=== PATIENT | female | born 1940 | race Caucasian/White ===

== ENCOUNTER 2017-02-17 07:16 | Day surgery (SDC) | payer MEDICARE, OTHER ==
[~2017-02-17 07:16] MED LIST: BENADRYL 25 MG CAPSULE PO ONE; Sodium Chloride 0.9% 500 ML 500 ML IV ONE; TYLENOL 325 MG PO ONE
[2017-02-17 15:25] VITALS: BP 151/69; PULSE 91; O2SAT 97
== END 2017-02-17 11:00 | disposition still patient (30) ==
LOC: SDC 07:16
PROVIDERS: ATTEND Internal Medicine Hematology & Oncology
DX: D50.9 Iron deficiency anemia, unspecified (principal); K74.60 Unspecified cirrhosis of liver; M62.81 Muscle weakness (generalized); D70.9 Neutropenia, unspecified; D69.6 Thrombocytopenia, unspecified; Z79.899 Other long term (current) drug therapy
CPT/HCPCS: 96365; 96366; 36415; 86850; 86900; 86901; 86922; P9016; 36430; A9270-GY

== ENCOUNTER 2017-02-17 11:01 | Inpatient (IN) | payer MEDICARE, OTHER ==
[2017-02-17] MEDS ORDERED: Phenergan 25 MG INJ IV ONE (11:17)
--- NOTE | 2017-02-17 11:25 | ERPHSYRPT ---
- History of Present Illness Time Seen by Provider: 02/17/17 11:05 Historian: patient Exam Limitations: no limitations Patient Subjective Stated Complaint: PT C/O SHARP ABD PAIN ALL QUADS WITH BACK PAIN ON BOTH SIDES. PT STATES "BACK PAIN FROM UNDER MY BRA STRAP DOWN TO MY BUTTOCKS." C/O NAUSEA NO VOMITING, HEADACHES COME AND GO. Triage Nursing Assessment: PT ALERT X 3. SKIN PINK WARM AND DRY. RESPIRATIONS EVEN AND UNLABORED. BOWEL SOUNDS PRESENT, ABD SOFT, NON-TENDER WITH PALIPATION. Physician History: FOR THE PAST 9 HOURS PT HAS HAD SHARP CONSTANT DIFFUSE ABDOMINAL PAIN, GENERALIZED WEAKNESS AND LOWER BACK PAIN. PT HAS ALSO HAD NAUSEA SINCE YESTERDAY. LAST BM WAS YESTERDAY & WNL. PT ALSO ADMITS TO OCCASIONAL HEADACHES. PT RECEIVED 1 UNIT OF PRBC THIS AM FOR LOW HB AND DURING THE TRANSFUSION STATED HER ABDOMINAL PAIN WORSENED. PT DENIES CHEST PAIN, VOMITING, FEVER. Allergies/Adverse Reactions: adhesive tape Allergy (Intermediate, Verified 02/17/17 11:18) latex Allergy (Mild, Verified 02/17/17 11:18) Rash Sulfa (Sulfonamide Antibiotics) Allergy (Unknown, Verified 02/17/17 11:18) Home Medications: Antiox #8/Om3/Dha/Epa/Lut/Zeax [Preservision Areds 2 Softgel] 1 cap PO BID 06/14 [History] Metformin HCl 1000 mg [Glucophage 1000 MG] 1,000 mg PO BID 06/14/12 [History] Omeprazole 20 MG [Prilosec 20 mg] 20 mg PO BID 06/14/12 [History] Hctz/Triamterene 75/50 mg [Maxzide 75/50] 1 tab PO DAILY 01/03/14 [History] Dorzolamide HCl/Timolol Maleat [Cosopt Eye Drops] 1 drop OP DAILY 02/16/17 [ History] Hx Influenza Vaccination/Date Given: Yes (2015) Hx Pneumococcal Vaccination/Date Given: Yes (2015) Immunizations Up to Date: Yes - Review of Systems Constitutional: Weakness (GENERALIZED), No Fever Respiratory: No Dyspnea Cardiac: No Chest Pain Abdominal/Gastrointestinal: Abdominal Pain, Nausea, No Vomiting, No Diarrhea Musculoskeletal: Back Pain (LOWER) Neurological: Headache (OCCASIONAL) Endocrine: No Excessive Sweating All Other Systems: Reviewed and Negative - Past Medical History Pertinent Past Medical History: Yes Neurological History: No Pertinent History ENT History: Glaucoma, Macular Degeneration Cardiac History: Hypertension Respiratory History: No Pertinent History Endocrine Medical History: Diabetes Type II Musculoskeletal History: Other GI Medical History: GERD, Other History: Other Psycho-Social History: No Pertinent History Female Reproductive Disorders: No Pertinent History Other Medical History: BILATERAL TKA; ~1990; HX KIDNEY STONES. psorisis. neutropenia. thrombocytopenia - Past Surgical History Past Surgical History: Yes Neuro Surgical History: No Pertinent History Cardiac: No Pertinent History Respiratory: No Pertinent History Gastrointestinal: Appendectomy, Cholecystectomy, Hernia Repair Genitourinary: Other Musculoskeletal: Joint Replacement Female Surgical History: Hysterectomy Other Surgical History: 2 kidney stones removed - Social History Smoking Status: Never smoker Exposure to second hand smoke: No Drug Use: none Patient Lives Alone: No - Nursing Vital Signs Nursing Vital Signs: Initial Vital Signs Temperature 97.8 F Temperature Source Oral Pulse Rate 95 Respiratory Rate 18 Blood Pressure [] 187/86 Pain Intensity 7 - Physical Exam General Appearance: alert Eye Exam: PERRL/EOMI Ears, Nose, Throat Exam: dry mucous membranes, pharyngeal erythema Neck Exam: normal inspection Respiratory Exam: lungs clear Cardiovascular Exam: normal heart sounds Gastrointestinal/Abdomen Exam: soft, normal bowel sounds Back Exam: normal range of motion Extremity Exam: normal inspection, No pedal edema Neurologic Exam: alert, cooperative Skin Exam: warm, dry - Course Nursing assessment & vital signs reviewed: Yes - CT Exams Abdomen/Pelvis CT Interpretation: Discussed w/radiologist (SEE REPORT) Ordered Tests: Active Orders 24 hr Category Date Time Status Clean Catch Urine Specimen STAT Care 02/17/17 11:17 Active IV Insertion STAT Care 02/17/17 11:17 Active ABDOMEN AND PELVIS W/0 CONTRAS [CT] Stat Exams 02/17/17 11:18 Completed AMYLASE Stat Lab 02/17/17 11:30 Completed CBC W DIFF Stat Lab 02/17/17 11:30 Completed CMP Stat Lab 02/17/17 11:30 Completed LIPASE Stat Lab 02/17/17 11:30 Completed MAG [MAGNESIUM] Stat Lab 02/17/17 11:30 Completed Manual Differential NC Stat Lab 02/17/17 11:30 Completed UA W/RFX UR CULTURE Stat Lab 02/17/17 11:30 Completed Medication Summary Generic Name Dose Route Start Last Admin Trade Name Freq PRN Reason Stop Dose Admin Sodium Chloride 1,000 mls @ 200 mls/hr 02/17/17 11:30 02/17/17 11:30 Sodium Chloride 0.9% 1000 Ml IV 03/19/17 11:29 200 mls/hr .Q5H VERNON Administration Magnesium Sulfate/Dextrose 100 mls @ 200 mls/hr 02/17/17 12:47 02/17/17 12:54 Magnesium 1 Gm / 100 Ml D5w IV 02/17/17 13:16 200 mls/hr STAT ONE Administration Potassium Chloride/Sodium Chloride 1,000 mls @ 500 mls/hr 02/17/17 13:00 Sodium Chloride 0.9% W/ 20 Meq Kcl/Liter IV 03/19/17 12:59 .Q2H VERNON Discontinued Medications Generic Name Dose Route Start Last Admin Trade Name Freq PRN Reason Stop Dose Admin Magnesium Sulfate/Dextrose Confirm 02/17/17 12:54 Magnesium 1 Gm / 100 Ml D5w Administered 02/17/17 12:55 Dose 100 mls @ ud IV .STK-MED ONE Promethazine HCl 12.5 mg 02/17/17 11:17 02/17/17 11:29 Phenergan 25 Mg Inj IV 02/17/17 11:18 12.5 mg STAT ONE Administration Lab/Rad Data: Laboratory Result Diagrams 02/17/17 11:30 02/17/17 11:30 Laboratory Results 02/17/17 02/17/17 02/17/17 Range/Units 11:30 11:30 11:30 WBC (4.0-10.5) K/mm3 RBC (4.1-5.4) M/mm3 Hgb (12.0-16.0) gm/dl Hct (35-47) % MCV (78-100) fl MCH (26-32) pg MCHC (32-36) g/dl RDW (11.5-14.0) % Plt Count (150-450) K/mm3 MPV (6-9.5) fl Sodium 144 (136-145) mEq/L Potassium 3.4 L (3.5-5.1) mEq/L Chloride 111 H (98-107) mEq/L Carbon Dioxide 24.0 (21-32) mEq/L Anion Gap 12.2 (5-15) MEQ/L BUN 11 (9-20) mg/dL Creatinine 0.85 (0.55-1.30) mg/dl Estimated GFR > 60 ML/MIN Glucose 133 H (70-110) MG/DL Calcium 9.4 (8.5-10.1) mg/dL Magnesium 1.6 L (1.8-2.4) mg/dL Total Bilirubin 1.20 H (0.2-1.0) mg/dL AST 38 H (15-37) U/L ALT 22 (12-78) U/L Alkaline Phosphatase 67 (46-116) U/L Serum Total Protein 6.3 L (6.4-8.2) gm/dL Albumin 3.1 L (3.4-5.0) g/dL Amylase 37 (25-115) U/L Lipase 293 (73-393) U/L Ur Collection Type VOID Urine Color YELLOW (YELLOW) Urine Appearance CLEAR (CLEAR) Urine pH 6.0 (5-6) Ur Specific [place] 1.010 (1.005-1.025) Urine Protein NEGATIVE (Negative) Urine Ketones NEGATIVE (NEGATIVE) Urine Blood NEGATIVE (0-5) Eric/ul Urine Nitrite NEGATIVE (NEGATIVE) Urine Bilirubin NEGATIVE (NEGATIVE) Urine Urobilinogen NORMAL (0-1) mg/dL Ur Leukocyte Esterase NEGATIVE (NEGATIVE) Urine Glucose NEGATIVE (NEGATIVE) mg/dL Specimen Received 02/17/17 1125 02/17/17 Range/Units 11:30 WBC 2.4 L (4.0-10.5) K/mm3 RBC 3.57 L (4.1-5.4) M/mm3 Hgb 8.4 L (12.0-16.0) gm/dl Hct 27.8 L (35-47) % MCV 77.9 L (78-100) fl MCH 23.5 L (26-32) pg MCHC 30.2 L (32-36) g/dl RDW 18.3 H (11.5-14.0) % Plt Count 74 L (150-450) K/mm3 MPV 10.8 H (6-9.5) fl Sodium (136-145) mEq/L Potassium (3.5-5.1) mEq/L Chloride (98-107) mEq/L Carbon Dioxide (21-32) mEq/L Anion Gap (5-15) MEQ/L BUN (9-20) mg/dL Creatinine (0.55-1.30) mg/dl Estimated GFR ML/MIN Glucose (70-110) MG/DL Calcium (8.5-10.1) mg/dL Magnesium (1.8-2.4) mg/dL Total Bilirubin (0.2-1.0) mg/dL AST (15-37) U/L ALT (12-78) U/L Alkaline Phosphatase (46-116) U/L Serum Total Protein (6.4-8.2) gm/dL Albumin (3.4-5.0) g/dL Amylase (25-115) U/L Lipase (73-393) U/L Ur Collection Type Urine Color (YELLOW) Urine Appearance (CLEAR) Urine pH (5-6) Ur Specific [place] (1.005-1.025) Urine Protein (Negative) Urine Ketones (NEGATIVE) Urine Blood (0-5) Eric/ul Urine Nitrite (NEGATIVE) Urine Bilirubin (NEGATIVE) Urine Urobilinogen (0-1) mg/dL Ur Leukocyte Esterase (NEGATIVE) Urine Glucose (NEGATIVE) mg/dL Specimen Received - Progress Discussed with : Jolly (OBS - [id number]) - Departure Time of Disposition: 13:09 Departure Disposition: Observation Clinical Impression: ABDOMINAL PAIN, ANEMIA, HYPOMAGNESEMIA, HYPOKALEMIA, DM, HTN, CIRRHOSIS, GERD Condition: Stable Critical Care Time: No Referrals: SEKOU SHANKS MD [Primary Care Provider] -
[2017-02-17] MEDS ORDERED: Sodium Chloride 0.9% 1000 ML 1,000 ML IV SCH (11:30)
[2017-02-17 11:34] LABS: ADD URINE CULTURE? NO (NO); Bilirubin NEGATIVE (NEGATIVE); Blood NEGATIVE Ery/ul (0-5); COMPLETE URINE MICROSCOPIC? NO; Collection Type VOID; Glucose NEGATIVE (NEGATIVE); Leukocyte Esterase NEGATIVE (NEGATIVE)
[2017-02-17 11:36] LABS: Mean Cell Volume 77.9 fl (78-100); Mean Corpuscular Hemoglobin 23.5 pg (26-32); Mean Platelet Volume 10.8 fl (6-9.5); Platelet Count 74 K/mm3 (150-450); Red Blood Count 3.57 M/mm3 (4.1-5.4); Red Cell Distribution Width 18.3 % (11.5-14.0); White Blood Count 2.4 K/mm3 (4.0-10.5)
[2017-02-17 11:56] LABS: ALBUMIN 3.1 g/dL (3.4-5.0); ALKALINE PHOSPHATASE 67 U/L (46-116); ANION GAP 12.2 MEQ/L (5-15); BLOOD UREA NITROGEN 11 mg/dL (9-20); CHLORIDE 111 mEq/L (98-107); Glucose 133 MG/DL (70-110); LIPASE 293 U/L (73-393); Potassium 3.4 mEq/L (3.5-5.1); SGOT/AST 38 U/L (15-37); SGPT/ALT 22 U/L (12-78); SODIUM 144 mEq/L (136-145); Total Protein 6.3 gm/dL (6.4-8.2)
--- NOTE | 2017-02-17 12:21 | XRAY ---
Indication: Abdominal and bilateral flank pain. Multiple contiguous axial images obtained through the abdomen and pelvis without contrast as ordered. Comparison: September 15, 2016. Lung bases again demonstrates fibrosis/scarring. No infiltrate or effusion. Small medial right lower lobe and distal paraesophageal calcified granulomas. Heart is not enlarged. Noncontrasted stomach and bowel loops appear nonobstructed. Again scattered sigmoid diverticulosis. Appendix not seen. Stable cirrhotic appearing liver with new mesenteric congestion and new small perihepatic and tiny pelvic ascites. No free air. Right lobe of the liver demonstrates stable peripheral round hypodense lesion. Spleen remains enlarged today measuring 13.8 cm. Stable portal/splenic vein enlargement again favoring portal hypertension. Stable hepatic/splenic calcified granulomas, splenic cyst, and left upper pole exophytic cyst. Again previous cholecystectomy and hysterectomy. Remaining pancreas, adrenal glands, kidneys, ureters, and bladder appear unremarkable for noncontrast exam. There remains mild aortoiliac calcifications without AAA. Osseous structures again demonstrates osteopenia and multilevel spinal degenerative changes. Impression: 1. Again cirrhotic liver with features for portal hypertension including splenomegaly. New mesenteric congestion with tiny perihepatic and pelvic ascites. 2. Stable round hepatic hypodense lesion, again cyst versus hemangioma. 3. Stable colonic diverticulosis, splenic cyst, left renal cyst, and evidence for old granulomatous disease. CTDI 23.68
[2017-02-17] MEDS ORDERED: Magnesium 1 Gm / 100 Ml D5W*** 100 ML IV ONE ×2 (12:47→12:54)
[2017-02-17] MEDS ORDERED: Sodium Chloride 0.9% W/ 20 mEq KCl/LITER 1,000 ML IV SCH (13:00)
[2017-02-17 13:29] LABS: BAND 3 % (0.0-2.0); Eosinophil 1 % (0.00-3.0); Total Cells Counted 100
[2017-02-17 13:38] LABS: ANISOCYTOSIS 1+; Platelet Estimate DECREASED (NORMAL); Polychromasia 1+
[2017-02-17 13:39] LABS: Hypochromia 2+; Microcytosis 1+
[2017-02-17] MEDS ORDERED: Phenergan 25 MG INJ IV PRN (13:44)
[2017-02-17] MEDS ORDERED: DILAUDID 2 MG INJECTION IV PRN (13:44)
[2017-02-17 14:48] LABS: Lactic Acid 2.6 (0.4-2.0)
[2017-02-17] MEDS ORDERED: APRESOLINE 20 MG/ML INJ IV ONE (16:10)
[2017-02-17] MEDS ORDERED: Zestril 20 MG PO ONE (16:30)
[2017-02-17] MEDS: PROTONIX 40 MG IV IV SCH (16:46)
[2017-02-17] MEDS: Sodium Chloride 0.9% W/ 20 mEq KCl/LITER 1,000 ML IV SCH (17:43)
[2017-02-17] MEDS: Zosyn 3.375GM/100 Ml D5W 3.375 GM/100 ML IVPB IV SCH (18:07)
--- NOTE | 2017-02-17 19:06 | PCM.HP ---
History of Present Illness - Chief Complaint Chief Complaint: ABD PAIN, ANEMIA History of Present Illness: is a 77 year old female with pancytopenia, pt of Dr. Way, admitted through the ER wtih abd pain today. She was at iron infustion yesterday then found to have Hgb between 7 and 8. She came this morning for blood transfusion of 2 units PRBC and was complaining to staff of abd pain. It started at 2 am at the lower abd radiating up to the epigastrum and in the back started at the lower back and radiated up to just below the shoulder blades. 06/09 pain. She took an aleve with minimal improvement. In the ER the CT abd/pelvis without contrast was neg for acute etiology. She was admitted for further observation; ER doctor offered to transfer to but pt preferred to stay here. Pt continued to c/o 02/07 abd pain and I ordered CT abd/pelvis with IV contrast; has not been done yet. Her BP was 201 systolic initially. Currently 188 systolic. She denies pain currently; just received dilaudid 0.5mg IV recently. - Review of Systems Cardiac: Edema (LLE) Abdominal/Gastrointestinal: Abdominal Pain, Nausea All Other Systems: Reviewed and Negative Medications & Allergies Home Medications: Home Medication List Antiox #8/Om3/Dha/Epa/Lut/Zeax [Preservision Areds 2 Softgel] 1 cap PO BID 06/14 [History Confirmed 02/17/17] Metformin HCl 1000 mg [Glucophage 1000 MG] 1,000 mg PO BID 06/14/12 [History Confirmed 02/17/17] Omeprazole 20 MG [Prilosec 20 mg] 20 mg PO BID 06/14/12 [History Confirmed 02/17] Dorzolamide HCl/Timolol Maleat [Cosopt Eye Drops] 1 drop OP DAILY 02/16/17 [ History Confirmed 02/17/17] Lisinopril [Zestril] 40 mg PO DAILY 02/17/17 [History Confirmed 02/17/17] Allergies/Adverse Reactions: Allergies Allergy/AdvReac Type Severity Reaction Status Date / Time adhesive tape Allergy Intermediate Verified 02/17/17 11:18 latex Allergy Mild Rash Verified 02/17/17 11:18 Sulfa (Sulfonamide Allergy Unknown Verified 02/17/17 11:18 Antibiotics) - Past Medical History Past Medical History: Yes Neurological History: No Pertinent History ENT History: Glaucoma, Macular Degeneration Cardiac History: Hypertension Respiratory History: No Pertinent History Endocrine Medical History: Diabetes Type II Musculoskelatal History: Other GI Medical History: GERD, Other History: Other Pyscho-Social History: No Pertinent History Reproductive Disorders: No Pertinent History Comment: BILATERAL TKA; ~, 1990; HX KIDNEY STONES. psorisis. neutropenia. thrombocytopenia - Female History Are you now?: No - Past Surgical History Past Surgical History: Yes Neuro Surgical History: No Pertinent History Cardiac History: No Pertinent History Respiratory Surgery: No Pertinent History GI Surgical History: Appendectomy, Cholecystectomy, Hernia Repair Genitourinary Surgical Hx: Other Musculskeletal Surgical Hx: Joint Replacement Female Surgical History: Hysterectomy Other Surgical History: 2 kidney stones removed - Social History Smoking Status: Never smoker Exposure to second hand smoke: No Alcohol: None Drug Use: none - Physical Exam Vital Signs: Vital Signs - 24 hr Temp Pulse Resp BP Pulse Ox 02/17/17 17:48 96 02/17/17 16:20 98.7 F 91 H 18 209/84 96 02/17/17 16:00 18 02/17/17 13:52 99 F 92 H 18 178/79 96 02/17/17 13:44 96 02/17/17 13:15 95 H 16 187/65 02/17/17 12:50 187/86 97 02/17/17 12:09 95 H 18 180/74 93 L 02/17/17 11:02 97.8 F 68 20 174/85 General Appearance: no apparent distress, obese Neurologic Exam: alert, oriented x 3, cooperative Eye Exam: eyes nml inspection Neck Exam: normal inspection, non-tender, No lymphadenopathy Respiratory Exam: normal breath sounds, lungs clear, No crackles/rales, No rhonchi, No wheezing Cardiovascular Exam: normal heart sounds, tachycardia (reg rhythm; HR 104), No murmur Gastrointestinal/Abdomen Exam: soft, tenderness (very mild ttp LLQ/RLQ), other ( hypoactive bowel sounds), No distention, No mass, No guarding, No rebound Extremity Exam: No pedal edema, No swelling Skin Exam: normal color, warm, dry Results - Labs Lab/Micro Results: Accuchecks Date 02/17/17 Time 16:33 Accucheck Value: 120 Lab Results-Last 24 Hours 06/20/17 06/20/17 Range/Units 14:32 17:10 Lactic Acid 2.6 H 2.8 H (0.4-2.0) Accuchecks Date 02/17/17 Time 16:33 Accucheck Value: 120 - Radiology Impressions Radiology Exams & Impressions: Radiology Procedures Category Date Time Status ABDOMEN AND PELVIS W CONTRAST [CT] Stat Exams 02/17/17 18:00 Stop Req ABDOMEN AND PELVIS W CONTRAST [CT] Stat Exams 02/17/17 18:15 Ordered ABDOMEN AND PELVIS W CONTRAST [CT] Stat Exams 02/17/17 18:15 Stop Req CHEST 2 VIEWS (PA AND LAT) Stat Exams 02/17/17 18:00 Ordered Assessment/Plan (1) Abdominal pain Current Visit: No Status: Acute Qualifiers: Abdominal location: generalized Qualified Code(s): R10.84 - Generalized abdominal pain Assessment & Plan: will check troponin. lactate has been slowly rising. My main concern is ischemic bowel disease; CT abd/pelvis with IV contrast ordered stat. On IV zosyn and flagyl. Code(s): R10.9 - UNSPECIFIED ABDOMINAL PAIN (2) Pancytopenia Current Visit: Yes Status: Acute Assessment & Plan: on reverse isolation. recheck labs in a.m. Sees Dr. Doherty; I'm unsure the etiology of this. Code(s): D61.818 - OTHER PANCYTOPENIA (3) Anemia Current Visit: Yes Status: Acute Qualifiers: Anemia type: iron deficiency Iron deficiency anemia type: unspecified iron deficiency Qualified Code(s): D50.9 - Iron deficiency anemia, unspecified Assessment & Plan: post 2 units PRBC; H&H pending. Code(s): D64.9 - ANEMIA, UNSPECIFIED (4) HTN (hypertension) Current Visit: Yes Status: Acute Qualifiers: Hypertension type: essential hypertension Qualified Code(s): I10 - Essential (primary) hypertension Assessment & Plan: gave today's dose of lisinopril here (although pt thinks she took it at home) and start po norvasc today. hydralazine prn. Code(s): I10 - ESSENTIAL (PRIMARY) HYPERTENSION
[2017-02-17] MEDS ORDERED: NORVASC 5 MG PO ONE (19:07)
[2017-02-17 19:43] LABS: ALBUMIN 3.3 g/dL (3.4-5.0); ALKALINE PHOSPHATASE 70 U/L (46-116); ANION GAP 18.2 MEQ/L (5-15); BLOOD UREA NITROGEN 9 mg/dL (9-20); CHLORIDE 110 mEq/L (98-107); Carbon Dioxide 20.4 mEq/L (21-32); Glucose 201 MG/DL (70-110); MAGNESIUM 1.6 mg/dL (1.8-2.4); Potassium 3.5 mEq/L (3.5-5.1); SGOT/AST 47 U/L (15-37); SGPT/ALT 25 U/L (12-78); SODIUM 145 mEq/L (136-145); Total Protein 6.7 gm/dL (6.4-8.2)
[2017-02-17] MEDS ORDERED: HOLD METFORMIN PRODUCTS FOR 48 HOURS MC SCH (20:00)
[2017-02-17] MEDS: FLAGYL 500 MG IVPB 500 MG/100 ML BAG IV SCH (20:30)
[2017-02-17] MEDS: NovoLOG Insulin SQ PRN (20:30)
[2017-02-17 20:33] LABS: Mean Cell Volume 78.5 fl (78-100); Platelet Count 76 K/mm3 (150-450); Red Blood Count 4.05 M/mm3 (4.1-5.4); Red Cell Distribution Width 18.5 % (11.5-14.0); White Blood Count 2.6 K/mm3 (4.0-10.5)
[2017-02-17 20:38] LABS: Mean Corpuscular Hemoglobin 23.9 pg (26-32)
[2017-02-17 23:06] LABS: BAND 4 % (0.0-2.0); Eosinophil 6 % (0.00-3.0); Total Cells Counted 100
[2017-02-17 23:08] LABS: ANISOCYTOSIS 1+; Platelet Estimate DECREASED (NORMAL); Polychromasia 1+
[2017-02-18] MEDS: FLAGYL 500 MG IVPB 500 MG/100 ML BAG IV SCH ×5 (00:39→23:21)
[2017-02-18] MEDS ORDERED: Zosyn 3.375GM/100 Ml D5W 3.375 GM/100 ML IVPB IV ONE (06:19)
[2017-02-18] MEDS: Sodium Chloride 0.9% W/ 20 mEq KCl/LITER 1,000 ML IV SCH (06:23)
[2017-02-18] MEDS: Zosyn 3.375GM/100 Ml D5W 3.375 GM/100 ML IVPB IV SCH ×4 (06:24→17:41)
[2017-02-18] MEDS: TYLENOL 325 MG PO PRN ×3 (06:34→23:21)
--- NOTE | 2017-02-18 07:42 | PCM.NOTE ---
Date and Time: 02/18/17 0740 Subjective Assessment: patient denies any pain in the abdomen or back today, tolerating clears. overall feels better Objective Exam General Appearance: no apparent distress, alert Respiratory Exam: normal breath sounds, lungs clear, No respiratory distress Cardiovascular Exam: regular rate/rhythm, normal heart sounds Gastrointestinal/Abdomen Exam: soft, No tenderness Extremity Exam: normal inspection, normal range of motion OBJECTIVE DATA Vital Signs: Vital Signs - 24 hr Temp Pulse Resp BP Pulse Ox 02/18/17 07:32 98 F 95 H 20 150/69 94 L 02/18/17 04:00 98.3 F 97 H 19 148/69 96 02/18/17 03:49 14 02/17/17 23:47 14 02/17/17 23:46 98.4 F 95 H 14 165/75 95 02/17/17 20:00 98.3 F 104 H 19 183/82 93 L 02/17/17 17:48 96 02/17/17 16:20 98.7 F 91 H 18 209/84 96 02/17/17 16:00 18 02/17/17 13:52 99 F 92 H 18 178/79 96 02/17/17 13:44 96 02/17/17 13:15 95 H 16 187/65 02/17/17 12:50 187/86 97 02/17/17 12:09 95 H 18 180/74 93 L 02/17/17 11:02 97.8 F 68 20 174/85 Pain Assessment - Last Documented Pain Intensity 4 Pain Scale Used 0-10 Pain Scale Intake and Output: Intake & Output 02/15/17 02/16/17 02/17/17 02/18/17 11:59 11:59 11:59 11:59 Intake Total 3133 Output Total 1400 Balance 1733 Weight 85.956 kg Lab Results: Accuchecks Date 02/18/17 Date 02/18/17 Date 02/17/17 Date 02/17/17 Time 04:00 Time 00:05 Time 20:00 Time 16:33 Accucheck Value: 121 Accucheck Value: 118 Accucheck Value: 204 Accucheck Value: 120 Lab Results-Last 24 Hours 02/17/17 02/17/17 02/17/17 Range/Units 14:32 17:10 18:30 WBC 2.6 L (4.0-10.5) K/mm3 RBC 4.05 L (4.1-5.4) M/mm3 Hgb 9.7 L (12.0-16.0) gm/dl Hct 31.8 L (35-47) % MCV 78.5 (78-100) fl MCH 23.9 L (26-32) pg MCHC 30.5 L (32-36) g/dl RDW 18.5 H (11.5-14.0) % Plt Count 76 L (150-450) K/mm3 Segmented Neutrophils 62 (36.0-66.0) % Band Neutrophils 4 H (0.0-2.0) % Lymphocytes (Manual) 20 L (24-44) % Monocytes (Manual) 8 (0.0-12.0) % Eosinophils (Manual) 6 H (0.00-3.0) % Differential Comment ABNORMAL Platelet Estimate DECREASED (NORMAL) Polychromasia 1+ Anisocytosis 1+ Smear Path Review Pending Sodium (136-145) mEq/L Potassium (3.5-5.1) mEq/L Chloride (98-107) mEq/L Carbon Dioxide (21-32) mEq/L Anion Gap (5-15) MEQ/L BUN (9-20) mg/dL Creatinine (0.55-1.30) mg/dl Estimated GFR ML/MIN Glucose (70-110) MG/DL Lactic Acid 2.6 H 2.8 H (0.4-2.0) Calcium (8.5-10.1) mg/dL Magnesium (1.8-2.4) mg/dL Total Bilirubin (0.2-1.0) mg/dL AST (15-37) U/L ALT (12-78) U/L Alkaline Phosphatase (46-116) U/L Serum Total Protein (6.4-8.2) gm/dL Albumin (3.4-5.0) g/dL 02/17/17 02/17/17 02/17/17 Range/Units 18:45 18:45 20:41 WBC (4.0-10.5) K/mm3 RBC (4.1-5.4) M/mm3 Hgb 9.8 L (12.0-16.0) gm/dl Hct 31.9 L (35-47) % MCV (78-100) fl MCH (26-32) pg MCHC (32-36) g/dl RDW (11.5-14.0) % Plt Count (150-450) K/mm3 Segmented Neutrophils (36.0-66.0) % Band Neutrophils (0.0-2.0) % Lymphocytes (Manual) (24-44) % Monocytes (Manual) (0.0-12.0) % Eosinophils (Manual) (0.00-3.0) % Differential Comment Platelet Estimate (NORMAL) Polychromasia Anisocytosis Smear Path Review Sodium 145 (136-145) mEq/L Potassium 3.5 (3.5-5.1) mEq/L Chloride 110 H (98-107) mEq/L Carbon Dioxide 20.4 L (21-32) mEq/L Anion Gap 18.2 H (5-15) MEQ/L BUN 9 (9-20) mg/dL Creatinine 0.90 (0.55-1.30) mg/dl Estimated GFR > 60 ML/MIN Glucose 201 H (70-110) MG/DL Lactic Acid 2.5 H (0.4-2.0) Calcium 9.2 (8.5-10.1) mg/dL Magnesium 1.6 L (1.8-2.4) mg/dL Total Bilirubin 1.90 H (0.2-1.0) mg/dL AST 47 H (15-37) U/L ALT 25 (12-78) U/L Alkaline Phosphatase 70 (46-116) U/L Serum Total Protein 6.7 (6.4-8.2) gm/dL Albumin 3.3 L (3.4-5.0) g/dL Radiology Exams: Radiology Procedures Category Date Time Status ABDOMEN AND PELVIS W CONTRAST [CT] Stat Exams 02/17/17 18:15 Taken CHEST 2 VIEWS (PA AND LAT) Stat Exams 02/17/17 18:00 Taken Multi-Disciplinary Progress Notes: Multi-Disciplinary Progress Notes 02/17/17 17:49 Respiratory Note by Tanya Huerta continuous pulse oximeter not set up will do pulse oximeter with vitals Initialized on 02/17/17 17:49 - END OF NOTE Assessment/Plan (1) Cirrhosis Current Visit: Yes Status: Acute Assessment & Plan: stable, will likely need GI appt after discharge but this is the likely cause of her pancytopenia (2) Abdominal pain Current Visit: No Status: Acute Qualifiers: Abdominal location: generalized Qualified Code(s): R10.84 - Generalized abdominal pain Assessment & Plan: resolved, nothing acute on CT scan. will feed regular diet and make sure no further problems Code(s): R10.9 - UNSPECIFIED ABDOMINAL PAIN (3) Pancytopenia Current Visit: Yes Status: Acute Code(s): D61.818 - OTHER PANCYTOPENIA
[2017-02-18] MEDS: PROTONIX 40 MG IV IV SCH (09:16)
[2017-02-18] MEDS: Zestril 20 MG PO SCH (09:17)
[2017-02-18] MEDS: PATIENT OWN MEDICATION OP SCH (09:17)
--- NOTE | 2017-02-18 09:21 | XRAY ---
Exam: Two-view chest from 02/17/2017. Comparison: Frontal chest film from 05/09/2006. Indication: Productive cough. Findings: Upright PA and lateral chest films were obtained. The transverse heart size is normal. Mild atherosclerotic vascular calcification is seen within the aortic knob. The remainder of the ida and mediastinal structures is unremarkable. The pulmonary vessels are not congested. No air space infiltrates to suggest focal pneumonia are seen. No pneumothorax or pleural fluid is evident. There is significant bone demineralization with upper mid dorsal kyphosis. Degenerative changes are seen throughout the thoracic spine. Some surgical clips are seen within the upper abdomen on the lateral radiograph, perhaps due to prior cholecystectomy. Impression: 1. No new air space infiltrates to suggest focal pneumonia are seen. 2. No other acute cardiopulmonary process is radiographically evident. The findings appears similar to 05/09/2006.
[2017-02-18] MEDS ORDERED: TRIAMTERENE PO SCH (10:00)
[2017-02-18] MEDS ORDERED: Maxzide-25MG Tablet PO SCH (10:00)
[2017-02-18] MEDS ORDERED: NON-FORMULARY ITEM (Lisinopril [Zestril] 40 MG) PO SCH (10:00)
[2017-02-18] MEDS ORDERED: HCTZ PO SCH (10:00)
--- NOTE | 2017-02-18 10:06 | XRAY ---
Exam: CT of the abdomen and pelvis with IV contrast from 02/17/2017. CTDI: 28.00 Comparison: CT of the abdomen and pelvis without IV contrast from earlier in the day on 02/17/2017. Indication: Diffuse abdominal pain 1 day associated with nausea. The patient has a history of prior cholecystectomy, appendectomy, and hysterectomy as well as a ventral hernia repair. Technique: Post-IV contrast axial images were obtained through the abdomen and pelvis during automated injection of 80 cc of Isovue-370 IV contrast material. Reconstructed coronal and sagittal images were created and reviewed. No oral contrast was given. Findings: Minimal linear atelectasis versus scarring is seen at both posterior lung bases. A calcified granuloma is seen at the posterior medial right lung base and within the distal right paraesophageal projection. Minimal atelectasis/scarring is seen at the anterior left lung base. The transverse heart size appears towards the upper limits of normal. The liver appears relatively small and reveals an abnormal surface contour suggestive of cirrhosis. No intrahepatic biliary duct distention is seen. There is a small 1 cm in diameter hypoattenuated lesion within the upper portion of the right lobe of the liver on axial images #15 and #16. It is likely this represents a small hepatic cyst or hemangioma. The former is favored. A small amount of perihepatic ascites is seen. Surgical clips consistent with prior cholecystectomy are noted. The spleen is enlarged measuring 16.6 cm in craniocaudal dimension on coronal image #73. Some scattered calcified splenic granulomas are seen. There is a thin-walled 2.4 cm in diameter apparent cyst within the upper lateral portion of the spleen representing no change. The portal vein and splenic vessels appear prominent. I see some mild collateral vessels which extend to the periumbilical region suggesting a caput medusa. A small amount of ascites fluid is seen within the left paracolic cutter. No free intraperitoneal air is seen. The pancreas and adrenal glands appear unremarkable. The kidneys appear towards the lower limits of normal in size, but reveals no suspicious solid mass, calculi, or hydronephrosis. Atherosclerotic vascular calcification is seen within the abdominal aorta and iliac arteries. No abdominal aortic aneurysm is seen. Some small nonspecific periaortic lymph nodes are seen. No pathological retroperitoneal lymphadenopathy is evident. I see no free intraperitoneal air. There is a suggestion of some mild mesenteric edema. The anterior abdominal wall appears flaccid, but intact. Within the pelvis, the uterus is surgically absent. The appendix is not identified as well, and I am given a history of prior appendectomy. There is some minimal sigmoid colon diverticulosis without evidence of diverticulitis. Mild scattered stool is seen throughout the colon. Pelvic lymph nodes are not enlarged. A small amount of pelvic ascites is seen. The urinary bladder is only mildly distended, but it otherwise appears unremarkable. The skeleton reveals no fracture or other aggressive bone lesion. Mild scattered degenerative changes are seen throughout the visualized thoracolumbar spine. Impression: 1. The liver appears small and displays an irregular contour consistent with cirrhosis. The spleen is enlarged. There also appears to be evidence of some portal venous hypertension and mesenteric edema. Some collateral vessels are seen within the anterior abdomen extending to the umbilicus suggestive of a caput medusa. A small amount of scattered ascites, as described above, is seen as well. 2. Probable 1 cm cyst within the upper portion of right lobe of liver. There is also a 3 cm splenic cyst. 3. Minimal sigmoid colon diverticulosis without evidence of diverticulitis. 4. Status post cholecystectomy, appendectomy, and hysterectomy. 5. No other acute process is seen within the abdomen or pelvis.
[2017-02-18] MEDS: NovoLOG Insulin SQ PRN ×2 (11:56→21:09)
[2017-02-18] MEDS ORDERED: FLAGYL 500 MG IVPB 500 MG/100 ML BAG IV SCH (20:00)
[2017-02-19] MEDS: Zosyn 3.375GM/100 Ml D5W 3.375 GM/100 ML IVPB IV SCH ×4 (00:36→18:01)
[2017-02-19] MEDS: Sodium Chloride 0.9% W/ 20 mEq KCl/LITER 1,000 ML IV SCH (03:27)
[2017-02-19] MEDS: FLAGYL 500 MG IVPB 500 MG/100 ML BAG IV SCH ×4 (05:14→23:30)
[2017-02-19] MEDS: TYLENOL 325 MG PO PRN ×2 (05:26→17:00)
[2017-02-19 05:35] LABS: Mean Cell Volume 79.1 fl (78-100); Platelet Count 72 K/mm3 (150-450); Red Blood Count 3.83 M/mm3 (4.1-5.4); Red Cell Distribution Width 19.4 % (11.5-14.0); White Blood Count 2.9 K/mm3 (4.0-10.5)
[2017-02-19 06:06] LABS: Mean Corpuscular Hemoglobin 23.7 pg (26-32)
[2017-02-19 06:18] LABS: ALBUMIN 2.9 g/dL (3.4-5.0); ALKALINE PHOSPHATASE 66 U/L (46-116); ANION GAP 15.2 MEQ/L (5-15); BLOOD UREA NITROGEN 8 mg/dL (9-20); CHLORIDE 113 mEq/L (98-107); Carbon Dioxide 21.4 mEq/L (21-32); Glucose 116 MG/DL (70-110); LIPASE 214 U/L (73-393); Potassium 3.9 mEq/L (3.5-5.1); SGOT/AST 40 U/L (15-37); SGPT/ALT 21 U/L (12-78); SODIUM 146 mEq/L (136-145); Total Protein 5.9 gm/dL (6.4-8.2)
[2017-02-19 07:38] LABS: BAND 1 % (0.0-2.0); Eosinophil 3 % (0.00-3.0); Total Cells Counted 100
[2017-02-19 07:39] LABS: ANISOCYTOSIS 1+; Platelet Estimate DECREASED (NORMAL); Poikilocytosis 1+; Polychromasia 1+
--- NOTE | 2017-02-19 08:15 | PCM.NOTE ---
Date and Time: 02/19/17813 Subjective Assessment: patient feels well, denies headache or abdominal pain. states she had a black stool this am Objective Exam General Appearance: no apparent distress, alert Respiratory Exam: normal breath sounds, lungs clear, No respiratory distress Cardiovascular Exam: regular rate/rhythm, normal heart sounds Gastrointestinal/Abdomen Exam: soft, No tenderness, No mass Extremity Exam: normal inspection, normal range of motion OBJECTIVE DATA Vital Signs: Vital Signs - 24 hr Temp Pulse Resp BP Pulse Ox 02/19/17 07:48 18 02/19/17 07:31 98 F 101 H 18 140/70 93 L 02/19/17 04:00 97.8 F 95 H 14 123/56 94 L 02/19/17 00:00 97.8 F 92 H 14 144/64 96 02/18/17 20:00 97.7 F 91 H 19 132/61 95 02/18/17 16:00 98.4 F 90 15 145/64 94 L 02/18/17 12:00 15 02/18/17 11:48 98.2 F 86 20 133/61 94 L Pain Assessment - Last Documented Pain Intensity 0 Pain Scale Used 0-10 Pain Scale Intake and Output: Intake & Output 02/16/17 02/17/17 02/18/17 02/19/17 11:59 11:59 11:59 11:59 Intake Total 3133 2496 Output Total 2200 500 Balance 933 1996 Weight 85.956 kg 88.904 kg Lab Results: Accuchecks Date 02/19/17 Date 02/18/17 Date 02/18/17 Time 07:30 Time 16:30 Time 11:30 Accucheck Value: 107 Accucheck Value: 271 Accucheck Value: 117 Accucheck Value: 254 Lab Results-Last 24 Hours 02/17/17 02/19/17 02/19/17 Range/Units 18:30 05:00 05:00 WBC 2.6 L 2.9 L (4.0-10.5) K/mm3 RBC 4.05 L 3.83 L (4.1-5.4) M/mm3 Hgb 9.7 L 9.1 L (12.0-16.0) gm/dl Hct 31.8 L 30.3 L (35-47) % MCV 78.5 79.1 (78-100) fl MCH 23.9 L 23.7 L (26-32) pg MCHC 30.5 L 30.0 L (32-36) g/dl RDW 18.5 H 19.4 H (11.5-14.0) % Plt Count 76 L 72 L (150-450) K/mm3 Segmented Neutrophils 62 80 H (36.0-66.0) % Band Neutrophils 4 H 1 (0.0-2.0) % Lymphocytes (Manual) 20 L 14 L (24-44) % Monocytes (Manual) 8 2 (0.0-12.0) % Eosinophils (Manual) 6 H 3 (0.00-3.0) % Differential Comment ABNORMAL ABNORMAL Platelet Estimate DECREASED DECREASED (NORMAL) Polychromasia 1+ 1+ Poikilocytosis 1+ Anisocytosis 1+ 1+ Smear Path Review Cancelled Sodium 146 H (136-145) mEq/L Potassium 3.9 (3.5-5.1) mEq/L Chloride 113 H (98-107) mEq/L Carbon Dioxide 21.4 (21-32) mEq/L Anion Gap 15.2 H (5-15) MEQ/L BUN 8 L (9-20) mg/dL Creatinine 0.86 (0.55-1.30) mg/dl Estimated GFR > 60 ML/MIN Glucose 116 H (70-110) MG/DL Calcium 9.2 (8.5-10.1) mg/dL Total Bilirubin 1.10 H (0.2-1.0) mg/dL AST 40 H (15-37) U/L ALT 21 (12-78) U/L Alkaline Phosphatase 66 (46-116) U/L Serum Total Protein 5.9 L (6.4-8.2) gm/dL Albumin 2.9 L (3.4-5.0) g/dL Amylase 29 (25-115) U/L Lipase 214 (73-393) U/L Radiology Exams: Radiology Procedures Category Date Time Status ABDOMEN AND PELVIS W CONTRAST [CT] Stat Exams 02/17/17 18:15 Completed CHEST 2 VIEWS (PA AND LAT) Stat Exams 02/17/17 18:00 Completed Assessment/Plan (1) Cirrhosis Current Visit: Yes Status: Acute Assessment & Plan: with black stool this am will check stool for occult blood, change to clears and increase protonix to q12 hrs (2) Abdominal pain Current Visit: No Status: Acute Qualifiers: Abdominal location: generalized Qualified Code(s): R10.84 - Generalized abdominal pain Code(s): R10.9 - UNSPECIFIED ABDOMINAL PAIN (3) Pancytopenia Current Visit: Yes Status: Acute Code(s): D61.818 - OTHER PANCYTOPENIA
[2017-02-19] MEDS: PATIENT OWN MEDICATION OP SCH (09:17)
[2017-02-19] MEDS: Zestril 20 MG PO SCH (09:18)
[2017-02-19] MEDS: PROTONIX 40 MG IV IV SCH ×3 (09:18→21:07)
[2017-02-20] MEDS: Zosyn 3.375GM/100 Ml D5W 3.375 GM/100 ML IVPB IV SCH ×5 (00:09→23:37)
[2017-02-20] MEDS: Sodium Chloride 0.9% W/ 20 mEq KCl/LITER 1,000 ML IV SCH (04:28)
[2017-02-20 05:48] LABS: Mean Cell Volume 80.5 fl (78-100); Platelet Count 72 K/mm3 (150-450); Red Blood Count 3.75 M/mm3 (4.1-5.4); Red Cell Distribution Width 20.9 % (11.5-14.0); White Blood Count 2.9 K/mm3 (4.0-10.5)
[2017-02-20] MEDS: FLAGYL 500 MG IVPB 500 MG/100 ML BAG IV SCH ×3 (05:54→17:03)
[2017-02-20 05:59] LABS: Mean Corpuscular Hemoglobin 24.2 pg (26-32)
[2017-02-20 06:18] LABS: ALBUMIN 2.7 g/dL (3.4-5.0); ALKALINE PHOSPHATASE 59 U/L (46-116); ANION GAP 13.4 MEQ/L (5-15); BLOOD UREA NITROGEN 7 mg/dL (9-20); CHLORIDE 113 mEq/L (98-107); Carbon Dioxide 22.5 mEq/L (21-32); Glucose 132 MG/DL (70-110); Potassium 3.7 mEq/L (3.5-5.1); SGOT/AST 42 U/L (15-37); SGPT/ALT 22 U/L (12-78); SODIUM 145 mEq/L (136-145); Total Protein 5.8 gm/dL (6.4-8.2)
--- NOTE | 2017-02-20 07:55 | CONS ---
CONSULT DATE: 02/19/2017 REASON FOR CONSULT: GI bleed. HISTORY: The patient had GI bleed back in 2013 and had EGD showing varices. The patient diagnosed as having cirrhosis. She subsequently had a CT scan today showing splenomegaly, a picture consistent with her cirrhosis. She had some bleeding a few weeks ago and then it exacerbated again just a few days ago. She has been under the care of Dr. Doherty also. She is on multiple trials of various irons starting with pills and progressing to orange juice, liquid, progressing to IV injections. Her white blood cell count is also somewhat low. She has not had a bone marrow to date. She is seen and examined at the bedside. Her belly is mildly distended. Her CT scan suggested a little bit of ascites around her liver. There are multiple old abdominal incisions. The chart is reviewed. She has recently received packed cells. IMPRESSION: Iron deficiency anemia. PLAN: Repeat EGD and colonoscopy.
--- NOTE | 2017-02-20 08:30 | PCM.NOTE ---
Date and Time: 02/20/17826 Subjective Assessment: patient denies black stool today, no abdominal pain. she is having frequent stools Objective Exam General Appearance: no apparent distress, alert Respiratory Exam: normal breath sounds, lungs clear, No respiratory distress Cardiovascular Exam: regular rate/rhythm, normal heart sounds Gastrointestinal/Abdomen Exam: soft, No tenderness, No mass Extremity Exam: normal inspection, normal range of motion OBJECTIVE DATA Vital Signs: Vital Signs - 24 hr Temp Pulse Resp BP Pulse Ox 02/20/17 04:00 97.9 F 95 H 19 155/70 94 L 02/20/17 00:00 98.1 F 94 H 18 174/81 98 02/19/17 20:00 97.8 F 95 H 19 135/63 93 L 02/19/17 16:00 97.8 F 89 18 151/70 92 L 02/19/17 12:00 20 02/19/17 11:29 98.4 F 82 20 147/66 95 Pain Assessment - Last Documented Pain Intensity 0 Pain Scale Used 0-10 Pain Scale Intake and Output: Intake & Output 02/17/17 02/18/17 02/19/17 02/20/17 11:59 11:59 11:59 11:59 Intake Total 1443 2496 2544 Output Total 1500 500 300 Balance -1995 Weight 85.956 kg 88.904 kg 88.904 kg Lab Results: Accuchecks Date 02/20/17 Date 02/19/17 Date 02/19/17 Date 02/19/17 Time 07:34 Time 16:30 Time 11:30 Accucheck Value: 128 Accucheck Value: 161 Accucheck Value: 133 Accucheck Value: 153 Lab Results-Last 24 Hours 02/19/17 02/19/17 02/19/17 Range/Units 08:15 12:00 13:40 WBC (4.0-10.5) K/mm3 RBC (4.1-5.4) M/mm3 Hgb (12.0-16.0) gm/dl Hct (35-47) % MCV (78-100) fl MCH (26-32) pg MCHC (32-36) g/dl RDW (11.5-14.0) % Plt Count (150-450) K/mm3 Sodium (136-145) mEq/L Potassium (3.5-5.1) mEq/L Chloride (98-107) mEq/L Carbon Dioxide (21-32) mEq/L Anion Gap (5-15) MEQ/L BUN (9-20) mg/dL Creatinine (0.55-1.30) mg/dl Estimated GFR ML/MIN Glucose (70-110) MG/DL Calcium (8.5-10.1) mg/dL Total Bilirubin (0.2-1.0) mg/dL AST (15-37) U/L ALT (12-78) U/L Alkaline Phosphatase (46-116) U/L Serum Total Protein (6.4-8.2) gm/dL Albumin (3.4-5.0) g/dL Stool Occult Bld Scrn POSITIVE POSITIVE POSITIVE Slides for Path Review 02/20/17 02/20/17 Range/Units 05:15 05:15 WBC 2.9 L (4.0-10.5) K/mm3 RBC 3.75 L (4.1-5.4) M/mm3 Hgb 9.1 L (12.0-16.0) gm/dl Hct 30.2 L (35-47) % MCV 80.5 (78-100) fl MCH 24.2 L (26-32) pg MCHC 30.1 L (32-36) g/dl RDW 20.9 H (11.5-14.0) % Plt Count 72 L (150-450) K/mm3 Sodium 145 (136-145) mEq/L Potassium 3.7 (3.5-5.1) mEq/L Chloride 113 H (98-107) mEq/L Carbon Dioxide 22.5 (21-32) mEq/L Anion Gap 13.4 (5-15) MEQ/L BUN 7 L (9-20) mg/dL Creatinine 0.86 (0.55-1.30) mg/dl Estimated GFR > 60 ML/MIN Glucose 132 H (70-110) MG/DL Calcium 8.8 (8.5-10.1) mg/dL Total Bilirubin 1.10 H (0.2-1.0) mg/dL AST 42 H (15-37) U/L ALT 22 (12-78) U/L Alkaline Phosphatase 59 (46-116) U/L Serum Total Protein 5.8 L (6.4-8.2) gm/dL Albumin 2.7 L (3.4-5.0) g/dL Stool Occult Bld Scrn Slides for Path Review Assessment/Plan (1) Upper GI bleed Current Visit: Yes Status: Acute Assessment & Plan: will have egd/colonoscopy with Dr Arroyo tomorrow, prep today. continue IV protonix Code(s): K92.2 - GASTROINTESTINAL HEMORRHAGE, UNSPECIFIED (2) Cirrhosis Current Visit: Yes Status: Acute (3) Abdominal pain Current Visit: No Status: Acute Qualifiers: Abdominal location: generalized Qualified Code(s): R10.84 - Generalized abdominal pain Code(s): R10.9 - UNSPECIFIED ABDOMINAL PAIN (4) Pancytopenia Current Visit: Yes Status: Acute Code(s): D61.818 - OTHER PANCYTOPENIA
[2017-02-20] MEDS: PROTONIX 40 MG IV IV SCH ×2 (09:05→22:10)
[2017-02-20] MEDS: Zestril 20 MG PO SCH (09:05)
[2017-02-20] MEDS: PATIENT OWN MEDICATION OP SCH (09:09)
[2017-02-20] MEDS: ANUSOL-HC 2.5% CREAM 30 GM TP PRN (10:43)
[2017-02-20] MEDS ORDERED: Golytely Solution 4000 ML PO SCH (14:00)
[2017-02-21] MEDS: FLAGYL 500 MG IVPB 500 MG/100 ML BAG IV SCH ×5 (01:12→23:20)
[2017-02-21] MEDS: Sodium Chloride 0.9% W/ 20 mEq KCl/LITER 1,000 ML IV SCH ×3 (03:26→14:03)
[2017-02-21] MEDS: Zosyn 3.375GM/100 Ml D5W 3.375 GM/100 ML IVPB IV SCH ×3 (05:21→17:20)
[2017-02-21 05:24] LABS: Mean Cell Volume 81.1 fl (78-100); Platelet Count 72 K/mm3 (150-450); Red Cell Distribution Width 21.8 % (11.5-14.0); White Blood Count 2.9 K/mm3 (4.0-10.5)
[2017-02-21 05:38] LABS: Mean Corpuscular Hemoglobin 24.4 pg (26-32)
[2017-02-21 05:53] LABS: ALBUMIN 2.8 g/dL (3.4-5.0); ALKALINE PHOSPHATASE 59 U/L (46-116); ANION GAP 14.1 MEQ/L (5-15); BLOOD UREA NITROGEN 5 mg/dL (9-20); CHLORIDE 112 mEq/L (98-107); Glucose 129 MG/DL (70-110); Potassium 3.9 mEq/L (3.5-5.1); SGOT/AST 44 U/L (15-37); SGPT/ALT 20 U/L (12-78); SODIUM 144 mEq/L (136-145)
[2017-02-21 06:02] LABS: INR 1.21 (0.8-3.0); PROTIME 13.7 SECONDS (9.95-12.35)
[2017-02-21 07:31] LABS: ANISOCYTOSIS 1+; Hypochromia 1+; Platelet Estimate NORMAL (NORMAL); Poikilocytosis 1+; Total Cells Counted 100
[2017-02-21] MEDS ORDERED: Ketamine HCl 50 MG/ML IV ONE (08:00)
[2017-02-21] MEDS ORDERED: DIPRIVAN 200 MG/20 ML IV ONE (08:00)
[2017-02-21] MEDS ORDERED: Lactated Ringers 1,000 ML IV SCH (08:30)
[2017-02-21] MEDS: ANUSOL-HC 2.5% CREAM 30 GM TP PRN (08:35)
[2017-02-21] MEDS ORDERED: Pepcid 20 MG VIAL IV SCH (08:45)
--- NOTE | 2017-02-21 10:25 | PCM.DS ---
Discharge Summary Date of Admission: 02/17/17 19:01 Admitting Physician: SEKOU SHANKS Consults: Consults on Case 02/19/17 13:11 Consult Surgery ROUTINE Primary Care Provider: SEKOU SHANKS Allergies Allergies adhesive tape Allergy (Intermediate, Verified 02/17/17 11:18) latex Allergy (Mild, Verified 02/17/17 11:18) Rash Sulfa (Sulfonamide Antibiotics) Allergy (Unknown, Verified 02/17/17 11:18) Hospital Summary - Hospital Course Hospital Course: patient with no new complaints, hemoglobin has been stable. she is prepped for EGD and colonoscopy. since hemodynamically stable I advised she could likely discharge later after scopes were done. - Vitals & Intake/Output Vital Signs: Vital Signs Temperature 98 F 02/21/17 07:31 Pulse Rate 92 H 02/21/17 07:31 Respiratory Rate 20 02/21/17 08:00 Blood Pressure 160/92 02/21/17 07:31 O2 Sat by Pulse Oximetry 96 02/21/17 07:31 Intake & Output: Intake & Output 02/18/17 02/19/17 02/20/17 02/21/17 11:59 11:59 11:59 11:59 Intake Total 1443 2496 2544 2972 Output Total 1500 804 429 9107 Balance -57 1995 2243 422 Weight 85.956 kg 88.904 kg 88.904 kg 89.267 kg - Lab Result Diagrams: 02/21/17 04:50 02/21/17 04:50 Lab Results-Last 24 Hrs: Accuchecks Date 02/21/17 Date 02/20/17 Date 02/20/17 Date 02/20/17 Time 07:30 Time 21:30 Time 16:31 Time 11:16 Accucheck Value: 127 Accucheck Value: 121 Accucheck Value: 137 Accucheck Value: 131 Lab Results-Last 24 Hours 02/21/17 02/21/17 02/21/17 Range/Units 04:50 04:50 04:50 WBC 2.9 L (4.0-10.5) K/mm3 RBC 3.80 L (4.1-5.4) M/mm3 Hgb 9.3 L (12.0-16.0) gm/dl Hct 30.8 L (35-47) % MCV 81.1 (78-100) fl MCH 24.4 L (26-32) pg MCHC 30.2 L (32-36) g/dl RDW 21.8 H (11.5-14.0) % Plt Count 72 L (150-450) K/mm3 Segmented Neutrophils 81 H (36.0-66.0) % Lymphocytes (Manual) 17 L (24-44) % Monocytes (Manual) 2 (0.0-12.0) % Differential Comment ABNORMAL Platelet Estimate NORMAL (NORMAL) Hypochromasia 1+ Poikilocytosis 1+ Anisocytosis 1+ INR 1.21 (0.8-3.0) Sodium 144 (136-145) mEq/L Potassium 3.9 (3.5-5.1) mEq/L Chloride 112 H (98-107) mEq/L Carbon Dioxide 22.0 (21-32) mEq/L Anion Gap 14.1 (5-15) MEQ/L BUN 5 L (9-20) mg/dL Creatinine 0.83 (0.55-1.30) mg/dl Estimated GFR > 60 ML/MIN Glucose 129 H (70-110) MG/DL Calcium 8.8 (8.5-10.1) mg/dL Total Bilirubin 1.20 H (0.2-1.0) mg/dL AST 44 H (15-37) U/L ALT 20 (12-78) U/L Alkaline Phosphatase 59 (46-116) U/L Serum Total Protein 6.0 L (6.4-8.2) gm/dL Albumin 2.8 L (3.4-5.0) g/dL Micro Results-Entire Visit: Accuchecks Date 02/21/17 Date 02/20/17 Date 02/20/17 Date 02/20/17 Time 07:30 Time 21:30 Time 16:31 Time 11:16 Accucheck Value: 127 Accucheck Value: 121 Accucheck Value: 137 Accucheck Value: 131 Discharge Exam General Appearance: no apparent distress, alert Neurologic Exam: alert, oriented x 3 Skin Exam: normal color, warm, dry Respiratory Exam: normal breath sounds, lungs clear, No respiratory distress Cardiovascular Exam: regular rate/rhythm, normal heart sounds Gastrointestinal/Abdomen Exam: soft, No tenderness, No mass Extremity Exam: normal inspection, normal range of motion Final Diagnosis/Problem List - Final Discharge Diagnosis/Problem (1) Upper GI bleed Current Visit: Yes Status: Acute Assessment & Plan: patient to have EGD/colonoscopy with Dr Arroyo today. 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 (2) Cirrhosis Current Visit: Yes Status: Acute Assessment & Plan: plan to add inderal 10mg tid due to varices to reduce portal hypertension and change for variceal bleed etc (3) Abdominal pain Current Visit: No Status: Acute (4) Pancytopenia Current Visit: Yes Status: Acute Assessment & Plan: due to cirrhosis, stable - Discharge Disposition: Home, Self-Care Condition: Stable Prescriptions: New Hydrocortisone 2.5% 30 gm [Anusol-Hc 2.5% Cream 30 gm] 1 gm TP QID PRN PRN #30 g PRN Reason: Itching Propranolol HCl 10 mg PO TID #90 tablet Continue Antiox #8/Om3/Dha/Epa/Lut/Zeax [Preservision Areds 2 Softgel] 1 cap PO BID Omeprazole 20 MG [Prilosec 20 mg] 20 mg PO BID Metformin HCl 1000 mg [Glucophage 1000 MG] 1,000 mg PO BID Dorzolamide HCl/Timolol Maleat [Cosopt Eye Drops] 1 drop OP DAILY Lisinopril [Zestril] 40 mg PO DAILY #0 tablet Follow up with: SEKOU SHANKS MD [Primary Care Provider] - Forms: Patient Portal Information
[2017-02-21] MEDS ORDERED: Lactated Ringers 1,000 ML IV ONE (11:53)
[2017-02-21] MEDS: PROTONIX 40 MG IV IV SCH ×2 (13:03→22:24)
[2017-02-21] MEDS: PATIENT OWN MEDICATION OP SCH (13:03)
[2017-02-21] MEDS: NORCO 5/325 MG PO PRN ×2 (14:00→22:03)
[2017-02-21] MEDS: Zestril 20 MG PO SCH (14:01)
[2017-02-21] MEDS: NovoLOG Insulin SQ PRN ×2 (16:46→22:28)
[2017-02-22] MEDS: Zosyn 3.375GM/100 Ml D5W 3.375 GM/100 ML IVPB IV SCH ×2 (00:39→05:24)
[2017-02-22 05:59] LABS: Mean Cell Volume 82.8 fl (78-100); Mean Corpuscular Hemoglobin 24.9 pg (26-32); Mean Platelet Volume 10.6 fl (6-9.5); Platelet Count 71 K/mm3 (150-450); Red Blood Count 3.77 M/mm3 (4.1-5.4); Red Cell Distribution Width 22.7 % (11.5-14.0); White Blood Count 3.3 K/mm3 (4.0-10.5)
[2017-02-22 06:19] LABS: ALBUMIN 2.6 g/dL (3.4-5.0); ALKALINE PHOSPHATASE 56 U/L (46-116); ANION GAP 13.2 MEQ/L (5-15); BLOOD UREA NITROGEN 5 mg/dL (9-20); CHLORIDE 113 mEq/L (98-107); Carbon Dioxide 24.3 mEq/L (21-32); Glucose 113 MG/DL (70-110); Potassium 4.2 mEq/L (3.5-5.1); SGOT/AST 40 U/L (15-37); SGPT/ALT 20 U/L (12-78); SODIUM 146 mEq/L (136-145); Total Protein 5.7 gm/dL (6.4-8.2)
[2017-02-22] MEDS: FLAGYL 500 MG IVPB 500 MG/100 ML BAG IV SCH (06:21)
[2017-02-22] MEDS ORDERED: Glucophage 500 MG PO SCH (08:00)
--- NOTE | 2017-02-22 08:55 | PCM.DS ---
Discharge Summary Date of Admission: 02/17/17 19:01 Admitting Physician: SEKOU SHANKS Consults: Consults on Case 02/19/17 13:11 Consult Surgery ROUTINE Primary Care Provider: SEKOU SHANKS Allergies Allergies adhesive tape Allergy (Intermediate, Verified 02/17/17 11:18) latex Allergy (Mild, Verified 02/17/17 11:18) Rash Sulfa (Sulfonamide Antibiotics) Allergy (Unknown, Verified 02/17/17 11:18) Hospital Summary - Hospital Course Hospital Course: patient doing well, tolerating po intake. no problems or concerns. h/h stable. had GI bleed, hx cirrhosis, egd with clip and cauterization of bleeding gastric polyp - Vitals & Intake/Output Vital Signs: Vital Signs Temperature 98.9 F 02/22/17 07:46 Pulse Rate 99 H 02/22/17 07:46 Respiratory Rate 18 02/22/17 07:46 Blood Pressure 140/64 02/22/17 07:46 O2 Sat by Pulse Oximetry 92 L 02/22/17 07:46 Oxygen-Last Documented O2 Percentage 2 Liters = 28% Intake & Output: Intake & Output 02/19/17 02/20/17 02/21/17 02/22/17 11:59 11:59 11:59 11:59 Intake Total 2496 2544 2972 2968 Output Total 310 874 1134 2100 Balance 1995 6424 422 868 Weight 88.904 kg 88.904 kg 89.267 kg 89.721 kg - Lab Result Diagrams: 02/22/17 05:08 02/22/17 05:08 Lab Results-Last 24 Hrs: Accuchecks Date 02/22/17 Date 02/21/17 Date 02/21/17 Date 02/21/17 Date 02/21/17 Time 07:35 Time 22:00 Time 16:30 Time 09:30 Time 09:30 Accucheck Value: 119 Accucheck Value: 234 Accucheck Value: 223 Accucheck Value: 115 Accucheck Value: 115 Lab Results-Last 24 Hours 02/22/17 02/22/17 Range/Units 05:08 05:08 WBC 3.3 L (4.0-10.5) K/mm3 RBC 3.77 L (4.1-5.4) M/mm3 Hgb 9.4 L (12.0-16.0) gm/dl Hct 31.2 L (35-47) % MCV 82.8 (78-100) fl MCH 24.9 L (26-32) pg MCHC 30.1 L (32-36) g/dl RDW 22.7 H (11.5-14.0) % Plt Count 71 L (150-450) K/mm3 MPV 10.6 H (6-9.5) fl Sodium 146 H (136-145) mEq/L Potassium 4.2 (3.5-5.1) mEq/L Chloride 113 H (98-107) mEq/L Carbon Dioxide 24.3 (21-32) mEq/L Anion Gap 13.2 (5-15) MEQ/L BUN 5 L (9-20) mg/dL Creatinine 0.83 (0.55-1.30) mg/dl Estimated GFR > 60 ML/MIN Glucose 113 H (70-110) MG/DL Calcium 8.7 (8.5-10.1) mg/dL Total Bilirubin 0.90 (0.2-1.0) mg/dL AST 40 H (15-37) U/L ALT 20 (12-78) U/L Alkaline Phosphatase 56 (46-116) U/L Serum Total Protein 5.7 L (6.4-8.2) gm/dL Albumin 2.6 L (3.4-5.0) g/dL Slides for Path Review YES Micro Results-Entire Visit: Accuchecks Date 02/22/17 Date 02/21/17 Date 02/21/17 Date 02/21/17 Date 02/21/17 Time 07:35 Time 22:00 Time 16:30 Time 09:30 Time 09:30 Accucheck Value: 119 Accucheck Value: 234 Accucheck Value: 223 Accucheck Value: 115 Accucheck Value: 115 Discharge Exam General Appearance: no apparent distress, alert Respiratory Exam: normal breath sounds, lungs clear, No respiratory distress Cardiovascular Exam: regular rate/rhythm Gastrointestinal/Abdomen Exam: soft, No tenderness, No mass Extremity Exam: normal inspection, normal range of motion Final Diagnosis/Problem List - Final Discharge Diagnosis/Problem (1) Upper GI bleed Current Visit: Yes Status: Acute (2) Cirrhosis Current Visit: Yes Status: Acute (3) Abdominal pain Current Visit: No Status: Acute (4) Pancytopenia Current Visit: Yes Status: Acute - Discharge Disposition: Home, Self-Care Condition: Stable Prescriptions: New Hydrocortisone 2.5% 30 gm [Anusol-Hc 2.5% Cream 30 gm] 1 gm TP QID PRN PRN #30 g PRN Reason: Itching Propranolol HCl 10 mg PO TID #90 tablet Continue Antiox #8/Om3/Dha/Epa/Lut/Zeax [Preservision Areds 2 Softgel] 1 cap PO BID Omeprazole 20 MG [Prilosec 20 mg] 20 mg PO BID Metformin HCl 1000 mg [Glucophage 1000 MG] 1,000 mg PO BID Dorzolamide HCl/Timolol Maleat [Cosopt Eye Drops] 1 drop OP DAILY Lisinopril [Zestril] 40 mg PO DAILY #0 tablet Follow up with: SEKOU SHANKS MD [Primary Care Provider] - Forms: Patient Portal Information
[2017-02-22] MEDS: Zestril 20 MG PO SCH (09:13)
[2017-02-22] MEDS: PATIENT OWN MEDICATION OP SCH (09:14)
[2017-02-22] MEDS: PROTONIX 40 MG IV IV SCH (09:14)
[2017-02-22 13:23] VITALS: BP 161/66; PULSE 93; O2SAT 93
--- NOTE | 2017-02-23 09:24 | OP ---
SURGERY DATE/TIME: 02/21/2017 1115 PREOPERATIVE DIAGNOSIS: GI bleed. PROCEDURES: 1) EGD. 2) Colonoscopy. SURGEON: Antonio Arroyo M.D. ANESTHESIA: MAC. COMPLICATIONS: None. CONDITION: Stable. 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 As I picked up the biopsy it bled aggressively. It was cauterized a few times and it was decided to place a clip on this. A clip was placed and the bleeding stopped. The rest of the exam was fairly unremarkable. There were not varices today at the gastroesophageal junction. There was slight grade I/III at the gastroesophageal junction. There was a small hiatal hernia. The duodenal bulb and second portion of the duodenum were satisfactory. The scope withdrawn. Anal digital examination satisfactory. The scope advanced to the cecum. The base of the cecum satisfactory. Ascending, hepatic, transverse, splenic, descending, sigmoid, rectum there was moderate antral hemorrhoids. There was no bleeding on today's lower examination at all. The patient tolerated the procedure satisfactorily.
== END 2017-02-22 13:15 | disposition home or self-care (01) | DRG 378 ==
LOC: ED 11:01 → MED SURG 13:42 → OBSVTOIN 19:01
PROVIDERS: ADMIT Family Medicine; ATTEND Family Medicine
PROC: 0DB78ZX Excision of Stomach, Pylorus, Via Natural or Artificial Opening Endoscopic, Diagnostic (ICD-10-PCS; principal; 2017-02-21)
PROC: 0DJD8ZZ Inspection of Lower Intestinal Tract, Via Natural or Artificial Opening Endoscopic (ICD-10-PCS; 2017-02-21)
DX: K92.2 Gastrointestinal hemorrhage, unspecified (principal); D61.818 Other pancytopenia; K74.60 Unspecified cirrhosis of liver; D50.9 Iron deficiency anemia, unspecified; K31.7 Polyp of stomach and duodenum; R16.1 Splenomegaly, not elsewhere classified; I10 Essential (primary) hypertension; E11.9 Type 2 diabetes mellitus without complications; K21.9 Gastro-esophageal reflux disease without esophagitis; K64.8 Other hemorrhoids; K44.9 Diaphragmatic hernia without obstruction or gangrene; Z79.4 Long term (current) use of insulin; Z79.899 Other long term (current) drug therapy
CPT/HCPCS: 00740; 00810; 36415; 71020; 74176; 74177; 80053; 81002; 82150; 82270; 82962; 83605; 83690; 83735; 85014; 85018; 85025; 85027; 85610; 86850; 86900; 86901; 86922; 96360; 96365; 99100; 99285; J0360; J1170; J2543; J2550; J2704; J3475; A9270-GY

== ENCOUNTER 2017-10-13 12:57 | Observation (INO) | payer MEDICARE, OTHER ==
[2017-10-13] MEDS ORDERED: Adacel Vial IM ONE ×2 (13:07→13:52)
--- NOTE | 2017-10-13 13:14 | ERPHSYRPT ---
- History of Present Illness Time Seen by Provider: 10/13/17 13:01 Source: patient, EMS Patient Subjective Stated Complaint: PT BROUGHT TO ED PER EMS-PT HAS HAD MULTPLE FALLS OVER LAST FEW DAYS-REPORTS HITTING HEAD-DENIES LOC Triage Nursing Assessment: PT PINK WARM ET [id number] QUESTIONS CORRECTLY-BRUISING NOTED TO BACK-LEFT [id number] MOVING ALL EXTREMITIES WITH EASE-RESP EASY ET NONLABORED Physician History: CC: falls Hx: Patient of Dr Shanks with frequent falls this week. Has fallen several times. Hit her head. No LOC or confusion. She had some neck pain. Was pinned between dresser and wall. Midback pain. Abd pain. Left hand bruised and swollen. Right rib pain severe when coughing. No fever or chills. No vomiting. No other injuries noted. Allergies/Adverse Reactions: adhesive tape Allergy (Intermediate, Verified 10/13/17 13:05) latex Allergy (Mild, Verified 10/13/17 13:05) Rash Sulfa (Sulfonamide Antibiotics) Allergy (Unknown, Verified 10/13/17 13:05) Home Medications: Antiox #8/Om3/Dha/Epa/Lut/Zeax [Preservision Areds 2 Softgel] 1 cap PO BID 06/14 [History] Metformin HCl 1000 mg [Glucophage 1000 MG] 1,000 mg PO BID 06/14/12 [History] Omeprazole 20 MG [Prilosec 20 mg] 20 mg PO BID 06/14/12 [History] Dorzolamide HCl/Timolol Maleat [Cosopt Eye Drops] 1 drop OP DAILY 02/16/17 [ History] Hx Tetanus, Diphtheria Vaccination/Date Given: No Hx Influenza Vaccination/Date Given: Yes Hx Pneumococcal Vaccination/Date Given: Yes Immunizations Up to Date: Yes - Review of Systems Constitutional: No Fever, No Chills Eyes: No Vision Changes Ears, Nose, & Throat: No Symptoms Respiratory: No Dyspnea Cardiac: Chest Pain (right ribs) Abdominal/Gastrointestinal: Abdominal Pain, No Nausea, No Vomiting Musculoskeletal: Back Pain, Fall Skin: No Rash Neurological: No Focal Weakness, No Headache, No Parasthesia All Other Systems: Reviewed and Negative - Past Medical History Pertinent Past Medical History: Yes Neurological History: No Pertinent History ENT History: Glaucoma, Macular Degeneration Cardiac History: Hypertension Respiratory History: No Pertinent History Endocrine Medical History: Diabetes Type II Musculoskeletal History: Other GI Medical History: GERD, Other History: Other Psycho-Social History: No Pertinent History Female Reproductive Disorders: No Pertinent History Other Medical History: BILATERAL TKA; ~, 1990; HX KIDNEY STONES. psorisis. neutropenia. thrombocytopenia - Past Surgical History Past Surgical History: Yes Neuro Surgical History: No Pertinent History Cardiac: No Pertinent History Respiratory: No Pertinent History Gastrointestinal: Appendectomy, Cholecystectomy, Hernia Repair Genitourinary: Other Musculoskeletal: Joint Replacement Female Surgical History: Hysterectomy Other Surgical History: 2 kidney stones removed - Social History Smoking Status: Never smoker Exposure to second hand smoke: No Drug Use: none Patient Lives Alone: No - Nursing Vital Signs Nursing Vital Signs: Initial Vital Signs Temperature 97.5 F 10/13/17 13:00 Pulse Rate 88 10/13/17 13:00 Respiratory Rate 20 10/13/17 13:00 Blood Pressure 130/58 10/13/17 13:00 O2 Sat by Pulse Oximetry 97 10/13/17 13:00 Pain Scale Pain Intensity 8 - Nick Coma Score Best Eye Response ([place]): (4) open spontaneously Best Verbal Response (Nick): (5) oriented Best Motor Response ([place]): (6) obeys commands Nick Total: 15 - Physical Exam General Appearance: alert, other (pleasant lady) Eye Exam: PERRL/EOMI ENT Exam: airway nml Neck Exam: mid-line tenderness (mild) Respiratory/Chest Exam: chest tenderness (right ribs, ), normal breath sounds Cardiovascular Exam: regular rate/rhythm Gastrointestinal Exam: soft, tenderness, ecchymosis (upper and left) Back Exam: point tenderness (large eccymosis mid back over thoracoc spine area) Extremity Exam: tenderness (left hand with marked swelling) Neurologic Exam: alert, oriented x 3, cooperative, master barber II-XII nml as tested, sensation nml, No motor deficits Skin Exam: warm, dry, ecchymosis SpO2 Interpretation: normal SpO2: 97 Oxygen Delivery: Room Air - Course Nursing assessment & vital signs reviewed: Yes EKG Interpreted by Me: RATE (84), Sinus Rhythm, Right Bundle Branch Block Ordered Tests: Active Orders 24 hr Category Date Time Status Water Treatment Specialist STAT Care 10/13/17 13:03 Active EKG-ER Only STAT Care 10/13/17 13:02 Active IV Insertion STAT Care 10/13/17 13:02 Active NPO (ED) STAT Care 10/13/17 13:02 Active ABDOMEN AND PELVIS W/0 CONTRAS [CT] Stat Exams 10/13/17 13:04 Completed CERVICAL SPINE WO CONTRAST [CT] Stat Exams 10/13/17 13:04 Completed CHEST WITHOUT CONTRAST [CT] Stat Exams 10/13/17 13:04 Completed HAND (MINIMUM 3 VIEWS) Stat Exams 10/13/17 13:02 Completed HEAD WITHOUT CONTRAST [CT] Stat Exams 10/13/17 13:04 Completed CBC W DIFF Stat Lab 10/13/17 13:10 Completed CMP Stat Lab 10/13/17 13:10 Completed CULTURE,URINE Stat Lab 10/13/17 13:31 Received Lactic Acid Stat Lab 10/13/17 13:25 Completed Lactic Acid Stat Lab 10/13/17 15:36 Ordered PROTIME WITH INR Stat Lab 10/13/17 13:10 Completed PTT Stat Lab 10/13/17 13:10 Completed UA W/ MICROSCOPIC Stat Lab 10/13/17 13:31 Completed Medication Summary Generic Name Dose Route Start Last Admin Trade Name Freq PRN Reason Stop Dose Admin Ampicillin Sodium/Sulbactam Sodium 1.5 gm in 100 mls @ 200 mls/hr 10/13/17 16: 08 Unasyn 1.5gm / Nacl 100ml IV 10/13/17 16:37 STAT STA Discontinued Medications Generic Name Dose Route Start Last Admin Trade Name Freq PRN Reason Stop Dose Admin Diphtheria/Tetanus/Acell Pertussis 0.5 ml 10/13/17 13:07 10/13/17 13:54 Adacel Vial IM 10/13/17 13:08 0.5 ml .ONCE ONE Administration Diphtheria/Tetanus/Acell Pertussis Confirm 10/13/17 13:52 Adacel Vial Administered 10/13/17 13:53 Dose 0.5 ml IM .STK-MED ONE Lab/Rad Data: Laboratory Result Diagrams 10/13/17 13:10 10/13/17 13:10 Laboratory Results 10/13/17 10/13/17 10/13/17 Range/Units 13:31 13:25 13:10 WBC (4.0-10.5) K/mm3 RBC (4.1-5.4) M/mm3 Hgb (12.0-16.0) gm/dl Hct (35-47) % MCV (78-100) fl MCH (26-32) pg MCHC (32-36) g/dl RDW (11.5-14.0) % Plt Count (150-450) K/mm3 MPV (6-9.5) fl Gran % (36.0-66.0) % Lymphocytes % (24.0-44.0) % Monocytes % (0.0-12.0) % Eosinophils % (0.00-5.0) % Basophils % (0.0-0.4) % Basophils # (0-0.4) INR (0.8-3.0) APTT (25.3-37.0) SECONDS Sodium (136-145) mEq/L Potassium (3.5-5.1) mEq/L Chloride (98-107) mEq/L Carbon Dioxide (21-32) mEq/L Anion Gap (5-15) MEQ/L BUN (9-20) mg/dL Creatinine (0.55-1.30) mg/dl Estimated GFR ML/MIN Glucose (70-110) MG/DL Lactic Acid 2.6 H (0.4-2.0) Calcium (8.5-10.1) mg/dL Total Bilirubin (0.2-1.0) mg/dL AST (15-37) U/L ALT (12-78) U/L Alkaline Phosphatase (46-116) U/L Ammonia 17 (17-32) MMOL/l Serum Total Protein (6.4-8.2) gm/dL Albumin (3.4-5.0) g/dL Ur Collection Type CATH Urine Color YELLOW (YELLOW) Urine Appearance CLEAR (CLEAR) Urine pH 5.0 (5-6) Ur Specific [place] 1.030 (1.005-1.025) Urine Protein TRACE (Negative) Urine Ketones NEGATIVE (NEGATIVE) Urine Blood NEGATIVE (0-5) Eric/ul Urine Nitrite NEGATIVE (NEGATIVE) Urine Bilirubin SMALL (NEGATIVE) Urine Urobilinogen 4 (0-1) mg/dL Ur Leukocyte Esterase TRACE (NEGATIVE) Urine Microscopic WBC 5-10 (0-5) /HPF Ur Epithelial Cells FEW (FEW) /HPF Urine Bacteria FEW (NEGATIVE) /HPF Urine Mucus MODERATE (NEGATIVE) /HPF Urine Culture Reflexed YES (NO) Urine Glucose NEGATIVE (NEGATIVE) mg/dL Slides for Path Review Specimen Received 10/13/17 1330 ABO Group Rh Factor Antibody Screen (NEGATIVE) 10/13/17 10/13/17 10/13/17 Range/Units 13:10 13:10 13:10 WBC (4.0-10.5) K/mm3 RBC (4.1-5.4) M/mm3 Hgb (12.0-16.0) gm/dl Hct (35-47) % MCV (78-100) fl MCH (26-32) pg MCHC (32-36) g/dl RDW (11.5-14.0) % Plt Count (150-450) K/mm3 MPV (6-9.5) fl Gran % (36.0-66.0) % Lymphocytes % (24.0-44.0) % Monocytes % (0.0-12.0) % Eosinophils % (0.00-5.0) % Basophils % (0.0-0.4) % Basophils # (0-0.4) INR 1.28 (0.8-3.0) APTT 32.4 (25.3-37.0) SECONDS Sodium 141 (136-145) mEq/L Potassium 3.5 (3.5-5.1) mEq/L Chloride 106 (98-107) mEq/L Carbon Dioxide 25.1 (21-32) mEq/L Anion Gap 13.1 (5-15) MEQ/L BUN 19 (9-20) mg/dL Creatinine 1.21 (0.55-1.30) mg/dl Estimated GFR 46 ML/MIN Glucose 136 H (70-110) MG/DL Lactic Acid (0.4-2.0) Calcium 8.8 (8.5-10.1) mg/dL Total Bilirubin 1.80 H (0.2-1.0) mg/dL AST 78 H (15-37) U/L ALT 39 (12-78) U/L Alkaline Phosphatase 71 (46-116) U/L Ammonia (17-32) MMOL/l Serum Total Protein 6.3 L (6.4-8.2) gm/dL Albumin 2.9 L (3.4-5.0) g/dL Ur Collection Type Urine Color (YELLOW) Urine Appearance (CLEAR) Urine pH (5-6) Ur Specific [place] (1.005-1.025) Urine Protein (Negative) Urine Ketones (NEGATIVE) Urine Blood (0-5) Eric/ul Urine Nitrite (NEGATIVE) Urine Bilirubin (NEGATIVE) Urine Urobilinogen (0-1) mg/dL Ur Leukocyte Esterase (NEGATIVE) Urine Microscopic WBC (0-5) /HPF Ur Epithelial Cells (FEW) /HPF Urine Bacteria (NEGATIVE) /HPF Urine Mucus (NEGATIVE) /HPF Urine Culture Reflexed (NO) Urine Glucose (NEGATIVE) mg/dL Slides for Path Review Specimen Received ABO Group A Rh Factor POSITIVE Antibody Screen POSITIVE (NEGATIVE) 10/13/17 Range/Units 13:10 WBC 4.1 (4.0-10.5) K/mm3 RBC 3.43 L (4.1-5.4) M/mm3 Hgb 10.6 L (12.0-16.0) gm/dl Hct 32.7 L (35-47) % MCV 95.3 (78-100) fl MCH 30.9 (26-32) pg MCHC 32.4 (32-36) g/dl RDW 14.9 H (11.5-14.0) % Plt Count 60 L (150-450) K/mm3 MPV 10.8 H (6-9.5) fl Gran % 64.1 (36.0-66.0) % Lymphocytes % 18.6 L (24.0-44.0) % Monocytes % 16.6 H (0.0-12.0) % Eosinophils % 0.2 (0.00-5.0) % Basophils % 0.5 (0.0-0.4) % Basophils # 0.02 (0-0.4) INR (0.8-3.0) APTT (25.3-37.0) SECONDS Sodium (136-145) mEq/L Potassium (3.5-5.1) mEq/L Chloride (98-107) mEq/L Carbon Dioxide (21-32) mEq/L Anion Gap (5-15) MEQ/L BUN (9-20) mg/dL Creatinine (0.55-1.30) mg/dl Estimated GFR ML/MIN Glucose (70-110) MG/DL Lactic Acid (0.4-2.0) Calcium (8.5-10.1) mg/dL Total Bilirubin (0.2-1.0) mg/dL AST (15-37) U/L ALT (12-78) U/L Alkaline Phosphatase (46-116) U/L Ammonia (17-32) MMOL/l Serum Total Protein (6.4-8.2) gm/dL Albumin (3.4-5.0) g/dL Ur Collection Type Urine Color (YELLOW) Urine Appearance (CLEAR) Urine pH (5-6) Ur Specific [place] (1.005-1.025) Urine Protein (Negative) Urine Ketones (NEGATIVE) Urine Blood (0-5) Eric/ul Urine Nitrite (NEGATIVE) Urine Bilirubin (NEGATIVE) Urine Urobilinogen (0-1) mg/dL Ur Leukocyte Esterase (NEGATIVE) Urine Microscopic WBC (0-5) /HPF Ur Epithelial Cells (FEW) /HPF Urine Bacteria (NEGATIVE) /HPF Urine Mucus (NEGATIVE) /HPF Urine Culture Reflexed (NO) Urine Glucose (NEGATIVE) mg/dL Slides for Path Review YES Specimen Received ABO Group Rh Factor Antibody Screen (NEGATIVE) - Progress Progress Note: 10/13/17 13:13 She has quite a lot of bruising in back, abdomen, left hand. Likely coagulopathic as she has cirrhosis. Will get CT scans and labs. Pt comfortable at present. 10/13/17 16:12 Left hand negative for fx. CT head, cervical, chest, abd/pelvis negative for acute problem. Platelets low. She has fallen 4 times at home. Spoke to Dr Azevedo for [facility]. Will place in obs, cover UTI, and consult PT. Discussed with : Jolly Will see patient in: hospital (observation) Counseled pt/family regarding: lab results, diagnosis, need for follow-up, rad results - Departure Time of Disposition: 16:14 Departure Disposition: Observation Clinical Impression: Falls frequently, Multiple contusions, UTI (urinary tract infection), Thrombocytopenia, Cirrhosis Condition: Fair Critical Care Time: No Referrals: SEKOU SHANKS MD [Primary Care Provider] -
[2017-10-13 13:21] LABS: BASOPHIL % 0.5 % (0.0-0.4); Basophil (Absolute #) 0.02 (0-0.4); Eosinophil % 0.2 % (0.00-5.0); Eosinophil (Absolute #) 0.01 (0-0.5); Granulocyte Absolute (ANC) 2.62 (1.4-6.9); Granulocytes % 64.1 % (36.0-66.0); Hematocrit 32.7 % (35-47); Hemoglobin 10.6 gm/dl (12.0-16.0); Lymphocyte (Absolute #) 0.76 (1.0-4.6); Lymphocytes % 18.6 % (24.0-44.0); Mean Cell Volume 95.3 fl (78-100); Mean Corpuscular Hemoglobin 30.9 pg (26-32); Mean Corpuscular Hgb Concent. 32.4 g/dl (32-36); Mean Platelet Volume 10.8 fl (6-9.5); Monocyte (Absolute #) 0.68 (0.0-1.3); Monocytes % 16.6 % (0.0-12.0); Platelet Count 60 K/mm3 (150-450); Red Blood Count 3.43 M/mm3 (4.1-5.4); Red Cell Distribution Width 14.9 % (11.5-14.0); White Blood Count 4.1 K/mm3 (4.0-10.5)
[2017-10-13 13:34] LABS: INR 1.28 (0.8-3.0)
[2017-10-13 13:36] LABS: Lactic Acid 2.6 (0.4-2.0)
[2017-10-13 13:37] LABS: PTT 32.4 SECONDS (25.3-37.0)
[2017-10-13 13:45] LABS: ALBUMIN 2.9 g/dL (3.4-5.0); ANION GAP 13.1 MEQ/L (5-15); BILIRUBIN,TOTAL 1.8 mg/dL (0.2-1.0); Calcium 8.8 mg/dL (8.5-10.1); Carbon Dioxide 25.1 mEq/L (21-32); Creatinine 1 1.21 mg/dl (0.55-1.30); Potassium 3.5 mEq/L (3.5-5.1); Total Protein 6.3 gm/dL (6.4-8.2)
[2017-10-13 13:52] LABS: Appearance CLEAR (CLEAR); Bacteria FEW /HPF (NEGATIVE); Bilirubin SMALL (NEGATIVE); Blood NEGATIVE Ery/ul (0-5); Epithelial Cells FEW /HPF (FEW); Glucose NEGATIVE (NEGATIVE); Ketones NEGATIVE (NEGATIVE); Leukocyte Esterase TRACE (NEGATIVE); Mucus MODERATE /HPF (NEGATIVE); Nitrite NEGATIVE (NEGATIVE); Protein,Urine Dip TRACE (Negative); Urobilinogen 4 mg/dL (0-1)
[2017-10-13 14:09] LABS: Slide Review 1 YES
--- NOTE | 2017-10-13 14:58 | XRAY ---
Indication: Pain, swelling, and bruising following fall. Comparison: None 3 views of left hand demonstrates diffuse soft tissue swelling, mild osteopenia, minimal degenerative changes of all IP joints, and moderate carpal degenerative changes. No other bony, articular, or soft tissue abnormalities.
--- NOTE | 2017-10-13 15:00 | XRAY ---
Indication: Headache/pain following fall. Multiple contiguous axial images obtained through the head without contrast. Comparison: None Age-appropriate global atrophy and minimal periventricular degenerative micro-ischemia. No acute intracranial hemorrhage, abnormal extra-axial fluid collection, or mass effect. Fourth ventricle is midline without hydrocephalus. Bony calvarium intact with mild hyperostosis frontalis interna. Floor of the right maxillary sinus demonstrates mucosal thickening. Remaining visualized paranasal sinuses and mastoid air cells are clear. Impression: 1. Nonacute senile brain. 2. Right maxillary sinus disease. CTDI 51.62
--- NOTE | 2017-10-13 15:02 | XRAY ---
Indication: Pain following fall. Multiple contiguous axial images obtained through the cervical spine. Sagittal and coronal reformatted images obtained. Comparison: None Axial images negative for acute fracture, suspicious bony lesions, or spinal canal stenosis. Mild/moderate multilevel C3-T1 degenerative endplate spurring and mild multilevel bilateral degenerative facet hypertrophy. Additional mild atlantoaxial degenerative changes. Sagittal and coronal reformatted images demonstrates normal alignment with minimal C3-C4 and C6-C7 disc space narrowing. No acute compression fracture, subluxation, or jumped facet. Normal-appearing craniocervical junction. Visualized noncontrasted soft tissues unremarkable. CT head and CT chest reported separately. Impression: 1. Negative acute fracture/subluxation. 2. Multilevel degenerative changes. CTDI 53.64
--- NOTE | 2017-10-13 15:06 | XRAY ---
Indication: Right-sided chest and back pain following fall. Multiple contiguous axial images obtained through the chest without contrast as ordered. Sagittal and coronal reformatted images obtained. Comparison: None Lungs demonstrates mild bilateral dependent atelectasis. Also mild bibasilar and lesser degree lingular fibrosis/scarring. No suspicious pulmonary mass, infiltrate, or effusion. Heart is not enlarged. Aorta minimally calcified without aneurysmal dilatation. Subcarinal, right hilar, and distal paraesophageal calcified nodes. No pathologic mediastinal lymphadenopathy. Bony thorax intact with flowing osteophytes throughout the spine. CT abdomen reported separately. Impression: 1. Bibasilar atelectasis/scarring. 2. No acute cardiopulmonary abnormalities or fractures on this noncontrast exam. 3. Evidence for old granulomatous disease. CTDI 17.75
--- NOTE | 2017-10-13 15:10 | XRAY ---
Indication: Pain following fall. Multiple contiguous axial images obtained through the abdomen and pelvis without contrast as ordered. Sagittal and coronal reformatted images obtained. Comparison: February 17, 2017. CT chest reported separately. Stable cirrhotic appearing liver. Previous 1 cm hypodense lesion in the peripheral right lobe has enlarged today measuring 1.5 cm. Again splenomegaly today measuring 12.5 times greatest axial dimension. Stable splenic cyst and a few calcified hepatic/splenic granulomas. Again previous hysterectomy and cholecystectomy. No free fluid/air. Noncontrasted stomach and bowel loops appear nonobstructed. Remaining pancreas, adrenal glands, kidneys, ureters, and bladder appear unremarkable for noncontrast exam. There remains mild aortoiliac calcifications without AAA. Osseous structures intact again with mild degenerative spondylosis. Impression: 1. Stable cirrhotic liver without ascites. Interval enlarging right lobe hypodense lesion. Outpatient CT liver with contrast using hemangioma protocol may yield further information. 2. Again incidental splenomegaly, splenic cyst, and evidence for old granulomatous disease. 3. No new/acute intra-abdominal/pelvic abnormalities or fractures on this noncontrast exam. CTDI 27.96
[2017-10-13 15:20] LABS: ABO TYPING A; Antibody Screen POSITIVE (NEGATIVE); RH TYPING POSITIVE
[2017-10-13] MEDS ORDERED: Unasyn 1.5GM / NaCl 100ML 1.5 GM/100 ML IVPB IV STA (16:08)
[2017-10-13] MEDS ORDERED: NORCO 5/325 MG PO ONE (16:12)
[2017-10-13] MEDS ORDERED: Unasyn 1.5GM / NaCl 100ML 1.5 GM/100 ML IVPB ONE (16:21)
[2017-10-13] MEDS ORDERED: NORCO 5/325 MG ONE (16:21)
[2017-10-13] MEDS: Unasyn 1.5GM / NaCl 100ML 1.5 GM/100 ML IVPB IV SCH ×2 (17:24→23:38)
[2017-10-13] MEDS ORDERED: Unasyn 1.5GM / NaCl 100ML 1.5 GM/100 ML IVPB IV SCH (18:00)
[2017-10-13] MEDS ORDERED: Protonix 40MG Tablet PO SCH (22:30)
[2017-10-13] MEDS: Inderal 20 MG PO SCH (23:36)
[2017-10-14] MEDS: Norco 10/325 MG Tablet PO PRN ×4 (01:59→18:15)
[2017-10-14] MEDS: Unasyn 1.5GM / NaCl 100ML 1.5 GM/100 ML IVPB IV SCH ×4 (06:05→23:01)
--- NOTE | 2017-10-14 08:29 | PCM.HP ---
History of Present Illness - Chief Complaint Chief Complaint: contusions History of Present Illness: is a 77 year old female with a history of multiple falls in the last 2 weeks, she denies syncope, chest pain or shortness of breath. States she tends to lose her balance and fall backwards. She did hit her head at home, workup in ER showed to ICH and no fractures luckily. She has a history of thrombocytopenia secondary to cirrhosis, complains of right chest wall pain since a fall. - Review of Systems Constitutional: No Fever, No Chills Respiratory: No Cough, No Short Of Breath Cardiac: Other (right chest wall pain), No Chest Pain, No Edema, No Syncope Skin: No Rash Medications & Allergies Home Medications: Home Medication List Metformin HCl 1000 mg [Glucophage 1000 MG] 1,000 mg PO BID 06/14/12 [History Confirmed 10/13/17] Omeprazole 20 MG [Prilosec 20 mg] 20 mg PO BID 06/14/12 [History Confirmed 10/13] Dorzolamide HCl/Timolol Maleat [Cosopt Eye Drops] 1 drop OP DAILY 02/16/17 [ History Confirmed 10/13/17] Lisinopril [Zestril] 40 mg PO DAILY #0 tablet 02/21/17 [Rx Confirmed 10/13/17] Propranolol HCl 10 mg PO TID #90 tablet 02/21/17 [Rx Confirmed 10/13/17] Allergies/Adverse Reactions: Allergies Allergy/AdvReac Type Severity Reaction Status Date / Time adhesive tape Allergy Intermediate Verified 10/13/17 13:05 latex Allergy Mild Rash Verified 10/13/17 13:05 Sulfa (Sulfonamide Allergy Unknown Verified 10/13/17 13:05 Antibiotics) - Past Medical History Past Medical History: Yes Neurological History: No Pertinent History ENT History: Glaucoma, Macular Degeneration Cardiac History: Hypertension Respiratory History: No Pertinent History Endocrine Medical History: Diabetes Type II Musculoskelatal History: Other GI Medical History: GERD, Other History: Other Pyscho-Social History: No Pertinent History Reproductive Disorders: No Pertinent History Comment: BILATERAL TKA; ~, 1990; HX KIDNEY STONES. psorisis. neutropenia. thrombocytopenia - Female History Are you now?: No - Past Surgical History Past Surgical History: Yes Neuro Surgical History: No Pertinent History Cardiac History: No Pertinent History Respiratory Surgery: No Pertinent History GI Surgical History: Appendectomy, Cholecystectomy, Hernia Repair Genitourinary Surgical Hx: Other Musculskeletal Surgical Hx: Joint Replacement Female Surgical History: Hysterectomy Other Surgical History: 2 kidney stones removed - Social History Smoking Status: Never smoker Exposure to second hand smoke: No Alcohol: None Drug Use: none - Physical Exam Vital Signs: Vital Signs - 24 hr Temp Pulse Resp BP Pulse Ox 10/14/17 07:33 98.2 F 81 16 97/46 92 L 10/14/17 04:00 98.5 F 83 19 110/55 93 L 10/14/17 00:00 98.6 F 88 18 119/53 98 10/13/17 20:00 98.3 F 91 H 18 105/51 93 L 10/13/17 16:40 97.5 F 84 130/58 97 10/13/17 16:15 97 10/13/17 14:52 84 18 130/58 98 10/13/17 14:08 90 18 130/58 10/13/17 13:00 97.5 F 88 20 130/58 97 General Appearance: no apparent distress, alert Respiratory Exam: normal breath sounds, lungs clear, No respiratory distress Cardiovascular Exam: regular rate/rhythm, normal heart sounds, normal peripheral pulses, other (right lateral chest wall tender, no bony deformity) Gastrointestinal/Abdomen Exam: soft, normal bowel sounds, No tenderness, No mass Extremity Exam: other (extensive bruising to left hand) Skin Exam: normal color, warm, dry, No rash Assessment/Plan (1) UTI (urinary tract infection) Current Visit: Yes Status: Acute Assessment & Plan: on Unasyn at this time, urine culture and sens pending Code(s): N39.0 - URINARY TRACT INFECTION, SITE NOT SPECIFIED (2) Cirrhosis Current Visit: Yes Status: Acute (3) Falls frequently Current Visit: Yes Status: Acute Assessment & Plan: PT consult pending Code(s): R29.6 - REPEATED FALLS (4) Thrombocytopenia Current Visit: Yes Status: Acute
[2017-10-14] MEDS ORDERED: PROPRANOLOL HCL 10 MG PO SCH (10:00)
[2017-10-14] MEDS ORDERED: NON-FORMULARY ITEM (Omeprazole 20 Mg [Prilosec 20 Mg] 20 MG) PO SCH (10:00)
[2017-10-14] MEDS ORDERED: NON-FORMULARY ITEM (Lisinopril [Zestril] 40 MG) PO SCH (10:00)
[2017-10-14] MEDS: Protonix 40MG Tablet PO SCH ×2 (10:18→21:41)
[2017-10-14] MEDS: Zestril 20 MG PO SCH (10:18)
[2017-10-14] MEDS: Inderal 20 MG PO SCH ×3 (10:19→21:41)
[2017-10-14] MEDS: COSOPT OPHTHALMIC 10 ML OP SCH (10:22)
[2017-10-14] MEDS ORDERED: Ativan 2 MG/1 ML VIAL IV PRN (16:07)
[2017-10-15] MEDS: Norco 10/325 MG Tablet PO PRN (06:05)
[2017-10-15 06:18] LABS: BASOPHIL % 0.8 % (0.0-0.4); Basophil (Absolute #) 0.03 (0-0.4); Eosinophil % 6.6 % (0.00-5.0); Eosinophil (Absolute #) 0.25 (0-0.5); Granulocyte Absolute (ANC) 1.72 (1.4-6.9); Granulocytes % 45.4 % (36.0-66.0); Hematocrit 31.7 % (35-47); Lymphocyte (Absolute #) 1.32 (1.0-4.6); Lymphocytes % 34.8 % (24.0-44.0); Mean Cell Volume 97.2 fl (78-100); Mean Corpuscular Hgb Concent. 31.5 g/dl (32-36); Mean Platelet Volume 11.3 fl (6-9.5); Monocyte (Absolute #) 0.47 (0.0-1.3); Monocytes % 12.4 % (0.0-12.0); Platelet Count 75 K/mm3 (150-450); Red Blood Count 3.26 M/mm3 (4.1-5.4); White Blood Count 3.8 K/mm3 (4.0-10.5)
[2017-10-15 06:25] LABS: Mean Corpuscular Hemoglobin 30.6 pg (26-32)
[2017-10-15] MEDS: Unasyn 1.5GM / NaCl 100ML 1.5 GM/100 ML IVPB IV SCH ×2 (06:51→11:59)
[2017-10-15 06:54] LABS: ALBUMIN 2.7 g/dL (3.4-5.0); ANION GAP 7.9 MEQ/L (5-15); Calcium 8.5 mg/dL (8.5-10.1); Carbon Dioxide 28.9 mEq/L (21-32); Creatinine 1 1.25 mg/dl (0.55-1.30); Potassium 3.6 mEq/L (3.5-5.1)
[2017-10-15 07:26] LABS: AB ID Interp Nonspecific Ab
[2017-10-15 07:31] VITALS: O2SAT 93
[2017-10-15 07:54] LABS: ANISOCYTOSIS 1+; Eosinophil 5 % (0.00-3.0); Lymphocytes 35 % (24-44); Monocyte 1 % (0.0-12.0); Neutrophils 59 % (36.0-66.0); Total Cells Counted 100
[2017-10-15 07:55] LABS: Platelet Estimate DECREASED (NORMAL)
--- NOTE | 2017-10-15 08:13 | PCM.DS ---
Discharge Summary Date of Admission: 10/13/17 16:30 Admitting Physician: DOROTEO DOWELL Primary Care Provider: SEKOU SHANKS PEG Allergies Allergies adhesive tape Allergy (Intermediate, Verified 10/13/17 13:05) latex Allergy (Mild, Verified 10/13/17 13:05) Rash Sulfa (Sulfonamide Antibiotics) Allergy (Unknown, Verified 10/13/17 13:05) Hospital Summary - Hospital Course Hospital Course: patient very tearful today understandably, her passed unexpectedly yesterday at home. patient is concerned about making arrangements, urine culture is negative so far. - Vitals & Intake/Output Vital Signs: Vital Signs Temperature 98.7 F 10/15/17 07:30 Pulse Rate 73 10/15/17 07:30 Respiratory Rate 16 10/15/17 07:30 Blood Pressure 102/48 10/15/17 07:30 O2 Sat by Pulse Oximetry 93 L 10/15/17 07:30 Intake & Output: Intake & Output 10/12/17 10/13/17 10/14/17 10/15/17 11:59 11:59 11:59 11:59 Intake Total 480 480 Output Total 250 Balance 230 480 Weight 81.6 kg 91 kg - Lab Result Diagrams: 10/15/17 05:20 10/15/17 05:20 Lab Results-Last 24 Hrs: Lab Results-Last 24 Hours 10/15/17 10/15/17 Range/Units 05:20 05:20 WBC 3.8 L (4.0-10.5) K/mm3 RBC 3.26 L (4.1-5.4) M/mm3 Hgb 10.0 L (12.0-16.0) gm/dl Hct 31.7 L (35-47) % MCV 97.2 (78-100) fl MCH 30.6 (26-32) pg MCHC 31.5 L (32-36) g/dl RDW 15.0 H (11.5-14.0) % Plt Count 75 L (150-450) K/mm3 MPV 11.3 H (6-9.5) fl Gran % 45.4 (36.0-66.0) % Lymphocytes % 34.8 (24.0-44.0) % Monocytes % 12.4 H (0.0-12.0) % Eosinophils % 6.6 H (0.00-5.0) % Basophils % 0.8 (0.0-0.4) % Segmented Neutrophils 59 (36.0-66.0) % Lymphocytes (Manual) 35 (24-44) % Monocytes (Manual) 1 (0.0-12.0) % Eosinophils (Manual) 5 H (0.00-3.0) % Basophils # 0.03 (0-0.4) Differential Comment ABNORMAL Platelet Estimate DECREASED (NORMAL) Anisocytosis 1+ Sodium 138 (136-145) mEq/L Potassium 3.6 (3.5-5.1) mEq/L Chloride 105 (98-107) mEq/L Carbon Dioxide 28.9 (21-32) mEq/L Anion Gap 7.9 (5-15) MEQ/L BUN 23 H (9-20) mg/dL Creatinine 1.25 (0.55-1.30) mg/dl Estimated GFR 44 ML/MIN Glucose 137 H (70-110) MG/DL Calcium 8.5 (8.5-10.1) mg/dL Magnesium 1.9 (1.8-2.4) mg/dL Total Bilirubin 1.00 (0.2-1.0) mg/dL AST 95 H (15-37) U/L ALT 42 (12-78) U/L Alkaline Phosphatase 62 (46-116) U/L Serum Total Protein 6.0 L (6.4-8.2) gm/dL Albumin 2.7 L (3.4-5.0) g/dL Discharge Exam General Appearance: no apparent distress Neurologic Exam: alert Skin Exam: normal color, warm, dry, other (diffuse bruising in different stages) Respiratory Exam: normal breath sounds, lungs clear, No respiratory distress Cardiovascular Exam: regular rate/rhythm, normal heart sounds Gastrointestinal/Abdomen Exam: soft, No tenderness, No mass Final Diagnosis/Problem List - Final Discharge Diagnosis/Problem (1) Falls frequently Current Visit: Yes Status: Acute Assessment & Plan: discussed with family, patient appears unable to live alone and care for herself. they will explore assisted living vs going home with family etc. (2) UTI (urinary tract infection) Current Visit: Yes Status: Acute Assessment & Plan: urine culture negative, no further tx required (3) Cirrhosis Current Visit: Yes Status: Acute (4) Thrombocytopenia Current Visit: Yes Status: Acute - Discharge Disposition: Home, Self-Care Condition: Fair Prescriptions: No Action Omeprazole 20 MG [Prilosec 20 mg] 20 mg PO BID Metformin HCl 1000 mg [Glucophage 1000 MG] 1,000 mg PO BID Dorzolamide HCl/Timolol Maleat [Cosopt Eye Drops] 1 drop OP DAILY Lisinopril [Zestril] 40 mg PO DAILY #0 tablet Propranolol HCl 10 mg PO TID #90 tablet Follow up with: SEKOU SHANKS MD [Primary Care Provider] -
[2017-10-15] MEDS: COSOPT OPHTHALMIC 10 ML OP SCH (10:10)
[2017-10-15] MEDS: Inderal 20 MG PO SCH ×2 (10:10→15:06)
[2017-10-15] MEDS: Protonix 40MG Tablet PO SCH (10:10)
[2017-10-15] MEDS: Zestril 20 MG PO SCH (10:10)
[2017-10-15 11:33] VITALS: BP 118/58; PULSE 71
--- NOTE | 2017-10-15 13:36 | PCM.DCORD ---
- Discharge Disposition: Home, Self-Care Condition: Fair Prescriptions: Continue Omeprazole 20 MG [Prilosec 20 mg] 20 mg PO BID Metformin HCl 1000 mg [Glucophage 1000 MG] 1,000 mg PO BID Dorzolamide HCl/Timolol Maleat [Cosopt Eye Drops] 1 drop OP DAILY Lisinopril [Zestril] 40 mg PO DAILY #0 tablet Propranolol HCl 10 mg PO TID #90 tablet Additional Instructions: [facility] WILL CALL YOU TO ARRANGE YOUR FIRST VISIT. YOU MAY REACH THEM AT EXT [id number]. Follow up with: SEKOU SHANKS MD [Primary Care Provider] - 10/21/17 10:00 am
== END 2017-10-15 16:30 | disposition home or self-care (01) ==
LOC: ED 12:57 → MED SURG 16:30
PROVIDERS: ADMIT Family Medicine; ATTEND Family Medicine
DX: S20.219A Contusion of unspecified front wall of thorax, initial encounter (principal); W18.39XA Other fall on same level, initial encounter; R29.6 Repeated falls; Z91.81 History of falling; N39.0 Urinary tract infection, site not specified; K74.60 Unspecified cirrhosis of liver; D69.6 Thrombocytopenia, unspecified; I10 Essential (primary) hypertension; E11.9 Type 2 diabetes mellitus without complications; Z79.4 Long term (current) use of insulin; K21.9 Gastro-esophageal reflux disease without esophagitis
CPT/HCPCS: 36000; 36415; 70450; 71250; 72125; 73130; 74176; 80053; 81000; 82140; 83605; 83735; 85007; 85025; 85610; 85730; 86850; 86870; 86900; 86901; 87086; 90471; 90715; 93005; 93041; 96360; 96365; 99285; G0378; J0295; J2060; A9270-GY

== ENCOUNTER 2018-07-07 11:45 | Emergency (ER) | payer MEDICARE, OTHER ==
--- NOTE | 2018-07-07 12:39 | ERPHSYRPT ---
- History of Present Illness Time Seen by Provider: 07/07/18 12:20 Source: patient Exam Limitations: clinical condition Patient Subjective Stated Complaint: her B/P was elevated this AM. has been put on an additional B/P med. she was seen by her opthomologist for hemorrhages in her eyes. family concerned of her B/P high. Triage Nursing Assessment: alert and oriented. states she has had high B/P this AM.. in the 180s has taken her meds. seen by her opthomologist for hemorraghes in her eyes which is due to her high B/P family wants her cjhecked. denies pain or c/o has felt slightly weak. able to undress and get to bed per self. denies CP Physician History: PATIENT WITH A HISTORY OF CIRRHOSIS, HYPERTENSION, COMPLAINS OF ELEVATED BLOOD PRESSURE YESTERDAY. PLACED ON NEW BLOOD PRESSURE MEDICINE ALDACTONE 50MG DAILY X 5 DAYS. PATIENT HAS HISTORY OF FREQUENT FALLS, GENERALIZED WEAKNESS. DENIES SLURRED SPEECH, HEADACHE, BLURRED VISION, FOCAL NUMBNESS, TINGLING OR WEAKNESS IN EXTREMITIES. Timing/Duration: yesterday Activities at Onset: none Quality: other (DENIES CHEST PAIN, HAS GENERALIZED WEAKNESS) Severity of Pain-Max: none Severity of Pain-Current: none Aspirin Treatment Today: no aspirin today Associated Symptoms: weakness Prior Chest Pain/Cardiac Workup: no prior chest pain Allergies/Adverse Reactions: adhesive tape Allergy (Intermediate, Verified 07/07/18 12:14) latex Allergy (Mild, Verified 07/07/18 12:14) Rash Sulfa (Sulfonamide Antibiotics) Allergy (Unknown, Verified 07/07/18 12:14) Home Medications: Metformin HCl 1000 mg [Glucophage 1000 MG] 1,000 mg PO BID 06/14/12 [History] Omeprazole 20 MG [Prilosec 20 mg] 20 mg PO BID 06/14/12 [History] Dorzolamide HCl/Timolol Maleat [Cosopt Eye Drops] 1 drop OP DAILY 02/16/17 [ History] Hx Tetanus, Diphtheria Vaccination/Date Given: No Hx Influenza Vaccination/Date Given: Yes Hx Pneumococcal Vaccination/Date Given: Yes - Review of Systems Constitutional: Weakness, No Fever, No Chills Eyes: No Symptoms Ears, Nose, & Throat: No Symptoms Respiratory: No Symptoms, No Cough, No Dyspnea Cardiac: No Symptoms, No Chest Pain, No Edema, No Syncope Abdominal/Gastrointestinal: No Symptoms, No Abdominal Pain, No Nausea, No Vomiting, No Diarrhea Genitourinary Symptoms: No Symptoms, No Dysuria Musculoskeletal: No Symptoms, No Back Pain, No Neck Pain Skin: No Rash Neurological: No Dizziness, No Focal Weakness, No Sensory Changes Psychological: No Symptoms Endocrine: No Symptoms Hematologic/Lymphatic: No Symptoms All Other Systems: Reviewed and Negative - Past Medical History Pertinent Past Medical History: Yes Neurological History: No Pertinent History ENT History: Glaucoma, Macular Degeneration Cardiac History: Hypertension Respiratory History: No Pertinent History Endocrine Medical History: Diabetes Type II Musculoskeletal History: Other GI Medical History: GERD, Other History: Other Psycho-Social History: No Pertinent History Female Reproductive Disorders: No Pertinent History Other Medical History: BILATERAL TKA; ~, 1990; HX KIDNEY STONES. psorisis. neutropenia. thrombocytopenia - Past Surgical History Past Surgical History: Yes Neuro Surgical History: No Pertinent History Cardiac: No Pertinent History Respiratory: No Pertinent History Gastrointestinal: Appendectomy, Cholecystectomy, Hernia Repair Genitourinary: Other Musculoskeletal: Joint Replacement Female Surgical History: Hysterectomy Other Surgical History: 2 kidney stones removed - Social History Smoking Status: Never smoker Exposure to second hand smoke: No Drug Use: none Patient Lives Alone: No - Female History Hx Now: No - Nursing Vital Signs Nursing Vital Signs: Initial Vital Signs Temperature 98.9 F 07/07/18 12:06 Pulse Rate 68 07/07/18 12:06 Respiratory Rate 18 07/07/18 12:06 Blood Pressure 148/51 07/07/18 12:06 O2 Sat by Pulse Oximetry 97 07/07/18 12:06 Pain Scale Pain Intensity 0 - Physical Exam General Appearance: no apparent distress, alert Eye Exam: PERRL/EOMI, eyes nml inspection Ears, Nose, Throat Exam: normal ENT inspection, moist mucous membranes Neck Exam: normal inspection, non-tender, supple Respiratory Exam: normal breath sounds, lungs clear, No respiratory distress Cardiovascular Exam: regular rate/rhythm, normal heart sounds, No edema Gastrointestinal/Abdomen Exam: soft, No tenderness, No mass Back Exam: normal inspection, No CVA tenderness, No vertebral tenderness Extremity Exam: normal inspection, normal range of motion Neurologic Exam: alert, oriented x 3, cooperative, normal mood/affect, nml cerebellar function, sensation nml, No motor deficits Skin Exam: normal color, warm, dry Lymphatic Exam: No adenopathy SpO2: 97 Oxygen Delivery: Room Air - Course EKG Interpreted by Me: RATE, Sinus Rhythm, NORMAL AXIS - CT Exams Head CT Interpretation: Discussed w/radiologist (NEW REOMTE RIGHT BASAL GANGLIA LACUNAR INFARCT NEW SINCE 10/13/2107, OTHERWISE STABLE NONACUTE SENILE BRAIN) Ordered Tests: Active Orders 24 hr Category Date Time Status Hand Striper STAT Care 07/07/18 12:33 Active EKG-ER Only STAT Care 07/07/18 12:32 Active IV Insertion STAT Care 07/07/18 12:33 Active Pulse Oximetry (ED) STAT Care 07/07/18 12:32 Active HEAD WITHOUT CONTRAST [CT] Stat Exams 07/07/18 12:34 Completed BMP Routine Lab 07/07/18 12:51 Completed CBC W DIFF Stat Lab 07/07/18 12:51 Completed CULTURE,URINE Stat Lab 07/07/18 13:13 Received MAGNESIUM Routine Lab 07/07/18 12:51 Completed TROPONIN Q3H Lab 07/07/18 12:51 Completed TROPONIN Q3H Lab 07/08/18 00:45 Ordered UA W/RFX UR CULTURE Stat Lab 07/07/18 13:13 Ordered Medication Summary Discontinued Medications Generic Name Dose Route Start Last Admin Trade Name Freq PRN Reason Stop Dose Admin Magnesium Sulfate/Dextrose 100 mls @ 200 mls/hr 07/07/18 13:51 07/07/18 14:20 Magnesium 1 Gm / 100 Ml D5w IV 07/07/18 14:20 200 mls/hr STAT ONE Administration Magnesium Sulfate/Dextrose Confirm 07/07/18 13:59 Magnesium 1 Gm / 100 Ml D5w Administered 07/07/18 14:00 Dose 100 mls @ ud IV .STK-MED ONE Lab/Rad Data: Laboratory Result Diagrams 07/07/18 12:51 07/07/18 12:51 Laboratory Results 07/07/18 07/07/18 07/07/18 Range/Units 13:13 12:51 12:51 WBC 2.7 L (4.0-10.5) K/mm3 RBC 3.76 L (4.1-5.4) M/mm3 Hgb 11.1 L (12.0-16.0) gm/dl Hct 34.8 L (35-47) % MCV 92.6 (78-100) fl MCH 29.5 (26-32) pg MCHC 31.9 L (32-36) g/dl RDW 16.4 H (11.5-14.0) % Plt Count 59 L (150-450) K/mm3 MPV 11.9 H (6-9.5) fl Gran % 55.9 (36.0-66.0) % Eos # (Auto) 0.31 (0-0.5) Absolute Lymphs (auto) 0.62 L (1.0-4.6) Absolute Monos (auto) 0.25 (0.0-1.3) Lymphocytes % 22.8 L (24.0-44.0) % Monocytes % 9.2 (0.0-12.0) % Eosinophils % 11.4 H (0.00-5.0) % Basophils % 0.7 (0.0-0.4) % Absolute Granulocytes 1.52 (1.4-6.9) Basophils # 0.02 (0-0.4) Sodium 140 (137-145) mmol/L Potassium 4.1 (3.5-5.1) mmol/L Chloride 109 H (98-107) mmol/L Carbon Dioxide 26 (22-30) mmol/L Anion Gap 9.6 (5-15) MEQ/L BUN 16 (7-17) mg/dL Creatinine 0.78 (0.52-1.04) mg/dL Estimated GFR > 60.0 ML/MIN Glucose 124 H (74-106) mg/dL Calcium 9.6 (8.4-10.2) mg/dL Magnesium 1.5 L (1.6-2.3) mg/dL Troponin I < 0.012 (0.000-0.034) ng/mL Urine Color STRAW (YELLOW) Urine Appearance CLEAR (CLEAR) Urine pH 7.0 (5-6) Ur Specific [place] 1.004 (1.005-1.025) Urine Protein NEGATIVE (Negative) Urine Ketones NEGATIVE (NEGATIVE) Urine Blood NEGATIVE (0-5) Eric/ul Urine Nitrite NEGATIVE (NEGATIVE) Urine Bilirubin NEGATIVE (NEGATIVE) Urine Urobilinogen NEGATIVE (0-1) mg/dL Ur Leukocyte Esterase TRACE (NEGATIVE) Urine WBC (Auto) 6-10 (0-5) /HPF Urine RBC (Auto) NONE (0-2) /HPF U Epithel Cells (Auto) NONE (FEW) /HPF Urine Bacteria (Auto) RARE (NEGATIVE) /HPF Urine Culture Reflexed YES (NO) Urine Glucose NEGATIVE (NEGATIVE) mg/dL Slides for Path Review YES - Progress Progress: re-examined, unchanged Progress Note: 07/07/18 16:38 MAGNESIUM SULFATE 1GM IVPB Counseled pt/family regarding: lab results, diagnosis, need for follow-up, rad results - Departure Time of Disposition: 16:43 Departure Disposition: Home Clinical Impression: GENERALIZED WEAKNESS, HYPOMAGNESEMIA, URINARY TRACT INFECTION Condition: Stable Critical Care Time: No Referrals: SEKOU SHANKS MD [Primary Care Provider] - Additional Instructions: DRINK PLENTY OF FLUIDS. ANTIBIOTIC MACROBID 100MG TWICE DAILY FOR 10 DAYS. MAGNESIUM OXIDE 400MG TWICE DAILY FOR 10 DAYS. CONSULT YOUR PRIMARY CARE PROVIDER FOR FOLLOWUP IN 1 WEEK. Prescriptions: Magnesium Oxide [Magnesium] 400 mg PO BID #20 tablet Nitrofurantoin Macro 100 mg [Macrobid 100MG Capsule] 100 mg PO BID #20 cap
[2018-07-07 12:53] LABS: BASOPHIL % 0.7 % (0.0-0.4); Basophil (Absolute #) 0.02 (0-0.4); Eosinophil % 11.4 % (0.00-5.0); Eosinophil (Absolute #) 0.31 (0-0.5); Granulocyte Absolute (ANC) 1.52 (1.4-6.9); Granulocytes % 55.9 % (36.0-66.0); Hematocrit 34.8 % (35-47); Hemoglobin 11.1 gm/dl (12.0-16.0); Lymphocyte (Absolute #) 0.62 (1.0-4.6); Lymphocytes % 22.8 % (24.0-44.0); Mean Cell Volume 92.6 fl (78-100); Mean Corpuscular Hemoglobin 29.5 pg (26-32); Mean Corpuscular Hgb Concent. 31.9 g/dl (32-36); Mean Platelet Volume 11.9 fl (6-9.5); Monocyte (Absolute #) 0.25 (0.0-1.3); Monocytes % 9.2 % (0.0-12.0); Platelet Count 59 K/mm3 (150-450); Red Blood Count 3.76 M/mm3 (4.1-5.4); Red Cell Distribution Width 16.4 % (11.5-14.0); White Blood Count 2.7 K/mm3 (4.0-10.5)
[2018-07-07 13:33] LABS: ANION GAP 9.6 MEQ/L (5-15); BLOOD UREA NITROGEN 16 mg/dL (7-17); CHLORIDE 109 mmol/L (98-107); Calcium 9.6 mg/dL (8.4-10.2); Carbon Dioxide 26 mmol/L (22-30); Creatinine 1 0.78 mg/dL (0.52-1.04); Glucose 124 mg/dL (74-106); Potassium 4.1 mmol/L (3.5-5.1); SODIUM 140 mmol/L (137-145)
[2018-07-07 13:34] LABS: TROPONIN < 0.012 ng/mL (0.000-0.034)
--- NOTE | 2018-07-07 13:36 | XRAY ---
Indication: Headache. History I blood pressure. Multiple contiguous axial images obtained through the head without contrast. Comparison: October 13, 2017. Stable age-appropriate global atrophy and mild periventricular degenerative micro-ischemia. New finding remote lacunar infarct in the right basal ganglia. Again no acute intracranial hemorrhage, abnormal extra-axial fluid collection, or mass effect. Fourth ventricle is midline without hydrocephalus. Bony calvarium intact again with mild hyperostosis frontalis interna. Floor of the right maxillary sinus again demonstrates mild mucosal thickening. Remaining visualized paranasal sinuses and mastoid air cells are clear. Impression: New remote right basal ganglia lacunar infarct. Otherwise stable nonacute senile brain again with incidental right maxillary sinus disease. CT DI 68.15
[2018-07-07] MEDS ORDERED: Magnesium 1 Gm / 100 Ml D5W*** 100 ML IV ONE ×2 (13:51→13:59)
[2018-07-07 14:48] VITALS: PULSE 70
[2018-07-07 15:28] LABS: Slide Review 1 YES
[2018-07-07 16:27] LABS: Appearance CLEAR (CLEAR); Bilirubin NEGATIVE (NEGATIVE); Blood NEGATIVE Ery/ul (0-5); Glucose NEGATIVE (NEGATIVE); Ketones NEGATIVE (NEGATIVE); Leukocyte Esterase TRACE (NEGATIVE); Nitrite NEGATIVE (NEGATIVE); Protein,Urine Dip NEGATIVE (Negative); Specific Gravity 1.004 (1.005-1.025); Urobilinogen NEGATIVE mg/dL (0-1)
[2018-07-07 17:18] VITALS: BP 136/68; O2SAT 98
== END 2018-07-07 17:18 | disposition home or self-care (01) ==
LOC: ED 11:45
DX: R53.1 Weakness (principal); E83.42 Hypomagnesemia; N39.0 Urinary tract infection, site not specified; I10 Essential (primary) hypertension; E11.9 Type 2 diabetes mellitus without complications; Z79.84 Long term (current) use of oral hypoglycemic drugs; Z79.899 Other long term (current) drug therapy
CPT/HCPCS: 36415; 70450; 80048; 81001; 83735; 84484; 85025; 87086; 93005; 93041; 96365; 99284; J3475

== ENCOUNTER 2018-10-11 07:12 | Emergency (ER) | payer MEDICARE, OTHER ==
--- NOTE | 2018-10-11 08:03 | ERPHSYRPT ---
- History of Present Illness Time Seen by Provider: 10/11/18 07:58 Source: patient, family Exam Limitations: no limitations Patient Subjective Stated Complaint: pt states she was trying to get out of recliner this morning, lost balance twice before trying a third time and falling hitting back on end table and head on a grandfather clock. Pt denies feeling dizzy prior to falling pt states "i just couldn't get my balance with my feet under me". pt denies. taking blood thinners, denies loc. c/o pain in head. Pt adds she experience chest pain prior to attempting to stand from recliner. Triage Nursing Assessment: [place]/warm/dry, resp easy, a&ox4, slow but steady gait with sideby assist of family member. pt offered wheelchair to room but declined. bruising and abrasion to back noted. no deformities Physician History: The patient is an 78-year-old female with family complaining that she fell during the night. She was sleeping in a recliner and felt the need to go to the bathroom. She tried to get up twice from the recliner but fell back in recliner each time. She dozed off another half an hour and then was able to get up. She pivoted, losing her balance, causing her to fall. She hit the back of her head. She also scraped her right mid back on a table. She did not lose consciousness. She was not dizzy. Prior to the fall she claims she had mild mid chest pain that had resolved shortly before the fall. She denies shortness of breath. She denies numbness or tingling. Her past medical history is significant for TIA, DM, HTN, GERD, hypomagnesemia, UTIs, multiple falls, and thrombocytopenia. Occurred: this morning Reason for Fall: lost balance, fell from standing pos Injuries/Pain Location: head, back Loss of Consciousness: no loss of consciousness Quality: aching Severity of Pain-Max: mild Severity of Pain-Current: mild Modifying Factors: Improves With: nothing Associated Symptoms (Fall): denies symptoms Allergies/Adverse Reactions: adhesive tape Allergy (Intermediate, Verified 10/11/18 07:35) latex Allergy (Mild, Verified 10/11/18 07:35) Rash Sulfa (Sulfonamide Antibiotics) Allergy (Unknown, Verified 10/11/18 07:35) Home Medications: Omeprazole 20 MG [Prilosec 20 mg] 20 mg PO BID 06/14/12 [History] Dorzolamide HCl/Timolol Maleat [Cosopt Eye Drops] 1 drop OP DAILY 02/16/17 [ History] Metformin HCl Xr 500 mg [Glucophage XR 500 MG] 500 mg PO DAILY 10/11/18 [ History] Oxybutynin Chloride Xl 5 mg [Ditropan XL 5 MG] 5 mg PO DAILY 10/11/18 [ History] Propranolol HCl 20 mg PO TID 10/11/18 [History] Spironolactone 50 mg PO DAILY 10/11/18 [History] Tolterodine Tartrate [Detrol] 1 mg PO DAILY 10/11/18 [History] Hx Tetanus, Diphtheria Vaccination/Date Given: Yes Hx Influenza Vaccination/Date Given: Yes Hx Pneumococcal Vaccination/Date Given: Yes Immunizations Up to Date: Yes - Review of Systems Constitutional: No Fever, No Chills Eyes: No Symptoms Ears, Nose, & Throat: No Symptoms Respiratory: No Cough, No Dyspnea Cardiac: No Chest Pain, No Edema, No Syncope Abdominal/Gastrointestinal: No Abdominal Pain, No Nausea, No Vomiting, No Diarrhea Genitourinary Symptoms: No Dysuria Musculoskeletal: Fall, Injury Skin: No Rash Neurological: Headache Psychological: No Symptoms Endocrine: No Symptoms Hematologic/Lymphatic: No Symptoms Immunological/Allergic: No Symptoms All Other Systems: Reviewed and Negative - Past Medical History Pertinent Past Medical History: Yes Neurological History: No Pertinent History ENT History: Glaucoma, Macular Degeneration Cardiac History: Hypertension Respiratory History: No Pertinent History Endocrine Medical History: Diabetes Type II Musculoskeletal History: Other GI Medical History: GERD, Other History: Other Psycho-Social History: No Pertinent History Female Reproductive Disorders: No Pertinent History Other Medical History: BILATERAL TKA; ~, 1990; HX KIDNEY STONES. psoriasis. neutropenia. thrombocytopenia - Past Surgical History Past Surgical History: Yes Neuro Surgical History: No Pertinent History Cardiac: No Pertinent History Respiratory: No Pertinent History Gastrointestinal: Appendectomy, Cholecystectomy, Hernia Repair Genitourinary: Other Musculoskeletal: Joint Replacement Female Surgical History: Hysterectomy Other Surgical History: 2 kidney stones removed - Social History Smoking Status: Never smoker Exposure to second hand smoke: No Drug Use: none Patient Lives Alone: No - Nursing Vital Signs Nursing Vital Signs: Initial Vital Signs Temperature 97.6 F 10/11/18 07:19 Pulse Rate 69 10/11/18 07:19 Respiratory Rate 14 10/11/18 07:19 Blood Pressure 160/59 10/11/18 07:19 O2 Sat by Pulse Oximetry 99 10/11/18 07:19 Pain Scale Pain Intensity 5 - Nick Coma Score Best Eye Response (Nick): (4) open spontaneously Best Verbal Response (Nick): (5) oriented Best Motor Response ([place]): (6) obeys commands [place] Total: 15 - Physical Exam General Appearance: no apparent distress, alert Head Injury: tenderness (occiput) Eye Exam: PERRL/EOMI ENT Exam: airway nml Neck Exam: normal inspection, No tenderness Respiratory/Chest Exam: normal breath sounds, No chest tenderness, No respiratory distress Cardiovascular Exam: regular rate/rhythm, murmur Gastrointestinal Exam: soft, No tenderness, No distention, No guarding, No ecchymosis Rectal Exam: not done Back Exam: normal range of motion, other (15 cm abrasion over right thoracic paraspinous muscle with mild tenderness upon palpation. ) Extremity Exam: normal range of motion, pain with movement (very mild tendrness with motion of right shoulder) Neurologic Exam: alert, oriented x 3, cooperative, business leader II-XII nml as tested, normal mood/affect, sensation nml, No motor deficits Skin Exam: abrasion SpO2 Interpretation: normal SpO2: 99 O2 Delivery: Room Air - Course EKG Interpreted by Me: RATE, Sinus Rhythm, NORMAL AXIS, NORMAL INTERVALS, Right Bundle Branch Block, NORMAL ST-T, Other (no change comp to EKG from 07/07/18.) - Radiology Exams Chest X-ray Interpretation: Reviewed by me, Teleradiologist Report (per Dr Goldstein), Negative Right Shoulder X-ray Interpretation: Reviewed by me, Teleradiologist Report (Per Dr Goldstein), Negative T-Spine X-ray Interpretation: Reviewed by me, Teleradiologist Report (pe Dr Goldstein), Negative - CT Exams Head CT Interpretation: Negative, Tele-radiologist Report (per Dr Goldstein) Cervical Spine CT Interpretation: Negative, Tele-radiologist Report (Per Dr Goldstein), No Fracture Ordered Tests: Active Orders 24 hr Category Date Time Status Clean Catch Urine Specimen STAT Care 10/11/18 08:06 Active IV Insertion STAT Care 10/11/18 08:21 Active Orthostatic Vital Signs STAT Care 10/11/18 08:11 Active CERVICAL SPINE WO CONTRAST [CT] Stat Exams 10/11/18 08:08 Completed CHEST 2 VIEWS (PA AND LAT) Stat Exams 10/11/18 08:07 Completed HEAD WITHOUT CONTRAST [CT] Stat Exams 10/11/18 08:08 Completed SHOULDER Stat Exams 10/11/18 08:09 Completed THORACIC SPINE (AP,LAT,SWIMM) Stat Exams 10/11/18 08:08 Completed CBC W DIFF Stat Lab 10/11/18 08:10 Completed CMP Stat Lab 10/11/18 08:10 Completed CULTURE,URINE Stat Lab 10/11/18 10:00 Received ETHYL ALCOHOL Stat Lab 10/11/18 08:10 Completed MAGNESIUM Stat Lab 10/11/18 08:10 Completed TROPONIN Q3H Lab 10/11/18 08:10 Completed TROPONIN Q3H Lab 10/11/18 11:15 Ordered TROPONIN Q3H Lab 10/11/18 14:15 Ordered TROPONIN Q3H Lab 10/11/18 17:15 Ordered TROPONIN Q3H Lab 10/11/18 20:15 Ordered UA W/RFX UR CULTURE Stat Lab 10/11/18 10:00 Completed Medication Summary Discontinued Medications Generic Name Dose Route Start Last Admin Trade Name [place] PRN Reason Stop Dose Admin Acetaminophen 975 mg 10/11/18 08:06 10/11/18 08:17 Tylenol 325 Mg PO 10/11/18 08:07 975 mg STAT ONE Administration Acetaminophen Confirm 10/11/18 08:17 Tylenol 325 Mg Administered 10/11/18 08:18 Dose 975 mg .ROUTE .STK-MED ONE Lab/Rad Data: Laboratory Result Diagrams 10/11/18 08:10 10/11/18 08:10 Laboratory Results 10/11/18 10/11/18 10/11/18 Range/Units 10:00 08:10 08:10 WBC (4.0-10.5) K/mm3 RBC (4.1-5.4) M/mm3 Hgb (12.0-16.0) gm/dl Hct (35-47) % MCV (78-100) fl MCH (26-32) pg MCHC (32-36) g/dl RDW (11.5-14.0) % Plt Count (150-450) K/mm3 MPV (6-9.5) fl Gran % (36.0-66.0) % Eos # (Auto) (0-0.5) Absolute Lymphs (auto) (1.0-4.6) Absolute Monos (auto) (0.0-1.3) Lymphocytes % (24.0-44.0) % Monocytes % (0.0-12.0) % Eosinophils % (0.00-5.0) % Basophils % (0.0-0.4) % Absolute Granulocytes (1.4-6.9) Basophils # (0-0.4) Sodium 138 (137-145) mmol/L Potassium 4.7 (3.5-5.1) mmol/L Chloride 107 (98-107) mmol/L Carbon Dioxide 26 (22-30) mmol/L Anion Gap 9.9 (5-15) MEQ/L BUN 23 H (7-17) mg/dL Creatinine 1.02 (0.52-1.04) mg/dL Estimated GFR 55.4 ML/MIN Glucose 166 H (74-106) mg/dL Calcium 9.9 (8.4-10.2) mg/dL Magnesium 1.5 L (1.6-2.3) mg/dL Total Bilirubin 1.60 H (0.2-1.3) mg/dL AST 31 (14-36) U/L ALT 18 (0-35) U/L Alkaline Phosphatase 75 (38-126) U/L Troponin I < 0.012 (0.000-0.034) ng/mL Serum Total Protein 6.3 (6.3-8.2) g/dL Albumin 3.2 L (3.5-5.0) g/dL Urine Color YELLOW (YELLOW) Urine Appearance CLEAR (CLEAR) Urine pH 6.0 (5-6) Ur Specific [place] 1.009 (1.005-1.025) Urine Protein NEGATIVE (Negative) Urine Ketones NEGATIVE (NEGATIVE) Urine Blood NEGATIVE (0-5) Eric/ul Urine Nitrite NEGATIVE (NEGATIVE) Urine Bilirubin NEGATIVE (NEGATIVE) Urine Urobilinogen NEGATIVE (0-1) mg/dL Ur Leukocyte Esterase MODERATE (NEGATIVE) Urine WBC (Auto) 11-15 (0-5) /HPF Urine RBC (Auto) 0-2 (0-2) /HPF U Epithel Cells (Auto) RARE (FEW) /HPF Urine Bacteria (Auto) RARE (NEGATIVE) /HPF Urine Mucus (Auto) SLIGHT (NEGATIVE) /HPF Urine Culture Reflexed YES (NO) Urine Glucose NEGATIVE (NEGATIVE) mg/dL Ethyl Alcohol < 10 (0-10) mg/dL Slides for Path Review 10/11/18 Range/Units 08:10 WBC 3.6 L (4.0-10.5) K/mm3 RBC 3.62 L (4.1-5.4) M/mm3 Hgb 11.0 L (12.0-16.0) gm/dl Hct 34.0 L (35-47) % MCV 93.9 (78-100) fl MCH 30.3 (26-32) pg MCHC 32.4 (32-36) g/dl RDW 15.5 H (11.5-14.0) % Plt Count 44 L (150-450) K/mm3 MPV 11.0 H (6-9.5) fl Gran % 60.9 (36.0-66.0) % Eos # (Auto) 0.19 (0-0.5) Absolute Lymphs (auto) 0.80 L (1.0-4.6) Absolute Monos (auto) 0.39 (0.0-1.3) Lymphocytes % 22.3 L (24.0-44.0) % Monocytes % 10.9 (0.0-12.0) % Eosinophils % 5.3 H (0.00-5.0) % Basophils % 0.6 (0.0-0.4) % Absolute Granulocytes 2.19 (1.4-6.9) Basophils # 0.02 (0-0.4) Sodium (137-145) mmol/L Potassium (3.5-5.1) mmol/L Chloride (98-107) mmol/L Carbon Dioxide (22-30) mmol/L Anion Gap (5-15) MEQ/L BUN (7-17) mg/dL Creatinine (0.52-1.04) mg/dL Estimated GFR ML/MIN Glucose (74-106) mg/dL Calcium (8.4-10.2) mg/dL Magnesium (1.6-2.3) mg/dL Total Bilirubin (0.2-1.3) mg/dL AST (14-36) U/L ALT (0-35) U/L Alkaline Phosphatase (38-126) U/L Troponin I (0.000-0.034) ng/mL Serum Total Protein (6.3-8.2) g/dL Albumin (3.5-5.0) g/dL Urine Color (YELLOW) Urine Appearance (CLEAR) Urine pH (5-6) Ur Specific [place] (1.005-1.025) Urine Protein (Negative) Urine Ketones (NEGATIVE) Urine Blood (0-5) Eric/ul Urine Nitrite (NEGATIVE) Urine Bilirubin (NEGATIVE) Urine Urobilinogen (0-1) mg/dL Ur Leukocyte Esterase (NEGATIVE) Urine WBC (Auto) (0-5) /HPF Urine RBC (Auto) (0-2) /HPF U Epithel Cells (Auto) (FEW) /HPF Urine Bacteria (Auto) (NEGATIVE) /HPF Urine Mucus (Auto) (NEGATIVE) /HPF Urine Culture Reflexed (NO) Urine Glucose (NEGATIVE) mg/dL Ethyl Alcohol (0-10) mg/dL Slides for Path Review YES - Progress Progress: improved Counseled pt/family regarding: lab results, diagnosis, need for follow-up, rad results - Departure Time of Disposition: 10:17 Departure Disposition: Home Clinical Impression: Fall, Head contusion, UTI (urinary tract infection) Condition: Stable Critical Care Time: No Referrals: SEKOU SHANKS MD [Primary Care Provider] - Additional Instructions: You had a fall this morning because a head contusion. The head CT, neck CT, right shoulder x-ray, chest x-ray, and back x-ray were all negative. You also have a mild urinary bladder infection (UTI). Take Macrobid 100 mg 2 times a day for 7 days. Take Tylenol 1000 mg every 8 hours and ibuprofen 800 mg every 8 hours as needed for pain. Follow-up with your primary medical doctor in 2-3 days for reevaluation. Prescriptions: Nitrofurantoin Monohyd/M-Cryst [Macrobid 100 mg Capsule] 100 mg PO BID #14 capsule
[2018-10-11] MEDS ORDERED: TYLENOL 325 MG PO ONE (08:06)
[2018-10-11] MEDS ORDERED: TYLENOL 325 MG ONE (08:17)
[2018-10-11 08:20] LABS: BASOPHIL % 0.6 % (0.0-0.4); Basophil (Absolute #) 0.02 (0-0.4); Eosinophil % 5.3 % (0.00-5.0); Eosinophil (Absolute #) 0.19 (0-0.5); Granulocyte Absolute (ANC) 2.19 (1.4-6.9); Granulocytes % 60.9 % (36.0-66.0); Lymphocytes % 22.3 % (24.0-44.0); Mean Cell Volume 93.9 fl (78-100); Mean Corpuscular Hgb Concent. 32.4 g/dl (32-36); Monocyte (Absolute #) 0.39 (0.0-1.3); Monocytes % 10.9 % (0.0-12.0); Platelet Count 44 K/mm3 (150-450); Red Blood Count 3.62 M/mm3 (4.1-5.4); Red Cell Distribution Width 15.5 % (11.5-14.0); White Blood Count 3.6 K/mm3 (4.0-10.5)
[2018-10-11 08:25] LABS: Mean Corpuscular Hemoglobin 30.3 pg (26-32)
[2018-10-11 08:37] LABS: ALBUMIN 3.2 g/dL (3.5-5.0); ALKALINE PHOSPHATASE 75 U/L (38-126); ANION GAP 9.9 MEQ/L (5-15); BLOOD UREA NITROGEN 23 mg/dL (7-17); CHLORIDE 107 mmol/L (98-107); Calcium 9.9 mg/dL (8.4-10.2); Carbon Dioxide 26 mmol/L (22-30); Creatinine 1 1.02 mg/dL (0.52-1.04); Glucose 166 mg/dL (74-106); MAGNESIUM 1.5 mg/dL (1.6-2.3); Potassium 4.7 mmol/L (3.5-5.1); SGOT/AST 31 U/L (14-36); SGPT/ALT 18 U/L (0-35); SODIUM 138 mmol/L (137-145); Total Protein 6.3 g/dL (6.3-8.2)
[2018-10-11 08:38] LABS: ETHYL ALCOHOL < 10 mg/dL (0-10)
--- NOTE | 2018-10-11 08:46 | XRAY ---
Indication: Head injury following fall. Multiple contiguous axial images obtained through the head without contrast. Comparison: July 07, 2018. Stable age-appropriate global atrophy and mild periventricular degenerative micro-ischemia. No acute intracranial hemorrhage, abnormal extra-axial fluid collection, or mass effect. Fourth ventricle is midline without hydrocephalus. Bony calvarium intact again with mild hyperostosis frontalis interna. Visualized paranasal sinuses and mastoid air cells are clear. Impression: Stable nonacute senile brain. CTDI 48.47
--- NOTE | 2018-10-11 08:50 | XRAY ---
Indication: Head injury following fall. Pain. Multiple contiguous axial images obtained through the cervical spine. Sagittal and coronal reformatted images obtained. Comparison: October 13, 2017. Axial images again negative for acute fracture, subluxation, or spinal canal stenosis. Stable osteopenia, multilevel degenerative endplate spurring, and multilevel bilateral degenerative facet hypertrophy. Sagittal and coronal reformatted images demonstrates stable C3-C4 and C6-C7 disc space narrowing. No acute compression fracture, subluxation, or jumped facet. Normal-appearing craniocervical junction. Visualized noncontrasted soft tissues again demonstrates scattered carotid calcifications. Lung apices clear. Impression: 1. Again negative for acute fracture/subluxation. 2. Stable osteopenia and multilevel degenerative changes. CT DI 63.84
--- NOTE | 2018-10-11 09:12 | XRAY ---
Indication: Pain following fall. Comparison: None AP/lateral thoracic spine demonstrates 12 typical rib-bearing thoracic vertebral segments with osteopenia, multilevel flowing osteophytes, mild dextroscoliosis centered at T6, and aorta calcifications. No other bony, articular, or soft tissue abnormalities.
--- NOTE | 2018-10-11 09:14 | XRAY ---
Indication: Pain following fall. Comparison: None 3 views of the right shoulder demonstrates osteopenia, moderate AC degenerative arthropathy, and multilevel degenerative spondylosis. No other bony, articular, or soft tissue abnormalities.
--- NOTE | 2018-10-11 09:15 | XRAY ---
Indication: Chest pain following fall. Comparison: February 17, 2017. PA/lateral chest again demonstrates normal heart and lungs. Bony thorax intact again with osteopenia and degenerative changes. No new/acute findings.
[2018-10-11 09:20] VITALS: BP 140/69
[2018-10-11 09:31] LABS: Slide Review 1 YES
[2018-10-11 10:05] LABS: Appearance CLEAR (CLEAR); Bilirubin NEGATIVE (NEGATIVE); Blood NEGATIVE Ery/ul (0-5); Epithelial Cells RARE /HPF (FEW); Glucose NEGATIVE (NEGATIVE); Ketones NEGATIVE (NEGATIVE); Leukocyte Esterase MODERATE (NEGATIVE); Mucus SLIGHT /HPF (NEGATIVE); Nitrite NEGATIVE (NEGATIVE); Protein,Urine Dip NEGATIVE (Negative); RBC 0-2 /HPF (0-2); Specific Gravity 1.009 (1.005-1.025); Urobilinogen NEGATIVE mg/dL (0-1)
[2018-10-11 10:06] LABS: Bacteria RARE /HPF (NEGATIVE)
[2018-10-11 10:29] VITALS: PULSE 64; O2SAT 97
== END 2018-10-11 10:37 | disposition home or self-care (01) ==
LOC: ED 07:12
DX: S00.93XA Contusion of unspecified part of head, initial encounter (principal); N39.0 Urinary tract infection, site not specified; W22.03XA Walked into furniture, initial encounter; Z79.01 Long term (current) use of anticoagulants; Z86.73 Personal history of transient ischemic attack (TIA), and cerebral infarction without residual deficits; E11.9 Type 2 diabetes mellitus without complications; I10 Essential (primary) hypertension; K21.9 Gastro-esophageal reflux disease without esophagitis; Z87.448 Personal history of other diseases of urinary system; D69.6 Thrombocytopenia, unspecified; Z79.899 Other long term (current) drug therapy
CPT/HCPCS: 36000; 36415; 70450; 71046; 72072; 72125; 73030; 80053; 81001; 83735; 84484; 85025; 87086; 99284; G0480; 80307; A9270-GY

== ENCOUNTER 2019-02-14 12:40 | Inpatient (IN) | payer MEDICARE, OTHER ==
--- NOTE | 2019-02-14 12:59 | ERPHSYRPT ---
- History of Present Illness Time Seen by Provider: 02/14/19 12:59 Source: patient, family Exam Limitations: no limitations Physician History: 79 y/o white female, who falls on occasion. was found on floor at home. pt fell last night. pt fell forward while trying to wash clothes at home. pt uses a walker but not at home because she braces herself using her furniture. pt denies head injury, denies dizziness or headache. pt has h/o recurrent utis. pt has been having intermittent chest twinges. denies soa. pt complains of hip, lower back and right knee pain. Occurred: yesterday Reason for Fall: lost balance Injuries/Pain Location: back, pelvis, lower extremity (right knee) Loss of Consciousness: no loss of consciousness Quality: aching Severity of Pain-Max: mild Severity of Pain-Current: mild Modifying Factors: Improves With: movement Associated Symptoms (Fall): back pain, extremity injury, No chest pain, No dizziness, No nausea, No shortness of breath, No vomiting, No vision changes Allergies/Adverse Reactions: adhesive tape Allergy (Intermediate, Verified 02/14/19 13:13) latex Allergy (Mild, Verified 02/14/19 13:13) Rash Sulfa (Sulfonamide Antibiotics) Allergy (Unknown, Verified 02/14/19 13:13) Home Medications: Omeprazole 20 MG [Prilosec 20 mg] 20 mg PO BID 06/14/12 [History] Dorzolamide HCl/Timolol Maleat [Cosopt Eye Drops] 1 drop OP DAILY 02/16/17 [ History] Metformin HCl Xr 500 mg [Glucophage XR 500 MG] 500 mg PO DAILY 10/11/18 [ History] Oxybutynin Chloride Xl 5 mg [Ditropan XL 5 MG] 5 mg PO DAILY 10/11/18 [ History] Propranolol HCl 20 mg PO TID 10/11/18 [History] Spironolactone 50 mg PO DAILY 10/11/18 [History] Tolterodine Tartrate [Detrol] 1 mg PO DAILY 10/11/18 [History] Hx Tetanus, Diphtheria Vaccination/Date Given: Yes Hx Influenza Vaccination/Date Given: Yes Hx Pneumococcal Vaccination/Date Given: Yes - Review of Systems Constitutional: No Symptoms Eyes: No Symptoms Ears, Nose, & Throat: No Symptoms Respiratory: No Symptoms Cardiac: No Symptoms Abdominal/Gastrointestinal: No Symptoms Genitourinary Symptoms: No Symptoms Musculoskeletal: Back Pain, Fall, Injury (bilat hips and right knee) Skin: No Symptoms Neurological: No Symptoms Psychological: No Symptoms Endocrine: No Symptoms Hematologic/Lymphatic: No Symptoms Immunological/Allergic: No Symptoms All Other Systems: Reviewed and Negative - Past Medical History Pertinent Past Medical History: Yes Neurological History: No Pertinent History ENT History: Glaucoma, Macular Degeneration Cardiac History: Hypertension Respiratory History: No Pertinent History Endocrine Medical History: Diabetes Type II Musculoskeletal History: Other GI Medical History: GERD, Other History: Other Psycho-Social History: No Pertinent History Female Reproductive Disorders: No Pertinent History Other Medical History: BILATERAL TKA; ~, 1990; HX KIDNEY STONES. psoriasis. neutropenia. thrombocytopenia - Past Surgical History Past Surgical History: Yes Neuro Surgical History: No Pertinent History Cardiac: No Pertinent History Respiratory: No Pertinent History Gastrointestinal: Appendectomy, Cholecystectomy, Hernia Repair Genitourinary: Other Musculoskeletal: Joint Replacement Female Surgical History: Hysterectomy Other Surgical History: 2 kidney stones removed - Social History Smoking Status: Never smoker Exposure to second hand smoke: No Drug Use: none Patient Lives Alone: No - Nursing Vital Signs Nursing Vital Signs: Initial Vital Signs Temperature 98.5 F 02/14/19 12:58 Pulse Rate 82 02/14/19 12:58 Respiratory Rate 14 02/14/19 12:58 Blood Pressure 129/58 02/14/19 12:58 O2 Sat by Pulse Oximetry 98 02/14/19 12:58 Pain Scale Pain Intensity 5 - [place] Coma Score Best Eye Response ([place]): (4) open spontaneously Best Verbal Response ([place]): (5) oriented Best Motor Response ([place]): (6) obeys commands [place] Total: 15 - Physical Exam General Appearance: no apparent distress, alert, anxiety Head Injury: no evidence of injury, No Arriola's Sign, No contusions Eye Exam: PERRL/EOMI, eyes nml inspection ENT Exam: airway nml, nml ext.inspection Neck Exam: supple, trachea midline, full range of motion, normal alignment, normal inspection Respiratory/Chest Exam: normal breath sounds, No chest tenderness, No respiratory distress, No crepitus, No decreased breath sounds Cardiovascular Exam: normal heart sounds, regular rate/rhythm, normal peripheral pulses Gastrointestinal Exam: soft, normal bowel sounds, No tenderness Rectal Exam: not done Back Exam: normal inspection, normal range of motion, muscle spasm, No CVA tenderness, No vertebral tenderness Extremity Exam: normal inspection, tenderness (right ant knee) Neurologic Exam: alert, oriented x 3, cooperative, laundry aid II-XII nml as tested, normal mood/affect, nml cerebellar function, sensation nml Skin Exam: normal color, warm, dry O2 Delivery: Room Air - Course Nursing assessment & vital signs reviewed: Yes EKG Interpreted by Me: RATE (71), Sinus Rhythm, NORMAL AXIS, NORMAL INTERVALS, NORMAL QRS, Other (no change from comparison ekg dated 10/11/18) Ordered Tests: Active Orders 24 hr Category Date Time Status EKG-ER Only STAT Care 02/14/19 13:31 Active HIP GLEN (4V) INCL PELV IF DONE Stat Exams 02/14/19 13:13 Completed KNEE (3 VIEWS) Stat Exams 02/14/19 13:13 Completed LUMBAR LIMITED (2 OR 3 VIEWS) Stat Exams 02/14/19 13:13 Completed CBC W DIFF Stat Lab 02/14/19 13:17 Completed CK (IN-HOUSE) [CK-Creatinine Phosphokinase] Stat Lab 02/14/19 13:40 Completed CMP Stat Lab 02/14/19 13:17 Completed CULTURE,URINE Stat Lab 02/14/19 15:20 Received TROPONIN Q3H Lab 02/14/19 13:30 Completed TROPONIN Q3H Lab 02/14/19 16:45 Ordered TROPONIN Q3H Lab 02/14/19 19:45 Ordered TROPONIN Q3H Lab 02/14/19 22:45 Ordered UA W/RFX UR CULTURE Stat Lab 02/14/19 15:20 Completed Transfer Order Routine Transfer 02/14/19 Ordered Medication Summary Generic Name Dose Route Start Last Admin Trade Name Freq PRN Reason Stop Dose Admin Ceftriaxone Sodium/Dextrose 1 g in 50 mls @ 100 mls/hr 02/14/19 16:12 Rocephin 1 Gm-D5w 50 Ml Bag IV 02/14/19 16:41 STAT STA Discontinued Medications Generic Name Dose Route Start Last Admin Trade Name Freq PRN Reason Stop Dose Admin Sodium Chloride 500 mls @ 500 mls/hr 02/14/19 13:12 02/14/19 14:36 Sodium Chloride 0.9% 500 Ml IV 02/14/19 14:11 Infused .Q1H ONE Infusion Sodium Chloride Confirm 02/14/19 13:32 Sodium Chloride 0.9% 500 Ml Administered 02/14/19 13:33 Dose 500 mls @ ud IV .STK-MED ONE Ceftriaxone Sodium/Dextrose Confirm 02/14/19 16:18 Rocephin 1 Gm-D5w 50 Ml Bag Administered 02/14/19 16:19 Dose 1 g in 50 mls @ ud IV .STK-MED ONE Lab/Rad Data: Laboratory Result Diagrams 02/14/19 13:17 02/14/19 13:17 Laboratory Results 02/14/19 02/14/19 02/14/19 Range/Units 15:20 13:40 13:30 WBC (4.0-10.5) K/mm3 RBC (4.1-5.4) M/mm3 Hgb (12.0-16.0) gm/dl Hct (35-47) % MCV (78-100) fl MCH (26-32) pg MCHC (32-36) g/dl RDW (11.5-14.0) % Plt Count (150-450) K/mm3 MPV (6-9.5) fl Gran % (36.0-66.0) % Eos # (Auto) (0-0.5) Absolute Lymphs (auto) (1.0-4.6) Absolute Monos (auto) (0.0-1.3) Lymphocytes % (24.0-44.0) % Monocytes % (0.0-12.0) % Eosinophils % (0.00-5.0) % Basophils % (0.0-0.4) % Absolute Granulocytes (1.4-6.9) Basophils # (0-0.4) Sodium (137-145) mmol/L Potassium (3.5-5.1) mmol/L Chloride (98-107) mmol/L Carbon Dioxide (22-30) mmol/L Anion Gap (5-15) MEQ/L BUN (7-17) mg/dL Creatinine (0.52-1.04) mg/dL Estimated GFR ML/MIN Glucose (74-106) mg/dL Calcium (8.4-10.2) mg/dL Total Bilirubin (0.2-1.3) mg/dL AST (14-36) U/L ALT (0-35) U/L Alkaline Phosphatase (38-126) U/L Creatine Kinase 208 H (30-135) U/L Troponin I < 0.012 (0.000-0.034) ng/mL Serum Total Protein (6.3-8.2) g/dL Albumin (3.5-5.0) g/dL Urine Color [place] (YELLOW) Urine Appearance SLIGHTLY CLOUDY (CLEAR) Urine pH 5.0 (5-6) Ur Specific [place] 1.018 (1.005-1.025) Urine Protein NEGATIVE (Negative) Urine Ketones TRACE (NEGATIVE) Urine Blood NEGATIVE (0-5) Eric/ul Urine Nitrite NEGATIVE (NEGATIVE) Urine Bilirubin NEGATIVE (NEGATIVE) Urine Urobilinogen NEGATIVE (0-1) mg/dL Ur Leukocyte Esterase MODERATE (NEGATIVE) Urine WBC (Auto) 11-15 (0-5) /HPF Urine RBC (Auto) 3-5 (0-2) /HPF U Hyaline Cast (Auto) 11-25 (0-2) /LPF U Epithel Cells (Auto) RARE (FEW) /HPF Urine Bacteria (Auto) FEW (NEGATIVE) /HPF Urine Mucus (Auto) SLIGHT (NEGATIVE) /HPF Urine Culture Reflexed YES (NO) Urine Glucose NEGATIVE (NEGATIVE) mg/dL Slides for Path Review 02/14/19 02/14/19 Range/Units 13:17 13:17 WBC 6.6 (4.0-10.5) K/mm3 RBC 3.91 L (4.1-5.4) M/mm3 Hgb 11.9 L (12.0-16.0) gm/dl Hct 35.3 (35-47) % MCV 90.3 (78-100) fl MCH 30.4 (26-32) pg MCHC 33.7 (32-36) g/dl RDW 14.8 H (11.5-14.0) % Plt Count 74 L (150-450) K/mm3 MPV 10.1 H (6-9.5) fl Gran % 73.3 H (36.0-66.0) % Eos # (Auto) 0.21 (0-0.5) Absolute Lymphs (auto) 0.92 L (1.0-4.6) Absolute Monos (auto) 0.59 (0.0-1.3) Lymphocytes % 14.0 L (24.0-44.0) % Monocytes % 9.0 (0.0-12.0) % Eosinophils % 3.2 (0.00-5.0) % Basophils % 0.5 (0.0-0.4) % Absolute Granulocytes 4.84 (1.4-6.9) Basophils # 0.03 (0-0.4) Sodium 140 (137-145) mmol/L Potassium 4.3 (3.5-5.1) mmol/L Chloride 106 (98-107) mmol/L Carbon Dioxide 22 (22-30) mmol/L Anion Gap 15.7 H (5-15) MEQ/L BUN 17 (7-17) mg/dL Creatinine 0.93 (0.52-1.04) mg/dL Estimated GFR > 60.0 ML/MIN Glucose 159 H (74-106) mg/dL Calcium 10.3 H (8.4-10.2) mg/dL Total Bilirubin 2.50 H (0.2-1.3) mg/dL AST 40 H (14-36) U/L ALT 23 (0-35) U/L Alkaline Phosphatase 78 (38-126) U/L Creatine Kinase (30-135) U/L Troponin I (0.000-0.034) ng/mL Serum Total Protein 6.9 (6.3-8.2) g/dL Albumin 3.5 (3.5-5.0) g/dL Urine Color (YELLOW) Urine Appearance (CLEAR) Urine pH (5-6) Ur Specific [place] (1.005-1.025) Urine Protein (Negative) Urine Ketones (NEGATIVE) Urine Blood (0-5) Eric/ul Urine Nitrite (NEGATIVE) Urine Bilirubin (NEGATIVE) Urine Urobilinogen (0-1) mg/dL Ur Leukocyte Esterase (NEGATIVE) Urine WBC (Auto) (0-5) /HPF Urine RBC (Auto) (0-2) /HPF U Hyaline Cast (Auto) (0-2) /LPF U Epithel Cells (Auto) (FEW) /HPF Urine Bacteria (Auto) (NEGATIVE) /HPF Urine Mucus (Auto) (NEGATIVE) /HPF Urine Culture Reflexed (NO) Urine Glucose (NEGATIVE) mg/dL Slides for Path Review YES - Progress Progress: improved, re-examined Progress Note: 02/14/19 14:42 xray of lumbar spine, hips and right knee negative for acute fx or dislocation 02/14/19 16:[address] berry at 1445. i reviewed pt hx, condition, labs, ekg and xray results with him. he accepts pt for observation. Counseled pt/family regarding: lab results, diagnosis, rad results - Departure Departure Disposition: Observation Clinical Impression: Fall, UTI (urinary tract infection) Condition: Stable Critical Care Time: No Referrals: SEKOU BERRY MD [Primary Care Provider] -
[2019-02-14] MEDS ORDERED: Sodium Chloride 0.9% 500 ML 500 ML IV ONE ×2 (13:12→13:32)
[2019-02-14 13:27] LABS: BASOPHIL % 0.5 % (0.0-0.4); Basophil (Absolute #) 0.03 (0-0.4); Eosinophil % 3.2 % (0.00-5.0); Eosinophil (Absolute #) 0.21 (0-0.5); Granulocyte Absolute (ANC) 4.84 (1.4-6.9); Granulocytes % 73.3 % (36.0-66.0); Hematocrit 35.3 % (35-47); Hemoglobin 11.9 gm/dl (12.0-16.0); Lymphocyte (Absolute #) 0.92 (1.0-4.6); Mean Cell Volume 90.3 fl (78-100); Mean Corpuscular Hemoglobin 30.4 pg (26-32); Mean Corpuscular Hgb Concent. 33.7 g/dl (32-36); Mean Platelet Volume 10.1 fl (6-9.5); Platelet Count 74 K/mm3 (150-450); Red Blood Count 3.91 M/mm3 (4.1-5.4); Red Cell Distribution Width 14.8 % (11.5-14.0); White Blood Count 6.6 K/mm3 (4.0-10.5)
[2019-02-14 13:28] LABS: ALBUMIN 3.5 g/dL (3.5-5.0); ALKALINE PHOSPHATASE 78 U/L (38-126); ANION GAP 15.7 MEQ/L (5-15); BLOOD UREA NITROGEN 17 mg/dL (7-17); CHLORIDE 106 mmol/L (98-107); Calcium 10.3 mg/dL (8.4-10.2); Carbon Dioxide 22 mmol/L (22-30); Creatinine 1 0.93 mg/dL (0.52-1.04); Glucose 159 mg/dL (74-106); Potassium 4.3 mmol/L (3.5-5.1); SGOT/AST 40 U/L (14-36); SGPT/ALT 23 U/L (0-35); SODIUM 140 mmol/L (137-145); Total Protein 6.9 g/dL (6.3-8.2)
--- NOTE | 2019-02-14 14:21 | XRAY ---
Indication: Pain following fall. Comparison: None 3 views of the lumbar spine demonstrates 5 lumbar vertebral segments with osteopenia, minimal/mild multilevel endplate spurring, L5-S1 disc space narrowing, and scattered vascular calcifications. No other bony, articular, or soft tissue abnormalities.
--- NOTE | 2019-02-14 14:23 | XRAY ---
Indication: Pain following fall. Comparison: None AP pelvis and 2 views of the left and right hip demonstrates osteopenia, minimal degenerative changes of both hips, and scattered vascular calcifications. No other bony, articular, or soft tissue abnormalities. Lumbar spine reported separately.
--- NOTE | 2019-02-14 14:25 | XRAY ---
Indication: Pain following fall. Comparison: None 3 views of the right knee demonstrates osteopenia, total knee arthroplasty with intact prosthesis, tiny anterior benign calcifications, and minimal vascular calcifications. No other bony, articular, or soft tissue abnormalities.
[2019-02-14 14:26] LABS: Slide Review 1 YES
[2019-02-14 15:44] LABS: Appearance SLIGHTLY CLOUDY (CLEAR); Bacteria FEW /HPF (NEGATIVE); Bilirubin NEGATIVE (NEGATIVE); Blood NEGATIVE Ery/ul (0-5); Epithelial Cells RARE /HPF (FEW); Glucose NEGATIVE (NEGATIVE); Ketones TRACE (NEGATIVE); Leukocyte Esterase MODERATE (NEGATIVE); Mucus SLIGHT /HPF (NEGATIVE); Nitrite NEGATIVE (NEGATIVE); Protein,Urine Dip NEGATIVE (Negative); Specific Gravity 1.018 (1.005-1.025); Urobilinogen NEGATIVE mg/dL (0-1)
[2019-02-14] MEDS ORDERED: ROCEPHIN 1 Gm-D5w 50 ml Bag** 1 G/50 ML IVPB IV STA (16:12)
[2019-02-14] MEDS ORDERED: ROCEPHIN 1 Gm-D5w 50 ml Bag** 1 G/50 ML IVPB IV ONE (16:18)
[2019-02-14] MEDS: Sodium Chloride 0.9% 1000 ML 1,000 ML IV SCH (17:39)
[2019-02-14] MEDS: Xalatan OP SCH (22:37)
[2019-02-14] MEDS: Protonix 40MG Tablet PO SCH (22:37)
[2019-02-14] MEDS: Ditropan XL 5 MG PO SCH (22:37)
[2019-02-14] MEDS: Inderal 20 MG PO SCH (22:37)
[2019-02-15] MEDS: TYLENOL 325 MG PO PRN (00:47)
[2019-02-15 05:36] LABS: Hematocrit 31.6 % (35-47); Hemoglobin 10.5 gm/dl (12.0-16.0); Mean Cell Volume 91.9 fl (78-100); Mean Corpuscular Hemoglobin 30.5 pg (26-32); Mean Corpuscular Hgb Concent. 33.2 g/dl (32-36); Mean Platelet Volume 11.2 fl (6-9.5); Platelet Count 72 K/mm3 (150-450); Red Blood Count 3.44 M/mm3 (4.1-5.4); White Blood Count 5.1 K/mm3 (4.0-10.5)
[2019-02-15 05:53] LABS: ANION GAP 12.1 MEQ/L (5-15); Calcium 9.7 mg/dL (8.4-10.2); Creatinine 1 0.97 mg/dL (0.52-1.04); Potassium 4.3 mmol/L (3.5-5.1)
[2019-02-15 07:27] LABS: BAND 1 % (0.0-2.0); Eosinophil 4 % (0.00-3.0); Lymphocytes 27 % (24-44); Monocyte 7 % (0.0-12.0); Neutrophils 61 % (36.0-66.0); Platelet Estimate DECREASED (NORMAL); Total Cells Counted 100
[2019-02-15] MEDS: Glucophage XR 500 MG PO SCH (08:27)
--- NOTE | 2019-02-15 08:54 | PCM.HP ---
History of Present Illness - Chief Complaint Chief Complaint: UTI, FALL History of Present Illness: is a 79 year old female pt of Dr. Way with DM, peripheral neuropathy , OA, HTN, iron deficiency anemia who came to the ER after having fallen. She was at home, reaching for a sock to put in the washer, when she fell forward onto her knees and also hit her hip. She denies hitting her head. She crawled from room to room trying to find a way to help herself up but finally covered herself with a blanket and slept on the floor. She ended up calling Tracy Jazlyn and Tracy texted pt's daughter Annette who came to get her and take her to the ER. Her xrays of knees and hips were negative. She was found to have WBC in the urine and started on IV rocephin. She states she was feeling weak for several days and having dysuria for the past 1 week. - Review of Systems Cardiac: Chest Pain ("twinges" of sharp pain in the chest 1-2 days ago) Abdominal/Gastrointestinal: Melena (c/o black stools for the past 1 yr but denies being on iron) Genitourinary Symptoms: Dysuria Musculoskeletal: Fall, Injury (knees stiff this morning) Psychological: No Anxiety, No Depression, No Suicidal Ideations All Other Systems: Reviewed and Negative Medications & Allergies Home Medications: Home Medication List Omeprazole 20 MG [Prilosec 20 mg] 20 mg PO BID 06/14/12 [History Confirmed 02/14] Dorzolamide HCl/Timolol Maleat [Cosopt Eye Drops] 1 drop OP BID 02/16/17 [ History Confirmed 02/14/19] Lisinopril [Zestril] 40 mg PO DAILY #0 tablet 02/21/17 [Rx Confirmed 02/14/19] Metformin HCl Xr 500 mg [Glucophage XR 500 MG] 500 mg PO DAILY 10/11/18 [ History Confirmed 02/14/19] Oxybutynin Chloride Xl 5 mg [Ditropan XL 5 MG] 5 mg PO BID 10/11/18 [ History Confirmed 02/14/19] Propranolol HCl 20 mg PO TID 10/11/18 [History Confirmed 02/14/19] Spironolactone 50 mg PO DAILY 10/11/18 [History Confirmed 02/14/19] Tolterodine Tartrate [Detrol] 1 mg PO DAILY 10/11/18 [History Confirmed 02/14/19 ] Latanoprost 1 drop OP BID 02/14/19 [History Confirmed 02/14/19] Allergies/Adverse Reactions: Allergies Allergy/AdvReac Type Severity Reaction Status Date / Time Sulfa (Sulfonamide Allergy Intermediate Nausea and Verified 02/14/19 16:53 Antibiotics) Vomiting adhesive tape Allergy Mild Rash Verified 02/14/19 16:53 latex Allergy Mild Rash Verified 02/14/19 13:13 - Past Medical History Past Medical History: Yes Neurological History: No Pertinent History ENT History: Glaucoma, Macular Degeneration Cardiac History: Hypertension Respiratory History: No Pertinent History Endocrine Medical History: Diabetes Type II Musculoskelatal History: No Pertinent History GI Medical History: GERD, GI Bleed History: Other Pyscho-Social History: No Pertinent History Reproductive Disorders: No Pertinent History Comment: HX KIDNEY STONES. psoriasis. neutropenia. thrombocytopenia. urinary tract infections - Female History Are you now?: No - Past Surgical History Past Surgical History: Yes Neuro Surgical History: No Pertinent History Cardiac History: No Pertinent History Respiratory Surgery: No Pertinent History GI Surgical History: Appendectomy, Cholecystectomy, Hernia Repair Genitourinary Surgical Hx: Other Musculskeletal Surgical Hx: Joint Replacement Female Surgical History: Hysterectomy Other Surgical History: 2 kidney stones removed, bilateral knee replacements - Social History Smoking Status: Never smoker Exposure to second hand smoke: No Alcohol: Occasionally Drug Use: none - Physical Exam Vital Signs: Vital Signs - 24 hr Temp Pulse Resp BP Pulse Ox 02/15/19 08:00 98.5 F 75 18 134/58 93 L 02/15/19 04:00 98.2 F 843 H 20 116/55 94 L 02/15/19 00:00 99 F 88 21 131/72 94 L 02/14/19 20:47 98.6 F 91 H 20 115/54 92 L 02/14/19 17:46 98.7 F 93 H 18 144/67 99 02/14/19 16:47 98.7 F 93 H 18 144/67 99 02/14/19 16:16 83 16 123/56 96 02/14/19 15:42 84 16 132/58 99 02/14/19 12:58 98.5 F 82 14 129/58 98 General Appearance: no apparent distress, alert Neurologic Exam: oriented x 3, cooperative Eye Exam: eyes nml inspection Ears, Nose, Throat Exam: moist mucous membranes Neck Exam: normal inspection, non-tender, No lymphadenopathy Respiratory Exam: normal breath sounds, lungs clear, No crackles/rales, No rhonchi, No wheezing Cardiovascular Exam: regular rate/rhythm, normal heart sounds, murmur (III/ holosystolic murmur best heard at R sternal border) Gastrointestinal/Abdomen Exam: soft, normal bowel sounds, No tenderness, No distention, No mass, No guarding, No rebound Back Exam: normal inspection, No rash Extremity Exam: normal inspection, swelling (1+ LE edema L>R) Skin Exam: normal color, warm, dry, No rash Results - Labs Lab/Micro Results: Accuchecks Date 02/15/19 Date 02/14/19 Time 07:30 Time 21:00 Accucheck Value: 161 Accucheck Value: 369 Lab Results-Last 24 Hours 02/14/19 02/14/19 02/14/19 Range/Units 13:17 13:17 13:30 WBC 6.6 (4.0-10.5) K/mm3 RBC 3.91 L (4.1-5.4) M/mm3 Hgb 11.9 L (12.0-16.0) gm/dl Hct 35.3 (35-47) % MCV 90.3 (78-100) fl MCH 30.4 (26-32) pg MCHC 33.7 (32-36) g/dl RDW 14.8 H (11.5-14.0) % Plt Count 74 L (150-450) K/mm3 MPV 10.1 H (6-9.5) fl Gran % 73.3 H (36.0-66.0) % Eos # (Auto) 0.21 (0-0.5) Absolute Lymphs (auto) 0.92 L (1.0-4.6) Absolute Monos (auto) 0.59 (0.0-1.3) Lymphocytes % 14.0 L (24.0-44.0) % Monocytes % 9.0 (0.0-12.0) % Eosinophils % 3.2 (0.00-5.0) % Basophils % 0.5 (0.0-0.4) % Absolute Granulocytes 4.84 (1.4-6.9) Segmented Neutrophils (36.0-66.0) % Band Neutrophils (0.0-2.0) % Lymphocytes (Manual) (24-44) % Monocytes (Manual) (0.0-12.0) % Eosinophils (Manual) (0.00-3.0) % Basophils # 0.03 (0-0.4) Platelet Estimate (NORMAL) RBC Morphology Sodium 140 (137-145) mmol/L Potassium 4.3 (3.5-5.1) mmol/L Chloride 106 (98-107) mmol/L Carbon Dioxide 22 (22-30) mmol/L Anion Gap 15.7 H (5-15) MEQ/L BUN 17 (7-17) mg/dL Creatinine 0.93 (0.52-1.04) mg/dL Estimated GFR > 60.0 ML/MIN Glucose 159 H (74-106) mg/dL Calcium 10.3 H (8.4-10.2) mg/dL Total Bilirubin 2.50 H (0.2-1.3) mg/dL AST 40 H (14-36) U/L ALT 23 (0-35) U/L Alkaline Phosphatase 78 (38-126) U/L Creatine Kinase (30-135) U/L Troponin I < 0.012 (0.000-0.034) ng/mL Serum Total Protein 6.9 (6.3-8.2) g/dL Albumin 3.5 (3.5-5.0) g/dL Urine Color (YELLOW) Urine Appearance (CLEAR) Urine pH (5-6) Ur Specific [place] (1.005-1.025) Urine Protein (Negative) Urine Ketones (NEGATIVE) Urine Blood (0-5) Eric/ul Urine Nitrite (NEGATIVE) Urine Bilirubin (NEGATIVE) Urine Urobilinogen (0-1) mg/dL Ur Leukocyte Esterase (NEGATIVE) Urine WBC (Auto) (0-5) /HPF Urine RBC (Auto) (0-2) /HPF U Hyaline Cast (Auto) (0-2) /LPF U Epithel Cells (Auto) (FEW) /HPF Urine Bacteria (Auto) (NEGATIVE) /HPF Urine Mucus (Auto) (NEGATIVE) /HPF Urine Culture Reflexed (NO) Urine Glucose (NEGATIVE) mg/dL Slides for Path Review YES 02/14/19 02/14/19 02/14/19 Range/Units 13:40 15:20 16:59 WBC (4.0-10.5) K/mm3 RBC (4.1-5.4) M/mm3 Hgb (12.0-16.0) gm/dl Hct (35-47) % MCV (78-100) fl MCH (26-32) pg MCHC (32-36) g/dl RDW (11.5-14.0) % Plt Count (150-450) K/mm3 MPV (6-9.5) fl Gran % (36.0-66.0) % Eos # (Auto) (0-0.5) Absolute Lymphs (auto) (1.0-4.6) Absolute Monos (auto) (0.0-1.3) Lymphocytes % (24.0-44.0) % Monocytes % (0.0-12.0) % Eosinophils % (0.00-5.0) % Basophils % (0.0-0.4) % Absolute Granulocytes (1.4-6.9) Segmented Neutrophils (36.0-66.0) % Band Neutrophils (0.0-2.0) % Lymphocytes (Manual) (24-44) % Monocytes (Manual) (0.0-12.0) % Eosinophils (Manual) (0.00-3.0) % Basophils # (0-0.4) Platelet Estimate (NORMAL) RBC Morphology Sodium (137-145) mmol/L Potassium (3.5-5.1) mmol/L Chloride (98-107) mmol/L Carbon Dioxide (22-30) mmol/L Anion Gap (5-15) MEQ/L BUN (7-17) mg/dL Creatinine (0.52-1.04) mg/dL Estimated GFR ML/MIN Glucose (74-106) mg/dL Calcium (8.4-10.2) mg/dL Total Bilirubin (0.2-1.3) mg/dL AST (14-36) U/L ALT (0-35) U/L Alkaline Phosphatase (38-126) U/L Creatine Kinase 208 H (30-135) U/L Troponin I < 0.012 (0.000-0.034) ng/mL Serum Total Protein (6.3-8.2) g/dL Albumin (3.5-5.0) g/dL Urine Color [place] (YELLOW) Urine Appearance SLIGHTLY CLOUDY (CLEAR) Urine pH 5.0 (5-6) Ur Specific [place] 1.018 (1.005-1.025) Urine Protein NEGATIVE (Negative) Urine Ketones TRACE (NEGATIVE) Urine Blood NEGATIVE (0-5) Eric/ul Urine Nitrite NEGATIVE (NEGATIVE) Urine Bilirubin NEGATIVE (NEGATIVE) Urine Urobilinogen NEGATIVE (0-1) mg/dL Ur Leukocyte Esterase MODERATE (NEGATIVE) Urine WBC (Auto) 11-15 (0-5) /HPF Urine RBC (Auto) 3-5 (0-2) /HPF U Hyaline Cast (Auto) 11-25 (0-2) /LPF U Epithel Cells (Auto) RARE (FEW) /HPF Urine Bacteria (Auto) FEW (NEGATIVE) /HPF Urine Mucus (Auto) SLIGHT (NEGATIVE) /HPF Urine Culture Reflexed YES (NO) Urine Glucose NEGATIVE (NEGATIVE) mg/dL Slides for Path Review 02/15/19 02/15/19 02/15/19 Range/Units 05:00 05:00 05:00 WBC 5.1 (4.0-10.5) K/mm3 RBC 3.44 L (4.1-5.4) M/mm3 Hgb 10.5 L (12.0-16.0) gm/dl Hct 31.6 L (35-47) % MCV 91.9 (78-100) fl MCH 30.5 (26-32) pg MCHC 33.2 (32-36) g/dl RDW 15.0 H (11.5-14.0) % Plt Count 72 L (150-450) K/mm3 MPV 11.2 H (6-9.5) fl Gran % (36.0-66.0) % Eos # (Auto) (0-0.5) Absolute Lymphs (auto) (1.0-4.6) Absolute Monos (auto) (0.0-1.3) Lymphocytes % (24.0-44.0) % Monocytes % (0.0-12.0) % Eosinophils % (0.00-5.0) % Basophils % (0.0-0.4) % Absolute Granulocytes (1.4-6.9) Segmented Neutrophils 61 (36.0-66.0) % Band Neutrophils 1 (0.0-2.0) % Lymphocytes (Manual) 27 (24-44) % Monocytes (Manual) 7 (0.0-12.0) % Eosinophils (Manual) 4 H (0.00-3.0) % Basophils # (0-0.4) Platelet Estimate DECREASED (NORMAL) RBC Morphology NORMAL Sodium 139 (137-145) mmol/L Potassium 4.3 (3.5-5.1) mmol/L Chloride 107 (98-107) mmol/L Carbon Dioxide 24 (22-30) mmol/L Anion Gap 12.1 (5-15) MEQ/L BUN 18 H (7-17) mg/dL Creatinine 0.97 (0.52-1.04) mg/dL Estimated GFR 58.6 ML/MIN Glucose 160 H (74-106) mg/dL Calcium 9.7 (8.4-10.2) mg/dL Total Bilirubin (0.2-1.3) mg/dL AST (14-36) U/L ALT (0-35) U/L Alkaline Phosphatase (38-126) U/L Creatine Kinase 266 H (30-135) U/L Troponin I (0.000-0.034) ng/mL Serum Total Protein (6.3-8.2) g/dL Albumin (3.5-5.0) g/dL Urine Color (YELLOW) Urine Appearance (CLEAR) Urine pH (5-6) Ur Specific [place] (1.005-1.025) Urine Protein (Negative) Urine Ketones (NEGATIVE) Urine Blood (0-5) Eric/ul Urine Nitrite (NEGATIVE) Urine Bilirubin (NEGATIVE) Urine Urobilinogen (0-1) mg/dL Ur Leukocyte Esterase (NEGATIVE) Urine WBC (Auto) (0-5) /HPF Urine RBC (Auto) (0-2) /HPF U Hyaline Cast (Auto) (0-2) /LPF U Epithel Cells (Auto) (FEW) /HPF Urine Bacteria (Auto) (NEGATIVE) /HPF Urine Mucus (Auto) (NEGATIVE) /HPF Urine Culture Reflexed (NO) Urine Glucose (NEGATIVE) mg/dL Slides for Path Review Accuchecks Date 02/15/19 Date 02/14/19 Time 07:30 Time 21:00 Accucheck Value: 161 Accucheck Value: 369 - Radiology Impressions Radiology Exams & Impressions: Radiology Procedures Category Date Time Status HIP GLEN (4V) INCL PELV IF DONE Stat Exams 02/14/19 13:13 Completed KNEE (3 VIEWS) Stat Exams 02/14/19 13:13 Completed LUMBAR LIMITED (2 OR 3 VIEWS) Stat Exams 02/14/19 13:13 Completed Assessment/Plan (1) UTI (urinary tract infection) Current Visit: Yes Status: Acute Qualifiers: Urinary tract infection type: acute cystitis Assessment & Plan: ON rocephin day #2. Urine culture pending. Code(s): N39.0 - URINARY TRACT INFECTION, SITE NOT SPECIFIED (2) Fall Current Visit: Yes Status: Acute Qualifiers: Encounter type: initial encounter Qualified Code(s): W19.XXXA - Unspecified fall, initial encounter Assessment & Plan: PT consulted. Advised she should be prepared to stay several days with therapy ; pt agrees. Code(s): W19.XXXA - UNSPECIFIED FALL, INITIAL ENCOUNTER (3) Diabetes mellitus Current Visit: Yes Status: Chronic Qualifiers: Diabetes mellitus type: type 2 Diabetes mellitus middle or intermediate school principal insulin use: without middle or intermediate school principal use Diabetes mellitus complication status: with neurologic complications Diabetes mellitus complication detail: with polyneuropathy Qualified Code(s): E11.42 - Type 2 diabetes mellitus with diabetic polyneuropathy Assessment & Plan: BS 155 this morning. Continued home meds. Code(s): E11.9 - TYPE 2 DIABETES MELLITUS WITHOUT COMPLICATIONS (4) HTN (hypertension) Current Visit: Yes Status: Chronic Qualifiers: Hypertension type: essential hypertension Qualified Code(s): I10 - Essential (primary) hypertension Assessment & Plan: BP well controlled here on home meds. Code(s): I10 - ESSENTIAL (PRIMARY) HYPERTENSION
[2019-02-15] MEDS ORDERED: NON-FORMULARY ITEM (Lisinopril [Zestril] 40 MG) PO SCH (10:00)
[2019-02-15] MEDS: Protonix 40MG Tablet PO SCH ×2 (10:07→21:06)
[2019-02-15] MEDS: Zestril 20 MG PO SCH (10:07)
[2019-02-15] MEDS: Aldactone 25 MG PO SCH (10:07)
[2019-02-15] MEDS: Inderal 20 MG PO SCH ×3 (10:07→21:06)
[2019-02-15] MEDS: Ditropan XL 5 MG PO SCH ×2 (10:07→21:06)
[2019-02-15] MEDS: COSOPT OPHTHALMIC 10 ML OP SCH ×2 (10:08→21:19)
[2019-02-15] MEDS: ROCEPHIN 1 Gm-D5w 50 ml Bag** 1 G/50 ML IVPB IV SCH (10:08)
[2019-02-15] MEDS ORDERED: MEDICATION INTERVENTION PO SCH (10:15)
[2019-02-15] MEDS: Sodium Chloride 0.9% 1000 ML 1,000 ML IV SCH (13:46)
[2019-02-15] MEDS ORDERED: NovoLOG Insulin SQ PRN (17:37)
[2019-02-15] MEDS: Xalatan OP SCH (21:19)
[2019-02-16] MEDS: TYLENOL 325 MG PO PRN ×2 (01:35→11:51)
[2019-02-16] MEDS: Glucophage XR 500 MG PO SCH (07:33)
[2019-02-16] MEDS: Ditropan XL 5 MG PO SCH ×2 (09:00→22:35)
[2019-02-16] MEDS: Aldactone 25 MG PO SCH (09:00)
[2019-02-16] MEDS: COSOPT OPHTHALMIC 10 ML OP SCH ×2 (09:00→22:36)
[2019-02-16] MEDS: Zestril 20 MG PO SCH (09:00)
[2019-02-16] MEDS: Inderal 20 MG PO SCH ×3 (09:00→22:35)
[2019-02-16] MEDS: Protonix 40MG Tablet PO SCH ×2 (09:00→22:35)
[2019-02-16] MEDS: ROCEPHIN 1 Gm-D5w 50 ml Bag** 1 G/50 ML IVPB IV SCH (09:00)
[2019-02-16] MEDS: Xalatan OP SCH ×2 (09:02→22:34)
--- NOTE | 2019-02-16 09:18 | PCM.NOTE ---
Date and Time: 02/16/19914 Subjective Assessment: patient feels as though her strength is improving, she admits to not wearing her life alert at home and usually ambulates with a walker at home but has too much furniture so holds on to items as she walks. Objective Exam General Appearance: no apparent distress Skin Exam: normal color, warm, dry Respiratory Exam: normal breath sounds, lungs clear, No respiratory distress Cardiovascular Exam: regular rate/rhythm, normal heart sounds Gastrointestinal/Abdomen Exam: soft, No tenderness, No mass Extremity Exam: normal inspection, normal range of motion OBJECTIVE DATA Vital Signs: Vital Signs - 24 hr Temp Pulse Resp BP Pulse Ox 02/16/19 07:48 98.4 F 75 18 137/62 93 L 02/16/19 04:00 98.0 F 77 18 136/62 93 L 02/16/19 00:19 98.3 F 80 18 141/63 94 L 02/15/19 20:00 98.0 F 74 19 120/58 93 L 02/15/19 18:00 98.4 F 78 18 118/57 97 02/15/19 14:09 98.4 F 78 18 118/57 97 Pain Assessment - Last Documented Pain Intensity 6 Pain Scale Used [facility] Intake and Output: Intake & Output 02/13/19 02/14/19 02/15/19 02/16/19 11:59 11:59 11:59 11:59 Intake Total 1757 6577 Balance 1757 6577 Weight 91.6 kg 89.2 kg Lab Results: Accuchecks Date 02/16/19 Date 02/15/19 Date 02/15/19 Time 07:49 Time 16:30 Time 11:30 Accucheck Value: 160 Accucheck Value: 230 Accucheck Value: 232 Accucheck Value: 308 Lab Results-Last 24 Hours 02/15/19 Range/Units 05:00 Hemoglobin A1c 8.38 H (4.5-6.0) % Radiology Exams: Radiology Procedures Category Date Time Status ECHO W/2D AND DOPPLER [US] Routine Exams 02/15/19 10:57 Taken HIP GLEN (4V) INCL PELV IF DONE Stat Exams 02/14/19 13:13 Completed KNEE (3 VIEWS) Stat Exams 02/14/19 13:13 Completed LUMBAR LIMITED (2 OR 3 VIEWS) Stat Exams 06/17/19 13:13 Completed Assessment/Plan (1) UTI (urinary tract infection) Current Visit: Yes Status: Acute Qualifiers: Urinary tract infection type: acute cystitis Assessment & Plan: on rocephin, culture with 3 or more organisms but symptoms and pyuria present on arrival, will continue rocephin at this time as she reports improvement clinically. Code(s): N39.0 - URINARY TRACT INFECTION, SITE NOT SPECIFIED (2) Muscular deconditioning Current Visit: Yes Status: Acute Assessment & Plan: strongly encourage home health referral on discharge, stressed need to use walker in home and clear out furniture to give sufficient space to ambulate safely with her walker. also stressed compliance with life alert to keep with her, she was very danika not to have any fracture or rhabdo with this fall and time spent down on the floor. Code(s): R29.898 - OTH SYMPTOMS AND SIGNS INVOLVING THE MUSCULOSKELETAL SYSTEM (3) Fall Current Visit: Yes Status: Acute Qualifiers: Encounter type: initial encounter Qualified Code(s): W19.XXXA - Unspecified fall, initial encounter Code(s): W19.XXXA - UNSPECIFIED FALL, INITIAL ENCOUNTER (4) Diabetes mellitus Current Visit: Yes Status: Chronic Qualifiers: Diabetes mellitus type: type 2 Diabetes mellitus ad terminal makeup operator insulin use: without ad terminal makeup operator use Diabetes mellitus complication status: with neurologic complications Diabetes mellitus complication detail: with polyneuropathy Qualified Code(s): E11.42 - Type 2 diabetes mellitus with diabetic polyneuropathy Code(s): E11.9 - TYPE 2 DIABETES MELLITUS WITHOUT COMPLICATIONS (5) HTN (hypertension) Current Visit: Yes Status: Chronic Qualifiers: Hypertension type: essential hypertension Qualified Code(s): I10 - Essential (primary) hypertension Code(s): I10 - ESSENTIAL (PRIMARY) HYPERTENSION (6) Cirrhosis Current Visit: No Status: Acute
[2019-02-16] MEDS: Sodium Chloride 0.9% 1000 ML 1,000 ML IV SCH (10:07)
[2019-02-17] MEDS: TYLENOL 325 MG PO PRN (04:45)
[2019-02-17 07:16] VITALS: BP 125/61; PULSE 74; O2SAT 96
--- NOTE | 2019-02-17 08:05 | PCM.DS ---
Discharge Summary Date of Admission: 02/15/19 16:45 Admitting Physician: SEKOU SHANKS Primary Care Provider: SEKOU SHANKS Allergies Allergies Sulfa (Sulfonamide Antibiotics) Allergy (Intermediate, Verified 02/14/19 16:53) Nausea and Vomiting adhesive tape Allergy (Mild, Verified 02/14/19 16:53) Rash latex Allergy (Mild, Verified 02/14/19 13:13) Rash Hospital Summary - Hospital Course Hospital Course: patient was admitted following a fall where she was unable to get herself up, has been treated for uti. urine culture with mixed lucas but clinically improved with hydration and rocephin. participating in PT, agrees to home health - Vitals & Intake/Output Vital Signs: Vital Signs Temperature 98 F 02/17/19 07:15 Pulse Rate 74 02/17/19 07:15 Respiratory Rate 20 02/17/19 07:15 Blood Pressure 125/61 02/17/19 07:15 O2 Sat by Pulse Oximetry 96 02/17/19 07:15 Intake & Output: Intake & Output 02/14/19 02/15/19 02/16/19 02/17/19 11:59 11:59 11:59 11:59 Intake Total 1757 6957 1310 Balance 1757 6957 1310 Weight 91.6 kg 89.2 kg 92 kg - Lab Result Diagrams: 02/15/19 05:00 02/15/19 05:00 Lab Results-Last 24 Hrs: Accuchecks Date 02/16/19 Date 02/16/19 Date 02/16/19 Time 21:30 Time 17:00 Time 12:04 Accucheck Value: 271 Accucheck Value: 226 Accucheck Value: 187 Micro Results-Entire Visit: Microbiology 02/14/19 15:20 Urine Culture - Final Urine, Void MIXED LUCAS; 3 OR MORE TYPES. NO PREDOMINANT ORGANISM. NO FURTHER WORKUP. PLEASE RESUBMIT IF CLINICALLY INDICATED. Accuchecks Date 02/16/19 Date 02/16/19 Date 02/16/19 Time 21:30 Time 17:00 Time 12:04 Accucheck Value: 271 Accucheck Value: 226 Accucheck Value: 187 - Radiology Exams Ordered Rad Exams-Entire Visit: Radiology Procedures Category Date Time Status ECHO W/2D AND DOPPLER [US] Routine Exams 02/15/19 10:57 Taken - Procedures and Test Procedures and Tests throughout Hospitalization: Therapy Orders & Screens 02/14/19 17:02 PT Eval & Treat ( Order) ROUTINE Reason for Eval:: fall, low back pain Diagnosis: fall Discharge Exam General Appearance: no apparent distress Neurologic Exam: alert, oriented x 3 Respiratory Exam: normal breath sounds, lungs clear, No respiratory distress Cardiovascular Exam: regular rate/rhythm, normal heart sounds Gastrointestinal/Abdomen Exam: soft, No tenderness, No mass Extremity Exam: normal inspection, normal range of motion Skin Exam: normal color, warm, dry Final Diagnosis/Problem List - Final Discharge Diagnosis/Problem (1) UTI (urinary tract infection) Current Visit: Yes Status: Acute Assessment & Plan: home on po keflex, culture with mixed lucas but clinically consistent with UTI Code(s): N39.0 - URINARY TRACT INFECTION, SITE NOT SPECIFIED (2) Muscular deconditioning Current Visit: Yes Status: Acute Assessment & Plan: PT/OT with home health, stressed compliance with walker and to keep life alert with her in the home, pt has declined a rehab stay etc. patient is home bound, requires a walker to ambulate and she is unable to drive. absences from the home require a serious and taxing effort and are brief Code(s): R29.898 - OT SYMPTOMS AND SIGNS INVOLVING THE MUSCULOSKELETAL SYSTEM (3) Fall Current Visit: Yes Status: Acute Code(s): W19.XXXA - UNSPECIFIED FALL, INITIAL ENCOUNTER (4) Diabetes mellitus Current Visit: Yes Status: Chronic Assessment & Plan: a1c 8.38% will increase metformin Code(s): E11.9 - TYPE 2 DIABETES MELLITUS WITHOUT COMPLICATIONS (5) HTN (hypertension) Current Visit: Yes Status: Chronic Code(s): I10 - ESSENTIAL (PRIMARY) HYPERTENSION (6) Cirrhosis Current Visit: No Status: Acute - Discharge Disposition: Home, Self-Care Condition: Stable Prescriptions: New Metformin HCl Xr 500 mg [Glucophage XR 500 MG] 1,000 mg PO DAILY #60 tab Cephalexin Mh 500 mg [Keflex 500 mg] 500 mg PO TID #21 capsule Continue Omeprazole 20 MG [Prilosec 20 mg] 20 mg PO BID Dorzolamide HCl/Timolol Maleat [Cosopt Eye Drops] 1 drop OP BID Lisinopril [Zestril] 40 mg PO DAILY #0 tablet Oxybutynin Chloride Xl 5 mg [Ditropan XL 5 MG] 5 mg PO BID Spironolactone 50 mg PO DAILY Metformin HCl Xr 500 mg [Glucophage XR 500 MG] 500 mg PO DAILY Propranolol HCl 20 mg PO TID Tolterodine Tartrate [Detrol] 1 mg PO DAILY Latanoprost 1 drop OP BID Follow up with: SEKOU SHANKS MD [Primary Care Provider] - 1 Week
[2019-02-17] MEDS: Glucophage XR 500 MG PO SCH (08:18)
[2019-02-17] MEDS: Aldactone 25 MG PO SCH (09:07)
[2019-02-17] MEDS: Protonix 40MG Tablet PO SCH (09:07)
[2019-02-17] MEDS: Inderal 20 MG PO SCH (09:07)
[2019-02-17] MEDS: Zestril 20 MG PO SCH (09:07)
[2019-02-17] MEDS: Ditropan XL 5 MG PO SCH (09:08)
[2019-02-17] MEDS: Xalatan OP SCH (09:08)
[2019-02-17] MEDS: ROCEPHIN 1 Gm-D5w 50 ml Bag** 1 G/50 ML IVPB IV SCH (09:10)
[2019-02-17] MEDS: COSOPT OPHTHALMIC 10 ML OP SCH (09:10)
--- NOTE | 2019-02-17 11:20 | ECHO ---
DATE OF PROCEDURE: 02/15/2019 INDICATION FOR STUDY: Dyspnea. PROCEDURE: Complete two-dimensional echocardiogram with color Doppler and Spectral analysis. FINDINGS: The left ventricle is normal size with moderate left ventricular hypertrophy. The left ventricle demonstrates normal systolic function with ejection fraction of 60-65%. The right ventricular is normal size with normal systolic function. There is mild left atrial enlargement. The right atrium is normal in size. Inferior vena cava is normal. The aortic valve demonstrates moderate sclerosis. There is moderate aortic stenosis with peak gradient 32 mm of Mercury, mean gradient 17 mm of Mercury and calculated aortic valve area of 1.3 sq/cm. There is trace aortic regurgitation. The mitral valve demonstrates mild to moderate mitral annular calcification. There is mild mitral regurgitation. The tricuspid valve leaflets are thin and pliable. There is mild tricuspid regurgitation. The right ventricular systolic pressure is estimated at 30 to 35 mm of Mercury. The pulmonic valve is not well visualized. The aortic root is normal size. There is no pericardial effusion. IMPRESSION: 1) NORMAL LEFT VENTRICULAR SIZE WITH MODERATE LEFT VENTRICULAR HYPERTROPHY. 2) NORMAL LEFT VENTRICULAR SYSTOLIC FUNCTION WITH EJECTION FRACTION 60-65%. 3) NORMAL RIGHT VENTRICULAR SIZE AND SYSTOLIC FUNCTION. 4) MODERATE AORTIC STENOSIS. PEAK GRADIENT 32 MM OF MERCURY, MEAN GRADIENT 17 MM OF MERCURY, AORTIC VALVE AREA CALCULATED AT 1.3 SQ/CM. 5) TRACE AORTIC REGURGITATION. 6) MILD MITRAL REGURGITATION. 7) MILD TRICUSPID REGURGITATION WITH RIGHT VENTRICULAR SYSTOLIC PRESSURE 30 TO 35 MM OF MERCURY. 8) NO PERICARDIAL EFFUSION.
== END 2019-02-17 10:31 | disposition home or self-care (01) | DRG 690 ==
LOC: ED 12:40 → MED SURG 16:45 → OBSVTOIN 02-15 16:45
PROVIDERS: ADMIT Family Medicine; ATTEND Family Medicine
DX: N39.0 Urinary tract infection, site not specified (principal); E11.9 Type 2 diabetes mellitus without complications; I10 Essential (primary) hypertension; K74.60 Unspecified cirrhosis of liver; R01.1 Cardiac murmur, unspecified; G62.9 Polyneuropathy, unspecified; D50.9 Iron deficiency anemia, unspecified; R07.9 Chest pain, unspecified; R29.898 Other symptoms and signs involving the musculoskeletal system; M54.9 Dorsalgia, unspecified; M25.561 Pain in right knee; W18.30XA Fall on same level, unspecified, initial encounter; Y93.E2 Activity, laundry; Y92.009 Unspecified place in unspecified non-institutional (private) residence as the place of occurrence of the external cause; Z79.899 Other long term (current) drug therapy
CPT/HCPCS: 36000; 36415; 72100; 73522; 73562; 80048; 80053; 81001; 82550; 82962; 83036; 84484; 85025; 87086; 93005; 93306; 96360; 96365; 97110; 97161; 97530; 99285; G0378; 96374; J0696; A9270-GY

== ENCOUNTER 2019-04-20 14:06 | Emergency (ER) | payer MEDICARE, OTHER | END 2019-04-20 16:36 | disposition home or self-care (01) | LOC: ED 14:06 ==

== ENCOUNTER 2019-10-27 08:59 | Day surgery (SDC) | payer MEDICARE, OTHER ==
[2019-10-27] MEDS ORDERED: Lactated Ringers 1,000 ML IV ONE (09:07)
[2019-10-27] MEDS: Lactated Ringers 1,000 ML IV SCH ×2 (09:11→09:14)
[2019-10-27] MEDS ORDERED: DIPRIVAN 200 MG/20 ML IV ONE (11:58)
[2019-10-27 13:04] VITALS: BP 127/61; PULSE 89; O2SAT 99
--- NOTE | 2019-10-28 10:21 | OP ---
SURGERY DATE/TIME: 10/27/2019 1203 PREOPERATIVE DIAGNOSIS: History of cirrhosis and possible upper bleeding. POSTOPERATIVE DIAGNOSIS: Gastric polyp x1. No varices. PROCEDURE: EGD with hot polypectomy x1. SURGEON: Antonio Arroyo M.D. ANESTHESIA: MAC. COMPLICATIONS: None. CONDITION: Stable. INDICATION: A patient requiring evaluation. DESCRIPTION OF PROCEDURE: Taken to endoscopy suite. MAC sedation provided. Scope introduced. Pharyngoesophageal junction normal. Esophagus normal. In the mid stomach there was a 1 cm polyp picked up and cauterized to extinction. A sales utility representative sample submitted. Pylorus satisfactory. Duodenal bulb satisfactory. Scope withdrawn, looped upon itself satisfactory. Scope withdrawn. There were no varices. The patient tolerated the procedure satisfactorily. Findings discussed with the family in the waiting room.
== END 2019-10-27 13:25 | disposition home or self-care (01) ==
LOC: SDC 08:59
PROVIDERS: ATTEND Surgery
DX: K31.7 Polyp of stomach and duodenum (principal); I10 Essential (primary) hypertension; E11.9 Type 2 diabetes mellitus without complications; I51.9 Heart disease, unspecified; G40.909 Epilepsy, unspecified, not intractable, without status epilepticus; J98.4 Other disorders of lung; Z79.899 Other long term (current) drug therapy; Z87.898 Personal history of other specified conditions
CPT/HCPCS: 82962; 88305; 99100; J2704

== ENCOUNTER 2020-01-17 16:36 | Observation (INO) | payer MEDICARE, OTHER ==
--- NOTE | 2020-01-17 17:25 | ERPHSYRPT ---
- History of Present Illness Time Seen by Provider: 01/17/20 17:00 Source: patient Exam Limitations: no limitations Patient Subjective Stated Complaint: pt to ER complaints of hyperglycemia. pt states she has been struggling with her glucose being regulated x 2 weeks. pt states it jumps to 500 then down to 300. pts A1C the other day was 10. Triage Nursing Assessment: pt assist x 1. pt came in wheelchair. pt A&Ox4. pt skin pwd. denies pain. Physician History: 79 years old female [id number] diabetes mellitus, hypertension, hyperlipidemia, congestive heart failure presented in the ER with a chief complaint of uncontrolled blood sugar for the last 2 weeks which is progressively worsening. Patient report her blood sugar is brittle and goes up and down between 500-3 100s. This morning her blood sugar was 513, called her primary care Dr. Melgoza who recommended taking an extra dose of metformin and later on her blood sugar was in 300s. Last meal is around 11 AM today and on presentation patient has a blood sugar of 215. Patient denies any fever chills cough or shortness of breath. Denies eating more sweet and tries to follow diabetic diet. Patient has a A1c recently checked it was 10.6 with the previous check almost 6 months ago was in 6 range. Patient was offered insulin by primary care but she refused. Patient also reports polydipsia and polyuria. Denies any history of DKA in the past. Timing/Duration: week(s) (2), intermittent, worse Severity: moderate Modifying Factors: Improves With: medication Associated Symptoms: denies symptoms Allergies/Adverse Reactions: cephalexin [From Keflex] Allergy (Intermediate, Verified 01/17/20 17:21) Rash Sulfa (Sulfonamide Antibiotics) Allergy (Intermediate, Verified 01/17/20 17:21) Nausea and Vomiting adhesive tape Allergy (Mild, Verified 01/17/20 17:21) Rash latex Allergy (Mild, Verified 01/17/20 17:21) Rash Home Medications: Omeprazole 20 MG [Prilosec 20 mg] 20 mg PO BID 06/14/12 [History] Metformin HCl Xr 500 mg [Glucophage XR 500 MG] 1,000 mg PO DAILY 10/11/18 [History] Propranolol HCl 20 mg PO DAILY 10/11/18 [History] Spironolactone 25 mg PO DAILY 10/11/18 [History] Estrogens,Conjugated [Premarin Vaginal Cream] 1 gm VAG 2XW 01/17/20 [History] Tolterodine Tartrate [Tolterodine Tartrate ER] 4 mg PO DAILY 01/17/20 [History] Hx Tetanus, Diphtheria Vaccination/Date Given: Yes Hx Influenza Vaccination/Date Given: Yes Hx Pneumococcal Vaccination/Date Given: Yes Immunizations Up to Date: Yes Travel Risk - International Travel Have you traveled outside of the country in past 3 weeks: No Have you or anyone close to you been diagnosed with or: No Do your reside in a community with a known COVID-19 case?: Yes If Yes where:: [facility] - Coronavirus Screening Has patient experienced Coronavirus symptoms: No - Review of Systems Constitutional: Fatigue Eyes: No Symptoms Ears, Nose, & Throat: No Symptoms Respiratory: No Symptoms Cardiac: Edema Abdominal/Gastrointestinal: No Symptoms Genitourinary Symptoms: No Symptoms Musculoskeletal: No Symptoms Skin: No Symptoms Neurological: No Symptoms Psychological: No Symptoms Endocrine: No Symptoms, Polydipsia Hematologic/Lymphatic: No Symptoms Immunological/Allergic: No Symptoms - Past Medical History Pertinent Past Medical History: Yes Neurological History: No Pertinent History ENT History: Glaucoma, Macular Degeneration Cardiac History: No Pertinent History, Hypertension, Other Respiratory History: No Pertinent History Endocrine Medical History: Diabetes Type II Musculoskeletal History: No Pertinent History GI Medical History: No Pertinent History, GERD, GI Bleed History: No Pertinent History, Other Psycho-Social History: No Pertinent History Female Reproductive Disorders: No Pertinent History Other Medical History: HX KIDNEY STONES. psoriasis. neutropenia. thrombocytopenia. urinary tract infections heart murmur - Past Surgical History Past Surgical History: Yes Neuro Surgical History: No Pertinent History Cardiac: No Pertinent History Respiratory: No Pertinent History Gastrointestinal: Appendectomy, Cholecystectomy, Hernia Repair Genitourinary: Other Musculoskeletal: Joint Replacement Female Surgical History: Hysterectomy, Tubal Ligation Other Surgical History: 2 kidney stones removed, bilateral knee replacements - Social History Smoking Status: Never smoker Exposure to second hand smoke: No Drug Use: none Patient Lives Alone: Yes - Female History Hx Now: No - Nursing Vital Signs Nursing Vital Signs: Initial Vital Signs Temperature 98.6 F 01/17/20 17:11 Pulse Rate 79 01/17/20 17:11 Respiratory Rate 14 01/17/20 17:11 Blood Pressure 148/53 01/17/20 17:11 O2 Sat by Pulse Oximetry 100 01/17/20 17:11 Pain Scale Pain Intensity 0 - Physical Exam General Appearance: no apparent distress, alert Eye Exam: PERRL/EOMI, eyes nml inspection Ears, Nose, Throat Exam: normal ENT inspection, TMs normal, pharynx normal Neck Exam: normal inspection, non-tender, supple, full range of motion Respiratory Exam: normal breath sounds, lungs clear Cardiovascular Exam: regular rate/rhythm, normal heart sounds, normal peripheral pulses Gastrointestinal/Abdomen Exam: soft, No tenderness Back Exam: normal inspection, normal range of motion Extremity Exam: swelling (Bilateral 1+ pitting edema) Neurologic Exam: alert, oriented x 3, cooperative, director of analytical development II-XII nml as tested, normal mood/affect, nml cerebellar function, nml station & gait Skin Exam: normal color SpO2 Interpretation: normal SpO2: 100 Ordered Tests: Medication Summary Discontinued Medications Generic Name Dose Route Start Last Admin Trade Name Freq PRN Reason Stop Dose Admin Acetaminophen 650 mg 01/17/20 20:57 01/18/20 17:52 Tylenol 325 Mg PO 02/16/20 20:56 650 mg Q4H PRN PRN Administration PAIN AND/OR FEVER Furosemide 40 mg 01/17/20 22:37 01/18/20 02:05 Lasix 40 Mg/4 Ml IV 40 mg BETWEEN UNITS PRN Administration edema Pantoprazole Sodium 80 mg/ 500 mls @ 50 mls/hr 01/17/20 19:00 01/18/20 05:50 Sodium Chloride IV 02/16/20 18:59 50 mls/hr .Q10H VERNON 50 mls/hr Administration Sodium Chloride Confirm 01/17/20 19:31 Sodium Chloride 0.9% 500 Ml Administered 01/17/20 19:32 Dose 500 mls @ ud IV .STK-MED ONE Sodium Chloride 1,000 mls @ 50 mls/hr 01/17/20 22:45 01/17/20 22:42 Sodium Chloride 0.9% 1000 Ml IV 02/16/20 22:44 50 mls/hr .Q20H VERNON Administration Sodium Chloride Confirm 01/18/20 05:43 Sodium Chloride 0.9% 500 Ml Administered 01/18/20 05:44 Dose 500 mls @ ud IV .STK-MED ONE Levofloxacin/Dextrose 500 mg in 100 mls @ 100 mls/hr 01/18/20 08:00 01/19/20 10:55 Levofloxacin 500mg/100ml D5w IV 02/23/20 07:59 100 mls/hr Q24H10 VERNON Administration Insulin Human Lispro 0 unit 01/17/20 20:57 01/19/20 12:27 Humalog SQ 02/16/20 20:56 7 unit UD PRN Administration HYPERGLYCEMIA Lisinopril 40 mg 01/18/20 13:00 01/19/20 10:55 Zestril 20 Mg PO 02/17/20 12:59 40 mg DAILY VERNON Administration Metformin HCl 1,000 mg 01/18/20 13:00 01/19/20 10:55 Glucophage Xr 500 Mg PO 02/17/20 12:59 1,000 mg DAILY VERNON Administration Miscellaneous Information 0 each 01/18/20 13:45 Medication Intervention 02/17/20 13:44 .RN TO CHECK WITH PT VERNON Oxybutynin Chloride 5 mg 01/18/20 13:00 01/19/20 10:55 Ditropan Xl 5 Mg PO 02/17/20 12:59 5 mg DAILY VERNON Administration Pantoprazole Sodium 80 mg 01/17/20 18:50 01/17/20 19:03 Protonix 40 Mg Iv IV 01/17/20 18:51 80 mg STAT ONE Administration Pantoprazole Sodium Confirm 01/17/20 19:02 Protonix 40 Mg Iv Administered 01/17/20 19:03 Dose 80 mg IV .STK-MED ONE Pantoprazole Sodium Confirm 01/18/20 05:42 Protonix 40 Mg Iv Administered 01/18/20 05:43 Dose 80 mg IV .STK-MED ONE Pantoprazole Sodium 40 mg 01/18/20 22:00 01/19/20 10:55 Protonix 40mg Tablet PO 02/17/20 21:59 40 mg BID VERNON Administration Propranolol HCl 20 mg 01/18/20 13:00 01/19/20 10:55 Inderal 20 Mg PO 02/17/20 12:59 20 mg DAILY VERNON Administration Spironolactone 25 mg 01/18/20 13:00 05/21/20 10:55 Aldactone 25 Mg PO 02/17/20 12:59 25 mg DAILY VERNON Administration Lab/Rad Data: Laboratory Result Diagrams 01/17/20 17:40 01/17/20 17:40 Laboratory Results 01/17/20 01/17/20 01/17/20 Range/Units 19:28 19:28 19:27 WBC (4.0-10.5) K/mm3 RBC (4.1-5.4) M/mm3 Hgb (12.0-16.0) gm/dl Hct (35-47) % MCV (78-100) fl MCH (26-32) pg MCHC (32-36) g/dl RDW (11.5-14.0) % Plt Count (150-450) K/mm3 MPV (7.5-11.0) fl Gran % (36.0-66.0) % Eos # (Auto) (0-0.5) Absolute Lymphs (auto) (1.0-4.6) Absolute Monos (auto) (0.0-1.3) Lymphocytes % (24.0-44.0) % Monocytes % (0.0-12.0) % Eosinophils % (0.00-5.0) % Basophils % (0.0-0.4) % Absolute Granulocytes (1.4-6.9) Basophils # (0-0.4) PT (9.95-12.35) SECONDS INR (0.8-3.0) APTT (25.3-37.0) SECONDS pO2/FiO2 Ratio % VBG pH (7.32-7.42) VBG pCO2 at Pat Temp (42-55) mm/Hg VBG pO2 at Pat Temp (25-40) mm/Hg VBG HCO3 (22-28) meq/L VBG O2 Sat (Jose Martin) (95-100) VBG Base Excess (-2.0-2.0) VBG Hemoglobin VBG Carboxyhemoglobin (0.0-6.9) % T HGB POC Potassium (3.5-5.1) Sodium (137-145) mmol/L Potassium (3.5-5.1) mmol/L Chloride (98-107) mmol/L Carbon Dioxide (22-30) mmol/L Anion Gap (5-15) MEQ/L BUN (7-17) mg/dL Creatinine (0.52-1.04) mg/dL Estimated GFR ML/MIN Glucose (74-106) mg/dL Calcium (8.4-10.2) mg/dL Magnesium (1.6-2.3) mg/dL Total Bilirubin (0.2-1.3) mg/dL AST (14-36) U/L ALT (0-35) U/L Alkaline Phosphatase (38-126) U/L NT-Pro-B Natriuret Pep (0-1800) pg/mL Serum Total Protein (6.3-8.2) g/dL Albumin (3.5-5.0) g/dL Vitamin B12 (239-931) pg/mL Folic Acid (2.76 - >20) ng/mL Urine Color (YELLOW) Urine Appearance (CLEAR) Urine pH (5-6) Ur Specific [place] (1.005-1.025) Urine Protein (Negative) Urine Ketones (NEGATIVE) Urine Blood (0-5) Eric/ul Urine Nitrite (NEGATIVE) Urine Bilirubin (NEGATIVE) Urine Urobilinogen (0-1) mg/dL Ur Leukocyte Esterase (NEGATIVE) Urine WBC (Auto) (0-5) /HPF Urine RBC (Auto) (0-2) /HPF U Epithel Cells (Auto) (FEW) /HPF Urine Bacteria (Auto) (NEGATIVE) /HPF Urine Culture Reflexed (NO) Urine Glucose (NEGATIVE) mg/dL Slides for Path Review ABO Group A Rh Factor POSITIVE Antibody Screen NEGATIVE (NEGATIVE) Crossmatch COMPATIBLE COMPATIBLE (COMPATIBLE) 01/17/20 01/17/20 01/17/20 Range/Units 19:10 19:10 18:37 WBC (4.0-10.5) K/mm3 RBC (4.1-5.4) M/mm3 Hgb (12.0-16.0) gm/dl Hct (35-47) % MCV (78-100) fl MCH (26-32) pg MCHC (32-36) g/dl RDW (11.5-14.0) % Plt Count (150-450) K/mm3 MPV (7.5-11.0) fl Gran % (36.0-66.0) % Eos # (Auto) (0-0.5) Absolute Lymphs (auto) (1.0-4.6) Absolute Monos (auto) (0.0-1.3) Lymphocytes % (24.0-44.0) % Monocytes % (0.0-12.0) % Eosinophils % (0.00-5.0) % Basophils % (0.0-0.4) % Absolute Granulocytes (1.4-6.9) Basophils # (0-0.4) PT (9.95-12.35) SECONDS INR (0.8-3.0) APTT (25.3-37.0) SECONDS pO2/FiO2 Ratio % VBG pH (7.32-7.42) VBG pCO2 at Pat Temp (42-55) mm/Hg VBG pO2 at Pat Temp (25-40) mm/Hg VBG HCO3 (22-28) meq/L VBG O2 Sat (Jose Martin) (95-100) VBG Base Excess (-2.0-2.0) VBG Hemoglobin VBG Carboxyhemoglobin (0.0-6.9) % T HGB POC Potassium (3.5-5.1) Sodium (137-145) mmol/L Potassium (3.5-5.1) mmol/L Chloride (98-107) mmol/L Carbon Dioxide (22-30) mmol/L Anion Gap (5-15) MEQ/L BUN (7-17) mg/dL Creatinine (0.52-1.04) mg/dL Estimated GFR ML/MIN Glucose (74-106) mg/dL Calcium (8.4-10.2) mg/dL Magnesium 1.6 (1.6-2.3) mg/dL Total Bilirubin (0.2-1.3) mg/dL AST (14-36) U/L ALT (0-35) U/L Alkaline Phosphatase (38-126) U/L NT-Pro-B Natriuret Pep (0-1800) pg/mL Serum Total Protein (6.3-8.2) g/dL Albumin (3.5-5.0) g/dL Vitamin B12 398 (239-931) pg/mL Folic Acid 7.40 (2.76 - >20) ng/mL Urine Color YELLOW (YELLOW) Urine Appearance CLEAR (CLEAR) Urine pH 6.0 (5-6) Ur Specific [place] 1.009 (1.005-1.025) Urine Protein NEGATIVE (Negative) Urine Ketones NEGATIVE (NEGATIVE) Urine Blood NEGATIVE (0-5) Eric/ul Urine Nitrite POSITIVE (NEGATIVE) Urine Bilirubin NEGATIVE (NEGATIVE) Urine Urobilinogen NEGATIVE (0-1) mg/dL Ur Leukocyte Esterase MODERATE (NEGATIVE) Urine WBC (Auto) >100 (0-5) /HPF Urine RBC (Auto) 3-5 (0-2) /HPF U Epithel Cells (Auto) RARE (FEW) /HPF Urine Bacteria (Auto) PACKED (NEGATIVE) /HPF Urine Culture Reflexed YES (NO) Urine Glucose NEGATIVE (NEGATIVE) mg/dL Slides for Path Review ABO Group Rh Factor Antibody Screen (NEGATIVE) Crossmatch (COMPATIBLE) 01/17/20 01/17/20 01/17/20 Range/Units 17:44 17:40 17:40 WBC 2.8 L (4.0-10.5) K/mm3 RBC 3.28 L (4.1-5.4) M/mm3 Hgb 7.7 L (12.0-16.0) gm/dl Hct 25.7 L (35-47) % MCV 78.4 (78-100) fl MCH 23.5 L (26-32) pg MCHC 30.0 L (32-36) g/dl RDW 17.2 H (11.5-14.0) % Plt Count 59 L (150-450) K/mm3 MPV 10.6 (7.5-11.0) fl Gran % 62.1 (36.0-66.0) % Eos # (Auto) 0.16 (0-0.5) Absolute Lymphs (auto) 0.60 L (1.0-4.6) Absolute Monos (auto) 0.28 (0.0-1.3) Lymphocytes % 21.5 L (24.0-44.0) % Monocytes % 10.0 (0.0-12.0) % Eosinophils % 5.7 H (0.00-5.0) % Basophils % 0.7 (0.0-0.4) % Absolute Granulocytes 1.73 (1.4-6.9) Basophils # 0.02 (0-0.4) PT (9.95-12.35) SECONDS INR (0.8-3.0) APTT (25.3-37.0) SECONDS pO2/FiO2 Ratio 21.0 % VBG pH 7.43 H (7.32-7.42) VBG pCO2 at Pat Temp 39 L (42-55) mm/Hg VBG pO2 at Pat Temp 31 (25-40) mm/Hg VBG HCO3 25.9 (22-28) meq/L VBG O2 Sat (Jose Martin) 55.3 L (95-100) VBG Base Excess 1.5 (-2.0-2.0) VBG Hemoglobin 8.0 VBG Carboxyhemoglobin 1.8 (0.0-6.9) % T HGB POC Potassium 4.5 (3.5-5.1) Sodium 139 (137-145) mmol/L Potassium 4.4 (3.5-5.1) mmol/L Chloride 105 (98-107) mmol/L Carbon Dioxide 24 (22-30) mmol/L Anion Gap 14.2 (5-15) MEQ/L BUN 15 (7-17) mg/dL Creatinine 0.76 (0.52-1.04) mg/dL Estimated GFR > 60.0 ML/MIN Glucose 197 H (74-106) mg/dL Calcium 9.6 (8.4-10.2) mg/dL Magnesium 1.6 (1.6-2.3) mg/dL Total Bilirubin 0.90 (0.2-1.3) mg/dL AST 33 (14-36) U/L ALT 15 (0-35) U/L Alkaline Phosphatase 76 (38-126) U/L NT-Pro-B Natriuret Pep (0-1800) pg/mL Serum Total Protein 6.5 (6.3-8.2) g/dL Albumin 3.1 L (3.5-5.0) g/dL Vitamin B12 (239-931) pg/mL Folic Acid (2.76 - >20) ng/mL Urine Color (YELLOW) Urine Appearance (CLEAR) Urine pH (5-6) Ur Specific [place] (1.005-1.025) Urine Protein (Negative) Urine Ketones (NEGATIVE) Urine Blood (0-5) Eric/ul Urine Nitrite (NEGATIVE) Urine Bilirubin (NEGATIVE) Urine Urobilinogen (0-1) mg/dL Ur Leukocyte Esterase (NEGATIVE) Urine WBC (Auto) (0-5) /HPF Urine RBC (Auto) (0-2) /HPF U Epithel Cells (Auto) (FEW) /HPF Urine Bacteria (Auto) (NEGATIVE) /HPF Urine Culture Reflexed (NO) Urine Glucose (NEGATIVE) mg/dL Slides for Path Review YES ABO Group Rh Factor Antibody Screen (NEGATIVE) Crossmatch (COMPATIBLE) 01/17/20 01/17/20 Range/Units 17:19 17:19 WBC (4.0-10.5) K/mm3 RBC (4.1-5.4) M/mm3 Hgb (12.0-16.0) gm/dl Hct (35-47) % MCV (78-100) fl MCH (26-32) pg MCHC (32-36) g/dl RDW (11.5-14.0) % Plt Count (150-450) K/mm3 MPV (7.5-11.0) fl Gran % (36.0-66.0) % Eos # (Auto) (0-0.5) Absolute Lymphs (auto) (1.0-4.6) Absolute Monos (auto) (0.0-1.3) Lymphocytes % (24.0-44.0) % Monocytes % (0.0-12.0) % Eosinophils % (0.00-5.0) % Basophils % (0.0-0.4) % Absolute Granulocytes (1.4-6.9) Basophils # (0-0.4) PT 13.4 H (9.95-12.35) SECONDS INR 1.18 (0.8-3.0) APTT 32.7 (25.3-37.0) SECONDS pO2/FiO2 Ratio % VBG pH (7.32-7.42) VBG pCO2 at Pat Temp (42-55) mm/Hg VBG pO2 at Pat Temp (25-40) mm/Hg VBG HCO3 (22-28) meq/L VBG O2 Sat (Jose Martin) (95-100) VBG Base Excess (-2.0-2.0) VBG Hemoglobin VBG Carboxyhemoglobin (0.0-6.9) % T HGB POC Potassium (3.5-5.1) Sodium (137-145) mmol/L Potassium (3.5-5.1) mmol/L Chloride (98-107) mmol/L Carbon Dioxide (22-30) mmol/L Anion Gap (5-15) MEQ/L BUN (7-17) mg/dL Creatinine (0.52-1.04) mg/dL Estimated GFR ML/MIN Glucose (74-106) mg/dL Calcium (8.4-10.2) mg/dL Magnesium (1.6-2.3) mg/dL Total Bilirubin (0.2-1.3) mg/dL AST (14-36) U/L ALT (0-35) U/L Alkaline Phosphatase (38-126) U/L NT-Pro-B Natriuret Pep 374 (0-1800) pg/mL Serum Total Protein (6.3-8.2) g/dL Albumin (3.5-5.0) g/dL Vitamin B12 (239-931) pg/mL Folic Acid (2.76 - >20) ng/mL Urine Color (YELLOW) Urine Appearance (CLEAR) Urine pH (5-6) Ur Specific [place] (1.005-1.025) Urine Protein (Negative) Urine Ketones (NEGATIVE) Urine Blood (0-5) Eric/ul Urine Nitrite (NEGATIVE) Urine Bilirubin (NEGATIVE) Urine Urobilinogen (0-1) mg/dL Ur Leukocyte Esterase (NEGATIVE) Urine WBC (Auto) (0-5) /HPF Urine RBC (Auto) (0-2) /HPF U Epithel Cells (Auto) (FEW) /HPF Urine Bacteria (Auto) (NEGATIVE) /HPF Urine Culture Reflexed (NO) Urine Glucose (NEGATIVE) mg/dL Slides for Path Review ABO Group Rh Factor Antibody Screen (NEGATIVE) Crossmatch (COMPATIBLE) - Progress Progress: unchanged, re-examined Progress Note: 01/17/20 18:54 Patient has a drop in hemoglobin from almost 11-7.7. Patient has a history of GI bleed with ulcer in the past. She refused rectal exam. I have started her on Protonix. Discussed with Dr. Melgoza and Dr. Herzog, patient is being admitted. She also has UTI and started on antibiotics. Discussed with .: Trini, Octavio Will see patient in: hospital (observation) Counseled pt/family regarding: lab results, diagnosis - Departure Departure Disposition: Observation Clinical Impression: Acute blood loss anemia, Hyperglycemia UTI (urinary tract infection) Qualifiers: Urinary tract infection type: site unspecified Hematuria presence: without hematuria Qualified Code(s): N39.0 - Urinary tract infection, site not specified Condition: Stable Critical Care Time: Yes Critical Care Time(excluding separately billable procedures): Critical 30-74 mins
[2020-01-17 17:45] LABS: VBG BASE EXCESS 1.5 (-2.0-2.0); VBG CARBOXYHEMOGLOBIN 1.8 % T HGB (0.0-6.9); VBG HCO3- 25.9 meq/L (22-28); VBG O2 SATURATION 55.3 (95-100); VBG POTASSIUM 4.5 (3.5-5.1); VBG pH 7.43 (7.32-7.42)
[2020-01-17 17:50] LABS: Absolute Neutrophil Ct (ANC) 1.73 (1.4-6.9); BASOPHIL % 0.7 % (0.0-0.4); Basophil (Absolute #) 0.02 (0-0.4); Eosinophil % 5.7 % (0.00-5.0); Eosinophil (Absolute #) 0.16 (0-0.5); Hematocrit 25.7 % (35-47); Hemoglobin 7.7 gm/dl (12.0-16.0); Lymphocytes % 21.5 % (24.0-44.0); Mean Cell Volume 78.4 fl (78-100); Mean Corpuscular Hemoglobin 23.5 pg (26-32); Mean Platelet Volume 10.6 fl (7.5-11.0); Monocyte (Absolute #) 0.28 (0.0-1.3); Neutrophil % 62.1 % (36.0-66.0); Platelet Count 59 K/mm3 (150-450); Red Blood Count 3.28 M/mm3 (4.1-5.4); Red Cell Distribution Width 17.2 % (11.5-14.0); White Blood Count 2.8 K/mm3 (4.0-10.5)
[2020-01-17 18:02] LABS: ALBUMIN 3.1 g/dL (3.5-5.0); ALKALINE PHOSPHATASE 76 U/L (38-126); ANION GAP 14.2 MEQ/L (5-15); BLOOD UREA NITROGEN 15 mg/dL (7-17); CHLORIDE 105 mmol/L (98-107); Calcium 9.6 mg/dL (8.4-10.2); Carbon Dioxide 24 mmol/L (22-30); Creatinine 1 0.76 mg/dL (0.52-1.04); Glucose 197 mg/dL (74-106); MAGNESIUM 1.6 mg/dL (1.6-2.3); Potassium 4.4 mmol/L (3.5-5.1); SGOT/AST 33 U/L (14-36); SGPT/ALT 15 U/L (0-35); SODIUM 139 mmol/L (137-145); Total Protein 6.5 g/dL (6.3-8.2)
[2020-01-17 18:31] LABS: Slide Review 1 YES
[2020-01-17] MEDS ORDERED: PROTONIX 40 MG IV IV ONE ×2 (18:50→19:02)
[2020-01-17 18:59] LABS: Appearance CLEAR (CLEAR); Bacteria PACKED /HPF (NEGATIVE); Bilirubin NEGATIVE (NEGATIVE); Blood NEGATIVE Ery/ul (0-5); Epithelial Cells RARE /HPF (FEW); Glucose NEGATIVE (NEGATIVE); Ketones NEGATIVE (NEGATIVE); Leukocyte Esterase MODERATE (NEGATIVE); Nitrite POSITIVE (NEGATIVE); Protein,Urine Dip NEGATIVE (Negative); Specific Gravity 1.009 (1.005-1.025); Urobilinogen NEGATIVE mg/dL (0-1); WBC >100 /HPF (0-5)
[2020-01-17 19:01] LABS: INR 1.18 (0.8-3.0); PROTIME 13.4 SECONDS (9.95-12.35)
[2020-01-17 19:03] LABS: PTT 32.7 SECONDS (25.3-37.0)
[2020-01-17] MEDS ORDERED: Sodium Chloride 0.9% 500 ML 500 ML IV ONE (19:31)
[2020-01-17] MEDS: PROTONIX 40 MG IV*** 80 MG in Sodium Chloride 0.9% 500 ML 500 ML IV SCH (19:45)
[2020-01-17] MEDS ORDERED: TYLENOL 325 MG PO PRN (20:57)
[2020-01-17 20:59] LABS: ABO TYPING A; Antibody Screen NEGATIVE (NEGATIVE); RH TYPING POSITIVE
[2020-01-17] MEDS ORDERED: Lasix 40 MG/4 ML IV PRN (22:37)
[2020-01-17] MEDS ORDERED: Sodium Chloride 0.9% 1000 ML 1,000 ML IV SCH (22:45)
[2020-01-17 23:01] LABS: Folate (Folic Acid) 7.4 ng/mL (2.76 - >20)
[2020-01-17] MEDS: HUMALOG SQ PRN (23:35)
[2020-01-18] MEDS: HUMALOG SQ PRN ×4 (05:19→21:17)
[2020-01-18] MEDS ORDERED: PROTONIX 40 MG IV IV ONE (05:42)
[2020-01-18] MEDS ORDERED: Sodium Chloride 0.9% 500 ML 500 ML IV ONE (05:43)
[2020-01-18] MEDS: PROTONIX 40 MG IV*** 80 MG in Sodium Chloride 0.9% 500 ML 500 ML IV SCH (05:50)
[2020-01-18 06:17] LABS: Absolute Neutrophil Ct (ANC) 1.56 (1.4-6.9); BASOPHIL % 0.4 % (0.0-0.4); Basophil (Absolute #) 0.01 (0-0.4); Eosinophil % 5.7 % (0.00-5.0); Eosinophil (Absolute #) 0.14 (0-0.5); Hematocrit 31.6 % (35-47); Hemoglobin 9.9 gm/dl (12.0-16.0); Lymphocyte (Absolute #) 0.53 (1.0-4.6); Lymphocytes % 21.6 % (24.0-44.0); Mean Cell Volume 79.6 fl (78-100); Mean Corpuscular Hemoglobin 24.9 pg (26-32); Mean Corpuscular Hgb Concent. 31.3 g/dl (32-36); Monocyte (Absolute #) 0.21 (0.0-1.3); Monocytes % 8.6 % (0.0-12.0); Neutrophil % 63.7 % (36.0-66.0); Platelet Count 58 K/mm3 (150-450); Red Blood Count 3.97 M/mm3 (4.1-5.4); Red Cell Distribution Width 17.3 % (11.5-14.0); White Blood Count 2.5 K/mm3 (4.0-10.5)
[2020-01-18 06:59] LABS: Slide Review 1 YES
[2020-01-18] MEDS: Levofloxacin 500MG/100ML D5W 500 MG/100 ML BAG IV SCH ×2 (08:09→09:41)
[2020-01-18 11:59] LABS: ALKALINE PHOSPHATASE 67 U/L (38-126); ANION GAP 12.8 MEQ/L (5-15); BLOOD UREA NITROGEN 16 mg/dL (7-17); CHLORIDE 106 mmol/L (98-107); Calcium 9.3 mg/dL (8.4-10.2); Carbon Dioxide 24 mmol/L (22-30); Creatinine 1 0.89 mg/dL (0.52-1.04); Glucose 253 mg/dL (74-106); Potassium 4.3 mmol/L (3.5-5.1); SGOT/AST 34 U/L (14-36); SGPT/ALT 16 U/L (0-35); SODIUM 139 mmol/L (137-145); Total Protein 6.4 g/dL (6.3-8.2)
[2020-01-18] MEDS ORDERED: ESTROGENS CONJUGATED VAG SCH (13:00)
[2020-01-18] MEDS: Inderal 20 MG PO SCH (13:27)
[2020-01-18] MEDS: Zestril 20 MG PO SCH (13:27)
[2020-01-18] MEDS: Glucophage XR 500 MG PO SCH (13:27)
[2020-01-18] MEDS: Aldactone 25 MG PO SCH (13:27)
[2020-01-18] MEDS: Ditropan XL 5 MG PO SCH (13:27)
[2020-01-18] MEDS ORDERED: MEDICATION INTERVENTION MC SCH (13:45)
[2020-01-18] MEDS: Protonix 40MG Tablet PO SCH (21:17)
[2020-01-18] MEDS ORDERED: NON-FORMULARY ITEM (Omeprazole 20 Mg [Prilosec 20 Mg] 20 MG) PO SCH (22:00)
[2020-01-19] MEDS: HUMALOG SQ PRN ×3 (00:22→12:27)
[2020-01-19] MEDS ORDERED: NON-FORMULARY ITEM (Lisinopril [Zestril] 40 MG) PO SCH (10:00)
[2020-01-19] MEDS ORDERED: NON-FORMULARY ITEM (Tolterodine Tartrate [Tolterodine Tartrate Er] 4 MG) PO SCH (10:00)
[2020-01-19] MEDS ORDERED: SPIRONOLACTONE 25 MG PO SCH (10:00)
[2020-01-19] MEDS ORDERED: PROPRANOLOL HCL 20 MG PO SCH (10:00)
[2020-01-19] MEDS: Levofloxacin 500MG/100ML D5W 500 MG/100 ML BAG IV SCH (10:55)
[2020-01-19] MEDS: Inderal 20 MG PO SCH (10:55)
[2020-01-19] MEDS: Aldactone 25 MG PO SCH (10:55)
[2020-01-19] MEDS: Glucophage XR 500 MG PO SCH (10:55)
[2020-01-19] MEDS: Protonix 40MG Tablet PO SCH (10:55)
[2020-01-19] MEDS: Ditropan XL 5 MG PO SCH (10:55)
[2020-01-19] MEDS: Zestril 20 MG PO SCH (10:55)
[2020-01-19 12:34] VITALS: BP 138/63; PULSE 71
--- NOTE | 2020-01-19 13:37 | PCM.HP ---
History of Present Illness - Chief Complaint Chief Complaint: anemia,hyperglycemia Date: 01/18/20 History of Present Illness: is a 79 year old female with Hx NIDDM,HTN,CHF,Aortic stenosis,heart murmur,hyperlipidemia.She presented to ER sent by her PCP,Dr Melgoza, with sugars 500. Found to have Hgb 7.7 and UTI. She was admitted to obs for transfusion. Medications & Allergies Home Medications: Home Medication List Omeprazole 20 MG [Prilosec 20 mg] 20 mg PO BID 06/14/12 [History Confirmed 01/16] lisinopriL [Zestril] 40 mg PO DAILY #0 tablet 02/21/17 [Rx Confirmed 01/17/20] Metformin HCl Xr 500 mg [Glucophage XR 500 MG] 1,000 mg PO DAILY 10/11/18 [History Confirmed 01/17/20] Propranolol HCl 20 mg PO DAILY 10/11/18 [History Confirmed 01/17/20] Spironolactone 25 mg PO DAILY 10/11/18 [History Confirmed 01/17/20] Estrogens,Conjugated [Premarin Vaginal Cream] 1 gm VAG 2XW 01/17/20 [History Confirmed 01/17/20] Tolterodine Tartrate [Tolterodine Tartrate ER] 4 mg PO DAILY 01/17/20 [History Confirmed 01/17/20] Allergies/Adverse Reactions: Allergies Allergy/AdvReac Type Severity Reaction Status Date / Time cephalexin [From Keflex] Allergy Intermediate Rash Verified 01/17/20 17:21 Sulfa (Sulfonamide Allergy Intermediate Nausea and Verified 01/17/20 17:21 Antibiotics) Vomiting adhesive tape Allergy Mild Rash Verified 01/17/20 17:21 latex Allergy Mild Rash Verified 01/17/20 17:21 - Past Medical History Past Medical History: Yes Neurological History: No Pertinent History ENT History: Glaucoma, Macular Degeneration Cardiac History: No Pertinent History, Hypertension, Other Respiratory History: No Pertinent History Endocrine Medical History: Diabetes Type II Musculoskelatal History: No Pertinent History GI Medical History: No Pertinent History, GERD, GI Bleed History: No Pertinent History, Other Pyscho-Social History: No Pertinent History Reproductive Disorders: No Pertinent History Comment: HX KIDNEY STONES. psoriasis. neutropenia. thrombocytopenia. urinary tract infections heart murmur - Female History Are you now?: No - Past Surgical History Past Surgical History: Yes Neuro Surgical History: No Pertinent History Cardiac History: No Pertinent History Respiratory Surgery: No Pertinent History GI Surgical History: Appendectomy, Cholecystectomy, Hernia Repair Genitourinary Surgical Hx: Other Musculskeletal Surgical Hx: Joint Replacement Female Surgical History: Hysterectomy, Tubal Ligation Other Surgical History: 2 kidney stones removed, bilateral knee replacements - Social History Smoking Status: Never smoker Exposure to second hand smoke: No Alcohol: Rarely Drug Use: none - Physical Exam Vital Signs: Vital Signs - 24 hr Temp Pulse Resp BP Pulse Ox 01/19/20 12:34 98.2 F 71 18 138/63 97 01/19/20 11:26 94 L 01/19/20 06:48 97.8 F 78 20 134/64 99 01/19/20 06:39 95 01/19/20 03:58 98.5 F 79 18 127/59 97 01/19/20 00:28 97.9 F 79 20 132/60 99 01/18/20 20:44 97.9 F 78 20 130/61 95 01/18/20 19:14 90 L 01/18/20 15:50 98.0 F 79 18 127/58 98 Results - Labs Lab/Micro Results: Accuchecks Date 01/19/20 Date 01/19/20 Date 01/18/20 Date 01/18/20 Date 01/18/20 Time 12:37 Time 04:00 Time 00:00 Time 20:00 Time 12:00 Accucheck Value: 283 Accucheck Value: 155 Accucheck Value: 158 Accucheck Value: 182 Accucheck Value: 214 Accucheck Value: 297 Lab Results-Last 24 Hours 01/18/20 Range/Units 15:41 Stool Occult Blood NEGATIVE (Negative) Microbiology 01/17/20 18:37 Urine Culture - Final Urine, Void Escherichia Coli Accuchecks Date 01/19/20 Date 01/19/20 Date 01/18/20 Date 01/18/20 Date 01/18/20 Time 12:37 Time 04:00 Time 00:00 Time 20:00 Time 12:00 Accucheck Value: 283 Accucheck Value: 155 Accucheck Value: 158 Accucheck Value: 182 Accucheck Value: 214 Accucheck Value: 297
--- NOTE | 2020-01-19 13:51 | PCM.DS ---
Discharge Summary Date of Admission: 01/17/20 20:55 Admitting Physician: OSCAR EDWARDS DO Consults: Consults on Case 01/18/20 06:56 Consult Surgery ROUTINE Primary Care Provider: NERY ROMERO Allergies Allergies cephalexin [From Keflex] Allergy (Intermediate, Verified 01/17/20 17:21) Rash Sulfa (Sulfonamide Antibiotics) Allergy (Intermediate, Verified 01/17/20 17:21) Nausea and Vomiting adhesive tape Allergy (Mild, Verified 01/17/20 17:21) Rash latex Allergy (Mild, Verified 01/17/20 17:21) Rash Hospital Summary - Hospital Course Hospital Course: Patient was admitted to [facility] through ER with anemia, Hgb= 7.7 for transfusion . Stool was heme negative and no GI complaints. Patient gave a HX pancytopenia evaluated by Dr Lott about 5 years ago but states she did not go back to see him . She received a blood transfusion at that time and iron. Her sugars were up to 500 the day she presented to ER , A1c was 10% without Hx DKA. .UTI due to E coli was treated with IV Levaquin and patient improved. Hgb remained stable. WBC and platelets both low but stable. Patient will be discharged home with good family support to follow with her PCP and Compressor Mechanic of her choice. UTI tx with oral levaquin for 5 more days. - Vitals & Intake/Output Vital Signs: Vital Signs Temperature 98.2 F 01/19/20 12:34 Pulse Rate 71 01/19/20 12:34 Respiratory Rate 18 01/19/20 12:34 Blood Pressure 138/63 01/19/20 12:34 O2 Sat by Pulse Oximetry 97 01/19/20 12:34 Intake & Output: Intake & Output 01/17/20 01/18/20 01/19/20 01/20/20 11:59 11:59 11:59 11:59 Intake Total 2263 2321 240 Output Total 1300 500 200 Balance 963 1821 40 Weight 91.5 kg 91.4 kg - Lab Result Diagrams: 01/18/20 06:10 01/18/20 06:10 Lab Results-Last 24 Hrs: Accuchecks Date 01/19/20 Date 01/19/20 Date 01/18/20 Date 01/18/20 Date 01/18/20 Time 12:37 Time 04:00 Time 00:00 Time 20:00 Time 12:00 Accucheck Value: 283 Accucheck Value: 155 Accucheck Value: 158 Accucheck Value: 182 Accucheck Value: 214 Accucheck Value: 297 Lab Results-Last 24 Hours 01/18/20 Range/Units 15:41 Stool Occult Blood NEGATIVE (Negative) Micro Results-Entire Visit: Microbiology 01/17/20 18:37 Urine Culture - Final Urine, Void Escherichia Coli Accuchecks Date 01/19/20 Date 01/19/20 Date 01/18/20 Date 01/18/20 Date 01/18/20 Time 12:37 Time 04:00 Time 00:00 Time 20:00 Time 12:00 Accucheck Value: 283 Accucheck Value: 155 Accucheck Value: 158 Accucheck Value: 182 Accucheck Value: 214 Accucheck Value: 297 - Procedures and Test Procedures and Tests throughout Hospitalization: Therapy Orders & Screens 01/17/20 22:38 Oxygen Nasal Cannula 1 lpm Comment: Diagnosis: blood loss anemia Discharge Exam General Appearance: no apparent distress Neurologic Exam: alert, oriented x 3, cooperative, director of knowledge management II-XII nml as tested, normal mood/affect Eye Exam: eyes nml inspection Ears, Nose, Throat Exam: normal ENT inspection Neck Exam: normal inspection Respiratory Exam: normal breath sounds, lungs clear Cardiovascular Exam: regular rate/rhythm, murmur () Gastrointestinal/Abdomen Exam: soft, normal bowel sounds (nontender) Pelvic Exam: deferred Rectal Exam: deferred Back Exam: normal inspection, other (no CVA tenderness) Extremity Exam: other (LE edema resolved with IPC) Final Diagnosis/Problem List - Final Discharge Diagnosis/Problem (1) Pancytopenia Current Visit: Yes Status: Chronic Assessment & Plan: Hx eval by Compressor Mechanic in the past.no recent workup ot Tx Code(s): D61.818 - OTHER PANCYTOPENIA (2) Anemia Current Visit: Yes Status: Acute Assessment & Plan: transfusion of 2 units PRBCs,stable Code(s): D64.9 - ANEMIA, UNSPECIFIED (3) DM2 (diabetes mellitus, type 2) Current Visit: Yes Status: Chronic (4) Hyperglycemia Current Visit: Yes Status: Acute Assessment & Plan: resolved with tx Ecoli UTI Code(s): R73.9 - HYPERGLYCEMIA, UNSPECIFIED (5) UTI (urinary tract infection) Current Visit: No Status: Acute Assessment & Plan: culture /sens shows sens to Levaquin had IV will send RX for 5 more days Code(s): N39.0 - URINARY TRACT INFECTION, SITE NOT SPECIFIED (6) Aortic stenosis Current Visit: Yes Status: Acute Assessment & Plan: will follow with Small Equipment Operator, Dr Bustillos Code(s): I35.0 - NONRHEUMATIC AORTIC (VALVE) STENOSIS - Discharge Disposition: Home, Self-Care Condition: Stable Prescriptions: New Levofloxacin [Levaquin] 500 mg PO DAILY 5 Days #5 tablet Continue Omeprazole 20 MG [Prilosec 20 mg] 20 mg PO BID lisinopriL [Zestril] 40 mg PO DAILY #0 tablet Spironolactone 25 mg PO DAILY Metformin HCl Xr 500 mg [Glucophage XR 500 MG] 1,000 mg PO DAILY Propranolol HCl 20 mg PO DAILY Tolterodine Tartrate [Tolterodine Tartrate ER] 4 mg PO DAILY Estrogens,Conjugated [Premarin Vaginal Cream] 1 gm VAG 2XW Instructions: Hyperglycemia, Adult (DC) Follow up with: NERY ROMERO [Primary Care Provider] - 01/30/20 10:30 am
[2020-01-23 08:48] VITALS: O2SAT 100
== END 2020-01-19 14:45 | disposition home or self-care (01) ==
LOC: ED 16:36 → MED SURG 20:55
PROVIDERS: ADMIT Family Medicine; ATTEND Family Medicine
DX: D61.818 Other pancytopenia (principal); D64.9 Anemia, unspecified; E11.65 Type 2 diabetes mellitus with hyperglycemia; N39.0 Urinary tract infection, site not specified; B96.20 Unspecified Escherichia coli [E. coli] as the cause of diseases classified elsewhere; I35.0 Nonrheumatic aortic (valve) stenosis; E78.5 Hyperlipidemia, unspecified; I10 Essential (primary) hypertension; Z79.899 Other long term (current) drug therapy
CPT/HCPCS: 36415; 36430; 80053; 81001; 82272; 82607; 82746; 82805; 82962; 83735; 83880; 85025; 85610; 85730; 86850; 86900; 86901; 86922; 87077; 87086; 87186; 93268; 94762; 96365; 96374; 99291; G0378; P9016; 36000; 99285; J1817; J1940; J1956; A9270-GY

== ENCOUNTER 2021-04-22 13:13 | Emergency (ER) | payer MEDICARE, OTHER ==
--- NOTE | 2021-04-22 13:16 | ERPHSYRPT ---
- History of Present Illness Time Seen by Provider: 04/22/21 13:16 Source: patient, family Exam Limitations: no limitations Physician History: This is an 81-year-old morbidly obese white female with a history of gastroesophageal reflux disease, diabetes, hypertension who has bilateral lower extremity lymphedema. She is no longer on any diuretic therapy. She has noticed increased swelling in her bilateral lower extremities over the last 2 to 3 days. He is also noticed weeping from the right lower extremity in the last 1 to 2 days. She is not short of breath. She has no chest pain. Timing/Duration: day(s) (Last few days) Severity: moderate Location: extremities (Bilateral lower extremities) Possible Causes: other (Bilateral lower extremity lymphedema) Associated Symptoms: other (Increased swelling bilateral lower extremities with weeping of lymph fluid from the right lower leg) Allergies/Adverse Reactions: cephalexin [From Keflex] Allergy (Intermediate, Verified 04/22/21 13:57) Rash Sulfa (Sulfonamide Antibiotics) Allergy (Intermediate, Verified 04/22/21 13:57) Nausea and Vomiting adhesive tape Allergy (Mild, Verified 04/22/21 13:57) Rash latex Allergy (Mild, Verified 04/22/21 13:57) Rash Home Medications: Omeprazole 20 MG [Prilosec 20 mg] 20 mg PO BID 06/14/12 [History] Metformin HCl Xr 500 mg [Glucophage XR 500 MG] 1,000 mg PO DAILY 10/11/18 [History] Spironolactone 25 mg PO DAILY 10/11/18 [History] Tolterodine Tartrate [Tolterodine Tartrate ER] 4 mg PO DAILY 01/17/20 [History] Cephalexin Mh 500 mg [Keflex 500 mg] 500 mg PO DAILY 04/22/21 [History] Omeprazole Magnesium [Prilosec Otc] 20 mg PO BID 04/22/21 [History] Oxybutynin Chloride Xl 5 mg [Ditropan XL 5 MG] 5 mg PO DAILY 04/22/21 [History] Hx Tetanus, Diphtheria Vaccination/Date Given: Yes Hx Influenza Vaccination/Date Given: Yes Hx Pneumococcal Vaccination/Date Given: Yes Travel Risk - International Travel Have you traveled outside of the country in past 3 weeks: No - Coronavirus Screening Are you exhibiting any of the following symptoms?: No Close contact with a COVID-19 positive Pt in past 14-21 Days: No - Review of Systems Constitutional: No Symptoms Eyes: No Symptoms Ears, Nose, & Throat: No Symptoms Respiratory: No Symptoms Cardiac: No Symptoms Abdominal/Gastrointestinal: No Symptoms Genitourinary Symptoms: No Symptoms Musculoskeletal: No Symptoms Skin: Other Neurological: No Symptoms Psychological: No Symptoms Endocrine: No Symptoms Hematologic/Lymphatic: No Symptoms Immunological/Allergic: No Symptoms All Other Systems: Reviewed and Negative - Past Medical History Pertinent Past Medical History: Yes Neurological History: No Pertinent History ENT History: Glaucoma, Macular Degeneration Cardiac History: No Pertinent History, Hypertension, Other Respiratory History: No Pertinent History Endocrine Medical History: Diabetes Type II Musculoskeletal History: No Pertinent History GI Medical History: No Pertinent History, GERD, GI Bleed History: No Pertinent History, Other Psycho-Social History: No Pertinent History Female Reproductive Disorders: No Pertinent History Other Medical History: HX KIDNEY STONES. psoriasis. neutropenia. thromboc ytopenia. urinary tract infections heart murmur - Past Surgical History Past Surgical History: Yes Neuro Surgical History: No Pertinent History Cardiac: No Pertinent History Respiratory: No Pertinent History Gastrointestinal: Appendectomy, Cholecystectomy, Hernia Repair Genitourinary: Other Musculoskeletal: Joint Replacement Female Surgical History: Hysterectomy, Tubal Ligation Other Surgical History: 2 kidney stones removed, bilateral knee replacements - Social History Smoking Status: Never smoker Exposure to second hand smoke: No Drug Use: none Patient Lives Alone: Yes - Nursing Vital Signs Nursing Vital Signs: Initial Vital Signs Temperature 97.2 F 04/22/21 13:49 Pulse Rate 81 04/22/21 13:49 Respiratory Rate 18 04/22/21 13:49 Blood Pressure 153/64 04/22/21 13:49 O2 Sat by Pulse Oximetry 97 04/22/21 13:49 Pain Scale Pain Intensity 6 - Physical Exam General Appearance: no apparent distress, alert, anxiety, obese Eye Exam: PERRL/EOMI, eyes nml inspection Ears, Nose, Throat Exam: normal ENT inspection, moist mucous membranes Neck Exam: normal inspection, non-tender, supple, full range of motion Respiratory Exam: normal breath sounds, lungs clear, airway intact, No chest tenderness, No respiratory distress Cardiovascular Exam: regular rate/rhythm, normal heart sounds, normal peripheral pulses Gastrointestinal/Abdomen Exam: No tenderness Pelvic Exam: not done Rectal Exam: not done Back Exam: normal inspection, normal range of motion, No CVA tenderness, No vertebral tenderness Extremity Exam: normal range of motion, pelvis stable, other (Bilateral lower extremity lymphedema. There is no evidence of any cellulitis or infection. There is mild weeping of lymph fluid from the right lower extremity) Neurologic Exam: alert, oriented x 3, cooperative, tutoring clinician II-XII nml as tested, normal mood/affect, nml cerebellar function, nml station & gait, sensation nml Skin Exam: other (See above. Bilateral lower extremity lymphedema) Lymphatic Exam: other (Bilateral lower extremity lymphedema with clear limb fluid mildly leaking from the right lower leg), No adenopathy SpO2 Interpretation: normal O2 Delivery: Room Air - Course Nursing assessment & vital signs reviewed: Yes Ordered Tests: Active Orders 24 hr Category Date Time Status VENOUS BILATERAL EXTREMITY [US] Stat Exams 04/22/21 15:17 Ordered - Progress Progress: unchanged Progress Note: 04/22/21 15:51 Venous Doppler bilateral lower extremity shows no evidence of any DVTs. Medical decision making: This patient has lymphedema that is worsening. The right lower extremity has weeping of lymph fluid. There is no evidence of any infection. The weeping is mild but present. The plan is to have her elevate her legs above the level of her heart at all times. She needs to be doing this if she is not ambulating. She needs to keep Todd wraps in place from bilateral feet to below the knees. The wraps need to be semitight. She will see Dr. Locke in his office (roll coating machine operator) on April 29, 2021 at 9:30 in the morning. At that time Dr. Locke will determine if the patient needs pressurized stockings or Unna boots. Counseled pt/family regarding: diagnosis, need for follow-up, rad results - Departure Departure Disposition: Home Clinical Impression: Lymphedema Condition: Stable Critical Care Time: No Referrals: NERY ROMERO [Primary Care Provider] - Additional Instructions: Follow-up with roll coating machine operator Dr. Locke in his office on Thursday, April 29, 2021 at 9:30 in the morning. Keep Todd wraps tight on your lower extremities. Feet and ankles are tighter than the below the knee region. Keep your legs elevated at all times above the level of your heart when not ambulating.
[2021-04-22 15:00] VITALS: BP 158/68; PULSE 73; O2SAT 95
--- NOTE | 2021-04-22 16:31 | XRAY ---
Indication: Bilateral edema. Two-dimensional sonogram and color Doppler imaging of the major venous vessels of the left and right leg performed. Comparison: None No thrombus seen in the examined deep venous vessels of the left and right leg including greater saphenous vein. Veins demonstrate normal compressibility. Venous waveforms are normal with and without augmentation. Impression: Left and right legs negative for DVT.
== END 2021-04-22 16:55 | disposition home or self-care (01) ==
LOC: ED 13:13
DX: I89.0 Lymphedema, not elsewhere classified (principal); Z79.899 Other long term (current) drug therapy; I10 Essential (primary) hypertension
CPT/HCPCS: 93970; 99283

== ENCOUNTER 2021-05-22 14:19 | Emergency (ER) | payer MEDICARE ==
--- NOTE | 2021-05-22 14:40 | ERPHSYRPT ---
- History of Present Illness Time Seen by Provider: 05/22/21 14:40 Source: patient, family Exam Limitations: clinical condition Patient Subjective Stated Complaint: Pt fell and hit her walker and landed on the floor when she got out of bed injuring her right shoulder, right back of head, right side of neck and right leg, pt laid on the floor from 1900 last night until 1400 today when her daughter arrived Triage Nursing Assessment: Pt brought to the ER by her daughter, hypertensive, rates overall pain as 8/10, abrasions to lower right leg and right shoulder, pain to her right neck and head, denies LOC, laid on the floor for 19 hours until her daughter showed up and called 911 for lifting assistance, tan lower leg edema Physician History: This is an 81-year-old white female has a history of gastroesophageal reflux disease, [id number] diabetes and hypertension who fell at home approximately 19 hours ago when she tripped over her walker. She laid on the floor until she was seen by her daughter who brought her into the emergency department. Patient complains of head pain, neck pain, right shoulder pain, right hip pain. She has no abdominal pain. She does not have chest pain. She has no shortness of breath. Occurred: yesterday Reason for Fall: tripped (Over her walker) Injuries/Pain Location: head, neck, upper extremity (Right shoulder), lower extremity (Right hip) Loss of Consciousness: no loss of consciousness Quality: aching Severity of Pain-Max: mild (Moderate) Severity of Pain-Current: mild (To moderate) Associated Symptoms (Fall): headache, neck pain, other (Patient was able to transfer from a wheelchair to the bed without any difficulty.) Allergies/Adverse Reactions: cephalexin [From Keflex] Allergy (Intermediate, Verified 05/22/21 14:37) Rash Sulfa (Sulfonamide Antibiotics) Allergy (Intermediate, Verified 05/22/21 14:37) Nausea and Vomiting adhesive tape Allergy (Mild, Verified 05/22/21 14:37) Rash latex Allergy (Mild, Verified 05/22/21 14:37) Rash Home Medications: Omeprazole 20 MG [Prilosec 20 mg] 20 mg PO BID 06/14/12 [History] Metformin HCl Xr 500 mg [Glucophage XR 500 MG] 1,000 mg PO DAILY 10/11/18 [History] Spironolactone 25 mg PO DAILY 10/11/18 [History] Tolterodine Tartrate [Tolterodine Tartrate ER] 4 mg PO DAILY 01/17/20 [History] Omeprazole Magnesium [Prilosec Otc] 20 mg PO BID 04/22/21 [History] Oxybutynin Chloride Xl 5 mg [Ditropan XL 5 MG] 5 mg PO DAILY 04/22/21 [History] Hx Tetanus, Diphtheria Vaccination/Date Given: Yes Hx Influenza Vaccination/Date Given: Yes Hx Pneumococcal Vaccination/Date Given: Yes Travel Risk - International Travel Have you traveled outside of the country in past 3 weeks: No - Coronavirus Screening Are you exhibiting any of the following symptoms?: No Close contact with a COVID-19 positive Pt in past 14-21 Days: No - Vaccine Status Have you recieved a Covid-19 vaccination: Yes Stage Driver: Moderna - Vaccination Dates Date of 2cond Vaccination (if applicable): March - Review of Systems Constitutional: No Symptoms Eyes: No Symptoms Ears, Nose, & Throat: No Symptoms Respiratory: No Symptoms Cardiac: No Symptoms Abdominal/Gastrointestinal: No Symptoms Genitourinary Symptoms: No Symptoms Musculoskeletal: Neck Pain, Fall Skin: No Symptoms Neurological: Headache Psychological: No Symptoms Endocrine: No Symptoms Hematologic/Lymphatic: No Symptoms Immunological/Allergic: No Symptoms All Other Systems: Reviewed and Negative - Past Medical History Pertinent Past Medical History: Yes Neurological History: No Pertinent History ENT History: Glaucoma, Macular Degeneration Cardiac History: No Pertinent History, Hypertension, Other Respiratory History: No Pertinent History Endocrine Medical History: Diabetes Type II Musculoskeletal History: No Pertinent History GI Medical History: No Pertinent History, GERD, GI Bleed History: No Pertinent History, Other Psycho-Social History: No Pertinent History Female Reproductive Disorders: No Pertinent History Other Medical History: HX KIDNEY STONES. psoriasis. neutropenia. thr ombocytopenia. urinary tract infections heart murmur - Past Surgical History Past Surgical History: Yes Neuro Surgical History: No Pertinent History Cardiac: No Pertinent History Respiratory: No Pertinent History Gastrointestinal: Appendectomy, Cholecystectomy, Hernia Repair Genitourinary: Other Musculoskeletal: Joint Replacement Female Surgical History: Hysterectomy, Tubal Ligation Other Surgical History: 2 kidney stones removed, bilateral knee replacements - Social History Smoking Status: Never smoker Exposure to second hand smoke: No Drug Use: none Patient Lives Alone: Yes - Female History Hx Now: No - Nursing Vital Signs Nursing Vital Signs: Initial Vital Signs Temperature 98.3 F 05/22/21 14:29 Pulse Rate 80 05/22/21 14:29 Blood Pressure 150/74 05/22/21 14:29 O2 Sat by Pulse Oximetry 98 05/22/21 14:29 Pain Scale Pain Intensity 4 - [place] Coma Score Best Eye Response (Nick): (4) open spontaneously Best Verbal Response ([place]): (5) oriented Best Motor Response ([place]): (6) obeys commands Nick Total: 15 - Physical Exam General Appearance: no apparent distress, alert, anxiety Head Injury: no evidence of injury Eye Exam: PERRL/EOMI, eyes nml inspection ENT Exam: airway nml, nml ext.inspection Neck Exam: supple, trachea midline, full range of motion, normal alignment, normal inspection Respiratory/Chest Exam: normal breath sounds, No chest tenderness, No r espiratory distress, No ecchymosis, No crepitus Cardiovascular Exam: normal heart sounds, regular rate/rhythm, normal peripheral pulses Gastrointestinal Exam: soft, normal bowel sounds, No tenderness Rectal Exam: not done Back Exam: normal inspection, normal range of motion, No CVA tenderness, No ve rtebral tenderness Extremity Exam: normal inspection, normal range of motion, capillary refill <3 sec, pelvis stable Neurologic Exam: alert, oriented x 3, cooperative, technician support association II-XII nml as tested, normal mood/affect, nml cerebellar function, nml station & gait, sensation nml Skin Exam: normal color, warm, dry SpO2 Interpretation: normal SpO2: 98 O2 Delivery: Room Air - Course Nursing assessment & vital signs reviewed: Yes EKG Interpreted by Me: RATE (76), Sinus Rhythm, NORMAL AXIS, NORMAL INTERVALS, Right Bundle Branch Block, NORMAL ST-T, Other (There is no acute ischemia on tod ay's EKG. When compared to EKG dated February 15, 2019, there are no changes) Ordered Tests: Active Orders 24 hr Category Date Time Status Boot Lace Cutter Machine STAT Care 05/22/21 14:50 Active EKG-ER Only STAT Care 05/22/21 14:48 Active Collado [Catheter-Penfield Collado] STAT Care 05/22/21 16:05 Active IV Insertion STAT Care 05/22/21 14:48 Active NPO (ED) STAT Care 05/22/21 14:48 Active CERVICAL SPINE WO CONTRAST [CT] Stat Exams 05/22/21 14:50 Completed HEAD WITHOUT CONTRAST [CT] Stat Exams 05/22/21 14:49 Completed HIP UNI (2V) INCL PEL IF DONE Stat Exams 05/22/21 15:02 Completed SHOULDER Stat Exams 05/22/21 14:52 Completed CBC W DIFF Stat Lab 05/22/21 15:35 Completed CK-Creatinine Phosphokinase Stat Lab 05/22/21 16:45 Completed CMP Stat Lab 05/22/21 15:35 Completed Lactic Acid Stat Lab 05/22/21 14:48 Completed TROPONIN Q3H Lab 05/22/21 15:35 Completed TROPONIN Q3H Lab 05/22/21 18:00 Ordered TROPONIN Q3H Lab 05/22/21 21:00 Ordered TROPONIN Q3H Lab 05/23/21 00:00 Ordered TROPONIN Q3H Lab 05/23/21 03:00 Ordered UA W/RFX UR CULTURE Stat Lab 05/22/21 16:05 Completed Medication Summary Generic Name Dose Route Start Last Admin Trade Name Freq PRN Reason Stop Dose Admin Sodium Chloride 1,000 mls @ 100 mls/hr 05/22/21 15:00 05/22/21 16:09 Sodium Chloride 0.9% 1000 Ml IV 06/21/21 14:59 100 mls/hr .Q10H VERNON Administration Lab/Rad Data: Laboratory Result Diagrams 05/22/21 15:35 05/22/21 15:35 Laboratory Results 05/22/21 05/22/21 05/22/21 Range/Units 16:45 16:05 15:35 WBC (4.0-10.5) K/mm3 RBC (4.1-5.4) M/mm3 Hgb (12.0-16.0) gm/dl Hct (35-47) % MCV (78-100) fl MCH (26-32) pg MCHC (32-36) g/dl RDW (11.5-14.0) % Plt Count (150-450) K/mm3 MPV (7.5-11.0) fl Gran % (36.0-66.0) % Eos # (Auto) (0-0.5) Absolute Lymphs (auto) (1.0-4.6) Absolute Monos (auto) (0.0-1.3) Lymphocytes % (24.0-44.0) % Monocytes % (0.0-12.0) % Eosinophils % (0.00-5.0) % Basophils % (0.0-0.4) % Absolute Granulocytes (1.4-6.9) Basophils # (0-0.4) Sodium (137-145) mmol/L Potassium (3.5-5.1) mmol/L Chloride (98-107) mmol/L Carbon Dioxide (22-30) mmol/L Anion Gap (5-15) MEQ/L BUN (7-17) mg/dL Creatinine (0.52-1.04) mg/dL Estimated GFR ML/MIN Glucose (74-106) mg/dL Lactic Acid (0.4-2.0) Calcium (8.4-10.2) mg/dL Total Bilirubin (0.2-1.3) mg/dL AST (14-36) U/L ALT (0-35) U/L Alkaline Phosphatase (38-126) U/L Creatine Kinase 144 H (30-135) U/L Troponin I 0.018 (0.000-0.034) ng/mL Serum Total Protein (6.3-8.2) g/dL Albumin (3.5-5.0) g/dL Urine Color YELLOW (YELLOW) Urine Appearance CLEAR (CLEAR) Urine pH 6.0 (5-6) Ur Specific [place] 1.012 (1.005-1.025) Urine Protein NEGATIVE (Negative) Urine Ketones NEGATIVE (NEGATIVE) Urine Blood NEGATIVE (0-5) Eric/ul Urine Nitrite NEGATIVE (NEGATIVE) Urine Bilirubin NEGATIVE (NEGATIVE) Urine Urobilinogen 4 (0-1) mg/dL Ur Leukocyte Esterase NEGATIVE (NEGATIVE) Urine WBC (Auto) NONE (0-5) /HPF Urine RBC (Auto) NONE (0-2) /HPF U Epithel Cells (Auto) NONE (FEW) /HPF Urine Culture Reflexed NO (NO) Urine Glucose NEGATIVE (NEGATIVE) mg/dL Slides for Path Review 05/22/21 05/22/21 05/22/21 Range/Units 15:35 15:35 14:48 WBC 5.0 (4.0-10.5) K/mm3 RBC 3.68 L (4.1-5.4) M/mm3 Hgb 11.1 L (12.0-16.0) gm/dl Hct 34.1 L (35-47) % MCV 92.7 (78-100) fl MCH 30.2 (26-32) pg MCHC 32.6 (32-36) g/dl RDW 15.8 H (11.5-14.0) % Plt Count 47 L (150-450) K/mm3 MPV 11.5 H (7.5-11.0) fl Gran % 77.4 H (36.0-66.0) % Eos # (Auto) 0.06 (0-0.5) Absolute Lymphs (auto) 0.63 L (1.0-4.6) Absolute Monos (auto) 0.42 (0.0-1.3) Lymphocytes % 12.6 L (24.0-44.0) % Monocytes % 8.4 (0.0-12.0) % Eosinophils % 1.2 (0.00-5.0) % Basophils % 0.4 (0.0-0.4) % Absolute Granulocytes 3.87 (1.4-6.9) Basophils # 0.02 (0-0.4) Sodium 136 L (137-145) mmol/L Potassium 4.2 (3.5-5.1) mmol/L Chloride 102 (98-107) mmol/L Carbon Dioxide 26 (22-30) mmol/L Anion Gap 12.0 (5-15) MEQ/L BUN 18 H (7-17) mg/dL Creatinine 0.92 (0.52-1.04) mg/dL Estimated GFR > 60.0 ML/MIN Glucose 167 H (74-106) mg/dL Lactic Acid 2.4 H (0.4-2.0) Calcium 10.1 (8.4-10.2) mg/dL Total Bilirubin 3.60 H (0.2-1.3) mg/dL AST 57 H (14-36) U/L ALT 25 (0-35) U/L Alkaline Phosphatase 86 (38-126) U/L Creatine Kinase (30-135) U/L Troponin I (0.000-0.034) ng/mL Serum Total Protein 6.5 (6.3-8.2) g/dL Albumin 3.2 L (3.5-5.0) g/dL Urine Color (YELLOW) Urine Appearance (CLEAR) Urine pH (5-6) Ur Specific [place] (1.005-1.025) Urine Protein (Negative) Urine Ketones (NEGATIVE) Urine Blood (0-5) Eric/ul Urine Nitrite (NEGATIVE) Urine Bilirubin (NEGATIVE) Urine Urobilinogen (0-1) mg/dL Ur Leukocyte Esterase (NEGATIVE) Urine WBC (Auto) (0-5) /HPF Urine RBC (Auto) (0-2) /HPF U Epithel Cells (Auto) (FEW) /HPF Urine Culture Reflexed (NO) Urine Glucose (NEGATIVE) mg/dL Slides for Path Review YES - Progress Progress: improved, pain not gone completely, re-examined Progress Note: 05/22/21 15:59 CAT scan of the head shows no acute intracranial bleed or other acute intracranial process. 05/22/21 16:45 CAT scan of the cervical spine without contrast shows no acute fracture or subluxation. X-ray of right shoulder shows no acute fracture or dislocation. X-ray of right hip and pelvis shows no acute fracture or dislocation. Counseled pt/family regarding: lab results, diagnosis, need for follow-up, rad results - Departure Departure Disposition: Home Clinical Impression: Fall with no significant injury Condition: Stable Critical Care Time: No Referrals: NERY ROMERO [Primary Care Provider] - Additional Instructions: Drink plenty of fluids. Take your medication as prescribed. Follow-up with your primary care physician for further management.
[2021-05-22] MEDS ORDERED: Sodium Chloride 0.9% 1000 ML 1,000 ML IV SCH (15:00)
--- NOTE | 2021-05-22 15:47 | XRAY ---
Exam: CT of the head without IV contrast from 05/22/2021. CTDI: 53.92 mGy Comparison: CT of the head without IV contrast from 10/11/2018. Indication: Patient fell last night, striking right side of head. Technique: Non-IV contrast axial images were obtained through the brain. Reconstructed coronal and sagittal images were created and reviewed. Findings: The ventricles are within normal limits of size. No focal mass effect or midline shift is seen. I see no evidence of acute intracranial parenchymal hemorrhage or abnormal extra-axial fluid collection. There is moderate prominence of the cortical sulci, sylvian fissures, and basilar cisterns consistent with the patient's advanced age/cortical atrophy. Some subtle low attenuation densities are seen within the lentiform nuclei bilaterally and the external capsule on the left, likely reflecting chronic small vessel ischemic disease. There is also a subtle low-attenuation density adjacent to the upper posterior aspect of the right lateral ventricle on axial image #46 which could be due to an old lacunar infarct. No other low attenuation lesions are seen to suggest an infarct within a major cerebral or cerebellar artery distribution. Extensive vascular calcification is seen within both distal vertebral arteries, right greater than left, as well as the proximal basilar artery and carotid siphons. There is mild/moderate soft tissue density/mucosal thickening within the inferior/anterior margin of the right maxillary sinus. There is also suggestion of minimal mucosal thickening within the medial aspect of the right ethmoid sinus. No air-fluid levels are seen. The remainder of the paranasal sinuses appears unremarkable. The mastoid air cells are well aerated without effusion. Some hyperostosis frontalis interna is again seen. The calvarium of the skull appears intact. Impression: 1. No acute intracranial bleed or other acute intracranial process is seen. 2. I note some findings consistent with chronic microvascular disease, as discussed above. 3. No acute fracture of the calvarium of the skull is seen. Hyperostosis frontalis interna is again seen. 4. Mild/moderate mucosal thickening is seen at the anterior inferior aspect of the right maxillary sinus. There is also minimal mucosal thickening within the right ethmoid sinus. No air-fluid levels are seen.
--- NOTE | 2021-05-22 15:56 | XRAY ---
Exam: CT of the cervical spine without IV contrast from 05/22/2021. CTDI: 54.78 mGy Comparison: CT of the cervical spine without IV contrast from 10/11/2018. Indication: 81-year-old female fell last night; complains of right-sided head/neck/shoulder pain. Technique: Non-IV contrast axial images were obtained through the cervical spine. Reconstructed coronal and sagittal images were created and reviewed. Findings: I see no acute cervical spine fracture, AP traumatic subluxation, or prevertebral soft tissue swelling. Mild to moderate multilevel degenerative disc disease is seen from C3-C4 through C6-C7. I see no jumped/dislocated facet joints. Some scattered facet joint osteoarthritic changes are seen bilaterally. I also note slight retrolisthesis of C3 with respect to C4 representing no change. There is minimal anterolisthesis of C5 over C6, C7 over T1, and T1 over T2 which I believe are unchanged as well. This is likely due to ligamentous laxity/arthritic changes. The bones are demineralized. Moderate degenerative change is seen at the preodontoid space. The craniocervical junction appears unremarkable. No significant cervical canal stenosis is seen. There is a mildly exaggerated lower cervical lordosis representing no change. Moderate osteoarthritic changes are seen within the uncovertebral joints on the coronal images. I see no cervical ribs. Bilateral carotid artery vascular calcification is seen, left greater than right. I again see a 4.6 mm in diameter calcification at the lateral margin of the left lobe of the thyroid gland. The visualized lung apices appear clear. Impression: 1. No acute cervical spine fracture or AP traumatic subluxation is seen. 2. Multilevel degenerative disc disease and degenerative joint disease within the cervical spine are again seen with minor stable subluxations, likely due to ligamentous laxity and arthritis. 3. An exaggerated lower lumbar lordosis is again seen.
[2021-05-22 16:03] LABS: Absolute Neutrophil Ct (ANC) 3.87 (1.4-6.9); BASOPHIL % 0.4 % (0.0-0.4); Basophil (Absolute #) 0.02 (0-0.4); Eosinophil % 1.2 % (0.00-5.0); Eosinophil (Absolute #) 0.06 (0-0.5); Hematocrit 34.1 % (35-47); Hemoglobin 11.1 gm/dl (12.0-16.0); Lymphocyte (Absolute #) 0.63 (1.0-4.6); Lymphocytes % 12.6 % (24.0-44.0); Mean Cell Volume 92.7 fl (78-100); Mean Corpuscular Hemoglobin 30.2 pg (26-32); Mean Corpuscular Hgb Concent. 32.6 g/dl (32-36); Mean Platelet Volume 11.5 fl (7.5-11.0); Monocyte (Absolute #) 0.42 (0.0-1.3); Monocytes % 8.4 % (0.0-12.0); Neutrophil % 77.4 % (36.0-66.0); Platelet Count 47 K/mm3 (150-450); Red Blood Count 3.68 M/mm3 (4.1-5.4); Red Cell Distribution Width 15.8 % (11.5-14.0)
[2021-05-22 16:04] LABS: ALBUMIN 3.2 g/dL (3.5-5.0); ALKALINE PHOSPHATASE 86 U/L (38-126); BLOOD UREA NITROGEN 18 mg/dL (7-17); CHLORIDE 102 mmol/L (98-107); Calcium 10.1 mg/dL (8.4-10.2); Carbon Dioxide 26 mmol/L (22-30); Creatinine 1 0.92 mg/dL (0.52-1.04); EST GLOMERULAR FILTRATION RATE > 60.0 ML/MIN; Glucose 167 mg/dL (74-106); Potassium 4.2 mmol/L (3.5-5.1); SGOT/AST 57 U/L (14-36); SGPT/ALT 25 U/L (0-35); SODIUM 136 mmol/L (137-145); Total Protein 6.5 g/dL (6.3-8.2)
[2021-05-22] MEDS ORDERED: Sodium Chloride 0.9% 1000 ML 1,000 ML ONE (16:07)
--- NOTE | 2021-05-22 16:14 | XRAY ---
Exam: Right hip films from 05/22/2021. Comparison: None. Indication: 81-year-old female with fall/injury. Findings: AP film of the pelvis including both hips and coned-down AP and frog-leg lateral views of the right hip were obtained. I see no acute fracture or dislocation of the right hip. Right hip joint space appears unremarkable. The right pubic ring appears intact. There is no acute fracture or dislocation of the pelvis. The sacroiliac joints appear unremarkable. There are some small calcifications within the lower pelvis on each side of midline which probably represent phleboliths. Mild degenerative change is seen at the symphysis pubis. There also appears to be mild to moderate narrowing of the left hip joint space indicating some osteoarthritis on this side. At least 3 small calcifications are seen to the right of L4. The was were shown to lie lateral to the right ureter on the CT study from 02/22/2020. Impression: 1. No acute fracture or dislocation of the right hip is seen. 2. No fracture or dislocation of the pelvis is seen. 3. There is some mild to moderate narrowing of the left hip joint space indicating mild/moderate osteoarthritis on this side. I also note some osteoarthritis affecting the symphysis pubis.
[2021-05-22 16:16] LABS: Appearance CLEAR (CLEAR); Bilirubin NEGATIVE (NEGATIVE); Blood NEGATIVE Ery/ul (0-5); Glucose NEGATIVE (NEGATIVE); Ketones NEGATIVE (NEGATIVE); Leukocyte Esterase NEGATIVE (NEGATIVE); Nitrite NEGATIVE (NEGATIVE); Protein,Urine Dip NEGATIVE (Negative); Specific Gravity 1.012 (1.005-1.025); Urobilinogen 4 mg/dL (0-1)
--- NOTE | 2021-05-22 16:20 | XRAY ---
Exam: 4 view right shoulder series from 05/22/2021. Comparison: 3 view right shoulder series from 10/11/2018. Indication: 81-year-old female fell yesterday; complains of right shoulder pain. Findings: AP external rotation, AP internal rotation, and Y views of the right shoulder were obtained. I see no acute fracture or dislocation. There is mild to moderate osteoarthritis of the right acromioclavicular joint. There is a mild/moderate spurring at the inferior margin of the glenoid of the right scapula. The glenohumeral joint space appears adequately preserved. Subtle soft tissue calcification is seen superior to the cortical surface of the right humeral head. This could be due to hydroxyapatite deposition disease, or chronic calcific tendinitis. Impression: 1. No acute right shoulder fracture or dislocation is seen. 2. Some arthritic/degenerative changes are seen about the right shoulder, as described above.
[2021-05-22 16:59] LABS: Slide Review 1 YES
[2021-05-22 18:30] VITALS: BP 159/73; PULSE 89; O2SAT 94
== END 2021-05-22 18:46 | disposition home or self-care (01) ==
LOC: ED 14:19
DX: S40.011A Contusion of right shoulder, initial encounter (principal); S00.93XA Contusion of unspecified part of head, initial encounter; S10.93XA Contusion of unspecified part of neck, initial encounter; S80.11XA Contusion of right lower leg, initial encounter; W01.198A Fall on same level from slipping, tripping and stumbling with subsequent striking against other object, initial encounter; R51.9 Headache, unspecified; M54.2 Cervicalgia; M25.511 Pain in right shoulder; M25.551 Pain in right hip; Z79.899 Other long term (current) drug therapy; I10 Essential (primary) hypertension; E11.9 Type 2 diabetes mellitus without complications
CPT/HCPCS: 36000; 36415; 51702; 70450; 72125; 73030; 73502; 80053; 81001; 82550; 83605; 84484; 85025; 93005; 93041; 99284

== ENCOUNTER 2021-10-18 12:27 | Observation (INO) | payer MEDICARE ==
[2021-10-18] MEDS ORDERED: Zofran 4 MG/2 ML VIAL IV STA (12:35)
--- NOTE | 2021-10-18 12:35 | ERPHSYRPT ---
- History of Present Illness Time Seen by Provider: 10/18/21 12:35 Historian: patient Exam Limitations: no limitations Physician History: This is an 81-year-old female patient of Dr. Romero who has been having symptoms of bilateral lower extremity weakness and pain with ambulation the last 3 weeks. Patient falls frequently. She has been evaluated the emergency room co nservative and occasions. Patient has been having episodes of vomiting as well. She denies chest pain. She denies shortness of breath. Patient has history of gastroesophageal reflux disease, [id number] diabetes and hypertension. She has not acutely injured any specific limb but does have pain in both hips and lower back. She also states that she was dragging her left foot a week ago when ambulating. She has not hit her head. Timing/Duration: week(s) (3) Quality: aching Abdominal Pain Onset Location: generalized abdomen (Mild) Severity of Pain-Max: mild Severity of Pain-Current: mild Modifying Factors: Improves With: movement, walking Associated Symptoms: nausea, vomiting, weakness Previous symptoms: same symptoms as today Allergies/Adverse Reactions: cephalexin [From Keflex] Allergy (Intermediate, Verified 10/18/21 12:43) Rash Sulfa (Sulfonamide Antibiotics) Allergy (Intermediate, Verified 10/18/21 12:43) Nausea and Vomiting adhesive tape Allergy (Mild, Verified 10/18/21 12:43) Rash latex Allergy (Mild, Verified 10/18/21 12:43) Rash Home Medications: Tolterodine Tartrate [Tolterodine Tartrate ER] 4 mg PO DAILY 01/17/20 [History] Omeprazole Magnesium [Prilosec Otc] 20 mg PO BID 04/22/21 [History] Bumetanide 0.5 mg PO DAILY 10/18/21 [History] Glipizide [Glipizide ER] 2.5 mg PO DAILY 10/18/21 [History] Metformin HCl 500 mg [Glucophage 500 MG] 1,000 mg PO DAILY 10/18/21 [History] lisinopriL [Zestril] 10 mg PO DAILY 10/18/21 [History] Hx Tetanus, Diphtheria Vaccination/Date Given: Yes Hx Influenza Vaccination/Date Given: Yes Hx Pneumococcal Vaccination/Date Given: Yes Travel Risk - International Travel Have you traveled outside of the country in past 3 weeks: No - Coronavirus Screening Are you exhibiting any of the following symptoms?: No Close contact with a COVID-19 positive Pt in past 14-21 Days: No - Vaccine Status Have you recieved a Covid-19 vaccination: Yes Dry Color Tester: Moderna - Vaccination Dates Date of 2cond Vaccination (if applicable): March - Review of Systems Constitutional: Weakness Eyes: No Symptoms Ears, Nose, & Throat: No Symptoms Respiratory: No Symptoms Cardiac: No Symptoms Abdominal/Gastrointestinal: No Symptoms Genitourinary Symptoms: No Symptoms Musculoskeletal: Other (Weakness bilateral lower extremities with lysed achiness in same area) Skin: No Symptoms Neurological: No Symptoms Psychological: No Symptoms Endocrine: No Symptoms Hematologic/Lymphatic: No Symptoms Immunological/Allergic: No Symptoms All Other Systems: Reviewed and Negative - Past Medical History Pertinent Past Medical History: Yes Neurological History: No Pertinent History ENT History: Glaucoma, Macular Degeneration Cardiac History: No Pertinent History, Hypertension, Other Respiratory History: No Pertinent History Endocrine Medical History: Diabetes Type II Musculoskeletal History: No Pertinent History GI Medical History: No Pertinent History, GERD, GI Bleed History: No Pertinent History, Other Psycho-Social History: No Pertinent History Female Reproductive Disorders: No Pertinent History Other Medical History: HX KIDNEY STONES. psoriasis. neutropenia. t hrombocytopenia. urinary tract infections heart murmur - Past Surgical History Past Surgical History: Yes Neuro Surgical History: No Pertinent History Cardiac: No Pertinent History Respiratory: No Pertinent History Gastrointestinal: Appendectomy, Cholecystectomy, Hernia Repair Genitourinary: Other Musculoskeletal: Joint Replacement Female Surgical History: Hysterectomy, Tubal Ligation Other Surgical History: 2 kidney stones removed, bilateral knee replacements - Social History Smoking Status: Never smoker Exposure to second hand smoke: No Drug Use: none Patient Lives Alone: Yes - Nursing Vital Signs Nursing Vital Signs: Initial Vital Signs Temperature 98.2 F 10/18/21 12:29 Pulse Rate 83 10/18/21 12:29 Respiratory Rate 11 L 10/18/21 12:29 Blood Pressure 101/51 10/18/21 12:29 O2 Sat by Pulse Oximetry 97 10/18/21 12:29 Pain Scale Pain Intensity 0 - Physical Exam General Appearance: no apparent distress, alert, anxiety, obese Eye Exam: PERRL/EOMI, eyes nml inspection Ears, Nose, Throat Exam: normal ENT inspection, moist mucous membranes Neck Exam: normal inspection, non-tender, supple, full range of motion Respiratory Exam: normal breath sounds, lungs clear, airway intact, No chest tenderness, No respiratory distress Cardiovascular Exam: regular rate/rhythm, normal heart sounds, normal peripheral pulses Gastrointestinal/Abdomen Exam: soft, normal bowel sounds, No tenderness Pelvic Exam: not done Rectal Exam: not done Back Exam: normal inspection, normal range of motion, No CVA tenderness, No vertebral tenderness Extremity Exam: normal inspection, normal range of motion, pelvis stable Neurologic Exam: alert, oriented x 3, cooperative, office copy selector II-XII nml as tested, sensation nml Skin Exam: normal color, warm, dry Lymphatic Exam: No adenopathy SpO2 Interpretation: normal - Course Nursing assessment & vital signs reviewed: Yes EKG Interpreted by Me: RATE (79), Sinus Rhythm, NORMAL AXIS, NORMAL INTERVALS, Right Bundle Branch Block, NORMAL ST-T, Other (No acute ischemic changes. When compared to EKG dated 05/22/2021, there are no changes.) Ordered Tests: Active Orders 24 hr Category Date Time Status EKG-ER Only STAT Care 10/18/21 12:35 Active IV Insertion STAT Care 10/18/21 12:35 Active Pulse Oximetry (ED) STAT Care 10/18/21 12:35 Active CHEST 1 VIEW (PORTABLE) Stat Exams 10/18/21 12:36 Completed HEAD WITHOUT CONTRAST [CT] Stat Exams 10/18/21 13:40 Completed LUMBAR SPINE W/O [CT] Routine Exams 10/18/21 13:34 Completed PELVIS WITHOUT CONTRAST [CT] Routine Exams 10/18/21 13:43 Completed BLOOD CULTURE Stat Lab 10/18/21 13:10 Received CBC W DIFF Stat Lab 10/18/21 12:35 Completed CMP Stat Lab 10/18/21 13:00 Completed INFLUENZA A+B MARGARETTE Stat Lab 10/18/21 14:15 Completed Lactic Acid Stat Lab 10/18/21 13:05 Completed Lactic Acid Stat Lab 10/18/21 15:18 Completed Reynolds Screen Stat Lab 10/18/21 13:00 Completed TROPONIN Q3H Lab 10/18/21 13:00 Completed TROPONIN Q3H Lab 10/18/21 15:45 Completed TROPONIN Q3H Lab 10/18/21 18:45 Ordered TROPONIN Q3H Lab 10/18/21 21:45 Ordered TROPONIN Q3H Lab 10/19/21 00:45 Ordered UA W/RFX UR CULTURE Stat Lab 10/18/21 14:03 Completed Transfer Order Routine Transfer 10/18/21 Ordered Medication Summary Generic Name Dose Route Start Last Admin Trade Name Paris PRN Reason Stop Dose Admin Sodium Chloride 1,000 mls @ 100 mls/hr 10/18/21 12:45 10/18/21 12:45 Sodium Chloride 0.9% 1000 Ml IV 11/17/21 12:44 100 mls/hr .Q10H VERNON Administration Discontinued Medications Generic Name Dose Route Start Last Admin Trade Name Paris PRN Reason Stop Dose Admin Ondansetron HCl 4 mg 10/18/21 12:35 10/18/21 12:48 Ondansetron Hcl 4 Mg/2 Ml Vial IV 10/18/21 12:36 4 mg STAT STA Administration Ondansetron HCl Confirm 10/18/21 12:43 Ondansetron Hcl 4 Mg/2 Ml Vial Administered 10/18/21 12:44 Dose 4 mg .ROUTE .[place] ONE Lab/Rad Data: Laboratory Result Diagrams 10/18/21 12:35 10/18/21 13:00 Laboratory Results 10/18/21 10/18/21 10/18/21 Range/Units 17:02 15:45 15:18 WBC (4.0-10.5) K/mm3 RBC (4.1-5.4) M/mm3 Hgb (12.0-16.0) gm/dl Hct (35-47) % MCV (78-100) fl MCH (26-32) pg MCHC (32-36) g/dl RDW (11.5-14.0) % Plt Count (150-450) K/mm3 MPV (7.5-11.0) fl Gran % (36.0-66.0) % Eos # (Auto) (0-0.5) Absolute Lymphs (auto) (1.0-4.6) Absolute Monos (auto) (0.0-1.3) Lymphocytes % (24.0-44.0) % Monocytes % (0.0-12.0) % Eosinophils % (0.00-5.0) % Basophils % (0.0-0.4) % Absolute Granulocytes (1.4-6.9) Basophils # (0-0.4) Sodium (137-145) mmol/L Potassium (3.5-5.1) mmol/L Chloride (98-107) mmol/L Carbon Dioxide (22-30) mmol/L Anion Gap (5-15) MEQ/L BUN (7-17) mg/dL Creatinine (0.52-1.04) mg/dL Estimated GFR ML/MIN Glucose (74-106) mg/dL Lactic Acid 2.9 H (0.4-2.0) Calcium (8.4-10.2) mg/dL Total Bilirubin (0.2-1.3) mg/dL AST (14-36) U/L ALT (0-35) U/L Alkaline Phosphatase (38-126) U/L Troponin I 0.031 (0.000-0.034) ng/mL Serum Total Protein (6.3-8.2) g/dL Albumin (3.5-5.0) g/dL Urine Color (YELLOW) Urine Appearance (CLEAR) Urine pH (5-6) Ur Specific [place] (1.005-1.025) Urine Protein (Negative) Urine Ketones (NEGATIVE) Urine Blood (0-5) Eric/ul Urine Nitrite (NEGATIVE) Urine Bilirubin (NEGATIVE) Urine Urobilinogen (0-1) mg/dL Ur Leukocyte Esterase (NEGATIVE) Urine WBC (Auto) (0-5) /HPF Urine RBC (Auto) (0-2) /HPF U Hyaline Cast (Auto) (0-2) /LPF U Epithel Cells (Auto) (FEW) /HPF Urine Bacteria (Auto) (NEGATIVE) /HPF Urine Mucus (Auto) (NEGATIVE) /HPF Urine Culture Reflexed (NO) Urine Glucose (NEGATIVE) mg/dL Monoscreen (Negative) Influenza Type A Ag NEGATIVE (NEGATIVE) Influenza Type B Ag NEGATIVE (NEGATIVE) RSV (PCR) NEGATIVE (Negative) SARS-CoV-2 (PCR) NEGATIVE (NEGATIVE) Group A Strep Antibody (NEGATIVE) Slides for Path Review 10/18/21 10/18/21 10/18/21 Range/Units 14:15 14:03 13:15 WBC (4.0-10.5) K/mm3 RBC (4.1-5.4) M/mm3 Hgb (12.0-16.0) gm/dl Hct (35-47) % MCV (78-100) fl MCH (26-32) pg MCHC (32-36) g/dl RDW (11.5-14.0) % Plt Count (150-450) K/mm3 MPV (7.5-11.0) fl Gran % (36.0-66.0) % Eos # (Auto) (0-0.5) Absolute Lymphs (auto) (1.0-4.6) Absolute Monos (auto) (0.0-1.3) Lymphocytes % (24.0-44.0) % Monocytes % (0.0-12.0) % Eosinophils % (0.00-5.0) % Basophils % (0.0-0.4) % Absolute Granulocytes (1.4-6.9) Basophils # (0-0.4) Sodium (137-145) mmol/L Potassium (3.5-5.1) mmol/L Chloride (98-107) mmol/L Carbon Dioxide (22-30) mmol/L Anion Gap (5-15) MEQ/L BUN (7-17) mg/dL Creatinine (0.52-1.04) mg/dL Estimated GFR ML/MIN Glucose (74-106) mg/dL Lactic Acid (0.4-2.0) Calcium (8.4-10.2) mg/dL Total Bilirubin (0.2-1.3) mg/dL AST (14-36) U/L ALT (0-35) U/L Alkaline Phosphatase (38-126) U/L Troponin I (0.000-0.034) ng/mL Serum Total Protein (6.3-8.2) g/dL Albumin (3.5-5.0) g/dL Urine Color [place] (YELLOW) Urine Appearance SLIGHTLY CLOUDY (CLEAR) Urine pH 5.0 (5-6) Ur Specific [place] 1.024 (1.005-1.025) Urine Protein NEGATIVE (Negative) Urine Ketones TRACE (NEGATIVE) Urine Blood NEGATIVE (0-5) Eric/ul Urine Nitrite NEGATIVE (NEGATIVE) Urine Bilirubin NEGATIVE (NEGATIVE) Urine Urobilinogen NEGATIVE (0-1) mg/dL Ur Leukocyte Esterase NEGATIVE (NEGATIVE) Urine WBC (Auto) 3-5 (0-5) /HPF Urine RBC (Auto) NONE (0-2) /HPF U Hyaline Cast (Auto) 26-50 (0-2) /LPF U Epithel Cells (Auto) RARE (FEW) /HPF Urine Bacteria (Auto) RARE (NEGATIVE) /HPF Urine Mucus (Auto) SLIGHT (NEGATIVE) /HPF Urine Culture Reflexed NO (NO) Urine Glucose 50 (NEGATIVE) mg/dL Monoscreen (Negative) Influenza Type A Ag NEGATIVE (NEGATIVE) Influenza Type B Ag POSITIVE (NEGATIVE) RSV (PCR) (Negative) SARS-CoV-2 (PCR) (NEGATIVE) Group A Strep Antibody NOT DETECTED (NEGATIVE) Slides for Path Review 10/18/21 10/18/21 10/18/21 Range/Units 13:05 13:00 13:00 WBC (4.0-10.5) K/mm3 RBC (4.1-5.4) M/mm3 Hgb (12.0-16.0) gm/dl Hct (35-47) % MCV (78-100) fl MCH (26-32) pg MCHC (32-36) g/dl RDW (11.5-14.0) % Plt Count (150-450) K/mm3 MPV (7.5-11.0) fl Gran % (36.0-66.0) % Eos # (Auto) (0-0.5) Absolute Lymphs (auto) (1.0-4.6) Absolute Monos (auto) (0.0-1.3) Lymphocytes % (24.0-44.0) % Monocytes % (0.0-12.0) % Eosinophils % (0.00-5.0) % Basophils % (0.0-0.4) % Absolute Granulocytes (1.4-6.9) Basophils # (0-0.4) Sodium (137-145) mmol/L Potassium (3.5-5.1) mmol/L Chloride (98-107) mmol/L Carbon Dioxide (22-30) mmol/L Anion Gap (5-15) MEQ/L BUN (7-17) mg/dL Creatinine (0.52-1.04) mg/dL Estimated GFR ML/MIN Glucose (74-106) mg/dL Lactic Acid 3.6 H (0.4-2.0) Calcium (8.4-10.2) mg/dL Total Bilirubin (0.2-1.3) mg/dL AST (14-36) U/L ALT (0-35) U/L Alkaline Phosphatase (38-126) U/L Troponin I 0.043 H* (0.000-0.034) ng/mL Serum Total Protein (6.3-8.2) g/dL Albumin (3.5-5.0) g/dL Urine Color (YELLOW) Urine Appearance (CLEAR) Urine pH (5-6) Ur Specific [place] (1.005-1.025) Urine Protein (Negative) Urine Ketones (NEGATIVE) Urine Blood (0-5) Eric/ul Urine Nitrite (NEGATIVE) Urine Bilirubin (NEGATIVE) Urine Urobilinogen (0-1) mg/dL Ur Leukocyte Esterase (NEGATIVE) Urine WBC (Auto) (0-5) /HPF Urine RBC (Auto) (0-2) /HPF U Hyaline Cast (Auto) (0-2) /LPF U Epithel Cells (Auto) (FEW) /HPF Urine Bacteria (Auto) (NEGATIVE) /HPF Urine Mucus (Auto) (NEGATIVE) /HPF Urine Culture Reflexed (NO) Urine Glucose (NEGATIVE) mg/dL Monoscreen NEGATIVE (Negative) Influenza Type A Ag (NEGATIVE) Influenza Type B Ag (NEGATIVE) RSV (PCR) (Negative) SARS-CoV-2 (PCR) (NEGATIVE) Group A Strep Antibody (NEGATIVE) Slides for Path Review 10/18/21 10/18/21 Range/Units 13:00 12:35 WBC 4.0 (4.0-10.5) K/mm3 RBC 3.43 L (4.1-5.4) M/mm3 Hgb 10.4 L (12.0-16.0) gm/dl Hct 31.6 L (35-47) % MCV 92.1 (78-100) fl MCH 30.3 (26-32) pg MCHC 32.9 (32-36) g/dl RDW 17.3 H (11.5-14.0) % Plt Count 45 L (150-450) K/mm3 MPV 11.5 H (7.5-11.0) fl Gran % 74.2 H (36.0-66.0) % Eos # (Auto) 0.06 (0-0.5) Absolute Lymphs (auto) 0.59 L (1.0-4.6) Absolute Monos (auto) 0.35 (0.0-1.3) Lymphocytes % 14.9 L (24.0-44.0) % Monocytes % 8.9 (0.0-12.0) % Eosinophils % 1.5 (0.00-5.0) % Basophils % 0.5 (0.0-0.4) % Absolute Granulocytes 2.93 (1.4-6.9) Basophils # 0.02 (0-0.4) Sodium 139 (137-145) mmol/L Potassium 4.0 (3.5-5.1) mmol/L Chloride 108 H (98-107) mmol/L Carbon Dioxide 20 L (22-30) mmol/L Anion Gap 14.8 (5-15) MEQ/L BUN 33 H (7-17) mg/dL Creatinine 1.66 H (0.52-1.04) mg/dL Estimated GFR 31.4 ML/MIN Glucose 205 H (74-106) mg/dL Lactic Acid (0.4-2.0) Calcium 9.4 (8.4-10.2) mg/dL Total Bilirubin 1.00 (0.2-1.3) mg/dL AST 91 H (14-36) U/L ALT 39 H (0-35) U/L Alkaline Phosphatase 128 H (38-126) U/L Troponin I (0.000-0.034) ng/mL Serum Total Protein 5.8 L (6.3-8.2) g/dL Albumin 2.8 L (3.5-5.0) g/dL Urine Color (YELLOW) Urine Appearance (CLEAR) Urine pH (5-6) Ur Specific [place] (1.005-1.025) Urine Protein (Negative) Urine Ketones (NEGATIVE) Urine Blood (0-5) Eric/ul Urine Nitrite (NEGATIVE) Urine Bilirubin (NEGATIVE) Urine Urobilinogen (0-1) mg/dL Ur Leukocyte Esterase (NEGATIVE) Urine WBC (Auto) (0-5) /HPF Urine RBC (Auto) (0-2) /HPF U Hyaline Cast (Auto) (0-2) /LPF U Epithel Cells (Auto) (FEW) /HPF Urine Bacteria (Auto) (NEGATIVE) /HPF Urine Mucus (Auto) (NEGATIVE) /HPF Urine Culture Reflexed (NO) Urine Glucose (NEGATIVE) mg/dL Monoscreen (Negative) Influenza Type A Ag (NEGATIVE) Influenza Type B Ag (NEGATIVE) RSV (PCR) (Negative) SARS-CoV-2 (PCR) (NEGATIVE) Group A Strep Antibody (NEGATIVE) Slides for Path Review YES - Progress Progress: improved, pain not gone completely Progress Note: 10/18/21 15:[address] shows bilateral hip degenerative changes without any evidence of any acute fracture or dislocation. Lumbar spine CAT scan shows no acute fracture or spinal canal stenosis. There is evidence of cirrhotic liver with large metastatic mass which was present on prior comparison study. I did let the patient and daughter know about the cirrhotic liver with large metastatic mass within it. Head CT without contrast shows a nonacute senile brain with remote basal ganglier lacunar infarct. Chest x-ray shows no acute findings. 10/18/21 16:39 Medical decision making: This patient lives alone. She has been falling frequently. In the last few weeks she is having worsening pain and weakness and increasing difficulty ambulating on her own. She has some dehydration. She does have have influenza B infection found today. I did speak with Dr. Parikh regarding placing this patient in observation, provide her with intravenous fluids, oral intake, repeat EKG and following serial troponins. The first was slightly elevated the second is within normal limits. Patient does not have any shortness of breath or chest pain. The patient would benefit from physical therapy as well as a discussion of skilled nursing placement while here in the hospital. Discussed with : Christian Counseled pt/family regarding: lab results, diagnosis, rad results - Departure Departure Disposition: In-patient Admission Clinical Impression: Weakness, Influenza B, Inability to walk, Acute renal insufficiency, Dehydration Condition: Stable Critical Care Time: No Referrals: NERY ROMERO [Primary Care Provider] - Follow up/PCP as directed
[2021-10-18] MEDS ORDERED: Sodium Chloride 0.9% 1000 ML 1,000 ML ONE (12:43)
[2021-10-18] MEDS ORDERED: Zofran 4 MG/2 ML VIAL ONE (12:43)
[2021-10-18] MEDS ORDERED: Sodium Chloride 0.9% 1000 ML 1,000 ML IV SCH (12:45)
--- NOTE | 2021-10-18 13:00 | XRAY ---
Indication: Cough. Comparison: February 22, 2020. Portable chest again hyperinflated and clear. Heart not enlarged. Bony thorax intact again with osteopenia and degenerative changes. No new/acute findings.
[2021-10-18 13:15] LABS: Absolute Neutrophil Ct (ANC) 2.93 (1.4-6.9); Basophil (Absolute #) 0.02 (0-0.4); Eosinophil % 1.5 % (0.00-5.0); Eosinophil (Absolute #) 0.06 (0-0.5); Hematocrit 31.6 % (35-47); Hemoglobin 10.4 gm/dl (12.0-16.0); Lymphocyte (Absolute #) 0.59 (1.0-4.6); Lymphocytes % 14.9 % (24.0-44.0); Mean Cell Volume 92.1 fl (78-100); Mean Corpuscular Hemoglobin 30.3 pg (26-32); Mean Corpuscular Hgb Concent. 32.9 g/dl (32-36); Mean Platelet Volume 11.5 fl (7.5-11.0); Monocyte (Absolute #) 0.35 (0.0-1.3); Monocytes % 8.9 % (0.0-12.0); Neutrophil % 74.2 % (36.0-66.0); Platelet Count 45 K/mm3 (150-450); Red Blood Count 3.43 M/mm3 (4.1-5.4); Red Cell Distribution Width 17.3 % (11.5-14.0)
[2021-10-18 13:33] LABS: ALBUMIN 2.8 g/dL (3.5-5.0); ANION GAP 14.8 MEQ/L (5-15); Calcium 9.4 mg/dL (8.4-10.2); Creatinine 1 1.66 mg/dL (0.52-1.04); EST GLOMERULAR FILTRATION RATE 31.4 ML/MIN; Total Protein 5.8 g/dL (6.3-8.2)
--- NOTE | 2021-10-18 14:08 | XRAY ---
Indication: Weakness. Dragging left foot. Multiple contiguous axial images obtained through the head without contrast. Comparison: May 22, 2021. There remains age-appropriate global atrophy, minimal periventricular degenerative micro-ischemia bilaterally, and remote lacunar infarcts basal ganglia bilaterally. No acute intracranial hemorrhage, abnormal extra-axial fluid collection, or mass effect. Fourth ventricle is midline without hydrocephalus. Aviles-white matter differentiation preserved. Bony calvarium intact. Visualized paranasal sinuses and mastoid air cells are clear. Impression: Continued nonacute senile brain with remote basal ganglia lacunar infarcts.
--- NOTE | 2021-10-18 14:09 | XRAY ---
Indication: Low back pain and weakness. Multiple contiguous axial images obtained through the lumbar spine. Sagittal and coronal reformatted images obtained. Comparison: February 22, 2020. Osseous structures again demonstrates osteopenia and mild multilevel thoracolumbar degenerative spondylosis. No large focal disc herniation or spinal canal stenosis. Sagittal and coronal reformatted images again demonstrates normal lumbar alignment with L5-S1 disc space loss. No acute compression fracture or subluxation. Visualized noncontrasted soft tissues again demonstrates mild scattered aortoiliac calcifications, partially visualized cirrhotic liver with large metastatic mass, enlarged portal vein, splenomegaly with splenorenal varices, and hepatic/splenic calcified granulomas. Impression: 1. Stable osteopenia and multilevel thoracolumbar degenerative spondylosis. Negative acute fracture or spinal canal stenosis. 2. Again partially visualized cirrhotic liver with large metastatic mass, enlarged portal vein, splenomegaly with splenorenal varices, and old granulomatous disease.
--- NOTE | 2021-10-18 14:15 | XRAY ---
Indication: Bilateral hip pain and weakness. Multiple contiguous axial images obtained through the pelvis with special attention to the osseous structures. Sagittal and coronal reformatted images obtained. Comparison: February 22, 2020. Osseous structures again demonstrates osteopenia. Stable bilateral hip degenerative arthropathy, mild bilateral SI joint degenerative changes, and tiny right superior acetabulum sclerotic bone island. No acute fracture, dislocation, or suspicious bony lesions. Visualized noncontrasted soft tissues again demonstrate scattered vascular calcifications, small 1.1 x 1.5 cm aortocaval node, and hysterectomy. Visualized bowel loops appear nonobstructed with incidental colonic fecal debris. Impression: 1. Stable osteopenia, bilateral hip degenerative arthropathy, bilateral SI joint degenerative changes, tiny right acetabulum bone island, arteriosclerotic disease, and small nonspecific aortocaval node. 2. Remaining CT pelvis is negative.
[2021-10-18 14:18] LABS: Slide Review 1 YES
[2021-10-18 14:20] LABS: Appearance SLIGHTLY CLOUDY (CLEAR); Bacteria RARE /HPF (NEGATIVE); Bilirubin NEGATIVE (NEGATIVE); Blood NEGATIVE Ery/ul (0-5); Epithelial Cells RARE /HPF (FEW); Glucose 50 mg/dL (NEGATIVE); Hyaline Casts 26-50 /LPF (0-2); Ketones TRACE (NEGATIVE); Leukocyte Esterase NEGATIVE (NEGATIVE); Mucus SLIGHT /HPF (NEGATIVE); Nitrite NEGATIVE (NEGATIVE); Protein,Urine Dip NEGATIVE (Negative); Specific Gravity 1.024 (1.005-1.025); Urobilinogen NEGATIVE mg/dL (0-1)
[2021-10-18 14:56] LABS: INFLUENZA A NEGATIVE (NEGATIVE)
[2021-10-18 14:58] LABS: INFLUENZA B POSITIVE (NEGATIVE)
[2021-10-18 18:03] LABS: INFLUENZA A NEGATIVE (NEGATIVE); INFLUENZA B NEGATIVE (NEGATIVE); RESPIRATORY SYNCTIAL VIRUS NEGATIVE (Negative); SARS-CoV-2 Xpert Express NEGATIVE (NEGATIVE)
[2021-10-18] MEDS ORDERED: Zofran 4 MG/2 ML VIAL IV PRN (20:26)
[2021-10-18] MEDS ORDERED: TYLENOL 325 MG PO PRN (20:26)
[2021-10-18] MEDS: Sodium Chloride 0.9% 1000 ML 1,000 ML IV SCH ×2 (21:53→23:30)
[2021-10-19 01:21] LABS: Absolute Neutrophil Ct (ANC) 1.38 (1.4-6.9); Basophil (Absolute #) 0.01 (0-0.4); Eosinophil % 4.1 % (0.00-5.0); Eosinophil (Absolute #) 0.09 (0-0.5); Hematocrit 29.3 % (35-47); Hemoglobin 9.6 gm/dl (12.0-16.0); Lymphocyte (Absolute #) 0.47 (1.0-4.6); Lymphocytes % 21.5 % (24.0-44.0); Mean Cell Volume 92.1 fl (78-100); Mean Corpuscular Hemoglobin 30.2 pg (26-32); Mean Corpuscular Hgb Concent. 32.8 g/dl (32-36); Mean Platelet Volume 11.6 fl (7.5-11.0); Monocyte (Absolute #) 0.24 (0.0-1.3); Neutrophil % 62.9 % (36.0-66.0); Red Blood Count 3.18 M/mm3 (4.1-5.4); Red Cell Distribution Width 17.4 % (11.5-14.0); White Blood Count 2.2 K/mm3 (4.0-10.5)
[2021-10-19 01:35] LABS: ANION GAP 13.6 MEQ/L (5-15); Calcium 8.9 mg/dL (8.4-10.2); Creatinine 1 1.32 mg/dL (0.52-1.04); EST GLOMERULAR FILTRATION RATE 40.9 ML/MIN; Potassium 4.3 mmol/L (3.5-5.1)
[2021-10-19 04:06] LABS: Platelet Count 37 K/mm3 (150-450)
[2021-10-19] MEDS ORDERED: NON-FORMULARY ITEM (Bumetanide [Bumetanide] 0.5 MG Tablet) PO SCH (10:00)
[2021-10-19] MEDS ORDERED: NON-FORMULARY ITEM (Omeprazole Magnesium [Prilosec Otc] 20 MG Tablet.Dr) PO SCH (10:00)
[2021-10-19] MEDS ORDERED: Glucotrol Xl 2.5 MG PO SCH (10:00)
[2021-10-19] MEDS ORDERED: NON-FORMULARY ITEM (Lisinopril [Zestril] 40 MG Tablet) PO SCH (10:00)
[2021-10-19] MEDS ORDERED: NON-FORMULARY ITEM (Tolterodine Tartrate [Tolterodine Tartrate Er] 4 MG Cap.Er.24h) PO SCH (10:00)
[2021-10-19] MEDS: Glucophage 500 MG PO SCH (10:04)
[2021-10-19] MEDS: Ditropan XL 5 MG PO SCH (10:04)
[2021-10-19] MEDS: Protonix 40MG Tablet PO SCH ×2 (10:05→21:42)
[2021-10-19] MEDS: Tamiflu 75MG Capsule PO SCH ×2 (10:05→21:42)
[2021-10-19] MEDS: Glucotrol Xl 2.5 MG PO SCH (10:05)
[2021-10-19] MEDS: BUMEX 1 MG PO SCH (10:05)
[2021-10-19] MEDS: Zestril 10 MG PO SCH (10:05)
[2021-10-19] MEDS: HUMALOG SQ PRN ×2 (11:45→21:41)
[2021-10-19] MEDS: Sodium Chloride 0.9% 1000 ML 1,000 ML IV SCH (15:27)
[2021-10-20] MEDS: Sodium Chloride 0.9% 1000 ML 1,000 ML IV SCH ×2 (04:10→17:35)
[2021-10-20] MEDS: Glucophage 500 MG PO SCH (08:24)
[2021-10-20] MEDS: Glucotrol Xl 2.5 MG PO SCH (08:24)
[2021-10-20] MEDS: BUMEX 1 MG PO SCH (09:26)
[2021-10-20] MEDS: Ditropan XL 5 MG PO SCH (09:27)
[2021-10-20] MEDS: Protonix 40MG Tablet PO SCH ×2 (09:27→21:06)
[2021-10-20] MEDS: Zestril 10 MG PO SCH (09:27)
[2021-10-20] MEDS: Tamiflu 75MG Capsule PO SCH ×2 (09:27→21:06)
[2021-10-20] MEDS: HUMALOG SQ PRN (12:09)
[2021-10-21 05:11] LABS: Hematocrit 29.7 % (35-47); Hemoglobin 9.6 gm/dl (12.0-16.0); Mean Cell Volume 92.5 fl (78-100); Mean Corpuscular Hemoglobin 29.9 pg (26-32); Mean Corpuscular Hgb Concent. 32.3 g/dl (32-36); Mean Platelet Volume 12.4 fl (7.5-11.0); Platelet Count 39 K/mm3 (150-450); Red Blood Count 3.21 M/mm3 (4.1-5.4); Red Cell Distribution Width 17.2 % (11.5-14.0)
[2021-10-21 05:39] LABS: ALBUMIN 2.4 g/dL (3.5-5.0); ALKALINE PHOSPHATASE 100 U/L (38-126); ANION GAP 10.4 MEQ/L (5-15); BLOOD UREA NITROGEN 15 mg/dL (7-17); CHLORIDE 110 mmol/L (98-107); Calcium 8.7 mg/dL (8.4-10.2); Carbon Dioxide 23 mmol/L (22-30); Creatinine 1 0.87 mg/dL (0.52-1.04); EST GLOMERULAR FILTRATION RATE > 60.0 ML/MIN; Glucose 154 mg/dL (74-106); Potassium 3.8 mmol/L (3.5-5.1); SGOT/AST 78 U/L (14-36); SGPT/ALT 38 U/L (0-35); SODIUM 139 mmol/L (137-145); Total Protein 5.3 g/dL (6.3-8.2)
[2021-10-21 06:10] LABS: White Blood Count 1.9 K/mm3 (4.0-10.5)
[2021-10-21 06:20] LABS: Slide Review YES
[2021-10-21] MEDS: Sodium Chloride 0.9% 1000 ML 1,000 ML IV SCH (07:00)
[2021-10-21] MEDS: Glucophage 500 MG PO SCH (08:13)
[2021-10-21] MEDS: Glucotrol Xl 2.5 MG PO SCH (08:13)
--- NOTE | 2021-10-21 08:57 | XRAY ---
Indication: Weakness and dehydration. Influenza B. Comparison: October 18, 2021. Portable chest unchanged again hyperinflated and clear with a few incidental tiny calcified granulomas. Heart not enlarged. No new/acute findings.
[2021-10-21] MEDS: Protonix 40MG Tablet PO SCH (10:09)
[2021-10-21] MEDS: Ditropan XL 5 MG PO SCH (10:09)
[2021-10-21] MEDS: Zestril 10 MG PO SCH (10:10)
[2021-10-21] MEDS: BUMEX 1 MG PO SCH (10:10)
[2021-10-21] MEDS: Tamiflu 75MG Capsule PO SCH (10:10)
[2021-10-21 12:28] VITALS: BP 112/53; PULSE 73; O2SAT 96
--- NOTE | 2021-10-21 15:07 | PCM.DCORD ---
- Discharge Disposition: HOME HEALTH SERVICE Condition: Stable Prescriptions: New Benzonatate 100 mg PO DAILY PRN 10 Days #30 PRN Reason: Cough Continue Tolterodine Tartrate [Tolterodine Tartrate ER] 4 mg PO DAILY Omeprazole Magnesium [Prilosec Otc] 20 mg PO BID Glipizide [Glipizide ER] 2.5 mg PO DAILY Bumetanide 0.5 mg PO DAILY Metformin HCl 500 mg [Glucophage 500 MG] 1,000 mg PO DAILY lisinopriL [Zestril] 10 mg PO DAILY Instructions: Dehydration, Adult (DC) Additional Instructions: REFERRAL WAS SENT TO [facility], THEY WILL CONTACT YOU TO ARRANGE A VISIT THEIR PHONE NUMBER IS [phone] Follow up with: NERY ROMERO [Primary Care Provider] -
--- NOTE | 2021-10-26 23:21 | PCM.HP ---
History of Present Illness - Chief Complaint Chief Complaint: Weakness, Flu B, Acute renal insufficency, dehydration Date: 10/21/21 History of Present Illness: is a 81 year old female. Pt. presented to ER for frequent falls, and general weakness. Pt. was admitted after flu was positive and troponin was found to be mildly elevated. - Review of Systems Constitutional: No Fever, No Chills Eyes: No Symptoms Ears, Nose, & Throat: No Symptoms Respiratory: No Cough, No Short Of Breath Cardiac: No Chest Pain, No Edema, No Syncope Abdominal/Gastrointestinal: No Abdominal Pain, No Nausea, No Vomiting, No Diarrhea Genitourinary Symptoms: No Dysuria Musculoskeletal: No Back Pain, No Neck Pain Skin: No Rash Neurological: No Dizziness, No Focal Weakness, No Sensory Changes Psychological: No Symptoms Endocrine: No Symptoms Hematologic/Lymphatic: No Symptoms Immunological/Allergic: No Symptoms Medications & Allergies Home Medications: Home Medication List Tolterodine Tartrate [Tolterodine Tartrate ER] 4 mg PO DAILY 01/17/20 [History Confirmed 10/18/21] Omeprazole Magnesium [Prilosec Otc] 20 mg PO BID 04/22/21 [History Confirmed 10/18/21] Bumetanide 0.5 mg PO DAILY 10/18/21 [History Confirmed 10/18/21] Glipizide [Glipizide ER] 2.5 mg PO DAILY 10/18/21 [History Confirmed 10/18/21] Metformin HCl 500 mg [Glucophage 500 MG] 1,000 mg PO DAILY 10/18/21 [History Confirmed 10/18/21] lisinopriL [Zestril] 10 mg PO DAILY 10/18/21 [History Confirmed 10/18/21] Benzonatate 100 mg PO DAILY PRN 10 Days #30 10/21/21 [Rx] Allergies/Adverse Reactions: Allergies Allergy/AdvReac Type Severity Reaction Status Date / Time cephalexin [From Keflex] Allergy Intermediate Rash Verified 10/18/21 12:43 Sulfa (Sulfonamide Allergy Intermediate Nausea and Verified 10/18/21 12:43 Antibiotics) Vomiting adhesive tape Allergy Mild Rash Verified 10/18/21 12:43 latex Allergy Mild Rash Verified 10/18/21 12:43 - Past Medical History Past Medical History: Yes Neurological History: No Pertinent History ENT History: Glaucoma, Macular Degeneration Cardiac History: No Pertinent History, Hypertension, Other Respiratory History: No Pertinent History Endocrine Medical History: Diabetes Type II Musculoskelatal History: No Pertinent History GI Medical History: No Pertinent History, GERD, GI Bleed History: No Pertinent History, Other Pyscho-Social History: No Pertinent History Reproductive Disorders: No Pertinent History Comment: HX KIDNEY STONES. psoriasis. neutropenia. thrombocytopenia. urinary tract infections heart murmur - Female History Are you now?: No (N) - Past Surgical History Past Surgical History: Yes Neuro Surgical History: No Pertinent History Cardiac History: No Pertinent History Respiratory Surgery: No Pertinent History GI Surgical History: Appendectomy, Cholecystectomy, Hernia Repair Genitourinary Surgical Hx: Other Musculskeletal Surgical Hx: Joint Replacement Female Surgical History: Hysterectomy, Tubal Ligation Other Surgical History: 2 kidney stones removed, bilateral knee replacements - Social History Smoking Status: Never smoker Exposure to second hand smoke: No Alcohol: Rarely Drug Use: none - Physical Exam General Appearance: no apparent distress, alert Neurologic Exam: alert, oriented x 3, cooperative, normal mood/affect, sensation nml, No motor deficits Eye Exam: PERRL/EOMI, eyes nml inspection Ears, Nose, Throat Exam: normal ENT inspection, TMs normal, pharynx normal, moist mucous membranes Neck Exam: normal inspection, non-tender, supple, full range of motion Respiratory Exam: normal breath sounds, lungs clear, No respiratory distress Cardiovascular Exam: regular rate/rhythm, normal heart sounds, normal peripheral pulses Gastrointestinal/Abdomen Exam: soft, normal bowel sounds, No tenderness, No mass Back Exam: normal inspection, normal range of motion, No CVA tenderness, No vertebral tenderness Extremity Exam: normal inspection, normal range of motion, pelvis stable Skin Exam: normal color, warm, dry, No rash Lymphatic Exam: No adenopathy Results - Labs Lab/Micro Results: Microbiology 10/18/21 13:10 Blood Culture Gram Stain - Final Blood Not Reportable Blood Culture - Final NO GROWTH 10/18/21 13:00 Blood Culture Gram Stain - Final Blood Not Reportable Blood Culture - Final NO GROWTH Assessment/Plan (1) Influenza Status: Acute Assessment & Plan: initiate tamiflu Code(s): J11.1 - FLU DUE TO UNIDENTIFIED INFLUENZA VIRUS W OTH RESP MANIFEST (2) Cirrhosis Status: Acute (3) Dehydration Status: Acute Assessment & Plan: gentle hydration Code(s): E86.0 - DEHYDRATION (4) Falls frequently Status: Acute Assessment & Plan: PT to eval and treat Code(s): R29.6 - REPEATED FALLS (5) Weakness Status: Acute Code(s): R53.1 - WEAKNESS
--- NOTE | 2021-11-05 22:31 | PCM.DS ---
Discharge Summary Date of Admission: 10/18/21 20:12 Date of Discharge: 10/21/21 Admitting Physician: EVIN NUNO Primary Care Provider: NERY MELGOZA Allergies Allergies cephalexin [From Keflex] Allergy (Intermediate, Verified 10/18/21 12:43) Rash Sulfa (Sulfonamide Antibiotics) Allergy (Intermediate, Verified 10/18/21 12:43) Nausea and Vomiting adhesive tape Allergy (Mild, Verified 10/18/21 12:43) Rash latex Allergy (Mild, Verified 10/18/21 12:43) Rash Hospital Summary - Hospital Course Hospital Course: Patient is an 81yr old female who presented to ER with generalized weakness and increased difficulty ambulating. ER eval Dg Influenza B,volume depletion,MARLENE. Patient was treated with supportive care and PT. There is concern for na turpenia,liver cirrhosis,large liver mass. Dr Raúl Melgoza is patient's PCP and will be following patient for these concerns. - Vitals & Intake/Output Vital Signs: Vital Signs Temperature 98.2 F 10/21/21 12:00 Pulse Rate 73 10/21/21 12:00 Respiratory Rate 16 10/21/21 12:57 Blood Pressure 112/53 10/21/21 12:00 O2 Sat by Pulse Oximetry 96 10/21/21 12:00 - Lab Result Diagrams: 10/21/21 04:20 10/21/21 04:20 Micro Results-Entire Visit: Microbiology 10/18/21 13:10 Blood Culture Gram Stain - Final Blood Not Reportable Blood Culture - Final NO GROWTH 10/18/21 13:00 Blood Culture Gram Stain - Final Blood Not Reportable Blood Culture - Final NO GROWTH - Procedures and Test Procedures and Tests throughout Hospitalization: Therapy Orders & Screens 10/18/21 20:26 PT Eval & Treat ( Order) ONCE Reason for Eval:: Eval for strengthening, range of motion and transferring. Diagnosis: Weakness EKG REPEAT IN AM Comment: Discharge Exam General Appearance: no apparent distress Neurologic Exam: alert, oriented x 3 Respiratory Exam: normal breath sounds Cardiovascular Exam: regular rate/rhythm Gastrointestinal/Abdomen Exam: soft, normal bowel sounds (nontender) Extremity Exam: other (weakness generalized,able to move all extremities) Final Diagnosis/Problem List - Final Discharge Diagnosis/Problem (1) Fall with no significant injury Status: Chronic Assessment & Plan: will continue PT Code(s): W19.XXXA - UNSPECIFIED FALL, INITIAL ENCOUNTER (2) Influenza Status: Acute Assessment & Plan: treated with Tamiflu Code(s): J11.1 - FLU DUE TO UNIDENTIFIED INFLUENZA VIRUS W OTH RESP MANIFEST (3) Acute renal insufficiency Status: Resolved Code(s): N28.9 - DISORDER OF KIDNEY AND URETER, UNSPECIFIED - Discharge Disposition: HOME HEALTH SERVICE Condition: Stable Prescriptions: New Benzonatate 100 mg PO DAILY PRN 10 Days #30 PRN Reason: Cough Continue Tolterodine Tartrate [Tolterodine Tartrate ER] 4 mg PO DAILY Omeprazole Magnesium [Prilosec Otc] 20 mg PO BID Glipizide [Glipizide ER] 2.5 mg PO DAILY Bumetanide 0.5 mg PO DAILY Metformin HCl 500 mg [Glucophage 500 MG] 1,000 mg PO DAILY lisinopriL [Zestril] 10 mg PO DAILY Instructions: Dehydration, Adult (DC) Additional Instructions: REFERRAL WAS SENT TO [facility], THEY WILL CONTACT YOU TO ARRANGE A VISIT THEIR PHONE NUMBER IS [phone] Follow up with: EVIN NUNO MD [ACTIVE STAFF] - 10/29/21 9:30 am NERY MELGOZA [Primary Care Provider] -
== END 2021-10-21 16:05 | disposition home health service (06) ==
LOC: ED 12:27 → MED SURG 20:12 → INTOOBSV 20:12
PROVIDERS: ADMIT Family Medicine; ATTEND Family Medicine
DX: J10.1 Influenza due to other identified influenza virus with other respiratory manifestations (principal); W19.XXXA Unspecified fall, initial encounter; N28.9 Disorder of kidney and ureter, unspecified; R53.1 Weakness; Z91.81 History of falling; E86.0 Dehydration; E11.9 Type 2 diabetes mellitus without complications; I10 Essential (primary) hypertension; M54.9 Dorsalgia, unspecified; Z20.828 Contact with and (suspected) exposure to other viral communicable diseases; Z79.899 Other long term (current) drug therapy
CPT/HCPCS: 0241U; 36000; 36415; 70450; 71045; 72131; 72192; 80048; 80053; 81001; 82947; 83036; 83605; 84484; 85025; 85027; 86308; 87040; 87400; 87651; 93005; 94760; 96374; 97161; 99285; G0378; J1817; J2405; A9270-GY

== ENCOUNTER 2021-12-20 19:15 | Observation (INO) | payer MEDICARE ==
[2021-12-20 20:02] LABS: Absolute Neutrophil Ct (ANC) 2.04 (1.4-6.9); Basophil (Absolute #) 0.04 (0-0.4); Eosinophil % 12.6 % (0.00-5.0); Eosinophil (Absolute #) 0.45 (0-0.5); Hematocrit 28.2 % (35-47); Lymphocyte (Absolute #) 0.74 (1.0-4.6); Lymphocytes % 20.8 % (24.0-44.0); Mean Cell Volume 100.4 fl (78-100); Mean Corpuscular Hgb Concent. 31.9 g/dl (32-36); Mean Platelet Volume 10.6 fl (7.5-11.0); Monocyte (Absolute #) 0.29 (0.0-1.3); Monocytes % 8.1 % (0.0-12.0); Neutrophil % 57.4 % (36.0-66.0); Platelet Count 69 K/mm3 (150-450); Red Blood Count 2.81 M/mm3 (4.1-5.4); Red Cell Distribution Width 16.9 % (11.5-14.0); White Blood Count 3.6 K/mm3 (4.0-10.5)
--- NOTE | 2021-12-20 20:11 | ERPHSYRPT ---
- History of Present Illness Source: patient, family Exam Limitations: other (Very poor historian) Patient Subjective Stated Complaint: pt states "I have been weak. I am having trouble getting up and down." Triage Nursing Assessment: pt came into the er; pt is axo x4; c/o weakness; pt denies pain; pt denies N/V/D; heart murmur present; clear lung; active bowel in all quads; 3+ pitting edema to BLE; hypotensive Physician History: 81 yo wf w lethargy x 3 days. Pt has had a cough x 1 month since she had influenza and has been seeing Dr. Parikh. She denies dyspnea/focal weakness/N/V/diarrhea/melena/heamtochezia/dysuria/hematuria/fever/chest pain. Timing/Duration: day(s) (3 days) Severity: mild Modifying Factors: Improves With: movement Associated Symptoms: cough, malaise, weakness, No nausea, No vomiting, No abdominal pain, No shortness of breath, No heartburn, No diaphoresis, No chills, No chest pain, No fever, No headaches, No loss of appetite, No rash, No syncope, No seizure Allergies/Adverse Reactions: cephalexin [From Keflex] Allergy (Intermediate, Verified 12/20/21 19:29) Rash Sulfa (Sulfonamide Antibiotics) Allergy (Intermediate, Verified 12/20/21 19:29) Nausea and Vomiting adhesive tape Allergy (Mild, Verified 12/20/21 19:29) Rash latex Allergy (Mild, Verified 12/20/21 19:29) Rash Home Medications: Omeprazole Magnesium [Prilosec Otc] 20 mg PO BID 04/22/21 [History] Metformin HCl 500 mg [Glucophage 500 MG] 1,000 mg PO BID 10/18/21 [History] glipiZIDE [Glipizide ER] 2.5 mg PO DAILY 10/18/21 [History] lisinopriL [Zestril] 10 mg PO DAILY 10/18/21 [History] Furosemide 20 mg [Lasix 20 mg] 20 mg PO DAILY 12/20/21 [History] Oxybutynin Chloride [Oxybutynin Chloride ER] 15 mg PO DAILY 12/20/21 [History] Hx Tetanus, Diphtheria Vaccination/Date Given: Yes Hx Influenza Vaccination/Date Given: Yes Hx Pneumococcal Vaccination/Date Given: Yes Immunizations Up to Date: Yes Travel Risk - International Travel Have you traveled outside of the country in past 3 weeks: No - Coronavirus Screening Are you exhibiting any of the following symptoms?: No Close contact with a COVID-19 positive Pt in past 14-21 Days: No - Vaccine Status Have you recieved a Covid-19 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: 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 - Vaccination Dates Date of 2cond Vaccination (if applicable): March - Review of Systems Constitutional: Fatigue, Lethargy, Malaise Eyes: No Symptoms Ears, Nose, & Throat: No Symptoms Respiratory: No Symptoms, Cough Cardiac: No Symptoms Abdominal/Gastrointestinal: No Symptoms Genitourinary Symptoms: No Symptoms Musculoskeletal: No Symptoms Skin: No Symptoms Neurological: No Symptoms Psychological: No Symptoms Endocrine: No Symptoms Hematologic/Lymphatic: No Symptoms Immunological/Allergic: No Symptoms - Past Medical History Pertinent Past Medical History: Yes Neurological History: No Pertinent History ENT History: Glaucoma, Macular Degeneration Cardiac History: No Pertinent History, Hypertension, Other Respiratory History: No Pertinent History Endocrine Medical History: Diabetes Type II Musculoskeletal History: No Pertinent History GI Medical History: No Pertinent History, GERD, GI Bleed History: No Pertinent History, Other Psycho-Social History: No Pertinent History Female Reproductive Disorders: No Pertinent History Other Medical History: HX KIDNEY STONES. psoriasis. neutropenia. thrombocytopenia. urinary tract infections heart murmur - Past Surgical History Past Surgical History: Yes Neuro Surgical History: No Pertinent History Cardiac: No Pertinent History Respiratory: No Pertinent History Gastrointestinal: Appendectomy, Cholecystectomy, Hernia Repair Genitourinary: Other Musculoskeletal: Joint Replacement Female Surgical History: Hysterectomy, Tubal Ligation Other Surgical History: 2 kidney stones removed, bilateral knee replacements - Social History Smoking Status: Never smoker Exposure to second hand smoke: No Drug Use: none Patient Lives Alone: Yes Significant Family History: no pertinent family hx - Nursing Vital Signs Nursing Vital Signs: Initial Vital Signs Temperature 97.9 F 12/20/21 19:29 Pulse Rate 84 12/20/21 19:29 Respiratory Rate 16 12/20/21 19:29 Blood Pressure 92/33 12/20/21 19:29 O2 Sat by Pulse Oximetry 97 12/20/21 19:29 Pain Scale Pain Intensity 0 Borderline hypotension - Physical Exam General Appearance: no apparent distress Eye Exam: PERRL/EOMI, eyes nml inspection Ears, Nose, Throat Exam: normal ENT inspection, TMs normal, pharynx normal, moist mucous membranes Neck Exam: normal inspection, non-tender, supple, full range of motion, No meningismus, No mass, No Brudzinski, No Kernig's Respiratory Exam: normal breath sounds, lungs clear, airway intact Cardiovascular Exam: regular rate/rhythm, murmur (3/6 SAMMY), capillary refill <2 sec Gastrointestinal/Abdomen Exam: soft, normal bowel sounds, No tenderness Back Exam: normal inspection, normal range of motion, No CVA tenderness, No vertebral tenderness Extremity Exam: pedal edema (2+) Neurologic Exam: alert, oriented x 3, cooperative, harness builder II-XII nml as tested, normal mood/affect, sensation nml, No motor deficits, No sensory deficit Skin Exam: normal color, warm, dry Lymphatic Exam: No adenopathy SpO2 Interpretation: normal SpO2: 97 O2 Delivery: Room Air - Course Nursing assessment & vital signs reviewed: Yes EKG Interpreted by Me: RATE (NSR/R80/Mildly prolonged QTc/RBBB/No acute ST segment changes) - Radiology Exams Chest X-ray Interpretation: Interpreted by me (NAD) Ordered Tests: Active Orders 24 hr Category Date Time Status EKG-ER Only STAT Care 12/20/21 19:46 Completed Heart-Healthy Diet Diet 12/20/21 Breakfast Active CHEST 1 VIEW (PORTABLE) Stat Exams 12/20/21 19:46 Taken CBC W DIFF AM.LAB Lab 12/21/21 04:00 Ordered CBC W DIFF Stat Lab 12/20/21 20:00 Completed CMP AM.LAB Lab 12/21/21 04:00 Ordered CMP Stat Lab 12/20/21 20:00 Completed CULTURE,URINE Stat Lab 12/20/21 21:07 Received Lactic Acid AM.LAB Lab 12/21/21 04:00 Ordered NT PRO BNP Stat Lab 12/20/21 20:00 Completed PROTIME WITH INR Stat Lab 12/20/21 20:00 Completed PTT Stat Lab 12/20/21 20:00 Completed TROPONIN Q3H Lab 12/20/21 20:00 Completed Medication Summary Generic Name Dose Route Start Last Admin Trade Name Freq PRN Reason Stop Dose Admin Acetaminophen 325 mg 12/21/21 02:00 Acetaminophen 325 Mg Tablet PO 01/20/22 01:59 Q4H PRN PRN PAIN, FEVER, HEADACHE Sodium Chloride 1,000 mls @ 100 mls/hr 12/20/21 22:15 12/20/21 22:25 Sodium Chloride 0.9% 1000 Ml IV 01/19/22 22:14 100 mls/hr .Q10H VERNON Administration Levofloxacin/Dextrose 500 mg in 100 mls @ 100 mls/hr 12/21/21 10:00 12/20/21 22:40 Levofloxacin 500mg/100ml D5w IV 01/20/22 09:59 100 mls/hr Q24H10 VERNON 100 mls/hr Administration Ondansetron HCl 4 mg 12/20/21 22:12 Ondansetron Hcl 4 Mg/2 Ml Vial IV 01/19/22 22:11 Q6H PRN PRN NAUSEA/VOMITING Pantoprazole Sodium 40 mg 12/21/21 10:00 Pantoprazole 40 Mg Vial IV 01/20/22 09:59 Q24H10 VERNON Lab/Rad Data: Laboratory Result Diagrams 12/20/21 20:00 12/20/21 20:00 Laboratory Results 12/20/21 12/20/21 12/20/21 Range/Units 21:07 20:00 20:00 WBC (4.0-10.5) K/mm3 RBC (4.1-5.4) M/mm3 Hgb (12.0-16.0) gm/dl Hct (35-47) % MCV (78-100) fl MCH (26-32) pg MCHC (32-36) g/dl RDW (11.5-14.0) % Plt Count (150-450) K/mm3 MPV (7.5-11.0) fl Gran % (36.0-66.0) % Eos # (Auto) (0-0.5) Absolute Lymphs (auto) (1.0-4.6) Absolute Monos (auto) (0.0-1.3) Lymphocytes % (24.0-44.0) % Monocytes % (0.0-12.0) % Eosinophils % (0.00-5.0) % Basophils % (0.0-0.4) % Absolute Granulocytes (1.4-6.9) Basophils # (0-0.4) PT (9.4-12.5) SECONDS INR (0.8-3.0) APTT (25.1-36.5) SECONDS Sodium (137-145) mmol/L Potassium (3.5-5.1) mmol/L Chloride (98-107) mmol/L Carbon Dioxide (22-30) mmol/L Anion Gap (5-15) MEQ/L BUN (7-17) mg/dL Creatinine (0.52-1.04) mg/dL Estimated GFR ML/MIN Glucose (74-106) mg/dL Calcium (8.4-10.2) mg/dL Total Bilirubin (0.2-1.3) mg/dL AST (14-36) U/L ALT (0-35) U/L Alkaline Phosphatase (38-126) U/L Troponin I < 0.012 (0.000-0.034) ng/mL NT-Pro-B Natriuret Pep (0-1800) pg/mL Serum Total Protein (6.3-8.2) g/dL Albumin (3.5-5.0) g/dL Urinalys Dipstick Clnc MAIN LAB Urine Color Cancelled Urine Appearance Cancelled Urine pH Cancelled Ur Specific [place] Cancelled Urine Protein Cancelled POC Urine Protein Conf NEGATIVE (Negative) Urine Ketones Cancelled Urine Blood Cancelled Urine Nitrite Cancelled Urine Bilirubin Cancelled Urine Urobilinogen Cancelled Ur Leukocyte Esterase Cancelled Urine Leukocytes TRACE (NEGATIVE) Urine WBC (Auto) 16-25 (0-5) /HPF Urine RBC (Auto) 3-5 (0-2) /HPF U Hyaline Cast (Auto) 6-10 (0-2) /LPF U Epithel Cells (Auto) RARE (FEW) /HPF Urine Bacteria (Auto) NONE (NEGATIVE) /HPF Urine RBC NEGATIVE (0-5) Eric/ul U Non-Squamous Epi Cells Cancelled Urine Mucus (Auto) SLIGHT (NEGATIVE) /HPF Urine Yeast (Budding) Few (NEGATIVE) /HPF Ur Culture Indicated? YES Urine Culture Reflexed Cancelled Urine Glucose NEGATIVE (NEGATIVE) mg/dL Influenza Type A Ag NEGATIVE (NEGATIVE) Influenza Type B Ag NEGATIVE (NEGATIVE) RSV (PCR) NEGATIVE (Negative) SARS-CoV-2 (PCR) NEGATIVE (NEGATIVE) Slides for Path Review 12/20/21 12/20/21 12/20/21 Range/Units 20:00 20:00 20:00 WBC 3.6 L (4.0-10.5) K/mm3 RBC 2.81 L (4.1-5.4) M/mm3 Hgb 9.0 L (12.0-16.0) gm/dl Hct 28.2 L (35-47) % MCV 100.4 H (78-100) fl MCH 32.0 (26-32) pg MCHC 31.9 L (32-36) g/dl RDW 16.9 H (11.5-14.0) % Plt Count 69 L (150-450) K/mm3 MPV 10.6 (7.5-11.0) fl Gran % 57.4 (36.0-66.0) % Eos # (Auto) 0.45 (0-0.5) Absolute Lymphs (auto) 0.74 L (1.0-4.6) Absolute Monos (auto) 0.29 (0.0-1.3) Lymphocytes % 20.8 L (24.0-44.0) % Monocytes % 8.1 (0.0-12.0) % Eosinophils % 12.6 H (0.00-5.0) % Basophils % 1.1 (0.0-0.4) % Absolute Granulocytes 2.04 (1.4-6.9) Basophils # 0.04 (0-0.4) PT 13.4 H (9.4-12.5) SECONDS INR 1.14 (0.8-3.0) APTT 32.1 (25.1-36.5) SECONDS Sodium 138 (137-145) mmol/L Potassium 4.3 (3.5-5.1) mmol/L Chloride 106 (98-107) mmol/L Carbon Dioxide 21 L (22-30) mmol/L Anion Gap 15.7 H (5-15) MEQ/L BUN 23 H (7-17) mg/dL Creatinine 0.88 (0.52-1.04) mg/dL Estimated GFR > 60.0 ML/MIN Glucose 192 H (74-106) mg/dL Calcium 9.2 (8.4-10.2) mg/dL Total Bilirubin 2.20 H (0.2-1.3) mg/dL AST 67 H (14-36) U/L ALT 26 (0-35) U/L Alkaline Phosphatase 128 H (38-126) U/L Troponin I (0.000-0.034) ng/mL NT-Pro-B Natriuret Pep 558 (0-1800) pg/mL Serum Total Protein 5.6 L (6.3-8.2) g/dL Albumin 2.5 L (3.5-5.0) g/dL Urinalys Dipstick Clnc Urine Color Urine Appearance Urine pH Ur Specific [place] Urine Protein POC Urine Protein Conf (Negative) Urine Ketones Urine Blood Urine Nitrite Urine Bilirubin Urine Urobilinogen Ur Leukocyte Esterase Urine Leukocytes (NEGATIVE) Urine WBC (Auto) (0-5) /HPF Urine RBC (Auto) (0-2) /HPF U Hyaline Cast (Auto) (0-2) /LPF U Epithel Cells (Auto) (FEW) /HPF Urine Bacteria (Auto) (NEGATIVE) /HPF Urine RBC (0-5) Eric/ul U Non-Squamous Epi Cells Urine Mucus (Auto) (NEGATIVE) /HPF Urine Yeast (Budding) (NEGATIVE) /HPF Ur Culture Indicated? Urine Culture Reflexed Urine Glucose (NEGATIVE) mg/dL Influenza Type A Ag (NEGATIVE) Influenza Type B Ag (NEGATIVE) RSV (PCR) (Negative) SARS-CoV-2 (PCR) (NEGATIVE) Slides for Path Review YES - Progress Progress Note: 12/20/21 22:[address] Mooney 12/21/21 02:03 Admit orders written Discussed with : Trini Counseled pt/family regarding: lab results, diagnosis, need for follow-up, rad results - Departure Departure Disposition: Observation Clinical Impression: Lethargy, Pancytopenia, UTI (urinary tract infection) Condition: Stable Critical Care Time: No
[2021-12-20 20:16] LABS: INR 1.14 (0.8-3.0); PROTIME 13.4 SECONDS (9.4-12.5)
[2021-12-20 20:19] LABS: PTT 32.1 SECONDS (25.1-36.5)
[2021-12-20 20:29] LABS: ALBUMIN 2.5 g/dL (3.5-5.0); ALKALINE PHOSPHATASE 128 U/L (38-126); ANION GAP 15.7 MEQ/L (5-15); BLOOD UREA NITROGEN 23 mg/dL (7-17); CHLORIDE 106 mmol/L (98-107); Calcium 9.2 mg/dL (8.4-10.2); Carbon Dioxide 21 mmol/L (22-30); Creatinine 1 0.88 mg/dL (0.52-1.04); EST GLOMERULAR FILTRATION RATE > 60.0 ML/MIN; Glucose 192 mg/dL (74-106); NT PRO BNP 558 pg/mL (0-1800); Potassium 4.3 mmol/L (3.5-5.1); SGOT/AST 67 U/L (14-36); SGPT/ALT 26 U/L (0-35); SODIUM 138 mmol/L (137-145); Total Protein 5.6 g/dL (6.3-8.2)
[2021-12-20 20:36] LABS: INFLUENZA A NEGATIVE (NEGATIVE); INFLUENZA B NEGATIVE (NEGATIVE); RESPIRATORY SYNCTIAL VIRUS NEGATIVE (Negative); SARS-CoV-2 Xpert Express NEGATIVE (NEGATIVE)
[2021-12-20 21:14] LABS: Appearance SLIGHTLY CLOUDY (CLEAR); Bilirubin NEGATIVE (NEGATIVE); Dipstick done @ ? MAIN LAB; Glucose NEGATIVE (NEGATIVE); Ketones NEGATIVE (NEGATIVE); Nitrite NEGATIVE (NEGATIVE); Ph 5.5 (5-6); Protein,Urine Dip NEGATIVE (Negative); RBC NEGATIVE Ery/ul (0-5); Urobilinogen 1 mg/dL (0-1)
[2021-12-20 21:19] LABS: Epithelial Cells RARE /HPF (FEW); Mucus SLIGHT /HPF (NEGATIVE)
[2021-12-20 21:20] LABS: Budding Yeast Few /HPF (NEGATIVE); Urine Cultured Indicated? YES
[2021-12-20] MEDS ORDERED: Zofran 4 MG/2 ML VIAL IV PRN (22:12)
[2021-12-20] MEDS: Sodium Chloride 0.9% 1000 ML 1,000 ML IV SCH (22:25)
[2021-12-20 23:21] LABS: Slide Review 1 YES
[2021-12-21] MEDS ORDERED: TYLENOL 325 MG PO PRN (02:00)
[2021-12-21 05:26] LABS: Absolute Neutrophil Ct (ANC) 1.31 (1.4-6.9); Basophil (Absolute #) 0.02 (0-0.4); Eosinophil % 10.7 % (0.00-5.0); Eosinophil (Absolute #) 0.26 (0-0.5); Hematocrit 25.1 % (35-47); Hemoglobin 8.1 gm/dl (12.0-16.0); Lymphocyte (Absolute #) 0.59 (1.0-4.6); Lymphocytes % 24.3 % (24.0-44.0); Mean Corpuscular Hemoglobin 32.3 pg (26-32); Mean Corpuscular Hgb Concent. 32.3 g/dl (32-36); Mean Platelet Volume 10.5 fl (7.5-11.0); Monocyte (Absolute #) 0.25 (0.0-1.3); Monocytes % 10.3 % (0.0-12.0); Neutrophil % 53.9 % (36.0-66.0); Platelet Count 53 K/mm3 (150-450); Red Blood Count 2.51 M/mm3 (4.1-5.4); Red Cell Distribution Width 16.8 % (11.5-14.0); White Blood Count 2.4 K/mm3 (4.0-10.5)
[2021-12-21 05:29] LABS: ALBUMIN 2.5 g/dL (3.5-5.0); ALKALINE PHOSPHATASE 132 U/L (38-126); BLOOD UREA NITROGEN 21 mg/dL (7-17); CHLORIDE 107 mmol/L (98-107); Carbon Dioxide 22 mmol/L (22-30); Creatinine 1 0.85 mg/dL (0.52-1.04); EST GLOMERULAR FILTRATION RATE > 60.0 ML/MIN; Glucose 134 mg/dL (74-106); Potassium 4.1 mmol/L (3.5-5.1); SGOT/AST 65 U/L (14-36); SGPT/ALT 25 U/L (0-35); SODIUM 137 mmol/L (137-145); Total Protein 5.5 g/dL (6.3-8.2)
[2021-12-21] MEDS ORDERED: Tessalon Perles 100 MG PO PRN (07:29)
--- NOTE | 2021-12-21 07:48 | XRAY ---
Indication: Weakness. Comparison: October 21, 2021. Portable chest slightly less inflated with new minimal left base subsegmental atelectasis/scarring. No focal infiltrate, consolidation, or large effusion. Heart not enlarged. Bony thorax intact again without osteopenia and degenerative changes.
[2021-12-21] MEDS: Glucophage 500 MG PO SCH ×2 (08:22→17:58)
[2021-12-21] MEDS: Glucotrol Xl 2.5 MG PO SCH (08:22)
[2021-12-21] MEDS: Ditropan XL 5 MG PO SCH (08:23)
[2021-12-21] MEDS: Protonix 40MG Tablet PO SCH ×2 (08:23→21:09)
[2021-12-21] MEDS: LASIX 20 MG PO SCH (08:24)
[2021-12-21] MEDS: Zestril 10 MG PO SCH (08:24)
[2021-12-21] MEDS ORDERED: PROTONIX 40 MG IV IV SCH (10:00)
[2021-12-21] MEDS ORDERED: NON-FORMULARY ITEM (Omeprazole Magnesium [Prilosec Otc] 20 MG Tablet.Dr) PO SCH (10:00)
[2021-12-21] MEDS ORDERED: NON-FORMULARY ITEM (Oxybutynin Chloride [Oxybutynin Chloride Er] 15 MG Tab.Er.24) PO SCH (10:00)
[2021-12-21] MEDS ORDERED: NON-FORMULARY ITEM (Lisinopril [Zestril] 40 MG Tablet) PO SCH (10:00)
[2021-12-21] MEDS ORDERED: Levofloxacin 500MG/100ML D5W 500 MG/100 ML BAG IV SCH (10:00)
--- NOTE | 2021-12-21 13:51 | PCM.HP ---
History of Present Illness - Chief Complaint Chief Complaint: lethargy, UTI, pancytopenia History of Present Illness: is a 81 year old female patient of Dr Parikh who became too weak to pull herself out of her chair and family brought her to ER. Workup concluded Dg UTI and pancytopenia. Patient states she has an upcoming appt with Trade [employer] Examiner,Dr Tripp regarding this. Patient denies any focal weakness,no fever but has had a nonproductive cough, no chest pain or dyspnea or abdominal pain. States once family helped get her out of the chair she was able to walk with her walker but felt weak. PMHx includes HTN,Heart murmur,DM2,GERD,Hx GI bleed,OA,bilateral knee replacements,Hx renal sones ,psoriasis,neutropenia and thrombocytopenia. - Review of Systems Constitutional: Fatigue, Lethargy, Weakness (generalized) Eyes: Other (macular deg and glaucoma) Ears, Nose, & Throat: No Symptoms Respiratory: Cough (mild nonproductive) Cardiac: No Symptoms Abdominal/Gastrointestinal: No Symptoms Genitourinary Symptoms: No Symptoms, Incontinence Musculoskeletal: Arthralgias Skin: No Symptoms Neurological: No Symptoms Psychological: No Symptoms Endocrine: No Symptoms Hematologic/Lymphatic: Anemia Medications & Allergies Home Medications: Home Medication List Omeprazole Magnesium [Prilosec Otc] 20 mg PO BID 04/22/21 [History Confirmed 12/20/21] Metformin HCl 500 mg [Glucophage 500 MG] 1,000 mg PO BID 10/18/21 [History Confirmed 12/21/21] glipiZIDE [Glipizide ER] 2.5 mg PO DAILY 10/18/21 [History Confirmed 12/20/21] lisinopriL [Zestril] 10 mg PO DAILY 10/18/21 [History Confirmed 12/20/21] Benzonatate 100 mg PO DAILY PRN 10 Days #30 10/21/21 [Rx Confirmed 12/20/21] Furosemide 20 mg [Lasix 20 mg] 20 mg PO DAILY 12/20/21 [History Confirmed 12/20/21] Oxybutynin Chloride [Oxybutynin Chloride ER] 15 mg PO DAILY 12/20/21 [History Confirmed 12/21/21] Allergies/Adverse Reactions: Allergies Allergy/AdvReac Type Severity Reaction Status Date / Time cephalexin [From Keflex] Allergy Intermediate Rash Verified 12/20/21 19:29 Sulfa (Sulfonamide Allergy Intermediate Nausea and Verified 12/20/21 19:29 Antibiotics) Vomiting adhesive tape Allergy Mild Rash Verified 12/20/21 19:29 latex Allergy Mild Rash Verified 12/20/21 19:29 - Past Medical History Past Medical History: Yes Neurological History: No Pertinent History ENT History: Glaucoma, Macular Degeneration Cardiac History: No Pertinent History, Hypertension, Other Respiratory History: No Pertinent History Endocrine Medical History: Diabetes Type II Musculoskelatal History: No Pertinent History GI Medical History: No Pertinent History, GERD, GI Bleed History: No Pertinent History, Other Pyscho-Social History: No Pertinent History Reproductive Disorders: No Pertinent History Comment: HX KIDNEY STONES. psoriasis. neutropenia. thrombocytopenia. urinary tract infections heart murmur - Past Surgical History Past Surgical History: Yes Neuro Surgical History: No Pertinent History Cardiac History: No Pertinent History Respiratory Surgery: No Pertinent History GI Surgical History: Appendectomy, Cholecystectomy, Hernia Repair Genitourinary Surgical Hx: Other Musculskeletal Surgical Hx: Joint Replacement Female Surgical History: Hysterectomy, Tubal Ligation Other Surgical History: 2 kidney stones removed, bilateral knee replacements - Social History Smoking Status: Never smoker Exposure to second hand smoke: No Alcohol: None Drug Use: none Significant Family History: no pertinent family hx - Physical Exam Vital Signs: Vital Signs - 24 hr Temp Pulse Resp BP Pulse Ox 12/21/21 12:00 99.6 F 82 18 116/58 94 L 12/21/21 07:38 99 F 94 H 20 132/61 96 12/21/21 04:00 98.1 F 94 H 18 133/62 95 12/21/21 02:03 97 12/21/21 00:58 98.6 F 80 22 136/63 94 L 12/20/21 22:00 78 108/45 97 12/20/21 21:00 81 113/43 98 12/20/21 20:00 79 18 103/43 96 12/20/21 19:29 97.9 F 84 16 92/33 97 General Appearance: no apparent distress (resting in bed,very pleasant) Neurologic Exam: alert, oriented x 3, cooperative, weight and test bar clerk II-XII nml as tested, normal mood/affect Eye Exam: other (no discharge) Ears, Nose, Throat Exam: normal ENT inspection Neck Exam: normal inspection Respiratory Exam: normal breath sounds Cardiovascular Exam: regular rate/rhythm, murmur (3/6 SAMMY) Gastrointestinal/Abdomen Exam: soft, normal bowel sounds (nontender) Back Exam: normal inspection (no CVA tenderness) Extremity Exam: normal inspection Skin Exam: warm, dry, pale Results - Labs Lab/Micro Results: Lab Results-Last 24 Hours 12/20/21 12/20/21 12/20/21 Range/Units 20:00 20:00 20:00 WBC 3.6 L (4.0-10.5) K/mm3 RBC 2.81 L (4.1-5.4) M/mm3 Hgb 9.0 L (12.0-16.0) gm/dl Hct 28.2 L (35-47) % MCV 100.4 H (78-100) fl MCH 32.0 (26-32) pg MCHC 31.9 L (32-36) g/dl RDW 16.9 H (11.5-14.0) % Plt Count 69 L (150-450) K/mm3 MPV 10.6 (7.5-11.0) fl Gran % 57.4 (36.0-66.0) % Eos # (Auto) 0.45 (0-0.5) Absolute Lymphs (auto) 0.74 L (1.0-4.6) Absolute Monos (auto) 0.29 (0.0-1.3) Lymphocytes % 20.8 L (24.0-44.0) % Monocytes % 8.1 (0.0-12.0) % Eosinophils % 12.6 H (0.00-5.0) % Basophils % 1.1 (0.0-0.4) % Absolute Granulocytes 2.04 (1.4-6.9) Basophils # 0.04 (0-0.4) PT 13.4 H (9.4-12.5) SECONDS INR 1.14 (0.8-3.0) APTT 32.1 (25.1-36.5) SECONDS Sodium 138 (137-145) mmol/L Potassium 4.3 (3.5-5.1) mmol/L Chloride 106 (98-107) mmol/L Carbon Dioxide 21 L (22-30) mmol/L Anion Gap 15.7 H (5-15) MEQ/L BUN 23 H (7-17) mg/dL Creatinine 0.88 (0.52-1.04) mg/dL Estimated GFR > 60.0 ML/MIN Glucose 192 H (74-106) mg/dL Lactic Acid (0.4-2.0) Calcium 9.2 (8.4-10.2) mg/dL Total Bilirubin 2.20 H (0.2-1.3) mg/dL AST 67 H (14-36) U/L ALT 26 (0-35) U/L Alkaline Phosphatase 128 H (38-126) U/L Troponin I (0.000-0.034) ng/mL NT-Pro-B Natriuret Pep 558 (0-1800) pg/mL Serum Total Protein 5.6 L (6.3-8.2) g/dL Albumin 2.5 L (3.5-5.0) g/dL Urinalys Dipstick Clnc Urine Color Urine Appearance Urine pH Ur Specific Romulus Urine Protein POC Urine Protein Conf (Negative) Urine Ketones Urine Blood Urine Nitrite Urine Bilirubin Urine Urobilinogen Ur Leukocyte Esterase Urine Leukocytes (NEGATIVE) Urine WBC (Auto) (0-5) /HPF Urine RBC (Auto) (0-2) /HPF U Hyaline Cast (Auto) (0-2) /LPF U Epithel Cells (Auto) (FEW) /HPF Urine Bacteria (Auto) (NEGATIVE) /HPF Urine RBC (0-5) Eric/ul U Non-Squamous Epi Cells Urine Mucus (Auto) (NEGATIVE) /HPF Urine Yeast (Budding) (NEGATIVE) /HPF Ur Culture Indicated? Urine Culture Reflexed Urine Glucose (NEGATIVE) mg/dL Influenza Type A Ag (NEGATIVE) Influenza Type B Ag (NEGATIVE) RSV (PCR) (Negative) SARS-CoV-2 (PCR) (NEGATIVE) Slides for Path Review YES 12/20/21 12/20/21 12/20/21 Range/Units 20:00 20:00 21:07 WBC (4.0-10.5) K/mm3 RBC (4.1-5.4) M/mm3 Hgb (12.0-16.0) gm/dl Hct (35-47) % MCV (78-100) fl MCH (26-32) pg MCHC (32-36) g/dl RDW (11.5-14.0) % Plt Count (150-450) K/mm3 MPV (7.5-11.0) fl Gran % (36.0-66.0) % Eos # (Auto) (0-0.5) Absolute Lymphs (auto) (1.0-4.6) Absolute Monos (auto) (0.0-1.3) Lymphocytes % (24.0-44.0) % Monocytes % (0.0-12.0) % Eosinophils % (0.00-5.0) % Basophils % (0.0-0.4) % Absolute Granulocytes (1.4-6.9) Basophils # (0-0.4) PT (9.4-12.5) SECONDS INR (0.8-3.0) APTT (25.1-36.5) SECONDS Sodium (137-145) mmol/L Potassium (3.5-5.1) mmol/L Chloride (98-107) mmol/L Carbon Dioxide (22-30) mmol/L Anion Gap (5-15) MEQ/L BUN (7-17) mg/dL Creatinine (0.52-1.04) mg/dL Estimated GFR ML/MIN Glucose (74-106) mg/dL Lactic Acid (0.4-2.0) Calcium (8.4-10.2) mg/dL Total Bilirubin (0.2-1.3) mg/dL AST (14-36) U/L ALT (0-35) U/L Alkaline Phosphatase (38-126) U/L Troponin I < 0.012 (0.000-0.034) ng/mL NT-Pro-B Natriuret Pep (0-1800) pg/mL Serum Total Protein (6.3-8.2) g/dL Albumin (3.5-5.0) g/dL Urinalys Dipstick Clnc MAIN LAB Urine Color Cancelled Urine Appearance Cancelled Urine pH Cancelled Ur Specific Rom[place] Cancelled Urine Protein Cancelled POC Urine Protein Conf NEGATIVE (Negative) Urine Ketones Cancelled Urine Blood Cancelled Urine Nitrite Cancelled Urine Bilirubin Cancelled Urine Urobilinogen Cancelled Ur Leukocyte Esterase Cancelled Urine Leukocytes TRACE (NEGATIVE) Urine WBC (Auto) 16-25 (0-5) /HPF Urine RBC (Auto) 3-5 (0-2) /HPF U Hyaline Cast (Auto) 6-10 (0-2) /LPF U Epithel Cells (Auto) RARE (FEW) /HPF Urine Bacteria (Auto) NONE (NEGATIVE) /HPF Urine RBC NEGATIVE (0-5) Eric/ul U Non-Squamous Epi Cells Cancelled Urine Mucus (Auto) SLIGHT (NEGATIVE) /HPF Urine Yeast (Budding) Few (NEGATIVE) /HPF Ur Culture Indicated? YES Urine Culture Reflexed Cancelled Urine Glucose NEGATIVE (NEGATIVE) mg/dL Influenza Type A Ag NEGATIVE (NEGATIVE) Influenza Type B Ag NEGATIVE (NEGATIVE) RSV (PCR) NEGATIVE (Negative) SARS-CoV-2 (PCR) NEGATIVE (NEGATIVE) Slides for Path Review 12/21/21 12/21/21 12/21/21 Range/Units 04:00 04:45 04:45 WBC 2.4 L (4.0-10.5) K/mm3 RBC 2.51 L (4.1-5.4) M/mm3 Hgb 8.1 L (12.0-16.0) gm/dl Hct 25.1 L (35-47) % MCV 100.0 (78-100) fl MCH 32.3 H (26-32) pg MCHC 32.3 (32-36) g/dl RDW 16.8 H (11.5-14.0) % Plt Count 53 L (150-450) K/mm3 MPV 10.5 (7.5-11.0) fl Gran % 53.9 (36.0-66.0) % Eos # (Auto) 0.26 (0-0.5) Absolute Lymphs (auto) 0.59 L (1.0-4.6) Absolute Monos (auto) 0.25 (0.0-1.3) Lymphocytes % 24.3 (24.0-44.0) % Monocytes % 10.3 (0.0-12.0) % Eosinophils % 10.7 H (0.00-5.0) % Basophils % 0.8 (0.0-0.4) % Absolute Granulocytes 1.31 L (1.4-6.9) Basophils # 0.02 (0-0.4) PT (9.4-12.5) SECONDS INR (0.8-3.0) APTT (25.1-36.5) SECONDS Sodium 137 (137-145) mmol/L Potassium 4.1 (3.5-5.1) mmol/L Chloride 107 (98-107) mmol/L Carbon Dioxide 22 (22-30) mmol/L Anion Gap 12.0 (5-15) MEQ/L BUN 21 H (7-17) mg/dL Creatinine 0.85 (0.52-1.04) mg/dL Estimated GFR > 60.0 ML/MIN Glucose 134 H (74-106) mg/dL Lactic Acid 2.3 H (0.4-2.0) Calcium 9.0 (8.4-10.2) mg/dL Total Bilirubin 2.00 H (0.2-1.3) mg/dL AST 65 H (14-36) U/L ALT 25 (0-35) U/L Alkaline Phosphatase 132 H (38-126) U/L Troponin I (0.000-0.034) ng/mL NT-Pro-B Natriuret Pep (0-1800) pg/mL Serum Total Protein 5.5 L (6.3-8.2) g/dL Albumin 2.5 L (3.5-5.0) g/dL Urinalys Dipstick Clnc Urine Color Urine Appearance Urine pH Ur Specific [place] Urine Protein POC Urine Protein Conf (Negative) Urine Ketones Urine Blood Urine Nitrite Urine Bilirubin Urine Urobilinogen Ur Leukocyte Esterase Urine Leukocytes (NEGATIVE) Urine WBC (Auto) (0-5) /HPF Urine RBC (Auto) (0-2) /HPF U Hyaline Cast (Auto) (0-2) /LPF U Epithel Cells (Auto) (FEW) /HPF Urine Bacteria (Auto) (NEGATIVE) /HPF Urine RBC (0-5) Eric/ul U Non-Squamous Epi Cells Urine Mucus (Auto) (NEGATIVE) /HPF Urine Yeast (Budding) (NEGATIVE) /HPF Ur Culture Indicated? Urine Culture Reflexed Urine Glucose (NEGATIVE) mg/dL Influenza Type A Ag (NEGATIVE) Influenza Type B Ag (NEGATIVE) RSV (PCR) (Negative) SARS-CoV-2 (PCR) (NEGATIVE) Slides for Path Review 12/21/21 Range/Units 07:12 WBC (4.0-10.5) K/mm3 RBC (4.1-5.4) M/mm3 Hgb (12.0-16.0) gm/dl Hct (35-47) % MCV (78-100) fl MCH (26-32) pg MCHC (32-36) g/dl RDW (11.5-14.0) % Plt Count (150-450) K/mm3 MPV (7.5-11.0) fl Gran % (36.0-66.0) % Eos # (Auto) (0-0.5) Absolute Lymphs (auto) (1.0-4.6) Absolute Monos (auto) (0.0-1.3) Lymphocytes % (24.0-44.0) % Monocytes % (0.0-12.0) % Eosinophils % (0.00-5.0) % Basophils % (0.0-0.4) % Absolute Granulocytes (1.4-6.9) Basophils # (0-0.4) PT (9.4-12.5) SECONDS INR (0.8-3.0) APTT (25.1-36.5) SECONDS Sodium (137-145) mmol/L Potassium (3.5-5.1) mmol/L Chloride (98-107) mmol/L Carbon Dioxide (22-30) mmol/L Anion Gap (5-15) MEQ/L BUN (7-17) mg/dL Creatinine (0.52-1.04) mg/dL Estimated GFR ML/MIN Glucose (74-106) mg/dL Lactic Acid 1.4 (0.4-2.0) Calcium (8.4-10.2) mg/dL Total Bilirubin (0.2-1.3) mg/dL AST (14-36) U/L ALT (0-35) U/L Alkaline Phosphatase (38-126) U/L Troponin I (0.000-0.034) ng/mL NT-Pro-B Natriuret Pep (0-1800) pg/mL Serum Total Protein (6.3-8.2) g/dL Albumin (3.5-5.0) g/dL Urinalys Dipstick Clnc Urine Color Urine Appearance Urine pH Ur Specific [place] Urine Protein POC Urine Protein Conf (Negative) Urine Ketones Urine Blood Urine Nitrite Urine Bilirubin Urine Urobilinogen Ur Leukocyte Esterase Urine Leukocytes (NEGATIVE) Urine WBC (Auto) (0-5) /HPF Urine RBC (Auto) (0-2) /HPF U Hyaline Cast (Auto) (0-2) /LPF U Epithel Cells (Auto) (FEW) /HPF Urine Bacteria (Auto) (NEGATIVE) /HPF Urine RBC (0-5) Eric/ul U Non-Squamous Epi Cells Urine Mucus (Auto) (NEGATIVE) /HPF Urine Yeast (Budding) (NEGATIVE) /HPF Ur Culture Indicated? Urine Culture Reflexed Urine Glucose (NEGATIVE) mg/dL Influenza Type A Ag (NEGATIVE) Influenza Type B Ag (NEGATIVE) RSV (PCR) (Negative) SARS-CoV-2 (PCR) (NEGATIVE) Slides for Path Review - Radiology Impressions Radiology Exams & Impressions: Radiology Procedures Category Date Time Status CHEST 1 VIEW (PORTABLE) Stat Exams 12/20/21 19:46 Completed Assessment/Plan (1) UTI (urinary tract infection) Current Visit: Yes Status: Acute Assessment & Plan: IV antibiotics started,culture is pending Code(s): N39.0 - URINARY TRACT INFECTION, SITE NOT SPECIFIED (2) Lethargy Current Visit: Yes Status: Acute Assessment & Plan: improved since admission Code(s): R53.83 - OTHER FATIGUE (3) Pancytopenia Current Visit: Yes Status: Acute Assessment & Plan: has appt with [employer] Examiner this coming weak Code(s): D61.818 - OTHER PANCYTOPENIA (4) Hypotension Current Visit: Yes Status: Resolved Assessment & Plan: IV fluids given Code(s): I95.9 - HYPOTENSION, UNSPECIFIED (5) HTN (hypertension) Current Visit: No Status: Chronic Qualifiers: Hypertension type: essential hypertension Qualified Code(s): I10 - Essential (primary) hypertension Assessment & Plan: monitor Code(s): I10 - ESSENTIAL (PRIMARY) HYPERTENSION (6) Dehydration Current Visit: No Status: Acute Assessment & Plan: IV hydration Code(s): E86.0 - DEHYDRATION (7) DM2 (diabetes mellitus, type 2) Current Visit: No Status: Chronic Qualifiers: Diabetes mellitus extermination supervisor insulin use: without extermination supervisor use Diabetes mellitus complication status: with hyperglycemia Qualified Code(s): E11.65 - Type 2 diabetes mellitus with hyperglycemia Assessment & Plan: monitor (8) Liver enzyme elevation Current Visit: Yes Status: Acute Assessment & Plan: S/P cholecystectomy,bili and ALT,AST elevated-asymptomatic Code(s): R74.8 - ABNORMAL LEVELS OF OTHER SERUM ENZYMES
[2021-12-21 14:09] LABS: Slide Review 1 YES
[2021-12-21] MEDS: Levofloxacin 500MG/100ML D5W 500 MG/100 ML BAG IV SCH (21:09)
[2021-12-22] MEDS: Glucophage 500 MG PO SCH ×2 (08:13→17:22)
[2021-12-22] MEDS: Glucotrol Xl 2.5 MG PO SCH (08:14)
[2021-12-22] MEDS: LASIX 20 MG PO SCH (10:12)
[2021-12-22] MEDS: Protonix 40MG Tablet PO SCH ×2 (10:12→21:14)
[2021-12-22] MEDS: Zestril 10 MG PO SCH (10:12)
[2021-12-22] MEDS: Ditropan XL 5 MG PO SCH (10:12)
--- NOTE | 2021-12-22 16:11 | PCM.NOTE ---
Date and Time: 12/22/21 1610 Subjective Assessment: Patient states she is feeling stronger ,has been on atb for UTI. Is tolerating regular diet. She is weak upon standing and veered backwards when up to use the toilet,nurse supported patient otherwise she would have fallen.Daughter is at bedside. Patient lives alone. Will see if swing bed is an option. Risk of fall. Objective Exam General Appearance: no apparent distress Neurologic Exam: alert, oriented x 3, cooperative, normal mood/affect Skin Exam: normal color, warm, dry Respiratory Exam: normal breath sounds Cardiovascular Exam: regular rate/rhythm Gastrointestinal/Abdomen Exam: soft (nontender) OBJECTIVE DATA Vital Signs: Vital Signs - 24 hr Temp Pulse Resp BP Pulse Ox 12/22/21 12:00 98.7 F 90 20 121/58 95 12/22/21 08:00 98.6 F 91 H 21 121/59 96 12/22/21 03:47 98.8 F 98 H 20 119/56 97 12/21/21 23:28 98.5 F 84 18 113/57 97 12/21/21 19:40 98.7 F 87 18 121/57 98 Pain Assessment - Last Documented Pain Intensity 0 Intake and Output: Intake & Output 12/20/21 12/21/21 12/22/21 12/23/21 11:59 11:59 11:59 11:59 Intake Total 771 900 240 Output Total 500 1175 300 Balance 271 -275 -60 Weight 86.6 kg Radiology Exams: Radiology Procedures Category Date Time Status CHEST 1 VIEW (PORTABLE) Stat Exams 12/20/21 19:46 Completed Assessment/Plan (1) UTI (urinary tract infection) Current Visit: Yes Status: Acute Assessment & Plan: on appropriate antibiotic for E.coli UTI Code(s): N39.0 - URINARY TRACT INFECTION, SITE NOT SPECIFIED (2) Lethargy Current Visit: Yes Status: Resolved Code(s): R53.83 - OTHER FATIGUE (3) Pancytopenia Current Visit: Yes Status: Acute Code(s): D61.818 - OTHER PANCYTOPENIA (4) Hypotension Current Visit: Yes Status: Resolved Code(s): I95.9 - HYPOTENSION, UNSPECIFIED (5) HTN (hypertension) Current Visit: No Status: Chronic Qualifiers: Hypertension type: essential hypertension Code(s): I10 - ESSENTIAL (PRIMARY) HYPERTENSION (6) Dehydration Current Visit: No Status: Resolved Code(s): E86.0 - DEHYDRATION (7) DM2 (diabetes mellitus, type 2) Current Visit: No Status: Chronic Qualifiers: Diabetes mellitus fdc insulin use: without fdc use Diabetes mellitus complication status: with hyperglycemia Qualified Code(s): E11.65 - Type 2 diabetes mellitus with hyperglycemia Assessment & Plan: monitor (8) Liver enzyme elevation Current Visit: Yes Status: Chronic Assessment & Plan: mild,asymptomatic Code(s): R74.8 - ABNORMAL LEVELS OF OTHER SERUM ENZYMES (9) Risk for falls Current Visit: Yes Status: Acute Assessment & Plan: asking for Rehab/Swing bed Code(s): Z91.81 - HISTORY OF FALLING
[2021-12-22] MEDS ORDERED: Sodium Chloride 0.9% 10 ML FLUSH Syringe IV PRN (18:11)
[2021-12-22] MEDS: Sodium Chloride 0.9% 1000 ML 1,000 ML IV SCH (19:19)
[2021-12-22] MEDS: Levofloxacin 500MG/100ML D5W 500 MG/100 ML BAG IV SCH (21:14)
[2021-12-23] MEDS: Sodium Chloride 0.9% 10 ML FLUSH Syringe IV SCH ×2 (06:27→07:07)
[2021-12-23] MEDS: Glucotrol Xl 2.5 MG PO SCH (08:06)
[2021-12-23] MEDS: Glucophage 500 MG PO SCH (08:06)
[2021-12-23] MEDS: Ditropan XL 5 MG PO SCH (09:20)
[2021-12-23] MEDS: LASIX 20 MG PO SCH (09:20)
[2021-12-23] MEDS: Zestril 10 MG PO SCH (09:20)
[2021-12-23] MEDS: Protonix 40MG Tablet PO SCH (09:20)
[2021-12-23 12:26] VITALS: BP 132/62; PULSE 87; O2SAT 99
--- NOTE | 2021-12-23 13:03 | PCM.DS ---
Discharge Summary Date of Admission: 12/21/21 00:23 Admitting Physician: OSCAR EDWARDS DO Primary Care Provider: EVIN NUNO Allergies Allergies cephalexin [From Keflex] Allergy (Intermediate, Verified 12/20/21 19:29) Rash Sulfa (Sulfonamide Antibiotics) Allergy (Intermediate, Verified 12/20/21 19:29) Nausea and Vomiting adhesive tape Allergy (Mild, Verified 12/20/21 19:29) Rash latex Allergy (Mild, Verified 12/20/21 19:29) Rash Hospital Summary - Hospital Course Hospital Course: Pt is an 81 yo female pt of Dr. Nuno's with HTN, DM II, pancytopenia, peripheral neuropathy, OA, , and cirrhosis who was admitted through ER wtih weakness; found to have UTI. Has been treated with Levaquin IV (this is day #3) and in fact the culture grew E. coli susceptible to Levaquin. She is up with her walker and standby assist. She said she has been walking to the bathroom. Staff explored swing bed placement, but apparently this will not be covered by her insurance. Plan is to send her home with her daughter this afternoon and [facility]. Will have her finish another 2d of abx with probiotics. F/u with Dr. Nuno in 1 week. - Vitals & Intake/Output Vital Signs: Vital Signs Temperature 98.7 F 12/23/21 12:00 Pulse Rate 87 12/23/21 12:00 Respiratory Rate 19 12/23/21 12:00 Blood Pressure 132/62 12/23/21 12:00 O2 Sat by Pulse Oximetry 99 12/23/21 12:00 Intake & Output: Intake & Output 12/21/21 12/22/21 12/23/21 12/24/21 11:59 11:59 11:59 11:59 Intake Total 249 328 1584 Output Total 500 1175 1100 Balance 271 -275 250 Weight 86.6 kg - Lab Result Diagrams: 12/21/21 04:45 12/21/21 04:45 Micro Results-Entire Visit: Microbiology 12/20/21 21:07 Urine Culture - Final Clean Catch Midstream Escherichia Coli - Procedures and Test Procedures and Tests throughout Hospitalization: Therapy Orders & Screens 12/23/21 09:03 PT Eval & Treat ( Order) ONCE Reason for Eval:: falling at home Diagnosis: lethargy, UTI, pancytopenia Discharge Exam General Appearance: no apparent distress, alert Neurologic Exam: oriented x 3, cooperative Eye Exam: eyes nml inspection Ears, Nose, Throat Exam: moist mucous membranes Neck Exam: normal inspection Respiratory Exam: normal breath sounds, lungs clear, No crackles/rales, No rhonchi, No wheezing Cardiovascular Exam: regular rate/rhythm, murmur (III/ sys murmur, pt states is chronic) Gastrointestinal/Abdomen Exam: soft, normal bowel sounds, No tenderness, No dist ention, No mass, No guarding, No rebound Extremity Exam: swelling (1+ pretibial edema bilat) Skin Exam: normal color, warm, dry, No rash Final Diagnosis/Problem List - Final Discharge Diagnosis/Problem (1) UTI (urinary tract infection) Current Visit: Yes Status: Acute Assessment & Plan: On Levaquin day #3 today - will have her finish 5d total. F/u with Dr. Nuno in 1 week. Code(s): N39.0 - URINARY TRACT INFECTION, SITE NOT SPECIFIED (2) Risk for falls Current Visit: Yes Status: Chronic Assessment & Plan: Appears stronger than the ER record indicates. [facility] for PT. Code(s): Z91.81 - HISTORY OF FALLING (3) Pancytopenia Current Visit: Yes Status: Chronic Assessment & Plan: seeing hematology. Code(s): D61.818 - OTHER PANCYTOPENIA (4) DM2 (diabetes mellitus, type 2) Current Visit: No Status: Chronic (5) HTN (hypertension) Current Visit: No Status: Chronic Code(s): I10 - ESSENTIAL (PRIMARY) HYPERTENSION (6) Aortic stenosis Current Visit: No Status: Chronic Code(s): I35.0 - NONRHEUMATIC AORTIC (VALVE) STENOSIS - Discharge Disposition: Home, Self-Care Condition: Stable Prescriptions: New L. Acidophilus/L.bulgaricus [Lactobacillus 1 Million Cfu Tb] 1 each PO TID #30 tablet Levofloxacin [Levofloxacin 500 MG Tablet] 500 mg PO DAILY #3 tablet Continue Omeprazole Magnesium [Prilosec Otc] 20 mg PO BID glipiZIDE [Glipizide ER] 2.5 mg PO DAILY Metformin HCl 500 mg [Glucophage 500 MG] 1,000 mg PO BID lisinopriL [Zestril] 10 mg PO DAILY Benzonatate 100 mg PO DAILY PRN 10 Days #30 PRN Reason: Cough Furosemide 20 mg [Lasix 20 mg] 20 mg PO DAILY Oxybutynin Chloride [Oxybutynin Chloride ER] 15 mg PO DAILY Follow up with: EVIN NUNO MD [Primary Care Provider] -
== END 2021-12-23 14:49 | disposition home or self-care (01) ==
LOC: ED 19:15 → MED SURG 12-21 00:23
PROVIDERS: ADMIT Family Medicine; ATTEND Family Medicine
DX: N39.0 Urinary tract infection, site not specified (principal); D61.818 Other pancytopenia; I10 Essential (primary) hypertension; I95.9 Hypotension, unspecified; E11.65 Type 2 diabetes mellitus with hyperglycemia; I35.0 Nonrheumatic aortic (valve) stenosis; R53.83 Other fatigue; E86.0 Dehydration; R74.8 Abnormal levels of other serum enzymes; Z91.81 History of falling; Z79.899 Other long term (current) drug therapy; Z20.828 Contact with and (suspected) exposure to other viral communicable diseases
CPT/HCPCS: 0241U; 36415; 71045; 80053; 81015; 83605; 83880; 84484; 85025; 85610; 85730; 87077; 87086; 87186; 93005; 97161; 99284; G0378; J1956; A9270-GY

== ENCOUNTER 2022-04-01 08:54 | Emergency (ER) | payer MEDICARE ==
[2022-04-01] MEDS ORDERED: Hydromorphone 1 mg/ml Injection IV ONE (09:15)
[2022-04-01] MEDS ORDERED: Hydromorphone 1 mg/ml Injection ONE (09:27)
[2022-04-01] MEDS ORDERED: Sodium Chloride 0.9% 1000 ML 1,000 ML ONE (09:27)
[2022-04-01] MEDS ORDERED: Zofran 4 MG/2 ML VIAL ONE (09:27)
[2022-04-01] MEDS ORDERED: Sodium Chloride 0.9% 1000 ML 1,000 ML IV SCH (09:30)
[2022-04-01] MEDS ORDERED: Zofran 4 MG/2 ML VIAL IV ONE (09:32)
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
--- NOTE | 2022-04-01 10:57 | XRAY ---
Indication: Pain following injury. Comparison: December 27, 2021 AP pelvis and 2 view right hip unchanged again demonstrating osteopenia, mild bilateral hip degenerative arthropathy, lower lumbar degenerative spondylosis, and a few pelvic phleboliths. No new/acute abnormalities.
--- NOTE | 2022-04-01 10:57 | XRAY ---
Indication: Pain following injury. Comparison: April 21, 2022 Portable chest better inflated and remains clear again with a few incidental tiny calcified granulomas. Heart is not enlarged. Bony thorax intact again with osteopenia and degenerative changes. Impression: Continued nonacute chest with chronic features.
--- NOTE | 2022-04-01 10:59 | XRAY ---
Indication: Pain following injury. Comparison: None 2 view left humerus demonstrate osteopenia and moderate AC degenerative arthropathy. No other bony, articular, or soft tissue abnormalities.
--- NOTE | 2022-04-01 10:59 | XRAY ---
Indication: Pain following injury. Comparison: None 3 view left shoulder demonstrate some osteopenia and moderate AC degenerative arthropathy. No other bony, articular, or soft tissue abnormalities.
--- NOTE | 2022-04-01 11:01 | XRAY ---
Indication: Pain following injury. Comparison: None 2 view right ribs demonstrates osteopenia, degenerative changes of the visualized spine, moderate right acromioclavicular degenerative arthropathy, a few right lung calcified granulomas, mild aortic calcifications, and cholecystectomy clips. No other bony, articular, or soft tissue abnormalities.
[2022-04-01 12:17] VITALS: BP 102/75
[2022-04-01 12:54] VITALS: PULSE 90; O2SAT 92
== END 2022-04-01 12:55 | disposition home or self-care (01) ==
LOC: ED 08:54
DX: S40.022A Contusion of left upper arm, initial encounter (principal); S00.83XA Contusion of other part of head, initial encounter; S20.211A Contusion of right front wall of thorax, initial encounter; S70.01XA Contusion of right hip, initial encounter; W18.09XA Striking against other object with subsequent fall, initial encounter; Y93.01 Activity, walking, marching and hiking; Y92.003 Bedroom of unspecified non-institutional (private) residence as the place of occurrence of the external cause; M79.602 Pain in left arm; R07.81 Pleurodynia; M25.551 Pain in right hip; I10 Essential (primary) hypertension; E11.9 Type 2 diabetes mellitus without complications; Z79.84 Long term (current) use of oral hypoglycemic drugs; Z79.899 Other long term (current) drug therapy; Z79.891 Long term (current) use of opiate analgesic
CPT/HCPCS: 36000; 71045; 71100; 73030; 73060; 73502; 96374; 96375; 99284; J1170; J2405

== ENCOUNTER 2022-09-12 14:39 | Observation (INO) | payer MEDICARE ==
[2022-09-12] MEDS ORDERED: SUBLIMAZE 100 MCG/2 ML IV ONE (15:14)
[2022-09-12] MEDS ORDERED: Zofran 4 MG/2 ML VIAL IV ONE (15:15)
[2022-09-12] MEDS ORDERED: Zofran 4 MG/2 ML VIAL ONE (15:19)
[2022-09-12] MEDS ORDERED: SUBLIMAZE 100 MCG/2 ML ONE (15:19)
[2022-09-12 15:29] LABS: Absolute Neutrophil Ct (ANC) 3.86 x10^3/uL (1.4-6.9); Basophil (Absolute #) 0.05 x10^3/uL (0-0.4); Eosinophil (Absolute #) 0.21 x10^3/uL (0-0.5); Hematocrit 33.3 % (35-47); Hemoglobin 10.7 g/dL (12.0-16.0); IMMATURE GRAN # 0.04 x10^3u/L (0.00-0.03); IMMATURE GRAN % 0.8 % (0.00-0.4); Lymphocyte (Absolute #) 0.76 x10^3/uL (1.0-4.6); Lymphocytes % 14.4 % (24.0-44.0); Mean Corpuscular Hemoglobin 30.8 pg (26-32); Mean Corpuscular Hgb Concent. 32.1 g/dL (32-36); Mean Platelet Volume 10.5 fL (7.5-11.0); Monocyte (Absolute #) 0.34 x10^3/uL (0.0-1.3); Monocytes % 6.5 % (0.0-12.0); Neutrophil % 73.3 % (36.0-66.0); Platelet Count 89 x10^3/uL (150-450); Red Blood Count 3.47 x10^6/uL (4.1-5.4); Red Cell Distribution Width 16.4 % (11.5-14.0); White Blood Count 5.3 x10^3/uL (4.0-10.5)
--- NOTE | 2022-09-12 15:43 | ERPHSYRPT ---
- History of Present Illness Source: patient, EMS Exam Limitations: other (Poor historian) Patient Subjective Stated Complaint: Patient states she fell in her home 2 days ago and was unable to get up. Patient states she spent the majority of that time lying on her right hip for that 2 day period. Patient indicates she tripped in her kitchen but is unable to state what she tripped over or on. She did hit her head on the recliner. C/O pain at this time to her right hip, mid upper back, left knee, and left ankle. Main pain c/o is to the right hip. Triage Nursing Assessment: Patient brought into the ED by ambulance. Patient had on a gown that was soiled in urine and feces. Patient also wearing a pull-up (incontinent product) that was soiled in urine and feces. Patient is alert and oriented. No SOB. Bruising noted to left forehead, mid upper back, multiple to BUE and BLE. Velma area and under bilateral breasts is galled. A rash noted to abdomen and left lower arm; rash is red, pinpoint, raised, scattered. Left inner knee is red and warm to touch. Chin is red. Left ankle is tender to touch. Right hip is red and tender to touch. Swelling noted to RLE. Patient was able to use the side rails on the bed to turn self from side to side to assist in care for cleansing off urine and feces. Oral mucosa is dry. Physician History: 82 yo WF tripped in her house 2 days ago, subsequently laying on her floor x 2 days. Pt arrived covered in stool per EMS wo spine board/C-collar. She hit her head and was dazed but denies LOC/headache. Pt has C,T, and L-spine pain/L CVA pain/R hip pain/L knee/L ankle pain. Pain is 8/10. No focal weakness/chest pain/abdominal pain/fever/cough/coryza/dysuria/hematuria. Pt has known Liver Ca and refuses treatment Occurred: days ago (2 days ago) Reason for Fall: tripped Injuries/Pain Location: head, neck, back, pelvis, lower extremity Loss of Consciousness: dazed Quality: aching Severity of Pain-Max: severe Severity of Pain-Current: severe Modifying Factors: Improves With: movement Associated Symptoms (Fall): back pain, extremity injury Allergies/Adverse Reactions: cephalexin [From Keflex] Allergy (Intermediate, Verified 09/12/22 15:13) Rash Sulfa (Sulfonamide Antibiotics) Allergy (Intermediate, Verified 09/12/22 15:13) Nausea and Vomiting adhesive tape Allergy (Mild, Verified 09/12/22 15:13) Rash latex Allergy (Mild, Verified 09/12/22 15:13) Rash Home Medications: Omeprazole Magnesium [Prilosec Otc] 20 mg PO BID 04/22/21 [History] Metformin HCl 500 mg [Glucophage 500 MG] 1,000 mg PO BID 10/18/21 [Histor y] glipiZIDE [Glipizide ER] 2.5 mg PO DAILY 10/18/21 [History] lisinopriL [Zestril] 10 mg PO DAILY 10/18/21 [History] Furosemide 20 mg [Lasix 20 mg] 20 mg PO DAILY 12/20/21 [History] Oxybutynin Chloride [Oxybutynin Chloride ER] 15 mg PO DAILY 12/20/21 [History] Hx Tetanus, Diphtheria Vaccination/Date Given: Yes Hx Influenza Vaccination/Date Given: Yes Hx Pneumococcal Vaccination/Date Given: Yes Immunizations Up to Date: Yes Travel Risk - International Travel Have you traveled outside of the country in past 3 weeks: No - Coronavirus Screening Are you exhibiting any of the following symptoms?: No Close contact with a COVID-19 positive Pt in past 14-21 Days: No - Vaccine Status Have you recieved a Covid-19 vaccination: Yes Illusionist: Moderna - Vaccination Dates Date of 2cond Vaccination (if applicable): March - Review of Systems Constitutional: No Symptoms Eyes: No Symptoms Ears, Nose, & Throat: No Symptoms Respiratory: No Symptoms Cardiac: No Symptoms Abdominal/Gastrointestinal: No Symptoms Genitourinary Symptoms: No Symptoms Skin: No Symptoms Neurological: No Symptoms Psychological: No Symptoms Endocrine: No Symptoms Hematologic/Lymphatic: No Symptoms Immunological/Allergic: No Symptoms - Past Medical History Pertinent Past Medical History: Yes Neurological History: No Pertinent History ENT History: Glaucoma, Macular Degeneration Cardiac History: No Pertinent History, Hypertension, Other Respiratory History: No Pertinent History Endocrine Medical History: Diabetes Type II Musculoskeletal History: No Pertinent History GI Medical History: GERD, GI Bleed, Liver Cancer History: Other Psycho-Social History: No Pertinent History Female Reproductive Disorders: No Pertinent History Other Medical History: kidney stones, psoriasis, neutropenia, thrombocytopenia, urinary tract infections, heart murmur - Past Surgical History Past Surgical History: Yes Neuro Surgical History: No Pertinent History Cardiac: No Pertinent History Respiratory: No Pertinent History Gastrointestinal: Appendectomy, Cholecystectomy, Hernia Repair Genitourinary: Other Musculoskeletal: Joint Replacement Female Surgical History: Hysterectomy, Tubal Ligation Other Surgical History: 2 kidney stones removed, bilateral knee replacements - Social History Smoking Status: Never smoker Exposure to second hand smoke: No Drug Use: none Patient Lives Alone: Yes Significant Family History: no pertinent family hx - Nursing Vital Signs Nursing Vital Signs: Initial Vital Signs Temperature 97.3 F 09/12/22 14:39 Pulse Rate 83 09/12/22 14:39 Respiratory Rate 20 09/12/22 14:39 Blood Pressure 140/59 09/12/22 14:39 O2 Sat by Pulse Oximetry 100 09/12/22 14:39 Pain Scale Pain Intensity 4 Hypertensive - Nick Coma Score Best Eye Response ([place]): (4) open spontaneously Best Verbal Response ([place]): (5) oriented Best Motor Response (Nick): (6) obeys commands [place] Total: 15 - Physical Exam General Appearance: mild distress Head Injury: contusions (Small glabellar contusion) Eye Exam: PERRL/EOMI, eyes nml inspection ENT Exam: airway nml, No evidence of ENT injury Neck Exam: supple, trachea midline, tenderness (C-spine TTP) Respiratory/Chest Exam: normal breath sounds, No chest tenderness, No respiratory distress, No decreased breath sounds Cardiovascular Exam: normal heart sounds, regular rate/rhythm, No murmur Gastrointestinal Exam: soft, normal bowel sounds, No tenderness Back Exam: vertebral tenderness (Mid-T and L-spine TTP) Extremity Exam: pelvis stable, hip tenderness (R hip TTP) Neurologic Exam: alert, oriented x 3, cooperative, chief hospital administrator II-XII nml as tested, normal mood/affect, sensation nml Skin Exam: normal color, warm, dry SpO2 Interpretation: normal SpO2: 100 O2 Delivery: Room Air - Course Nursing assessment & vital signs reviewed: Yes EKG Interpreted by Me: RATE (NSR/rate77/RBBB/Prolonged QTc/Nonspecific ST-Twave changes) - Radiology Exams Ankle X-ray Interpretation: Reviewed by me (L ankle STS), Discussed w/ radiologist Knee X-ray Interpretation: Reviewed by me (L knee-intact prosthesis/No fx), Discussed w/ radiologist - CT Exams Abdomen/Pelvis CT Interpretation: Discussed w/radiologist (Known hepatic masses/cirrhosis/ascites/R gluteal hematoma) Chest CT Interpretation: Discussed w/radiologist (Nothing acute) Head CT Interpretation: Discussed w/radiologist (CT head-nothing acute) Cervical Spine CT Interpretation: Discussed w/radiologist (CT C-spine no fracture) Ordered Tests: Active Orders 24 hr Category Date Time Status EKG-ER Only STAT Care 09/12/22 15:10 Active [place] [Catheter-[place]] STAT Care 09/12/22 16:00 Active ABDOMEN AND PELVIS W/0 CONTRAS [CT] Stat Exams 09/12/22 15:09 Completed ANKLE (3 VIEWS) Stat Exams 09/12/22 15:12 Completed CERVICAL SPINE WO CONTRAST [CT] Stat Exams 09/12/22 15:07 Completed CHEST WITHOUT CONTRAST [CT] Stat Exams 09/12/22 15:09 Completed HEAD WITHOUT CONTRAST [CT] Stat Exams 09/12/22 15:07 Completed KNEE (3 VIEWS) Stat Exams 09/12/22 15:12 Completed BLOOD CULTURE Stat Lab 09/12/22 Ordered CBC W DIFF Stat Lab 09/12/22 15:26 Completed CK (IN-HOUSE) [CK-Creatinine Phosphokinase] Stat Lab 09/12/22 15:26 Completed CMP Stat Lab 09/12/22 15:26 Completed CULTURE,URINE Stat Lab 09/12/22 16:00 Received Lactic Acid Stat Lab 09/12/22 15:25 Completed Lactic Acid Stat Lab 09/12/22 17:29 Completed PROTIME WITH INR Stat Lab 09/12/22 15:26 Completed PTT Stat Lab 09/12/22 15:26 Completed TROPONIN Q4H Lab 09/12/22 15:26 Completed TROPONIN Q4H Lab 09/12/22 17:35 Completed TROPONIN Q4H Lab 09/12/22 23:15 Ordered UA W/RFX UR CULTURE Stat Lab 09/12/22 16:00 Completed Urine Triage Profile Stat Lab 09/12/22 16:00 Completed Medication Summary Generic Name Dose Route Start Last Admin Trade Name Freq PRN Reason Stop Dose Admin Levofloxacin/Dextrose 500 mg in 100 mls @ 100 mls/hr 09/12/22 19:12 Levofloxacin 500mg/100ml D5w IV 09/12/22 20:11 STAT STA Discontinued Medications Generic Name Dose Route Start Last Admin Trade Name [place] PRN Reason Stop Dose Admin Fentanyl Citrate 12.5 mcg 09/12/22 15:14 09/12/22 15:20 Fentanyl Citrate 100 Mcg/2 Ml* Vial IV 09/12/22 15:15 12.5 mcg STAT ONE Administration Fentanyl Citrate Confirm 09/12/22 15:19 Fentanyl Citrate 100 Mcg/2 Ml* Vial Administered 09/12/22 15:20 Dose 100 mcg .ROUTE .STK-MED ONE Sodium Chloride 1,000 mls @ 999 mls/hr 09/12/22 16:10 09/12/22 17:34 Sodium Chloride 0.9% 1000 Ml IV 09/12/22 17:10 Infused .Q1H1M STA Infusion Sodium Chloride Confirm 09/12/22 16:15 Sodium Chloride 0.9% 1000 Ml Administered 09/12/22 16:16 Dose 1,000 mls @ ud .ROUTE .STK-MED ONE Ondansetron HCl 4 mg 09/12/22 15:15 09/12/22 15:20 Ondansetron Hcl 4 Mg/2 Ml Vial IV 09/12/22 15:16 4 mg STAT ONE Administration Ondansetron HCl Confirm 09/12/22 15:19 Ondansetron Hcl 4 Mg/2 Ml Vial Administered 09/12/22 15:20 Dose 4 mg .ROUTE .STK-MED ONE Lab/Rad Data: Laboratory Result Diagrams 09/12/22 15:26 09/12/22 15:26 Laboratory Results 09/12/22 09/12/22 09/12/22 Range/Units Unknown 17:35 17:29 WBC (4.0-10.5) x10^3/uL RBC (4.1-5.4) x10^6/uL Hgb (12.0-16.0) g/dL Hct (35-47) % MCV (78-100) fL MCH (26-32) pg MCHC (32-36) g/dL RDW (11.5-14.0) % Plt Count (150-450) x10^3/uL MPV (7.5-11.0) fL Gran % (36.0-66.0) % Immature Gran % (Auto) (0.00-0.4) % Nucleat RBC Rel Count (0.00-0.1) % Eos # (Auto) (0-0.5) x10^3/uL Immature Gran # (Auto) (0.00-0.03) x10^3u/L Absolute Lymphs (auto) (1.0-4.6) x10^3/uL Absolute Monos (auto) (0.0-1.3) x10^3/uL Absolute Nucleated RBC (0.00-0.01) x10^3u/L Lymphocytes % (24.0-44.0) % Monocytes % (0.0-12.0) % Eosinophils % (0.00-5.0) % Basophils % (0.0-0.4) % Absolute Granulocytes (1.4-6.9) x10^3/uL Basophils # (0-0.4) x10^3/uL PT (9.4-12.5) SECONDS INR (0.8-3.0) APTT (25.1-36.5) SECONDS Sodium (137-145) mmol/L Potassium (3.5-5.1) mmol/L Chloride (98-107) mmol/L Carbon Dioxide (22-30) mmol/L Anion Gap (5-15) MEQ/L BUN (7-17) mg/dL Creatinine (0.52-1.04) mg/dL Estimated GFR ML/MIN Glucose (74-106) mg/dL Lactic Acid 3.5 H (0.4-2.0) Calcium (8.4-10.2) mg/dL Total Bilirubin (0.2-1.3) mg/dL AST (14-36) U/L ALT (0-35) U/L Alkaline Phosphatase (38-126) U/L Creatine Kinase (30-135) U/L Troponin I 0.036 H* (0.000-0.034) ng/mL Serum Total Protein (6.3-8.2) g/dL Albumin (3.5-5.0) g/dL Urine Color (Yellow) Urine Appearance (Clear) Urine pH (4.6-8.0) Ur Specific Martin (1.005-1.030) Urine Protein (Negative) Urine Glucose (UA) (Negative) mg/dL Urine Ketones (Negative) Urine Blood (Negative) Urine Nitrite (Negative) Urine Bilirubin (Negative) Urine Urobilinogen (0.2) mg/dL Ur Leukocyte Esterase (Negative) U Hyaline Cast (Auto) (0-2) /LPF Urine Microscopic RBC (0-5) /HPF Urine Microscopic WBC (0-5) /HPF Ur Epithelial Cells (None Seen) /HPF Urine Bacteria (None Seen) /HPF Urine Yeast (Budding) (None Seen) /HPF Urine Culture Reflexed (NO) Urine Opiates Level (NEGATIVE) Ur Methadone (NEGATIVE) Urine Barbiturates (NEGATIVE) Ur Phencyclidine (PCP) (NEGATIVE) Urine Amphetamine (NEGATIVE) U Benzodiazepine Level (NEGATIVE) Urine Cocaine (NEGATIVE) Urine Marijuana (THC) (NEGATIVE) Influenza Type A Ag NEGATIVE (NEGATIVE) Influenza Type B Ag NEGATIVE (NEGATIVE) RSV (PCR) NEGATIVE (Negative) SARS-CoV-2 (PCR) NEGATIVE (NEGATIVE) 09/12/22 09/12/22 09/12/22 Range/Units 16:00 16:00 15:26 WBC (4.0-10.5) x10^3/uL RBC (4.1-5.4) x10^6/uL Hgb (12.0-16.0) g/dL Hct (35-47) % MCV (78-100) fL MCH (26-32) pg MCHC (32-36) g/dL RDW (11.5-14.0) % Plt Count (150-450) x10^3/uL MPV (7.5-11.0) fL Gran % (36.0-66.0) % Immature Gran % (Auto) (0.00-0.4) % Nucleat RBC Rel Count (0.00-0.1) % Eos # (Auto) (0-0.5) x10^3/uL Immature Gran # (Auto) (0.00-0.03) x10^3u/L Absolute Lymphs (auto) (1.0-4.6) x10^3/uL Absolute Monos (auto) (0.0-1.3) x10^3/uL Absolute Nucleated RBC (0.00-0.01) x10^3u/L Lymphocytes % (24.0-44.0) % Monocytes % (0.0-12.0) % Eosinophils % (0.00-5.0) % Basophils % (0.0-0.4) % Absolute Granulocytes (1.4-6.9) x10^3/uL Basophils # (0-0.4) x10^3/uL PT (9.4-12.5) SECONDS INR (0.8-3.0) APTT (25.1-36.5) SECONDS Sodium (137-145) mmol/L Potassium (3.5-5.1) mmol/L Chloride (98-107) mmol/L Carbon Dioxide (22-30) mmol/L Anion Gap (5-15) MEQ/L BUN (7-17) mg/dL Creatinine (0.52-1.04) mg/dL Estimated GFR ML/MIN Glucose (74-106) mg/dL Lactic Acid (0.4-2.0) Calcium (8.4-10.2) mg/dL Total Bilirubin (0.2-1.3) mg/dL AST (14-36) U/L ALT (0-35) U/L Alkaline Phosphatase (38-126) U/L Creatine Kinase 104 (30-135) U/L Troponin I (0.000-0.034) ng/mL Serum Total Protein (6.3-8.2) g/dL Albumin (3.5-5.0) g/dL Urine Color Dark Yellow A (Yellow) Urine Appearance Turbid A (Clear) Urine pH 5.5 (4.6-8.0) Ur Specific Martin 1.015 (1.005-1.030) Urine Protein Negative (Negative) Urine Glucose (UA) Negative (Negative) mg/dL Urine Ketones Trace A (Negative) Urine Blood NHT (Negative) Urine Nitrite Negative (Negative) Urine Bilirubin Small A (Negative) Urine Urobilinogen 1.0 A (0.2) mg/dL Ur Leukocyte Esterase Large A (Negative) U Hyaline Cast (Auto) NONE SEEN (0-2) /LPF Urine Microscopic RBC 0-2 (0-5) /HPF Urine Microscopic WBC >100 A (0-5) /HPF Ur Epithelial Cells Rare (None Seen) /HPF Urine Bacteria Rare A (None Seen) /HPF Urine Yeast (Budding) Few A (None Seen) /HPF Urine Culture Reflexed YES (NO) Urine Opiates Level NEGATIVE (NEGATIVE) Ur Methadone NEGATIVE (NEGATIVE) Urine Barbiturates NEGATIVE (NEGATIVE) Ur Phencyclidine (PCP) NEGATIVE (NEGATIVE) Urine Amphetamine NEGATIVE (NEGATIVE) U Benzodiazepine Level NEGATIVE (NEGATIVE) Urine Cocaine NEGATIVE (NEGATIVE) Urine Marijuana (THC) NEGATIVE (NEGATIVE) Influenza Type A Ag (NEGATIVE) Influenza Type B Ag (NEGATIVE) RSV (PCR) (Negative) SARS-CoV-2 (PCR) (NEGATIVE) 09/12/22 09/12/22 09/12/22 Range/Units 15:26 15:26 15:26 WBC (4.0-10.5) x10^3/uL RBC (4.1-5.4) x10^6/uL Hgb (12.0-16.0) g/dL Hct (35-47) % MCV (78-100) fL MCH (26-32) pg MCHC (32-36) g/dL RDW (11.5-14.0) % Plt Count (150-450) x10^3/uL MPV (7.5-11.0) fL Gran % (36.0-66.0) % Immature Gran % (Auto) (0.00-0.4) % Nucleat RBC Rel Count (0.00-0.1) % Eos # (Auto) (0-0.5) x10^3/uL Immature Gran # (Auto) (0.00-0.03) x10^3u/L Absolute Lymphs (auto) (1.0-4.6) x10^3/uL Absolute Monos (auto) (0.0-1.3) x10^3/uL Absolute Nucleated RBC (0.00-0.01) x10^3u/L Lymphocytes % (24.0-44.0) % Monocytes % (0.0-12.0) % Eosinophils % (0.00-5.0) % Basophils % (0.0-0.4) % Absolute Granulocytes (1.4-6.9) x10^3/uL Basophils # (0-0.4) x10^3/uL PT 13.3 H (9.4-12.5) SECONDS INR 1.28 (0.8-3.0) APTT 32.1 (25.1-36.5) SECONDS Sodium 142 (137-145) mmol/L Potassium 3.1 L (3.5-5.1) mmol/L Chloride 105 (98-107) mmol/L Carbon Dioxide 23 (22-30) mmol/L Anion Gap 17.0 H (5-15) MEQ/L BUN 34 H (7-17) mg/dL Creatinine 1.74 H (0.52-1.04) mg/dL Estimated GFR 29.6 ML/MIN Glucose 135 H (74-106) mg/dL Lactic Acid (0.4-2.0) Calcium 9.5 (8.4-10.2) mg/dL Total Bilirubin 3.90 H (0.2-1.3) mg/dL AST 147 H (14-36) U/L ALT 55 H (0-35) U/L Alkaline Phosphatase 179 H (38-126) U/L Creatine Kinase (30-135) U/L Troponin I 0.040 H* (0.000-0.034) ng/mL Serum Total Protein 6.8 (6.3-8.2) g/dL Albumin 3.1 L (3.5-5.0) g/dL Urine Color (Yellow) Urine Appearance (Clear) Urine pH (4.6-8.0) Ur Specific Martin (1.005-1.030) Urine Protein (Negative) Urine Glucose (UA) (Negative) mg/dL Urine Ketones (Negative) Urine Blood (Negative) Urine Nitrite (Negative) Urine Bilirubin (Negative) Urine Urobilinogen (0.2) mg/dL Ur Leukocyte Esterase (Negative) U Hyaline Cast (Auto) (0-2) /LPF Urine Microscopic RBC (0-5) /HPF Urine Microscopic WBC (0-5) /HPF Ur Epithelial Cells (None Seen) /HPF Urine Bacteria (None Seen) /HPF Urine Yeast (Budding) (None Seen) /HPF Urine Culture Reflexed (NO) Urine Opiates Level (NEGATIVE) Ur Methadone (NEGATIVE) Urine Barbiturates (NEGATIVE) Ur Phencyclidine (PCP) (NEGATIVE) Urine Amphetamine (NEGATIVE) U Benzodiazepine Level (NEGATIVE) Urine Cocaine (NEGATIVE) Urine Marijuana (THC) (NEGATIVE) Influenza Type A Ag (NEGATIVE) Influenza Type B Ag (NEGATIVE) RSV (PCR) (Negative) SARS-CoV-2 (PCR) (NEGATIVE) 09/12/22 09/12/22 Range/Units 15:26 15:25 WBC 5.3 (4.0-10.5) x10^3/uL RBC 3.47 L (4.1-5.4) x10^6/uL Hgb 10.7 L (12.0-16.0) g/dL Hct 33.3 L (35-47) % MCV 96.0 (78-100) fL MCH 30.8 (26-32) pg MCHC 32.1 (32-36) g/dL RDW 16.4 H (11.5-14.0) % Plt Count 89 L (150-450) x10^3/uL MPV 10.5 (7.5-11.0) fL Gran % 73.3 H (36.0-66.0) % Immature Gran % (Auto) 0.8 H (0.00-0.4) % Nucleat RBC Rel Count 0.0 (0.00-0.1) % Eos # (Auto) 0.21 (0-0.5) x10^3/uL Immature Gran # (Auto) 0.04 H (0.00-0.03) x10^3u/L Absolute Lymphs (auto) 0.76 L (1.0-4.6) x10^3/uL Absolute Monos (auto) 0.34 (0.0-1.3) x10^3/uL Absolute Nucleated RBC 0.00 (0.00-0.01) x10^3u/L Lymphocytes % 14.4 L (24.0-44.0) % Monocytes % 6.5 (0.0-12.0) % Eosinophils % 4.0 (0.00-5.0) % Basophils % 1.0 (0.0-0.4) % Absolute Granulocytes 3.86 (1.4-6.9) x10^3/uL Basophils # 0.05 (0-0.4) x10^3/uL PT (9.4-12.5) SECONDS INR (0.8-3.0) APTT (25.1-36.5) SECONDS Sodium (137-145) mmol/L Potassium (3.5-5.1) mmol/L Chloride (98-107) mmol/L Carbon Dioxide (22-30) mmol/L Anion Gap (5-15) MEQ/L BUN (7-17) mg/dL Creatinine (0.52-1.04) mg/dL Estimated GFR ML/MIN Glucose (74-106) mg/dL Lactic Acid 5.2 H (0.4-2.0) Calcium (8.4-10.2) mg/dL Total Bilirubin (0.2-1.3) mg/dL AST (14-36) U/L ALT (0-35) U/L Alkaline Phosphatase (38-126) U/L Creatine Kinase (30-135) U/L Troponin I (0.000-0.034) ng/mL Serum Total Protein (6.3-8.2) g/dL Albumin (3.5-5.0) g/dL Urine Color (Yellow) Urine Appearance (Clear) Urine pH (4.6-8.0) Ur Specific Martin (1.005-1.030) Urine Protein (Negative) Urine Glucose (UA) (Negative) mg/dL Urine Ketones (Negative) Urine Blood (Negative) Urine Nitrite (Negative) Urine Bilirubin (Negative) Urine Urobilinogen (0.2) mg/dL Ur Leukocyte Esterase (Negative) U Hyaline Cast (Auto) (0-2) /LPF Urine Microscopic RBC (0-5) /HPF Urine Microscopic WBC (0-5) /HPF Ur Epithelial Cells (None Seen) /HPF Urine Bacteria (None Seen) /HPF Urine Yeast (Budding) (None Seen) /HPF Urine Culture Reflexed (NO) Urine Opiates Level (NEGATIVE) Ur Methadone (NEGATIVE) Urine Barbiturates (NEGATIVE) Ur Phencyclidine (PCP) (NEGATIVE) Urine Amphetamine (NEGATIVE) U Benzodiazepine Level (NEGATIVE) Urine Cocaine (NEGATIVE) Urine Marijuana (THC) (NEGATIVE) Influenza Type A Ag (NEGATIVE) Influenza Type B Ag (NEGATIVE) RSV (PCR) (Negative) SARS-CoV-2 (PCR) (NEGATIVE) - Progress Progress: improved Progress Note: 09/12/22 19:[address] Mooney 1L NS bolus w improvement in lactic acid Blood cultures x2 500mg IV Levaquin Pt admitted due to poor functional status/pain control/pre-renal azotemia/UTI. Additional history per daughter DNR status 12.5mcg IV fentanyl/4mg IV Zofran w improvement in pain 09/12/22 19:27 [address] DrLatha: Trini Counseled pt/family regarding: lab results, diagnosis, need for follow-up, rad results - Departure Departure Disposition: Observation Clinical Impression: Liver cancer, Ascites, Multiple contusions, UTI (urinary tract infection) Condition: Stable Critical Care Time: No Referrals: EVIN NUNO MD [Primary Care Provider] - Follow up/PCP as directed
[2022-09-12 15:46] LABS: ALBUMIN 3.1 g/dL (3.5-5.0); BILIRUBIN,TOTAL 3.9 mg/dL (0.2-1.3); Calcium 9.5 mg/dL (8.4-10.2); Creatinine 1 1.74 mg/dL (0.52-1.04); EST GLOMERULAR FILTRATION RATE 29.6 ML/MIN; Potassium 3.1 mmol/L (3.5-5.1); Total Protein 6.8 g/dL (6.3-8.2)
[2022-09-12 15:47] LABS: INR 1.28 (0.8-3.0); PROTIME 13.3 SECONDS (9.4-12.5); PTT 32.1 SECONDS (25.1-36.5)
--- NOTE | 2022-09-12 16:09 | XRAY ---
Indication: Fall. Poor historian. Multiple contiguous axial images obtained through the head without contrast. Comparison: October 18, 2021 Again age-appropriate global atrophy, minimal periventricular degenerative micro-ischemia, and remote lacunar infarcts basal ganglia bilaterally. No acute and coronal hemorrhage, abnormal extra-axial fluid collection, or mass effect. Fourth ventricle is midline without hydrocephalus. Bony calvarium intact. Visualized paranasal sinuses and mastoid air cells are clear. Impression: Continued nonacute senile brain with remote basal ganglia lacunar infarcts.
[2022-09-12] MEDS ORDERED: Sodium Chloride 0.9% 1000 ML 1,000 ML IV STA (16:10)
--- NOTE | 2022-09-12 16:11 | XRAY ---
Indication: Pain following fall. Comparison: None 3 view left ankle demonstrates mild soft tissue swelling, osteopenia, small heel spurs, moderate midfoot degenerative changes, and moderate scattered vascular calcifications. No other bony, articular, or soft tissue abnormalities.
--- NOTE | 2022-09-12 16:12 | XRAY ---
Indication: Pain following fall. Comparison: None 3 view left knee demonstrates osteopenia, total knee arthroplasty with intact prosthesis/articulation, suprapatellar chunky heterotopic ossifications, and mild scattered vascular calcifications. No other bony, articular, or soft tissue abnormalities.
--- NOTE | 2022-09-12 16:14 | XRAY ---
Indication: Fall. Poor historian. Multiple contiguous axial images obtained through the cervical spine. Sagittal and coronal reformatted images obtained. Comparison: May 22, 2021 Again age-related osteopenia. Axial images negative for acute fracture, suspicious bony lesions, or spinal canal stenosis. Again mild multilevel C3-T1 degenerative endplate spurring, moderate atlantoaxial degenerative changes, and moderate multilevel bilateral degenerative facet hypertrophy. Sagittal and coronal reformatted images demonstrates normal cervical lordosis with stable minimal 1-2 mm anterolisthesis of C5 on C6 and T1 on T2. Stable minimal multilevel disc space narrowing. No acute compression fracture or jumped facet. Normal appearing craniocervical junction. Visualized noncontrasted soft tissues again demonstrates mild scattered bilateral carotid calcifications. Impression: 1. Continued negative acute fracture. 2. Again osteopenia and multilevel degenerative spondylosis.
[2022-09-12] MEDS ORDERED: Sodium Chloride 0.9% 1000 ML 1,000 ML ONE (16:15)
--- NOTE | 2022-09-12 16:18 | XRAY ---
Indication: Fall. Poor historian. Multiple contiguous axial images obtained through the chest without contrast. Comparison: October 13, 2017 Lungs demonstrates minimal bilateral dependent atelectasis. Stable medial right lower lobe calcified granuloma. No suspicious pulmonary mass, infiltrate, effusion, or pneumothorax. Heart not enlarged again with scattered coronary calcifications. Aorta again mildly arteriosclerotic without aneurysm. Stable small mediastinal and right hilar calcified nodes. No pathologic mediastinal lymphadenopathy. Bony thorax intact again with osteopenia and flowing osteophytes throughout the spine. CT abdomen/pelvis reported separately. Impression: 1. Chronic findings including osteopenia, multilevel degenerative osteophytes, arteriosclerotic disease, and old granulomatous disease. 2. Remaining CT chest without contrast exam is again negative.
--- NOTE | 2022-09-12 16:26 | XRAY ---
Indication: Fall. Poor historian. Multiple contiguous axial images obtained through the abdomen and pelvis without contrast. Comparison: February 22, 2020 CT chest reported separately. Noncontrasted stomach and bowel loops remain nonobstructed. Again cirrhotic appearing liver with new moderate abdominal and tiny pelvic ascites. Previous 3.9 x 3.9 cm right lobe hepatic mass has enlarged today measuring at least 5.3 x 6.3 cm. Remaining liver demonstrates new multiple similar hypodense lesions all worrisome for malignancy. Spleen remains enlarged measuring 14.2 cm again with stable 2 cm splenic cyst. Stable tiny hepatic/splenic calcified granulomas, tiny left upper renal exophytic cyst, cholecystotomy, and hysterectomy. Remaining pancreas, adrenal glands, kidneys, ureters, and bladder are unremarkable for noncontrast exam. There remains mild scattered aortoiliac calcifications without AAA. Osseous structures intact again with osteopenia and mild degenerative changes throughout the spine and both hips. Right back and right buttock demonstrates new large focus of subcutaneous induration resumed posttraumatic given clinical history. Also new right gluteal subcutaneous fluid collections largest 2.8 x 4.5 x 4.9 cm presumed hematoma. Impression: 1. Increasing size and number of hepatic masses as detailed worrisome for malignancy. 2. New right back/right buttock subcutaneous induration with right gluteal subcutaneous fluid collections both presumed posttraumatic given clinical history. 3. Again cirrhotic appearing liver with new abdominal/pelvic ascites. 4. Chronic findings including splenomegaly, splenic cyst, left renal cyst, arteriosclerotic disease, chronic bony findings, and old granulomatous disease.
[2022-09-12 17:02] LABS: Amphetamine,Urine NEGATIVE (NEGATIVE); Barbiturate,Urine NEGATIVE (NEGATIVE); Benzodiazepine,Urine NEGATIVE (NEGATIVE); Cocaine,Urine NEGATIVE (NEGATIVE); Methadone,Urine NEGATIVE (NEGATIVE); Opiate,Urine NEGATIVE (NEGATIVE); PCP,Urine NEGATIVE (NEGATIVE); THC,Urine NEGATIVE (NEGATIVE)
[2022-09-12 18:02] LABS: INFLUENZA A NEGATIVE (NEGATIVE); INFLUENZA B NEGATIVE (NEGATIVE); RESPIRATORY SYNCTIAL VIRUS NEGATIVE (Negative); SARS-CoV-2 Xpert Express NEGATIVE (NEGATIVE)
[2022-09-12 18:48] LABS: Appearance Turbid (Clear); Bilirubin Small (Negative); Blood NHT (Negative); Glucose, Urine Negative (Negative); Ketones Trace (Negative); Leukocyte Esterase Large (Negative); Nitrite Negative (Negative); Ph 5.5 (4.6-8.0); Protein,Urine Dip Negative (Negative); RBC 0-2 /HPF (0-5); Specific Gravity 1.015 (1.005-1.030); WBC >100 /HPF (0-5)
[2022-09-12 19:05] LABS: Bacteria Rare /HPF (None Seen); Epithelial Cells Rare /HPF (None Seen); Hyaline Casts NONE SEEN /LPF (0-2)
[2022-09-12 19:06] LABS: ADD URINE CULTURE? YES (NO); Budding Yeast Few /HPF (None Seen)
[2022-09-12] MEDS ORDERED: Levofloxacin 500MG/100ML D5W 500 MG/100 ML BAG IV STA (19:12)
[2022-09-12] MEDS ORDERED: Zofran 4 MG/2 ML VIAL IV PRN (19:22)
[2022-09-12] MEDS ORDERED: Levofloxacin 500MG/100ML D5W 500 MG/100 ML BAG IV ONE ×2 (19:22→19:27)
[2022-09-12] MEDS: Sodium Chloride 0.9% 1000 ML 1,000 ML IV SCH (19:32)
[2022-09-12 20:43] LABS: Slide Review 1 YES
[2022-09-13] MEDS ORDERED: TYLENOL EXTRA STRENGTH 500 MG PO PRN ×2 (00:01→15:11)
[2022-09-13] MEDS: SUBLIMAZE 100 MCG/2 ML IV PRN ×2 (01:27→12:33)
[2022-09-13] MEDS: BENADRYL 25 MG CAPSULE PO PRN ×4 (04:39→22:48)
[2022-09-13 06:31] LABS: Absolute Neutrophil Ct (ANC) 2.78 x10^3/uL (1.4-6.9); BASOPHIL % 0.7 % (0.0-0.4); Basophil (Absolute #) 0.03 x10^3/uL (0-0.4); Eosinophil % 5.5 % (0.00-5.0); Eosinophil (Absolute #) 0.22 x10^3/uL (0-0.5); Hematocrit 26.3 % (35-47); Hemoglobin 8.7 g/dL (12.0-16.0); IMMATURE GRAN # 0.03 x10^3u/L (0.00-0.03); IMMATURE GRAN % 0.7 % (0.00-0.4); Lymphocyte (Absolute #) 0.57 x10^3/uL (1.0-4.6); Lymphocytes % 14.2 % (24.0-44.0); Mean Cell Volume 93.6 fL (78-100); Mean Corpuscular Hgb Concent. 33.1 g/dL (32-36); Mean Platelet Volume 11.2 fL (7.5-11.0); Monocyte (Absolute #) 0.38 x10^3/uL (0.0-1.3); Monocytes % 9.5 % (0.0-12.0); Neutrophil % 69.4 % (36.0-66.0); Platelet Count 61 x10^3/uL (150-450); Red Blood Count 2.81 x10^6/uL (4.1-5.4); Red Cell Distribution Width 16.4 % (11.5-14.0)
[2022-09-13 06:53] LABS: ALBUMIN 2.2 g/dL (3.5-5.0); ANION GAP 9.4 MEQ/L (5-15); BILIRUBIN,TOTAL 2.4 mg/dL (0.2-1.3); Calcium 8.4 mg/dL (8.4-10.2); Creatinine 1 1.66 mg/dL (0.52-1.04); EST GLOMERULAR FILTRATION RATE 31.3 ML/MIN; Total Protein 5.3 g/dL (6.3-8.2)
[2022-09-13] MEDS: Sodium Chloride 0.9% 1000 ML 1,000 ML IV SCH ×2 (06:57→15:43)
[2022-09-13 07:09] LABS: Potassium 2.9 mmol/L (3.5-5.1)
[2022-09-13] MEDS: POTASSIUM CHLORIDE 20 mEq IN WATER 100ML 100 ML IV SCH ×2 (08:11→11:23)
[2022-09-13] MEDS: Klor Con PO SCH ×5 (08:11→15:42)
[2022-09-13 09:53] LABS: Slide Review 1 YES
[2022-09-13] MEDS ORDERED: PROTONIX 40 MG IV IV SCH (10:00)
[2022-09-13 12:08] LABS: ANION GAP 7.6 MEQ/L (5-15); Calcium 8.2 mg/dL (8.4-10.2); Creatinine 1 1.62 mg/dL (0.52-1.04); EST GLOMERULAR FILTRATION RATE 32.2 ML/MIN; Potassium 3.7 mmol/L (3.5-5.1)
[2022-09-13] MEDS ORDERED: Tessalon Perles 100 MG PO PRN (15:11)
[2022-09-13] MEDS ORDERED: BENADRYL 25 MG CAPSULE PO PRN (15:11)
[2022-09-13] MEDS: DEMADEX 20 MG PO SCH (15:40)
[2022-09-13] MEDS: LASIX 20 MG PO SCH (15:41)
[2022-09-13] MEDS: Ditropan XL 5 MG PO SCH (15:41)
[2022-09-13] MEDS: Toprol-Xl 25MG Tablets PO SCH (15:42)
[2022-09-13] MEDS: Acidophilus TABLET PO SCH ×2 (15:42→21:54)
[2022-09-13] MEDS: Glucotrol Xl 2.5 MG PO SCH (15:44)
--- NOTE | 2022-09-13 18:44 | PCM.HP ---
History of Present Illness - Chief Complaint Chief Complaint: Multiple contusions/Renal failure/UTI History of Present Illness: is a 82 year old female who tripped in her house 1- 2 days ago, subsequently laying on her floor until her daughter came over ? later that day. Pt arrived covered in stool per EMS wo spine board/C-collar. She hit her head and was dazed but denies LOC/headache. Pt has C,T, and L-spine pain/L CVA pain/R hip pain/L knee/L ankle pain. Pain is 8/10. No focal weakness/chest pain/abdominal pain/fever/cough/coryza/dysuria/hematuria. Pt has known Liver Ca and refuses treatment. - Review of Systems Constitutional: Weakness Eyes: No Symptoms Ears, Nose, & Throat: No Symptoms Respiratory: No Symptoms Cardiac: No Symptoms Abdominal/Gastrointestinal: Other (liver cancer,ascites) Genitourinary Symptoms: Frequency Musculoskeletal: Arthralgias, Back Pain, Neck Pain, Fall Skin: Other (contusion forehead ) Neurological: Other (weakness BLE,chronic worse) Psychological: No Symptoms Endocrine: No Symptoms Hematologic/Lymphatic: Anemia Medications & Allergies Home Medications: Home Medication List Omeprazole Magnesium [Prilosec Otc] 20 mg PO BID 04/22/21 [History Confirmed 09/12/22] Benzonatate 100 mg PO DAILY PRN 10 Days #30 10/21/21 [Rx Confirmed 09/12/22] Oxybutynin Chloride [Oxybutynin Chloride ER] 15 mg PO DAILY 12/20/21 [History Confirmed 09/12/22] L. Acidophilus/L.bulgaricus [Lactobacillus 1 Million Cfu Tb] 1 each PO TID #30 tablet 12/23/21 [Rx Confirmed 09/12/22] Acetaminophen [Tylenol Extra Strength] 1,000 mg PO Q6HPRN PRN 09/12/22 [History Confirmed 09/12/22] Metoprolol Succinate 25 mg PO DAILY 09/12/22 [History Confirmed 09/12/22] Torsemide 100 mg PO DAILY 09/12/22 [History Confirmed 09/12/22] acetaZOLAMIDE [Acetazolamide] 125 mg PO BID 09/12/22 [History Confirmed 09/12/22] diphenhydrAMINE HCL [Benadryl] 25 mg PO Q6H PRN PRN 09/12/22 [History Confirmed 09/12/22] Diphenhydramine HCl 25 mg [Benadryl 25 mg Capsule] 25 mg PO Q6H PRN PRN #0 cap 09/18/22 [Rx] Furosemide 20 mg [Lasix 20 mg] 10 mg PO DAILY tablet 09/18/22 [Rx] Ketoconazole Cream [Nizoral CREAM] 1 gm TOP BID 09/18/22 [Rx] Potassium Chloride Tab* [Klor Con] 30 meq PO DAILY tablet 09/18/22 [Rx] Allergies/Adverse Reactions: Allergies Allergy/AdvReac Type Severity Reaction Status Date / Time cephalexin [From Keflex] Allergy Intermediate Rash Verified 09/12/22 22:24 Sulfa (Sulfonamide Allergy Intermediate Nausea and Verified 09/12/22 22:24 Antibiotics) Vomiting adhesive tape Allergy Mild Rash Verified 09/12/22 22:24 latex Allergy Mild Rash Verified 09/12/22 22:24 - Past Medical History Past Medical History: Yes Neurological History: No Pertinent History ENT History: Glaucoma, Macular Degeneration Cardiac History: No Pertinent History, Hypertension, Other Respiratory History: No Pertinent History Endocrine Medical History: Diabetes Type II Musculoskelatal History: No Pertinent History GI Medical History: GERD, GI Bleed, Liver Cancer History: Other Pyscho-Social History: No Pertinent History Reproductive Disorders: No Pertinent History Comment: kidney stones, psoriasis, neutropenia, thrombocytopenia, urinary tract infections, heart murmur - Female History Are you now?: No - Past Surgical History Past Surgical History: Yes Neuro Surgical History: No Pertinent History Cardiac History: No Pertinent History Respiratory Surgery: No Pertinent History GI Surgical History: Appendectomy, Cholecystectomy, Hernia Repair Genitourinary Surgical Hx: Other Musculskeletal Surgical Hx: Joint Replacement Female Surgical History: Hysterectomy, Tubal Ligation Other Surgical History: 2 kidney stones removed, bilateral knee replacements - Social History Smoking Status: Never smoker Exposure to second hand smoke: No Alcohol: None Drug Use: none Significant Family History: no pertinent family hx - Physical Exam Vital Signs: Vital Signs - 24 hr Temp Pulse Resp BP Pulse Ox 09/13/22 16:00 97.8 F 86 23 140/65 92 L 09/13/22 11:55 97.3 F 72 16 124/60 93 L 09/13/22 07:41 97.8 F 92 H 16 114/56 93 L 09/13/22 03:25 98.0 F 100 H 16 122/65 93 L 09/12/22 22:34 97.6 F 87 19 146/64 98 09/12/22 20:07 88 17 144/63 100 09/12/22 19:28 100 09/12/22 19:10 80 18 139/74 98 General Appearance: no apparent distress Neurologic Exam: alert, oriented x 3, cooperative, traffic director II-XII nml as tested, normal mood/affect Eye Exam: eyes nml inspection Ears, Nose, Throat Exam: normal ENT inspection Neck Exam: normal inspection, other (paraspinal spasm tenderness) Respiratory Exam: normal breath sounds Cardiovascular Exam: regular rate/rhythm Gastrointestinal/Abdomen Exam: soft (nontender ,ascities present) Pelvic Exam: not done Rectal Exam: not done Back Exam: muscle spasm (paraspina) Extremity Exam: normal inspection Skin Exam: warm, dry, pale, other (Hematoma right ileum,skin intact. Ischial skin tear) Results - Labs Lab/Micro Results: Lab Results-Last 24 Hours 09/12/22 09/12/22 09/12/22 Range/Units 15:26 16:00 16:00 WBC (4.0-10.5) x10^3/uL RBC (4.1-5.4) x10^6/uL Hgb (12.0-16.0) g/dL Hct (35-47) % MCV (78-100) fL MCH (26-32) pg MCHC (32-36) g/dL RDW (11.5-14.0) % Plt Count (150-450) x10^3/uL MPV (7.5-11.0) fL Gran % (36.0-66.0) % Immature Gran % (Auto) (0.00-0.4) % Nucleat RBC Rel Count (0.00-0.1) % Eos # (Auto) (0-0.5) x10^3/uL Immature Gran # (Auto) (0.00-0.03) x10^3u/L Absolute Lymphs (auto) (1.0-4.6) x10^3/uL Absolute Monos (auto) (0.0-1.3) x10^3/uL Absolute Nucleated RBC (0.00-0.01) x10^3u/L Lymphocytes % (24.0-44.0) % Monocytes % (0.0-12.0) % Eosinophils % (0.00-5.0) % Basophils % (0.0-0.4) % Absolute Granulocytes (1.4-6.9) x10^3/uL Basophils # (0-0.4) x10^3/uL Sodium (137-145) mmol/L Potassium (3.5-5.1) mmol/L Chloride (98-107) mmol/L Carbon Dioxide (22-30) mmol/L Anion Gap (5-15) MEQ/L BUN (7-17) mg/dL Creatinine (0.52-1.04) mg/dL Estimated GFR ML/MIN Glucose (74-106) mg/dL POC Glucometer (74 to 106) mg/dL Lactic Acid (0.4-2.0) Calcium (8.4-10.2) mg/dL Magnesium (1.6-2.3) mg/dL Total Bilirubin (0.2-1.3) mg/dL AST (14-36) U/L ALT (0-35) U/L Alkaline Phosphatase (38-126) U/L Troponin I (0.000-0.034) ng/mL Serum Total Protein (6.3-8.2) g/dL Albumin (3.5-5.0) g/dL Urine Color Dark Yellow A (Yellow) Urine Appearance Turbid A (Clear) Urine pH 5.5 (4.6-8.0) Ur Specific [place] 1.015 (1.005-1.030) Urine Protein Negative (Negative) Urine Glucose (UA) Negative (Negative) mg/dL Urine Ketones Trace A (Negative) Urine Blood NHT (Negative) Urine Nitrite Negative (Negative) Urine Bilirubin Small A (Negative) Urine Urobilinogen 1.0 A (0.2) mg/dL Ur Leukocyte Esterase Large A (Negative) U Hyaline Cast (Auto) NONE SEEN (0-2) /LPF Urine Microscopic RBC 0-2 (0-5) /HPF Urine Microscopic WBC >100 A (0-5) /HPF Ur Epithelial Cells Rare (None Seen) /HPF Urine Bacteria Rare A (None Seen) /HPF Urine Yeast (Budding) Few A (None Seen) /HPF Urine Culture Reflexed YES (NO) Urine Opiates Level NEGATIVE (NEGATIVE) Ur Methadone NEGATIVE (NEGATIVE) Urine Barbiturates NEGATIVE (NEGATIVE) Ur Phencyclidine (PCP) NEGATIVE (NEGATIVE) Urine Amphetamine NEGATIVE (NEGATIVE) U Benzodiazepine Level NEGATIVE (NEGATIVE) Urine Cocaine NEGATIVE (NEGATIVE) Urine Marijuana (THC) NEGATIVE (NEGATIVE) Slides for Path Review YES 09/12/22 09/12/22 09/13/22 Range/Units 17:35 23:08 05:20 WBC (4.0-10.5) x10^3/uL RBC (4.1-5.4) x10^6/uL Hgb (12.0-16.0) g/dL Hct (35-47) % MCV (78-100) fL MCH (26-32) pg MCHC (32-36) g/dL RDW (11.5-14.0) % Plt Count (150-450) x10^3/uL MPV (7.5-11.0) fL Gran % (36.0-66.0) % Immature Gran % (Auto) (0.00-0.4) % Nucleat RBC Rel Count (0.00-0.1) % Eos # (Auto) (0-0.5) x10^3/uL Immature Gran # (Auto) (0.00-0.03) x10^3u/L Absolute Lymphs (auto) (1.0-4.6) x10^3/uL Absolute Monos (auto) (0.0-1.3) x10^3/uL Absolute Nucleated RBC (0.00-0.01) x10^3u/L Lymphocytes % (24.0-44.0) % Monocytes % (0.0-12.0) % Eosinophils % (0.00-5.0) % Basophils % (0.0-0.4) % Absolute Granulocytes (1.4-6.9) x10^3/uL Basophils # (0-0.4) x10^3/uL Sodium (137-145) mmol/L Potassium (3.5-5.1) mmol/L Chloride (98-107) mmol/L Carbon Dioxide (22-30) mmol/L Anion Gap (5-15) MEQ/L BUN (7-17) mg/dL Creatinine (0.52-1.04) mg/dL Estimated GFR ML/MIN Glucose (74-106) mg/dL POC Glucometer (74 to 106) mg/dL Lactic Acid (0.4-2.0) Calcium (8.4-10.2) mg/dL Magnesium 1.7 (1.6-2.3) mg/dL Total Bilirubin (0.2-1.3) mg/dL AST (14-36) U/L ALT (0-35) U/L Alkaline Phosphatase (38-126) U/L Troponin I 0.036 H* 0.038 H* (0.000-0.034) ng/mL Serum Total Protein (6.3-8.2) g/dL Albumin (3.5-5.0) g/dL Urine Color (Yellow) Urine Appearance (Clear) Urine pH (4.6-8.0) Ur Specific [place] (1.005-1.030) Urine Protein (Negative) Urine Glucose (UA) (Negative) mg/dL Urine Ketones (Negative) Urine Blood (Negative) Urine Nitrite (Negative) Urine Bilirubin (Negative) Urine Urobilinogen (0.2) mg/dL Ur Leukocyte Esterase (Negative) U Hyaline Cast (Auto) (0-2) /LPF Urine Microscopic RBC (0-5) /HPF Urine Microscopic WBC (0-5) /HPF Ur Epithelial Cells (None Seen) /HPF Urine Bacteria (None Seen) /HPF Urine Yeast (Budding) (None Seen) /HPF Urine Culture Reflexed (NO) Urine Opiates Level (NEGATIVE) Ur Methadone (NEGATIVE) Urine Barbiturates (NEGATIVE) Ur Phencyclidine (PCP) (NEGATIVE) Urine Amphetamine (NEGATIVE) U Benzodiazepine Level (NEGATIVE) Urine Cocaine (NEGATIVE) Urine Marijuana (THC) (NEGATIVE) Slides for Path Review 09/13/22 09/13/22 09/13/22 Range/Units 05:31 05:31 06:45 WBC 4.0 (4.0-10.5) x10^3/uL RBC 2.81 L (4.1-5.4) x10^6/uL Hgb 8.7 L (12.0-16.0) g/dL Hct 26.3 L (35-47) % MCV 93.6 (78-100) fL MCH 31.0 (26-32) pg MCHC 33.1 (32-36) g/dL RDW 16.4 H (11.5-14.0) % Plt Count 61 L (150-450) x10^3/uL MPV 11.2 H (7.5-11.0) fL Gran % 69.4 H (36.0-66.0) % Immature Gran % (Auto) 0.7 H (0.00-0.4) % Nucleat RBC Rel Count 0.0 (0.00-0.1) % Eos # (Auto) 0.22 (0-0.5) x10^3/uL Immature Gran # (Auto) 0.03 (0.00-0.03) x10^3u/L Absolute Lymphs (auto) 0.57 L (1.0-4.6) x10^3/uL Absolute Monos (auto) 0.38 (0.0-1.3) x10^3/uL Absolute Nucleated RBC 0.00 (0.00-0.01) x10^3u/L Lymphocytes % 14.2 L (24.0-44.0) % Monocytes % 9.5 (0.0-12.0) % Eosinophils % 5.5 H (0.00-5.0) % Basophils % 0.7 (0.0-0.4) % Absolute Granulocytes 2.78 (1.4-6.9) x10^3/uL Basophils # 0.03 (0-0.4) x10^3/uL Sodium 140 (137-145) mmol/L Potassium 2.9 L* (3.5-5.1) mmol/L Chloride 108 H (98-107) mmol/L Carbon Dioxide 26 (22-30) mmol/L Anion Gap 9.4 (5-15) MEQ/L BUN 32 H (7-17) mg/dL Creatinine 1.66 H (0.52-1.04) mg/dL Estimated GFR 31.3 ML/MIN Glucose 93 (74-106) mg/dL POC Glucometer (74 to 106) mg/dL Lactic Acid 1.5 (0.4-2.0) Calcium 8.4 (8.4-10.2) mg/dL Magnesium (1.6-2.3) mg/dL Total Bilirubin 2.40 H (0.2-1.3) mg/dL AST 103 H (14-36) U/L ALT 35 (0-35) U/L Alkaline Phosphatase 137 H (38-126) U/L Troponin I (0.000-0.034) ng/mL Serum Total Protein 5.3 L (6.3-8.2) g/dL Albumin 2.2 L (3.5-5.0) g/dL Urine Color (Yellow) Urine Appearance (Clear) Urine pH (4.6-8.0) Ur Specific [place] (1.005-1.030) Urine Protein (Negative) Urine Glucose (UA) (Negative) mg/dL Urine Ketones (Negative) Urine Blood (Negative) Urine Nitrite (Negative) Urine Bilirubin (Negative) Urine Urobilinogen (0.2) mg/dL Ur Leukocyte Esterase (Negative) U Hyaline Cast (Auto) (0-2) /LPF Urine Microscopic RBC (0-5) /HPF Urine Microscopic WBC (0-5) /HPF Ur Epithelial Cells (None Seen) /HPF Urine Bacteria (None Seen) /HPF Urine Yeast (Budding) (None Seen) /HPF Urine Culture Reflexed (NO) Urine Opiates Level (NEGATIVE) Ur Methadone (NEGATIVE) Urine Barbiturates (NEGATIVE) Ur Phencyclidine (PCP) (NEGATIVE) Urine Amphetamine (NEGATIVE) U Benzodiazepine Level (NEGATIVE) Urine Cocaine (NEGATIVE) Urine Marijuana (THC) (NEGATIVE) Slides for Path Review YES 09/13/22 09/13/22 09/13/22 Range/Units 07:03 11:37 11:46 WBC (4.0-10.5) x10^3/uL RBC (4.1-5.4) x10^6/uL Hgb (12.0-16.0) g/dL Hct (35-47) % MCV (78-100) fL MCH (26-32) pg MCHC (32-36) g/dL RDW (11.5-14.0) % Plt Count (150-450) x10^3/uL MPV (7.5-11.0) fL Gran % (36.0-66.0) % Immature Gran % (Auto) (0.00-0.4) % Nucleat RBC Rel Count (0.00-0.1) % Eos # (Auto) (0-0.5) x10^3/uL Immature Gran # (Auto) (0.00-0.03) x10^3u/L Absolute Lymphs (auto) (1.0-4.6) x10^3/uL Absolute Monos (auto) (0.0-1.3) x10^3/uL Absolute Nucleated RBC (0.00-0.01) x10^3u/L Lymphocytes % (24.0-44.0) % Monocytes % (0.0-12.0) % Eosinophils % (0.00-5.0) % Basophils % (0.0-0.4) % Absolute Granulocytes (1.4-6.9) x10^3/uL Basophils # (0-0.4) x10^3/uL Sodium 139 (137-145) mmol/L Potassium 3.7 D (3.5-5.1) mmol/L Chloride 109 H (98-107) mmol/L Carbon Dioxide 26 (22-30) mmol/L Anion Gap 7.6 (5-15) MEQ/L BUN 30 H (7-17) mg/dL Creatinine 1.62 H (0.52-1.04) mg/dL Estimated GFR 32.2 ML/MIN Glucose 155 H (74-106) mg/dL POC Glucometer 67 L 136 H (74 to 106) mg/dL Lactic Acid (0.4-2.0) Calcium 8.2 L (8.4-10.2) mg/dL Magnesium (1.6-2.3) mg/dL Total Bilirubin (0.2-1.3) mg/dL AST (14-36) U/L ALT (0-35) U/L Alkaline Phosphatase (38-126) U/L Troponin I (0.000-0.034) ng/mL Serum Total Protein (6.3-8.2) g/dL Albumin (3.5-5.0) g/dL Urine Color (Yellow) Urine Appearance (Clear) Urine pH (4.6-8.0) Ur Specific [place] (1.005-1.030) Urine Protein (Negative) Urine Glucose (UA) (Negative) mg/dL Urine Ketones (Negative) Urine Blood (Negative) Urine Nitrite (Negative) Urine Bilirubin (Negative) Urine Urobilinogen (0.2) mg/dL Ur Leukocyte Esterase (Negative) U Hyaline Cast (Auto) (0-2) /LPF Urine Microscopic RBC (0-5) /HPF Urine Microscopic WBC (0-5) /HPF Ur Epithelial Cells (None Seen) /HPF Urine Bacteria (None Seen) /HPF Urine Yeast (Budding) (None Seen) /HPF Urine Culture Reflexed (NO) Urine Opiates Level (NEGATIVE) Ur Methadone (NEGATIVE) Urine Barbiturates (NEGATIVE) Ur Phencyclidine (PCP) (NEGATIVE) Urine Amphetamine (NEGATIVE) U Benzodiazepine Level (NEGATIVE) Urine Cocaine (NEGATIVE) Urine Marijuana (THC) (NEGATIVE) Slides for Path Review 09/13/22 09/13/22 Range/Units 16:09 16:20 WBC (4.0-10.5) x10^3/uL RBC (4.1-5.4) x10^6/uL Hgb (12.0-16.0) g/dL Hct (35-47) % MCV (78-100) fL MCH (26-32) pg MCHC (32-36) g/dL RDW (11.5-14.0) % Plt Count (150-450) x10^3/uL MPV (7.5-11.0) fL Gran % (36.0-66.0) % Immature Gran % (Auto) (0.00-0.4) % Nucleat RBC Rel Count (0.00-0.1) % Eos # (Auto) (0-0.5) x10^3/uL Immature Gran # (Auto) (0.00-0.03) x10^3u/L Absolute Lymphs (auto) (1.0-4.6) x10^3/uL Absolute Monos (auto) (0.0-1.3) x10^3/uL Absolute Nucleated RBC (0.00-0.01) x10^3u/L Lymphocytes % (24.0-44.0) % Monocytes % (0.0-12.0) % Eosinophils % (0.00-5.0) % Basophils % (0.0-0.4) % Absolute Granulocytes (1.4-6.9) x10^3/uL Basophils # (0-0.4) x10^3/uL Sodium (137-145) mmol/L Potassium 4.0 (3.5-5.1) mmol/L Chloride (98-107) mmol/L Carbon Dioxide (22-30) mmol/L Anion Gap (5-15) MEQ/L BUN (7-17) mg/dL Creatinine (0.52-1.04) mg/dL Estimated GFR ML/MIN Glucose (74-106) mg/dL POC Glucometer 204 H (74 to 106) mg/dL Lactic Acid (0.4-2.0) Calcium (8.4-10.2) mg/dL Magnesium (1.6-2.3) mg/dL Total Bilirubin (0.2-1.3) mg/dL AST (14-36) U/L ALT (0-35) U/L Alkaline Phosphatase (38-126) U/L Troponin I (0.000-0.034) ng/mL Serum Total Protein (6.3-8.2) g/dL Albumin (3.5-5.0) g/dL Urine Color (Yellow) Urine Appearance (Clear) Urine pH (4.6-8.0) Ur Specific [place] (1.005-1.030) Urine Protein (Negative) Urine Glucose (UA) (Negative) mg/dL Urine Ketones (Negative) Urine Blood (Negative) Urine Nitrite (Negative) Urine Bilirubin (Negative) Urine Urobilinogen (0.2) mg/dL Ur Leukocyte Esterase (Negative) U Hyaline Cast (Auto) (0-2) /LPF Urine Microscopic RBC (0-5) /HPF Urine Microscopic WBC (0-5) /HPF Ur Epithelial Cells (None Seen) /HPF Urine Bacteria (None Seen) /HPF Urine Yeast (Budding) (None Seen) /HPF Urine Culture Reflexed (NO) Urine Opiates Level (NEGATIVE) Ur Methadone (NEGATIVE) Urine Barbiturates (NEGATIVE) Ur Phencyclidine (PCP) (NEGATIVE) Urine Amphetamine (NEGATIVE) U Benzodiazepine Level (NEGATIVE) Urine Cocaine (NEGATIVE) Urine Marijuana (THC) (NEGATIVE) Slides for Path Review Accuchecks Date 09/13/22 Date 09/13/22 Time 11:46 Time 07:03 - Radiology Impressions Radiology Exams & Impressions: Radiology Procedures Category Date Time Status ABDOMEN AND PELVIS W/0 CONTRAS [CT] Stat Exams 09/12/22 15:09 Completed ANKLE (3 VIEWS) Stat Exams 09/12/22 15:12 Completed CERVICAL SPINE WO CONTRAST [CT] Stat Exams 09/12/22 15:07 Completed CHEST WITHOUT CONTRAST [CT] Stat Exams 09/12/22 15:09 Completed HEAD WITHOUT CONTRAST [CT] Stat Exams 09/12/22 15:07 Completed KNEE (3 VIEWS) Stat Exams 09/12/22 15:12 Completed Assessment/Plan (1) Fall Status: Acute Qualifiers: Encounter type: initial encounter Qualified Code(s): W19.XXXA - Unspecified fall, initial encounter Assessment & Plan: radiographs- no acute findings Code(s): W19.XXXA - UNSPECIFIED FALL, INITIAL ENCOUNTER (2) Traumatic hematoma of buttock Status: Acute Assessment & Plan: skin intact right upper buttock Code(s): S30.0XXA - CONTUSION OF LOWER BACK AND PELVIS, INITIAL ENCOUNTER (3) Weakness of both lower extremities Status: Acute Assessment & Plan: not able to bear weight due to BLE weakness Code(s): R29.898 - OTH SYMPTOMS AND SIGNS INVOLVING THE MUSCULOSKELETAL SYSTEM (4) Anemia Status: Chronic Assessment & Plan: follow Code(s): D64.9 - ANEMIA, UNSPECIFIED (5) Pressure sore of ischial area Status: Acute Assessment & Plan: PT /wound care eval and treat Code(s): L89.309 - PRESSURE ULCER OF UNSPECIFIED BUTTOCK, UNSPECIFIED STAGE (6) Liver cancer Status: Chronic Code(s): C22.9 - MALIG NEOPLASM OF LIVER, NOT SPECIFIED PRIMARY OR SEC (7) CRF (chronic renal failure) Status: Chronic
[2022-09-13] MEDS: Protonix 40MG Tablet PO SCH (21:54)
[2022-09-13] MEDS: ACETAZOLAMIDE 250 MG TABLET PO SCH (21:55)
[2022-09-13] MEDS ORDERED: ACETAZOLAMIDE 125 MG PO SCH (22:00)
[2022-09-13] MEDS ORDERED: LACTOBACILLUS BULGARICUS PO SCH (22:00)
[2022-09-13] MEDS ORDERED: NON-FORMULARY ITEM (Omeprazole Magnesium [Prilosec Otc] 20 MG Tablet.Dr) PO SCH (22:00)
[2022-09-13] MEDS ORDERED: Levofloxacin 500MG/100ML D5W 500 MG/100 ML BAG IV SCH (22:00)
[2022-09-13] MEDS ORDERED: [UNRECOGNIZED DRUG - OTHER] PO SCH (22:00)
[2022-09-13] MEDS ORDERED: LACTOBACILLUS ACIDOPHILUS PO SCH (22:00)
[2022-09-14] MEDS: Sodium Chloride 0.9% 1000 ML 1,000 ML IV SCH (03:21)
[2022-09-14 06:06] LABS: ANION GAP 7.4 MEQ/L (5-15); Calcium 8.2 mg/dL (8.4-10.2); Creatinine 1 1.49 mg/dL (0.52-1.04); EST GLOMERULAR FILTRATION RATE 35.4 ML/MIN; MAGNESIUM 1.6 mg/dL (1.6-2.3); Potassium 4.4 mmol/L (3.5-5.1)
[2022-09-14] MEDS: DEMADEX 20 MG PO SCH (09:37)
[2022-09-14] MEDS: Toprol-Xl 25MG Tablets PO SCH (09:37)
[2022-09-14] MEDS: BENADRYL 25 MG CAPSULE PO PRN ×2 (09:37→21:27)
[2022-09-14] MEDS: Klor Con PO SCH (09:38)
[2022-09-14] MEDS: LASIX 20 MG PO SCH (09:38)
[2022-09-14] MEDS: Ditropan XL 5 MG PO SCH (09:38)
[2022-09-14] MEDS: Acidophilus TABLET PO SCH ×3 (09:38→21:27)
[2022-09-14] MEDS: Protonix 40MG Tablet PO SCH ×2 (09:38→21:27)
[2022-09-14] MEDS: Glucotrol Xl 2.5 MG PO SCH (09:39)
[2022-09-14] MEDS: ACETAZOLAMIDE 250 MG TABLET PO SCH ×2 (09:39→21:27)
[2022-09-14] MEDS ORDERED: NON-FORMULARY ITEM (Potassium Chloride [Klor-Con M20] 20 MEQ Tab.Er.Prt) PO SCH (10:00)
[2022-09-14] MEDS ORDERED: NON-FORMULARY ITEM (Torsemide [Torsemide] 100 MG Tablet) PO SCH (10:00)
[2022-09-14] MEDS ORDERED: NON-FORMULARY ITEM (Metoprolol Succinate 25 MG Tab.Er.24h) PO SCH (10:00)
[2022-09-14] MEDS ORDERED: NON-FORMULARY ITEM (Oxybutynin Chloride [Oxybutynin Chloride Er] 15 MG Tab.Er.24) PO SCH (10:00)
--- NOTE | 2022-09-14 12:59 | PCM.NOTE ---
Date and Time: 09/14/22 1253 Subjective Assessment: Patient is weak ,states she can barely hold her weight when transferring to the chair today. Appetite is good. Patient states she does not want Rehab but would do HH PT Daughter is POA and feels ptn needs a rehab stay since she lives alone. Rash groin and under breasts per aid. Objective Exam General Appearance: no apparent distress (sitting up in bedside chair) Neurologic Exam: alert, oriented x 3, cooperative, normal mood/affect Skin Exam: normal color, warm, dry, rash (moist red under breasts and in groin) Neck Exam: normal inspection Respiratory Exam: normal breath sounds Cardiovascular Exam: bradycardia (rate 66 regular) Gastrointestinal/Abdomen Exam: soft, normal bowel sounds (nontender) Extremity Exam: other (no pitting edema) OBJECTIVE DATA Vital Signs: Vital Signs - 24 hr Temp Pulse Resp BP Pulse Ox 09/14/22 12:00 97.3 F 66 18 111/53 94 L 09/14/22 08:00 97.5 F 65 18 120/56 95 09/14/22 04:00 97.9 F 68 16 110/56 97 09/13/22 23:53 97.5 F 72 18 125/58 95 09/13/22 20:00 98.9 F 75 18 118/57 100 09/13/22 16:00 97.8 F 86 23 140/65 92 L Pain Assessment - Last Documented Pain Intensity 4 Pain Scale Used 0-10 Pain Scale Intake and Output: Intake & Output 09/12/22 09/13/22 09/14/22 09/15/22 11:59 11:59 11:59 11:59 Intake Total 1381 4850 600 Output Total 425 2150 950 Balance 956 2700 -350 Weight 64.7 kg Lab Results: Lab Results-Last 24 Hours 09/13/22 09/13/22 09/13/22 Range/Units 16:09 16:20 21:44 Sodium (137-145) mmol/L Potassium 4.0 (3.5-5.1) mmol/L Chloride (98-107) mmol/L Carbon Dioxide (22-30) mmol/L Anion Gap (5-15) MEQ/L BUN (7-17) mg/dL Creatinine (0.52-1.04) mg/dL Estimated GFR ML/MIN Glucose (74-106) mg/dL POC Glucometer 204 H 132 H (74 to 106) mg/dL Hemoglobin A1c (4.5-6.0) % Calcium (8.4-10.2) mg/dL Magnesium (1.6-2.3) mg/dL 09/14/22 09/14/22 09/14/22 Range/Units 05:09 05:09 07:31 Sodium 139 (137-145) mmol/L Potassium 4.4 (3.5-5.1) mmol/L Chloride 110 H (98-107) mmol/L Carbon Dioxide 25 (22-30) mmol/L Anion Gap 7.4 (5-15) MEQ/L BUN 28 H (7-17) mg/dL Creatinine 1.49 H (0.52-1.04) mg/dL Estimated GFR 35.4 ML/MIN Glucose 89 (74-106) mg/dL POC Glucometer 97 (74 to 106) mg/dL Hemoglobin A1c 4.55 (4.5-6.0) % Calcium 8.2 L (8.4-10.2) mg/dL Magnesium 1.6 (1.6-2.3) mg/dL 09/14/22 Range/Units 10:46 Sodium (137-145) mmol/L Potassium (3.5-5.1) mmol/L Chloride (98-107) mmol/L Carbon Dioxide (22-30) mmol/L Anion Gap (5-15) MEQ/L BUN (7-17) mg/dL Creatinine (0.52-1.04) mg/dL Estimated GFR ML/MIN Glucose (74-106) mg/dL POC Glucometer 183 H (74 to 106) mg/dL Hemoglobin A1c (4.5-6.0) % Calcium (8.4-10.2) mg/dL Magnesium (1.6-2.3) mg/dL Radiology Exams: Radiology Procedures Category Date Time Status ABDOMEN AND PELVIS W/0 CONTRAS [CT] Stat Exams 09/12/22 15:09 Completed ANKLE (3 VIEWS) Stat Exams 09/12/22 15:12 Completed CERVICAL SPINE WO CONTRAST [CT] Stat Exams 09/12/22 15:07 Completed CHEST WITHOUT CONTRAST [CT] Stat Exams 09/12/22 15:09 Completed HEAD WITHOUT CONTRAST [CT] Stat Exams 09/12/22 15:07 Completed KNEE (3 VIEWS) Stat Exams 09/12/22 15:12 Completed Assessment/Plan (1) Fall Current Visit: No Status: Acute Qualifiers: Encounter type: initial encounter Qualified Code(s): W19.XXXA - Unspecified fall, initial encounter Assessment & Plan: weakness BLE unable to ambulate without assistance Code(s): W19.XXXA - UNSPECIFIED FALL, INITIAL ENCOUNTER (2) Tinea corporis Current Visit: Yes Status: Acute Assessment & Plan: Rx started Code(s): B35.4 - TINEA CORPORIS (3) Traumatic hematoma of buttock Current Visit: Yes Status: Acute Assessment & Plan: right upper buttock,skin intact,use barrier cream Code(s): S30.0XXA - CONTUSION OF LOWER BACK AND PELVIS, INITIAL ENCOUNTER (4) Liver cancer Current Visit: Yes Status: Chronic Code(s): C22.9 - MALIG NEOPLASM OF LIVER, NOT SPECIFIED PRIMARY OR SEC (5) UTI (urinary tract infection) Current Visit: Yes Status: Suspected Assessment & Plan: culture grew yeast only,will stop Levaquin,start Diflucan if no contraindications Code(s): N39.0 - URINARY TRACT INFECTION, SITE NOT SPECIFIED
[2022-09-14] MEDS ORDERED: DIFLUCAN PO ONE (14:00)
[2022-09-14] MEDS ORDERED: Diflucan 100 MG PO ONE (14:00)
[2022-09-14 14:39] LABS: Absolute Neutrophil Ct (ANC) 2.06 x10^3/uL (1.4-6.9); BASOPHIL % 0.6 % (0.0-0.4); Basophil (Absolute #) 0.02 x10^3/uL (0-0.4); Eosinophil % 6.2 % (0.00-5.0); Hematocrit 26.8 % (35-47); Hemoglobin 8.5 g/dL (12.0-16.0); IMMATURE GRAN # 0.03 x10^3u/L (0.00-0.03); IMMATURE GRAN % 0.9 % (0.00-0.4); Lymphocyte (Absolute #) 0.59 x10^3/uL (1.0-4.6); Lymphocytes % 18.2 % (24.0-44.0); Mean Cell Volume 96.4 fL (78-100); Mean Corpuscular Hemoglobin 30.6 pg (26-32); Mean Corpuscular Hgb Concent. 31.7 g/dL (32-36); Mean Platelet Volume 12.3 fL (7.5-11.0); Monocyte (Absolute #) 0.34 x10^3/uL (0.0-1.3); Monocytes % 10.5 % (0.0-12.0); Neutrophil % 63.6 % (36.0-66.0); Platelet Count 61 x10^3/uL (150-450); Red Blood Count 2.78 x10^6/uL (4.1-5.4); Red Cell Distribution Width 16.4 % (11.5-14.0); White Blood Count 3.2 x10^3/uL (4.0-10.5)
[2022-09-14 16:18] LABS: Slide Review 1 YES
[2022-09-14] MEDS: Nizoral CREAM TOP SCH (21:28)
[2022-09-15] MEDS: SUBLIMAZE 100 MCG/2 ML IV PRN ×2 (07:00→22:18)
[2022-09-15] MEDS: Acidophilus TABLET PO SCH ×3 (09:50→21:13)
[2022-09-15] MEDS: ACETAZOLAMIDE 250 MG TABLET PO SCH ×2 (09:50→21:13)
[2022-09-15] MEDS: DEMADEX 20 MG PO SCH (09:51)
[2022-09-15] MEDS: LASIX 20 MG PO SCH (09:51)
[2022-09-15] MEDS: Klor Con PO SCH (09:51)
[2022-09-15] MEDS: Nizoral CREAM TOP SCH ×2 (09:51→21:15)
[2022-09-15] MEDS: Ditropan XL 5 MG PO SCH (09:51)
[2022-09-15] MEDS: Protonix 40MG Tablet PO SCH ×2 (09:53→21:13)
[2022-09-15] MEDS: Toprol-Xl 25MG Tablets PO SCH (09:53)
[2022-09-15] MEDS: BENADRYL 25 MG CAPSULE PO PRN (17:40)
--- NOTE | 2022-09-15 18:43 | PCM.NOTE ---
Date and Time: 09/15/221839 Subjective Assessment: Patient is still weak on her feet and agrees to go for a rehab stay. She lives alone. Denies any new C/O. Objective Exam General Appearance: no apparent distress Neurologic Exam: alert, oriented x 3, cooperative Skin Exam: normal color, warm, dry Wound Assessment: Skin/Wound Assessment Wound/Incision Assessment Start: 09/14/22 15:53 Text: Status: Active Freq: Q6H Protocol: Document 09/15/22 14:00 AW (Rec: 09/15/22 16:46 AW [id number]) Wound/Incision Assessment Right Buttock Wound Assessment Shift Assessment Wound Type Pressure Ulcer Wound Stage Stage II Drainage Amount Minimal Drainage Description Serosanguineous Drainage Odor None/Absent General Appearance Open to air Wound Bed Greatest Portion Red (Granulation) Wound Photo Photo Taken Yes Neck Exam: normal inspection Respiratory Exam: diminished breath sounds (bases) Cardiovascular Exam: bradycardia (60reg) Gastrointestinal/Abdomen Exam: soft (nontender) OBJECTIVE DATA Vital Signs: Vital Signs - 24 hr Temp Pulse Resp BP Pulse Ox 09/15/22 16:00 97.9 F 65 16 109/53 100 09/15/22 11:25 98.0 F 60 16 102/45 98 09/15/22 08:00 98.0 F 66 16 94/45 96 09/15/22 04:00 98.0 F 61 16 92/48 97 09/15/22 00:00 98.0 F 61 18 97/46 97 09/14/22 20:00 97.5 F 64 18 107/53 98 Pain Assessment - Last Documented Pain Intensity 4 Pain Scale Used 0-10 Pain Scale Intake and Output: Intake & Output 09/13/22 09/14/22 09/15/22 09/16/22 11:59 11:59 11:59 11:59 Intake Total 1381 4850 3104 960 Output Total 425 2150 4350 850 Balance 956 2700 -1246 110 Weight 64.7 kg Lab Results: Lab Results-Last 24 Hours 09/14/22 09/15/22 09/15/22 Range/Units 21:18 07:53 11:33 POC Glucometer 77 86 161 H (74 to 106) mg/dL 09/15/22 Range/Units 16:12 POC Glucometer 175 H (74 to 106) mg/dL Multi-Disciplinary Progress Notes: Multi-Disciplinary Progress Notes 09/15/22 13:24 Case Management Note by Tova Brooks AFTER TALKING WITH DR EDWARDS PATIENT NOW AGREEABLE TO SHORT TERM REHAB STAY- SHE WOULD LIKE TO GO TO [facility] AT TIME OF DC. AGAIN THIS CONSTRUCTION OR [employer] ASKED IF I COULD DISCUSS THIS WITH DAUGHTER JAYME- PATIENT AGAIN REFUSED TO ALLOW ME TO CALL JAYME ABOUT PLACEMENT REFERRAL FAXED TO [facility] Initialized on 09/15/22 13:24 - END OF NOTE 09/15/22 11:30 (created 09/15/22 13:23) Case Management Note by Tova Brooks WHEELCHAIR ORDERED FOR PATIENT THRU [facility] USING [place] Initialized on 09/15/22 13:23 - END OF NOTE Assessment/Plan (1) Fall Current Visit: No Status: Acute Qualifiers: Encounter type: initial encounter Qualified Code(s): W19.XXXA - Unspecified fall, initial encounter Assessment & Plan: rehab Code(s): W19.XXXA - UNSPECIFIED FALL, INITIAL ENCOUNTER (2) Traumatic hematoma of buttock Current Visit: Yes Status: Acute Code(s): S30.0XXA - CONTUSION OF LOWER BACK AND PELVIS, INITIAL ENCOUNTER (3) Weakness of both lower extremities Current Visit: Yes Status: Acute Assessment & Plan: rehab- should improve Code(s): R29.898 - OTH SYMPTOMS AND SIGNS INVOLVING THE MUSCULOSKELETAL SYSTEM (4) Anemia Current Visit: No Status: Chronic Qualifiers: Anemia type: bone marrow failure Bone marrow failure anemia type: pancytopenia, other Qualified Code(s): D61.818 - Other pancytopenia Code(s): D64.9 - ANEMIA, UNSPECIFIED (5) Pressure sore of ischial area Current Visit: Yes Status: Acute Code(s): L89.309 - PRESSURE ULCER OF UNSPECIFIED BUTTOCK, UNSPECIFIED STAGE
[2022-09-15] MEDS: Sodium Chloride 0.9% 1000 ML 1,000 ML IV SCH (19:20)
[2022-09-16] MEDS: DEMADEX 20 MG PO SCH (11:11)
[2022-09-16] MEDS: Ditropan XL 5 MG PO SCH (11:11)
[2022-09-16] MEDS: Klor Con PO SCH (11:11)
[2022-09-16] MEDS: Protonix 40MG Tablet PO SCH ×2 (11:11→21:39)
[2022-09-16] MEDS: Acidophilus TABLET PO SCH ×3 (11:11→21:39)
[2022-09-16] MEDS: Toprol-Xl 25MG Tablets PO SCH (11:12)
[2022-09-16] MEDS: LASIX 20 MG PO SCH (11:12)
[2022-09-16] MEDS: ACETAZOLAMIDE 250 MG TABLET PO SCH ×2 (11:12→21:39)
[2022-09-16] MEDS: Nizoral CREAM TOP SCH ×2 (11:19→21:39)
[2022-09-16] MEDS: SUBLIMAZE 100 MCG/2 ML IV PRN (13:20)
[2022-09-16] MEDS ORDERED: NORCO 5/325 MG PO PRN (13:35)
--- NOTE | 2022-09-16 19:21 | PCM.NOTE ---
Date and Time: 09/16/221916 Subjective Assessment: Patient is sitting up in lounge chair and is ready to go to bed c/o buttock pain. Objective Exam General Appearance: mild distress (uncomfortable sitting in chair at bedside) Neurologic Exam: alert, oriented x 3, normal mood/affect Skin Exam: warm, dry, pale, other (ischial wound) Wound Assessment: Skin/Wound Assessment Wound/Incision Assessment Start: 09/14/22 15:53 Text: Status: Active Freq: Q6H Protocol: Document 09/16/22 14:00 RDNE (Rec: 09/16/22 15:03 RDNE [id number]) Wound/Incision Assessment Right Buttock Wound Assessment Shift Assessment Wound Type Pressure Ulcer Wound Stage Stage II Drainage Amount Minimal Drainage Description Serosanguineous Drainage Odor None/Absent General Appearance Open to air Wound Bed Greatest Portion Red (Granulation) Wound Photo Photo Taken Yes Respiratory Exam: normal breath sounds Cardiovascular Exam: regular rate/rhythm Gastrointestinal/Abdomen Exam: soft (nontender) OBJECTIVE DATA Vital Signs: Vital Signs - 24 hr Temp Pulse Resp BP BP Pulse Ox 09/16/22 16:00 97.8 F 66 15 108/56 95 09/16/22 12:20 97.5 F 62 16 105/52 91 L 09/16/22 11:08 65 106/50 09/16/22 08:00 98.6 F 66 14 94/44 94 L 09/16/22 04:00 97.8 F 71 16 108/54 95 09/15/22 23:20 97.7 F 16 117/56 100 09/15/22 20:00 97.8 F 65 16 110/64 93 L Pain Assessment - Last Documented Pain Intensity 1 Pain Scale Used 0-10 Pain Scale Intake and Output: Intake & Output 09/14/22 09/15/22 09/16/22 09/17/22 11:59 11:59 11:59 11:59 Intake Total 4850 3104 1800 600 Output Total 2150 4350 1650 Balance 2700 -1246 150 600 Lab Results: Lab Results-Last 24 Hours 09/15/22 09/16/22 09/16/22 Range/Units 22:08 07:09 11:39 POC Glucometer 193 H 121 H 117 H (74 to 106) mg/dL 09/16/22 Range/Units 15:49 POC Glucometer 193 H (74 to 106) mg/dL Multi-Disciplinary Progress Notes: Multi-Disciplinary Progress Notes 09/16/22 16:37 Physical Therapy Note by Treasure(Ramesh#[id number])Deidre PT. WAS SEEN BY P.T. BID THIS DATE. IN AM, PT. WAS IN BED UPON P.T. ARRIVAL TO ROOM AND WAS SLEEPY BUT AGREEABLE TO GET UP W/ P.T. PERFORMED ROLLING TO R W/ MIN-MOD ASSIST; SUPINE TO SIT W/ MOD ASSIST; SCOOTING TO SIDE OF BED PERFORMED W/ MOD ASSIST. PT. PERFORMED SIT TO STAND W/ MIN-MOD ASSIST AND TOOK 2-3 STEPS W/ RW TO TRANSFER TO BEDSIDE CHAIR W/ MIN ASSIST. PT. MOVED LES VERY SLOWLY W/ ATTEMPTS TO WALK; VERY SHORT STRIDE AND MIN FOOT CLEARANCE NOTED. PT. EXHIBITS SLOW PROCESSING WHEN V.C. GIVEN. IN PM, PT. IN BEDSIDE CHAIR AND VERY SLEEPY. PERFORMED SIT TO STAND W/ MIN ASSIST; AND STOOD X ~ 30" AT RW W/ CGA. PT. C/O BILATERAL DORSAL FOOT PN. PERFORMED SEATED LE EX'S OF LAQS, MARCHES, HEEL SLIDES, ANKLE PUMPS, AND SLRS X 5-10 REPS W/ MIN-NO REST BETWEEN EX'S. PT. CONT. W/ RED SKIN OVER SACRUM W/ SUPERFICIAL SHEARING OF SKIN ON EACH BUTTOCK. APPLIED BARRIER OINTMENT TO BUTTOCKS X 2 TODAY TO PROMOTE SKIN PROTECTION/HYDRATION. AWAITING INS PA FOR REHAB STAY. WILL CONT. W/ P.T. 5X/WK TO PREP FOR SNF STAY. Initialized on 09/16/22 16:37 - END OF NOTE 09/16/22 12:11 Case Management Note by Tova Brooks HAS STARTED PRECERT AND HAS ASKED FOR EXPEDITED APPROVAL Initialized on 09/16/22 12:11 - END OF NOTE 09/16/22 11:04 Case Management Note by Tova Brooks INITIALLY DECLINED REFERRAL REFERRAL THEN FAXED TO [facility]- THEY DECLINED REFERRAL- NOT IN NETWORK [facility] NOW CHECKING BENEFITS- IF IN NETWORK AND APPROVED THEY WILL TAKE PATIENT Initialized on 09/16/22 11:04 - END OF NOTE Assessment/Plan (1) Fall Status: Acute Qualifiers: Encounter type: initial encounter Qualified Code(s): W19.XXXA - Unspecified fall, initial encounter Code(s): W19.XXXA - UNSPECIFIED FALL, INITIAL ENCOUNTER (2) Traumatic hematoma of buttock Status: Acute Code(s): S30.0XXA - CONTUSION OF LOWER BACK AND PELVIS, INITIAL ENCOUNTER (3) Weakness of both lower extremities Status: Acute Code(s): R29.898 - OTH SYMPTOMS AND SIGNS INVOLVING THE MUSCULOSKELETAL SYSTEM (4) Anemia Status: Chronic Code(s): D64.9 - ANEMIA, UNSPECIFIED (5) Pressure sore of ischial area Status: Acute Assessment & Plan: wound care,night nurse to address until wound care tomorrow Code(s): L89.309 - PRESSURE ULCER OF UNSPECIFIED BUTTOCK, UNSPECIFIED STAGE
[2022-09-16] MEDS: BENADRYL 25 MG CAPSULE PO PRN (21:39)
[2022-09-17 05:55] LABS: Hematocrit 25.6 % (35-47); Hemoglobin 8.4 g/dL (12.0-16.0); Mean Cell Volume 95.9 fL (78-100); Mean Corpuscular Hemoglobin 31.5 pg (26-32); Mean Corpuscular Hgb Concent. 32.8 g/dL (32-36); Mean Platelet Volume 11.7 fL (7.5-11.0); Platelet Count 53 x10^3/uL (150-450); Red Blood Count 2.67 x10^6/uL (4.1-5.4); Red Cell Distribution Width 16.4 % (11.5-14.0); White Blood Count 2.4 x10^3/uL (4.0-10.5)
[2022-09-17 06:29] LABS: ALBUMIN 2.2 g/dL (3.5-5.0); ANION GAP 9.2 MEQ/L (5-15); BILIRUBIN,TOTAL 1.5 mg/dL (0.2-1.3); Calcium 9.2 mg/dL (8.4-10.2); Creatinine 1 1.73 mg/dL (0.52-1.04); EST GLOMERULAR FILTRATION RATE 29.8 ML/MIN; Potassium 3.4 mmol/L (3.5-5.1); Total Protein 5.2 g/dL (6.3-8.2)
[2022-09-17 07:51] LABS: Eosinophil 6 % (0.00-3.0); Lymphocytes 28 % (24-44); Monocyte 4 % (0.0-12.0); Neutrophils 62 % (36.0-66.0); Total Cells Counted 100
[2022-09-17 07:53] LABS: ANISOCYTOSIS 1+; Hypochromia 1+
[2022-09-17 07:54] LABS: Platelet Estimate DECREASED (NORMAL)
[2022-09-17] MEDS: DEMADEX 20 MG PO SCH (10:14)
[2022-09-17] MEDS: Klor Con PO SCH (10:14)
[2022-09-17] MEDS: LASIX 20 MG PO SCH (10:14)
[2022-09-17] MEDS: Protonix 40MG Tablet PO SCH ×2 (10:14→22:07)
[2022-09-17] MEDS: Toprol-Xl 25MG Tablets PO SCH (10:15)
[2022-09-17] MEDS: Acidophilus TABLET PO SCH ×3 (10:15→22:07)
[2022-09-17] MEDS: Ditropan XL 5 MG PO SCH (10:15)
[2022-09-17] MEDS: ACETAZOLAMIDE 250 MG TABLET PO SCH ×2 (10:16→22:07)
[2022-09-17] MEDS: Nizoral CREAM TOP SCH ×2 (10:16→22:07)
[2022-09-17] MEDS: BENADRYL 25 MG CAPSULE PO PRN (22:07)
[2022-09-18 05:33] LABS: BASOPHIL % 0.6 % (0.0-0.4); Basophil (Absolute #) 0.02 x10^3/uL (0-0.4); Eosinophil % 6.1 % (0.00-5.0); Hematocrit 25.7 % (35-47); Hemoglobin 8.3 g/dL (12.0-16.0); IMMATURE GRAN # 0.01 x10^3u/L (0.00-0.03); IMMATURE GRAN % 0.3 % (0.00-0.4); Lymphocyte (Absolute #) 0.66 x10^3/uL (1.0-4.6); Mean Cell Volume 96.3 fL (78-100); Mean Corpuscular Hemoglobin 31.1 pg (26-32); Mean Corpuscular Hgb Concent. 32.3 g/dL (32-36); Mean Platelet Volume 11.1 fL (7.5-11.0); Monocyte (Absolute #) 0.41 x10^3/uL (0.0-1.3); Monocytes % 12.4 % (0.0-12.0); Neutrophil % 60.6 % (36.0-66.0); Platelet Count 63 x10^3/uL (150-450); Red Blood Count 2.67 x10^6/uL (4.1-5.4); Red Cell Distribution Width 16.5 % (11.5-14.0); White Blood Count 3.3 x10^3/uL (4.0-10.5)
[2022-09-18 05:56] LABS: ALBUMIN 2.2 g/dL (3.5-5.0); ANION GAP 8.7 MEQ/L (5-15); BILIRUBIN,TOTAL 1.7 mg/dL (0.2-1.3); Calcium 9.3 mg/dL (8.4-10.2); Creatinine 1 1.72 mg/dL (0.52-1.04); Potassium 3.5 mmol/L (3.5-5.1); Total Protein 5.3 g/dL (6.3-8.2)
[2022-09-18 07:43] VITALS: O2SAT 98
[2022-09-18 07:58] LABS: Slide Review 1 YES
[2022-09-18] MEDS: ACETAZOLAMIDE 250 MG TABLET PO SCH (08:44)
[2022-09-18] MEDS: Acidophilus TABLET PO SCH (08:44)
[2022-09-18] MEDS: Ditropan XL 5 MG PO SCH (08:45)
[2022-09-18] MEDS ORDERED: Sodium Chloride 0.9% W/ 20 mEq KCl/LITER 1,000 ML IV SCH (08:45)
[2022-09-18] MEDS: Klor Con PO SCH (08:45)
[2022-09-18] MEDS: DEMADEX 20 MG PO SCH (08:45)
[2022-09-18] MEDS: Nizoral CREAM TOP SCH (08:46)
[2022-09-18] MEDS: LASIX 20 MG PO SCH (08:46)
[2022-09-18] MEDS: Protonix 40MG Tablet PO SCH (08:47)
[2022-09-18] MEDS: Toprol-Xl 25MG Tablets PO SCH (08:47)
[2022-09-18 11:58] VITALS: BP 114/56; PULSE 62
--- NOTE | 2022-09-26 20:12 | PCM.DS ---
Discharge Summary Date of Admission: 09/12/22 21:49 Date of Discharge: 09/18/2022 Admitting Physician: EVIN NUNO Primary Care Provider: EVIN NUNO Allergies Allergies cephalexin [From Keflex] Allergy (Intermediate, Verified 09/12/22 22:24) Rash Sulfa (Sulfonamide Antibiotics) Allergy (Intermediate, Verified 09/12/22 22:24) Nausea and Vomiting adhesive tape Allergy (Mild, Verified 09/12/22 22:24) Rash latex Allergy (Mild, Verified 09/12/22 22:24) Rash Hospital Summary - Hospital Course Hospital Course: Pt. admitted after fall with multiple contusions and found to have UTI, symptoms resolved quickly but she was held awaiting insurance approval for rehab. - Vitals & Intake/Output Vital Signs: Vital Signs Temperature 97.7 F 09/18/22 11:56 Pulse Rate 62 09/18/22 11:56 Respiratory Rate 16 09/18/22 11:56 Blood Pressure 114/56 09/18/22 11:56 O2 Sat by Pulse Oximetry 98 09/18/22 11:56 - Lab Result Diagrams: 09/18/22 04:35 09/18/22 04:35 Micro Results-Entire Visit: Microbiology 09/12/22 19:35 Blood Culture Gram Stain - Final Blood Not Reportable Blood Culture - Final NO GROWTH 09/12/22 19:30 Blood Culture Gram Stain - Final Blood Not Reportable Blood Culture - Final NO GROWTH 09/12/22 16:00 Urine Culture - Final Clean Catch Midstream - Procedures and Test Procedures and Tests throughout Hospitalization: Therapy Orders & Screens 09/13/22 17:30 PT Eval & Treat ( Order) ONCE Reason for Eval:: fall,weakness Diagnosis: Multiple contusions/Renal failure/UTI 09/17/22 08:00 PT Eval & Treat (MD Order) ONCE Reason for Eval:: pressure ulcer management, right buttocks Diagnosis: Multiple contusions/Renal failure/UTI Discharge Exam General Appearance: no apparent distress, alert Neurologic Exam: alert, oriented x 3, cooperative, normal mood/affect, nml cerebellar function, sensation nml, No motor deficits Eye Exam: PERRL, EOMI, eyes nml inspection Ears, Nose, Throat Exam: normal ENT inspection, pharynx normal, moist mucous membranes Neck Exam: normal inspection, non-tender, supple, full range of motion Respiratory Exam: normal breath sounds, lungs clear, No respiratory distress Cardiovascular Exam: regular rate/rhythm, normal heart sounds Gastrointestinal/Abdomen Exam: soft, No tenderness, No mass Pelvic Exam: deferred Rectal Exam: deferred Back Exam: normal inspection, normal range of motion, No CVA tenderness, No vertebral tenderness Extremity Exam: normal inspection, normal range of motion Skin Exam: normal color, warm, dry Final Diagnosis/Problem List - Final Discharge Diagnosis/Problem (1) Cirrhosis Status: Acute (2) Multiple contusions Status: Acute Code(s): T07.XXXA - UNSPECIFIED MULTIPLE INJURIES, INITIAL ENCOUNTER (3) UTI (urinary tract infection) Status: Suspected Code(s): N39.0 - URINARY TRACT INFECTION, SITE NOT SPECIFIED - Discharge Discharge Date: 09/18/22 Disposition: DC TO ANY "OTHER" LONGTERM Condition: Stable Prescriptions: New Diphenhydramine HCl 25 mg [Benadryl 25 mg Capsule] 25 mg PO Q6H PRN PRN #0 cap PRN Reason: Itching Potassium Chloride Tab* [Klor Con] 30 meq PO DAILY tablet Furosemide 20 mg [Lasix 20 mg] 10 mg PO DAILY tablet Ketoconazole Cream [Nizoral CREAM] 1 gm TOP BID Continue Omeprazole Magnesium [Prilosec Otc] 20 mg PO BID Benzonatate 100 mg PO DAILY PRN 10 Days #30 PRN Reason: Cough Oxybutynin Chloride [Oxybutynin Chloride ER] 15 mg PO DAILY L. Acidophilus/L.bulgaricus [Lactobacillus 1 Million Cfu Tb] 1 each PO TID #30 tablet acetaZOLAMIDE [Acetazolamide] 125 mg PO BID Metoprolol Succinate 25 mg PO DAILY Acetaminophen [Tylenol Extra Strength] 1,000 mg PO Q6HPRN PRN PRN Reason: Pain Torsemide 100 mg PO DAILY diphenhydrAMINE HCL [Benadryl] 25 mg PO Q6H PRN PRN PRN Reason: Itching Discontinued glipiZIDE [Glipizide ER] 2.5 mg PO DAILY Furosemide 20 mg [Lasix 20 mg] 20 mg PO DAILY Potassium Chloride [Klor-Con M20] 20 meq PO DAILY Additional Instructions: LONGTERM ORDERS: ADMIT TO [facility] DIET BOOST PT/OT EVAL AND TREAT SEE ATTACHED MED LIST Follow up with: EVIN NUNO MD [Primary Care Provider] - Forms: Transfer Record Long Term
== END 2022-09-18 12:26 ==
LOC: ED 14:39 → MED SURG 21:49
PROVIDERS: ADMIT Family Medicine; ATTEND Family Medicine
DX: K74.60 Unspecified cirrhosis of liver (principal); N39.0 Urinary tract infection, site not specified; R53.1 Weakness; L89.312 Pressure ulcer of right buttock, stage 2; W19.XXXA Unspecified fall, initial encounter; B35.4 Tinea corporis; S30.0XXA Contusion of lower back and pelvis, initial encounter; E11.22 Type 2 diabetes mellitus with diabetic chronic kidney disease; I12.9 Hypertensive chronic kidney disease with stage 1 through stage 4 chronic kidney disease, or unspecified chronic kidney disease; N18.9 Chronic kidney disease, unspecified; C22.9 Malignant neoplasm of liver, not specified as primary or secondary; R29.898 Other symptoms and signs involving the musculoskeletal system; D64.9 Anemia, unspecified; M25.562 Pain in left knee; M25.572 Pain in left ankle and joints of left foot; M25.551 Pain in right hip; Z20.828 Contact with and (suspected) exposure to other viral communicable diseases; Z79.899 Other long term (current) drug therapy
CPT/HCPCS: 0241U; 36000; 36415; 51702; 70450; 71250; 72125; 73562; 73610; 74176; 80048; 80053; 80307; 81001; 82550; 82947; 83036; 83605; 83735; 84132; 84134; 84484; 85025; 85610; 85730; 87040; 87086; 93005; 93268; 96360; 96365; 96374; 96375; 97110; 97161; 97530; 99285; G0378; J1956; J2405; J3010; J3480; A9270-GY